=== PATIENT | female | born 1975 | race Caucasian/White ===

== ENCOUNTER 2019-08-22 08:47 | Outpatient (CLI) | payer OTHER, SELFPAY | END 2019-08-22 08:48 | disposition home or self-care (01) | LOC: ANHAUDIO 08:48 | PROVIDERS: PCP Emergency Medicine; Visit Provider Otolaryngology | DX: H72.00 Central perforation of tympanic membrane, unspecified ear (principal); H90.3 Sensorineural hearing loss, bilateral | CPT/HCPCS: 92557; 92567 ==

== ENCOUNTER 2019-11-20 09:28 | Outpatient (CLI) | payer OTHER, SELFPAY ==
--- NOTE | ~2019-11-20 | MM_ITS ---
EXAMINATION: [place] [facility] [place] HISTORY: Screening mammogram TECHNIQUE: Craniocaudal and mediolateral oblique 3-D tomosynthesis images were obtained and synthetic 2-D images were generated. CAD analysis was submitted and interpreted. COMPARISON: 09/12/2018, 04/16/2018, 02/28/2018, 11/14/2016 BREAST PARENCHYMAL COMPOSITION: There are scattered areas of fibroglandular density. FINDINGS: There is no evidence of suspicious mass, calcification, or architectural distortion to sugg est malignancy in either breast. There has been no suspicious interval change. IMPRESSION: 1. No mammographic evidence of malignancy. 2. Recommend routine screening mammography in one year. BI-RADS Category 1: Negative Reviewed, dictated and finalized at location A.
== END 2019-11-20 09:29 | disposition home or self-care (01) ==
LOC: ANHIMG 09:33
PROVIDERS: PCP Emergency Medicine; Visit Provider Emergency Medicine
DX: Z12.31 Encounter for screening mammogram for malignant neoplasm of breast (principal)
CPT/HCPCS: 77063; 77067

== ENCOUNTER 2020-05-25 09:56 | Outpatient (CLI) | payer OTHER, SELFPAY | END 2020-05-25 09:57 | disposition home or self-care (01) | PROVIDERS: PCP Emergency Medicine; Visit Provider Otolaryngology | DX: H72.02 Central perforation of tympanic membrane, left ear (principal) | CPT/HCPCS: 92557; 92567 ==

== ENCOUNTER → 2020-06-08 03:03 | Outpatient (CLI) | payer OTHER, SELFPAY ==
[2020-06-08 21:05] LABS: SARS-CoV-2 RNA PCR Negative
== END ==
PROVIDERS: PCP Emergency Medicine; Visit Provider Otolaryngology
DX: Z01.812 Encounter for preprocedural laboratory examination (principal); Z20.822 Contact with and (suspected) exposure to COVID-19
CPT/HCPCS: C9803; U0003; U0005

== ENCOUNTER 2020-06-08 08:12 | Outpatient (CLI) | payer OTHER, SELFPAY ==
--- NOTE | 2020-06-08 08:30 | ECG_ITS ---
Measurements Intervals [place] Rate: 77 P: 33 W[place]: 203 QRS: -4 QRSD: 98 T: 13 QT: 394 QTc: 448 Interpretive Statements SINUS RHYTHM VENTRICULAR PREMATURE COMPLEX BORDERLINE AV CONDUCTION DELAY LOW QRS VOLTAGE IN PRECORDIAL LEADS BORDERLINE R WAVE PROGRESSION, ANTERIOR LEADS INFERIOR INFARCT, AGE INDETERMINATE BASELINE ARTIFACT- I, II, III, AVR, AVL, AVF ABNORMAL ECG Electronically Signed On 06-08-2020 8:56:36 CDT by Stevenson Beebe D.O.
[2020-06-08 09:24] LABS: Anion Gap 6 mmol/L (8-16); Blood Urea Nitrogen 13 mg/dL (7-17); Calcium 9.3 mg/dL (8.4-10.2); Carbon Dioxide 31 mmol/L (22-30); Chloride 104 mmol/L (98-107); Estimated Glomerular Filt Rate > 60; Glucose 99 mg/dL (65-105); Potassium 4.2 mmol/L (3.4-5.0); Sodium 141 mmol/L (137-145)
[2020-06-08 09:26] LABS: INR 2.1; Prothrombin Time 24.5 Seconds (11.1-14.7)
[2020-06-08 09:27] LABS: Partial Thromboplastin Time 39.8 SECONDS (22.3-36.8)
== END 2020-06-08 08:13 | disposition home or self-care (01) ==
LOC: ANHSURGERY 08:16
PROVIDERS: Anesthesiology; PCP Emergency Medicine; Visit Provider Otolaryngology
DX: E11.9 Type 2 diabetes mellitus without complications (principal); Z79.01 Long term (current) use of anticoagulants; Z01.818 Encounter for other preprocedural examination; I45.9 Conduction disorder, unspecified
CPT/HCPCS: 36415; 80048; 85610; 85730; 93005; C9803; U0003; U0005

== ENCOUNTER 2020-06-11 00:49 | Day surgery (SDC) | payer OTHER, SELFPAY ==
[2020-06-02 14:18] VITALS: BMI 51.6
--- NOTE | 2020-06-10 06:28 | PM.HPGS ---
History of Present Illness History of Present Illness Consent: Risks, benefits, and alternatives have been discussed and questions answered. Patient agrees to proceed with procedure. Chief complaint: Left TM perforation Narrative: Shoshana Salas is a 45 year old female with a large central perforation for tympanoplasty left Review of Systems Review of Systems: All systems reviewed & are unremarkable except as noted in HPI and below PMFSH Past Medical History Medical History Arthritis Back pain CAD (coronary artery disease) Chronic narcotic use Diabetes Endometriosis Hypercholesterolemia Lupus (systemic lupus erythematosus) Morbid obesity with BMI of 45.0-49.9, adult GIO on CPAP Surgical History Surgical History Hx of coronary artery bypass graft Family History Family History Mother Patient's mother is in good health Father Patient's father is in good health Sibling Patient's brother is in good health Other Cerebrovascular accident Diabetes mellitus Family history of arthritis Family history of cardiovascular disease Family history of lung disease Family history of malignant neoplasm Family history of seizure disorder Hypertension Social History Social History Smoking packs per day: 2 Smoking cigarettes per day: 40.0 Years smoked: 20 Smoking pack-years: 40.00 Smoking status: Former smoker Smoking end date: 03/27/09 Alcohol intake: never Substance use: never Gender identity (if verbalized by the patient): Female Spiritual care concerns: No Meds Home Medications and Allergies Home Medications Medication Instructions Recorded Confirmed Type allopurinol 100 mg PO DAILY 01/30/19 06/02/20 History cholecalciferol (vitamin D3) 5,000 unit PO DAILY 01/30/19 06/02/20 History [Vitamin D3] fenofibrate 160 mg PO DAILY 01/30/19 06/02/20 History isosorbide mononitrate 30 mg PO DAILY 01/30/19 06/02/20 History losartan 25 mg PO DAILY 01/30/19 06/02/20 History metformin 1,000 mg PO DAILY 01/30/19 06/02/20 History metoprolol succinate 25 mg PO DAILY 01/30/19 06/02/20 History omeprazole 40 mg PO DAILY 01/30/19 06/02/20 History pravastatin 40 mg PO DAILY 01/30/19 06/02/20 History topiramate 50 mg PO BID 01/30/19 06/02/20 History warfarin 4 mg PO DAILY 01/30/19 06/02/20 History warfarin 4 mg PO DAILY 01/30/19 06/02/20 History calcium carbonate [Calcium 600] 600 mg PO DAILY 02/07/19 06/02/20 History calcium polycarbophil [Fiber-Tabs] 625 mg PO DAILY 02/07/19 06/02/20 History folic acid 1 mg PO DAILY 02/07/19 06/02/20 History hydrocodone-acetaminophen 1 tablet PO Q6H 02/07/19 06/02/20 History methylphenidate HCl [Ritalin] 20 mg PO BID 02/07/19 06/02/20 History multivitamin 1 tablet PO DAILY 02/07/19 06/02/20 History liraglutide 0.6 mg/0.1 mL (18 mg/3 0.6 mg SUBCUT DAILY 03/26/20 06/02/20 History mL) subcutaneous pen injector pregabalin 75 mg capsule 150 mg PO BID 03/26/20 06/02/20 History Allergies Allergy/AdvReac Type Severity Reaction Status Date / Time No Known Allergies Allergy Verified 06/02/20 14:19 Exam Narrative: Exam Narrative: chest clear heart cords are heart without murmurs abdomen soft left central perforation Assessment and Plan Additional Plan plan is a left tympanoplasty
--- NOTE | 2020-06-10 09:47 | WPDANESEPPF ---
Anes - Initial Pre Proc Eval Procedure: Operation Date: 06/11/20 08:00 Proposed Procedures p Left Tympanoplasty - Rhett Serrano MD Date/Time: 06/10/20 09:47 Surgeon: Rhett Serrano MD Pre Op Diagnosis: Left TM perforation Patient Data Age: 45 Gender: F Height: 1.52 m Weight: 120 kg Allergies Allergy/AdvReac Type Severity Reaction Status Date / Time No Known Allergies Allergy Verified 06/11/20 06:27 Home Medications Medication Instructions Recorded Confirmed Type allopurinol 100 mg PO DAILY 01/30/19 06/11/20 History cholecalciferol (vitamin D3) 5,000 unit PO DAILY 01/30/19 06/02/20 History [Vitamin D3] fenofibrate 160 mg PO DAILY 01/30/19 06/11/20 History isosorbide mononitrate 30 mg PO DAILY 01/30/19 06/11/20 History losartan 25 mg PO DAILY 01/30/19 06/11/20 History metformin 1,000 mg PO DAILY 01/30/19 06/11/20 History metoprolol succinate 25 mg PO DAILY 01/30/19 06/11/20 History omeprazole 40 mg PO DAILY 01/30/19 06/11/20 History pravastatin 40 mg PO DAILY 01/30/19 06/11/20 History topiramate 50 mg PO BID 01/30/19 06/11/20 History warfarin 8 mg PO DAILY 01/30/19 06/11/20 History calcium carbonate [Calcium 600] 600 mg PO DAILY 02/07/19 06/11/20 History calcium polycarbophil [Fiber-Tabs] 625 mg PO DAILY 02/07/19 06/11/20 History folic acid 1 mg PO DAILY 02/07/19 06/11/20 History hydrocodone-acetaminophen 1 tablet PO Q6H 02/07/19 06/11/20 History methylphenidate HCl [Ritalin] 20 mg PO BID 02/07/19 06/11/20 History multivitamin 1 tablet PO DAILY 02/07/19 06/11/20 History liraglutide 0.6 mg/0.1 mL (18 mg/3 0.6 mg SUBCUT DAILY 03/26/20 06/11/20 History mL) subcutaneous pen injector pregabalin 75 mg capsule 150 mg PO BID 03/26/20 06/11/20 History Patient hx anesthesia problems: none Family hx anesthesia problems: none [facility] Past Medical History Medical History Arthritis Back pain CAD (coronary artery disease) Chronic narcotic use Diabetes Endometriosis Hypercholesterolemia Lupus (systemic lupus erythematosus) Morbid obesity with BMI of 45.0-49.9, adult GIO on CPAP Surgical History Surgical History Hx of coronary artery bypass graft Family History Family History Mother Patient's mother is in good health Father Patient's father is in good health Sibling Patient's brother is in good health Other Cerebrovascular accident Diabetes mellitus Family history of arthritis Family history of cardiovascular disease Family history of lung disease Family history of malignant neoplasm Family history of seizure disorder Hypertension Social History Social History Smoking packs per day: 2 Smoking cigarettes per day: 40.0 Years smoked: 20 Smoking pack-years: 40.00 Smoking status: Former smoker Smoking end date: 03/27/09 Alcohol intake: never Substance use: never Living arrangements: alone Gender identity (if verbalized by the patient): Female Spiritual care concerns: No Anes - Eval Final PreProcedure Day of Procedure 06/10/20 09:47 Patient weight: super morbidly obese Heart: regular rate and rhythm Lungs: clear to auscultation and normal air movement Airway: Mallampati scale class II Neurological: alert and oriented Last oral intake: >/= 8 hours ASA classification: III Emergent: no Anesthetic plan: proceed Anesthesia type and monitoring: general ETT Informed Consent: The patient's anesthetic plan and its attendant risks and benefits were discussed with the patient/family/POA. Questions were solicited and answers provided to the satisfaction of the patient/family/POA.
[2020-06-11] VITALS (7 sets, daily range): BP systolic 110–140; BP diastolic 81–94; PULSE 78–86; RESP 9–20; TEMP 36.1–36.2; O2SAT 91–98
--- NOTE | 2020-06-11 06:23 | WPDHPUPDATE1 ---
History and Physical Update Update Date/Time: 06/11/20 06:23 History and Physical has been reviewed, including an updated exam of the patient. There are NO changes in the patient's condition. Risks, benefits, and alternatives have been discussed and questions answered. Patient agrees to proceed with procedure.
[2020-06-11] MEDS: LACTATED RINGERS 1,000 ML 30 ML IV CONT (07:01)
[2020-06-11 07:03] LABS: Glucose Point of Care 108 (65-105)
[2020-06-11 07:20] LABS: Prothrombin Time 13.6 Seconds (11.1-14.7)
[2020-06-11] MEDS: LIDO 1%/EPINEPHRINE/PF 1:200,000 30 ML VIAL XX (08:06)
[2020-06-11] MEDS: CIPROFLOXACIN HCL 0.3% OP SOLN 2.5 ML BTL 1 DROP EACH EAR (08:06)
[2020-06-11] MEDS: GELATIN SPONGE 12-7MM 1 EACH TOPICAL (08:07)
[2020-06-11] MEDS: NEOMYCIN/POLYMYXIN/BACITRACIN OINTMENT 15 GM TUBE 1 APPLIC TOPICAL (08:08)
--- NOTE | 2020-06-11 08:17 | PM.PROC ---
Procedure Note - Detailed Date of procedure: 06/11/20 Pre-op diagnosis: Left TM perforation Post-op diagnosis: same Procedure performed: Surgeon: Rhett Serrano MD
--- NOTE | 2020-06-11 08:20 | PM.PROC ---
Procedure Note - Detailed Date of procedure: 06/11/20 Pre-op diagnosis: Left TM perforation Procedure performed: Left fat graft tympanoplasty Description of procedure: Patient was prepped and draped fashion anesthesia the postauricular region in vascular strip were injected with xylocaine with adrenaline central perforation was noted incision was made postauricularly of a piece of adipose tissue harvested and closed with 4 0 chromic this 20 tissue was then placed in an underlay fashion and dumbbell fashion through the perforation and Gelfoam placed on top patient was terminated procedure was terminated Anesthesia: GLMA Surgeon: Rhett Serrano MD Estimated blood loss (mL): 0 Drains: No Packing: No Pathology: none sent Complications: No immediate complications Condition: stable Disposition: PACU Findings: Left central perforation
[2020-06-11 08:30] LABS: Glucose Point of Care 93 (65-105)
[2020-06-11] MEDS: fentaNYL CITRATE INJ (*CRX) 100 MCG/2 ML VIAL 25 MCG IV PUSH ×2 (08:51→08:59)
[2020-06-11] MEDS: oxyCODONE HCL (*CRX) 5 MG TAB IR PO (09:25)
== END 2020-06-11 09:56 | disposition home or self-care (01) ==
PROVIDERS: Anesthesiology; PCP Emergency Medicine; Visit Provider Otolaryngology
PROC: (CPT 69620; principal; 2020-06-11 08:00)
DX: H72.02 Central perforation of tympanic membrane, left ear (principal); M19.90 Unspecified osteoarthritis, unspecified site; I25.10 Atherosclerotic heart disease of native coronary artery without angina pectoris; E11.9 Type 2 diabetes mellitus without complications; N80.9 Endometriosis, unspecified; E78.00 Pure hypercholesterolemia, unspecified; M32.9 Systemic lupus erythematosus, unspecified; G47.33 Obstructive sleep apnea (adult) (pediatric); E66.01 Morbid (severe) obesity due to excess calories; Z68.43 Body mass index [BMI] 50.0-59.9, adult; Z87.891 Personal history of nicotine dependence; Z79.01 Long term (current) use of anticoagulants; Z79.84 Long term (current) use of oral hypoglycemic drugs
CPT/HCPCS: 69620; 36415; 82948; 85610; 85730; A9270; J1100; J2405; J2704; J3010; J7120

== ENCOUNTER 2020-07-26 17:32 | Emergency (ER) | payer OTHER, SELFPAY ==
--- NOTE | ~2020-07-26 | XR_ITS ---
EXAMINATION: XR knee LT 3V DATE: 07/26/2020 18:55 INDICATION: Left knee pain post fall TECHNIQUE: Anteroposterior, oblique and crosstable lateral views of the left knee were obtained COMPARISON: None. FINDINGS: Alignment is normal. No fracture. Joint spaces appear normal on nonweightbearing imaging. No joint e ffusion/layering lipohemarthrosis. A few surgical clips at the medial aspect of the proximal left marc f. Soft tissues are otherwise unremarkable. IMPRESSION: 1. No left knee joint effusion or osseous abnormality. Reviewed, dictated and finalized at location A.
--- NOTE | ~2020-07-26 | CT_ITS ---
EXAMINATION: CT cervical spine wo con DATE: 07/26/2020 18:32 INDICATION: Fall with posterior head injury presenting with headache and back pain. TECHNIQUE: Computed tomography (CT) of the cervical spine was performed without intravenous contrast. Automated exposure control and iterative reconstruction technique were employed. The dose-length pro duct was 529.32 mGy-cm. COMPARISON: Cervical spine MR dated 01/17/2011 FINDINGS: Again seen is straightening of the normal cervical lordosis. Vertebral body and disc heights are norm al. No fracture. Cervical soft tissues are unremarkable. Minimal to mild scattered facet and uncovert ebral osteoarthritis in the cervical spine. No central canal or neural foraminal stenosis. Visualized airway and apices of lungs are clear. IMPRESSION: 1. Minimal cervical spondylosis. No acute osseous abnormality. Reviewed, dictated and finalized at location A.
--- NOTE | ~2020-07-26 | XR_ITS ---
EXAMINATION: XR hip RT 2V w AP pelvis, XR lumbar spine 2-3V DATE: 07/26/2020 18:56 INDICATION: Right hip pain and back pain post fall 2 days prior TECHNIQUE: 1. Anteroposterior view of the pelvis and anteroposterior and frog-leg lateral views of the right hip were obtained. 2. AP, lateral and coned-down lateral lumbosacral views of the lumbar spine were obtained. COMPARISON: None. FINDINGS: Lumbar spine: Alignment is normal. Vertebral body heights are normal. Mild disc height loss and degenerative endpla te osteophytes at L1-L2. Additional mild disc height loss at L4-L5. Sacrum and bilateral sacroiliac j oints are normal. Mild atherosclerotic calcific lesion along the aorta and iliac arteries. Right hip and pelvis: Alignment is normal. No fracture. Bilateral hip joint spaces are normal. Phlebolith in the pelvis. IMPRESSION: 1. Mild lumbar spondylosis. No acute osseous abnormality mild lumbar spine, pelvis or right hip. Reviewed, dictated and finalized at location A. IMPRESSION: 1. Mild lumbar spondylosis. No acute osseous abnormality mild lumbar spine, pel vis or right hip.
--- NOTE | ~2020-07-26 | XR_ITS ---
EXAMINATION: XR knee RT 3V DATE: 07/26/2020 18:55 INDICATION: Right knee pain post fall TECHNIQUE: Anteroposterior, 2 oblique and crosstable lateral views of the right knee were obtained COMPARISON: 05/30/2014 FINDINGS: Alignment is normal. No fracture. Joint spaces appear normal on nonweightbearing imaging. Bone islan d at the lateral femoral condyle. Small right knee joint effusion without layering lipohemarthrosis. Soft tissues are unremarkable. IMPRESSION: 1. Small right knee joint effusion. No acute osseous abnormality. Reviewed, dictated and finalized at location A.
--- NOTE | ~2020-07-26 | CT_ITS ---
EXAMINATION: CT brain wo con DATE: 07/26/2020 18:32 INDICATION: Headache post fall with posterior head injury TECHNIQUE: Computed tomography (CT) of the head was performed without intravenous contrast. Sagittal and coronal reconstructions were performed. The mA was adjusted according to patient size. Iterative reconstruction technique was employed. The dose-length product was 605.33 mGy-cm. COMPARISON: head CT and brain MR dated 10/01/2016 FINDINGS: No fracture. No acute intracranial hemorrhage, acute infarction or abnormal extra axial fluid collect ion. Ventricles are normal and symmetric. No mass/mass effect. Postoperative changes of bilateral ant ral window procedures along the medial paul of the left and right maxillary sinuses. Mild mucosal th ickening in the left sphenoid sinus and posterior left ethmoid air cells. The orbits and mastoid air cells are normal. IMPRESSION: 1. No fracture or acute intracranial process. Reviewed, dictated and finalized at location A.
[2020-07-26 17:33] VITALS: BP 123/75; PULSE 92; RESP 16; TEMP 36.3; O2SAT 97
--- NOTE | 2020-07-26 18:04 | ED.GENADULT ---
HPI - General Adult General Chief complaint: Fall Stated complaint: fall, headache Time Seen by Provider: 07/26/20 17:46 Source: patient History of Present Illness HPI narrative: Patient is a 45 y/o female complaining of bilateral knee pain, back pain, right hip and headache for last 2 days after a fall 2 days ago. She states that she fell after tripping over a fence for baby. She states that she hit her head, but did not lose consciousness. She describes her pain as sharp and rates it as 6-7/10. There is no alleviating or exacerbating factor. She also has some nausea and vomiting. Of note, she is on Warfarin. Related Data Home Medications Medication Instructions Recorded Confirmed allopurinol 100 mg PO DAILY 01/30/19 06/11/20 cholecalciferol (vitamin D3) 5,000 unit PO DAILY 01/30/19 06/02/20 [Vitamin D3] fenofibrate 160 mg PO DAILY 01/30/19 06/11/20 isosorbide mononitrate 30 mg PO DAILY 01/30/19 06/11/20 losartan 25 mg PO DAILY 01/30/19 06/11/20 metformin 1,000 mg PO DAILY 01/30/19 06/11/20 metoprolol succinate 25 mg PO DAILY 01/30/19 06/11/20 omeprazole 40 mg PO DAILY 01/30/19 06/11/20 pravastatin 40 mg PO DAILY 01/30/19 06/11/20 topiramate 50 mg PO BID 01/30/19 06/11/20 warfarin 8 mg PO DAILY 01/30/19 06/11/20 calcium carbonate [Calcium 600] 600 mg PO DAILY 02/07/19 06/11/20 calcium polycarbophil [Fiber-Tabs] 625 mg PO DAILY 02/07/19 06/11/20 folic acid 1 mg PO DAILY 02/07/19 06/11/20 hydrocodone-acetaminophen 1 tablet PO Q6H 02/07/19 06/11/20 methylphenidate HCl [Ritalin] 20 mg PO BID 02/07/19 06/11/20 multivitamin 1 tablet PO DAILY 02/07/19 06/11/20 liraglutide 0.6 mg/0.1 mL (18 mg/3 0.6 mg SUBCUT DAILY 03/26/20 06/11/20 mL) subcutaneous pen injector pregabalin 75 mg capsule 150 mg PO BID 03/26/20 06/11/20 Allergies Allergy/AdvReac Type Severity Reaction Status Date / Time No Known Allergies Allergy Verified 07/26/20 17:44 Review of Systems Constitutional: Constitutional: Denies chills, Denies fever(s), Reports headache(s) and Denies weakness Eyes: Eyes: Denies blurry vision ENT: Reports headache(s) and Denies neck pain Cardiovascular: Cardiovascular: Denies chest pain and Denies dyspnea Respiratory: Respiratory: Denies cough and Denies dyspnea Gastrointestinal: Gastrointestinal: Denies abdominal pain, Denies diarrhea, Reports nausea and Reports vomiting Genitourinary: Genitourinary: Denies hematuria and Denies dysuria Musculoskeletal: Musculoskeletal: Reports back pain, Reports arthralgias (right hip pain, bilateral knee pain) and Denies neck pain Neurologic: Reports headache(s) and Denies weakness [facility] Past Medical History Medical History (Updated 07/27/20 @ 00:00 by Ania Datisha) Arthritis Back pain CAD (coronary artery disease) Chronic narcotic use Diabetes Endometriosis Hypercholesterolemia Lupus (systemic lupus erythematosus) Morbid obesity with BMI of 45.0-49.9, adult GIO on CPAP Surgical History Surgical History Hx of coronary artery bypass graft Family History Family History Mother Patient's mother is in good health Father Patient's father is in good health Sibling Patient's brother is in good health Other Cerebrovascular accident Diabetes mellitus Family history of arthritis Family history of cardiovascular disease Family history of lung disease Family history of malignant neoplasm Family history of seizure disorder Hypertension Social History Social History Smoking packs per day: 2 Smoking cigarettes per day: 40.0 Years smoked: 20 Smoking pack-years: 40.00 Smoking status: Former smoker Smoking end date: 03/27/09 Alcohol intake: never Substance use: never Gender identity (if verbalized by the patient): Female Spiritual care concerns: No Exam Const: General: no acute di
--- NOTE | 2020-07-26 18:25 | PC.NURSE ---
Pt to xray.
[2020-07-26 18:32] LABS: Basophils Absolute Auto 0.1 K/mm3 (0.0-0.1); Eosinophils Absolute Auto 0.3 K/mm3 (0-0.3); Eosinophils Percent Auto 3.4 % (0-4.4); Hematocrit 41.1 % (37.0-47.0); Hemoglobin 13.4 g/dL (12.0-15.0); Immature Granulocyte Absolute 0.01 K/mm3 (0.00-0.031); Immature Granulocyte Percent A 0.1 % (0-0.5); Lymphocytes Absolute Auto 2.32 K/mm3 (0.9-3.2); Lymphocytes Percent Auto 31.8 % (18.3-44.2); Mean Corpuscular HGB Conc 32.6 g/dl (32-36); Mean Corpuscular Hemoglobin 27.6 pg (26-34); Mean Corpuscular Volume 84.7 fl (80-100); Monocytes Absolute Auto 0.7 K/mm3 (0.1-0.6); Neutrophils Percent Auto 54.7 % (45.5-73.1); Platelet Count Result 274 k/mm3 (150-375); Red Blood Count 4.85 M/mm3 (4.2-5.4); Red Cell Distribution Width 13.2 % (11.5-14.5); White Blood Count 7.3 K/mm3 (4.5-10.0)
[2020-07-26 18:41] LABS: Anion Gap 9 mmol/L (8-16); Blood Urea Nitrogen 15 mg/dL (7-17); Calcium 9.5 mg/dL (8.4-10.2); Carbon Dioxide 27 mmol/L (22-30); Chloride 104 mmol/L (98-107); Estimated CRCL calculation 119 ml/min; Estimated Glomerular Filt Rate > 60; Glucose 92 mg/dL (65-105); Potassium 3.8 mmol/L (3.4-5.0); Sodium 140 mmol/L (137-145)
[2020-07-26 18:43] LABS: Prothrombin Time 31.9 Seconds (11.1-14.7)
[2020-07-26 18:44] LABS: Partial Thromboplastin Time 42.4 SECONDS (22.3-36.8)
== END 2020-07-26 19:36 | disposition home or self-care (01) ==
PROVIDERS: Emergency Provider Emergency Medicine; PCP Emergency Medicine
DX: M25.562 Pain in left knee (principal); M25.561 Pain in right knee; M25.551 Pain in right hip; S00.03XA Contusion of scalp, initial encounter; I25.10 Atherosclerotic heart disease of native coronary artery without angina pectoris; E11.9 Type 2 diabetes mellitus without complications; E78.00 Pure hypercholesterolemia, unspecified; N80.9 Endometriosis, unspecified; M32.9 Systemic lupus erythematosus, unspecified; G47.33 Obstructive sleep apnea (adult) (pediatric); E66.01 Morbid (severe) obesity due to excess calories; Z68.43 Body mass index [BMI] 50.0-59.9, adult; M19.90 Unspecified osteoarthritis, unspecified site; Z87.891 Personal history of nicotine dependence; Z95.1 Presence of aortocoronary bypass graft; Z79.84 Long term (current) use of oral hypoglycemic drugs; Z79.01 Long term (current) use of anticoagulants; M47.812 Spondylosis without myelopathy or radiculopathy, cervical region; M47.816 Spondylosis without myelopathy or radiculopathy, lumbar region; W18.09XA Striking against other object with subsequent fall, initial encounter
CPT/HCPCS: 36415; 70450; 72100; 72125; 73502; 73562; 80048; 85025; 85610; 85730; 99284

== ENCOUNTER 2020-10-05 08:03 | Emergency (ER) | payer OTHER, SELFPAY ==
--- NOTE | ~2020-10-05 | XR_ITS ---
EXAMINATION: XR ribs LT 2V DATE: 10/05/2020 08:20 INDICATION: Left rib pain TECHNIQUE: 3 views of the left ribs were obtained. COMPARISON: Chest radiograph dated 04/19/2015 FINDINGS: Nondisplaced relatively recent-appearing anterior left fifth and seventh rib fractures. Suggestion of an old healed posterolateral left fifth rib fracture. Visualized portions of the lungs are clear. No pleural effusion or pneumothorax. Cardiomediastinal silhouette is normal. Median sternotomy wires an d mediastinal surgical clips are seen, likely from prior coronary artery bypass grafting. IMPRESSION: 1. Recent appearing nondisplaced anterior left fifth and seventh rib fractures. 2. No acute cardiopulmonary disease. Reviewed, dictated and finalized at location A.
--- NOTE | 2020-10-05 08:05 | ED.GENADULT ---
HPI - General Adult General Chief complaint: Chest Pain Stated complaint: Left side pain Time Seen by Provider: 10/05/20 08:06 Source: patient and RN notes reviewed History of Present Illness HPI narrative: Patient is a 45-year-old female who presents the urgent care with complaints of anterior and lateral left side pain. Patient states that 2 days ago she went to the chiropractor and had an adjustment and believes that she may have displaced or cracked a rib . Patient states that the chiropractor told her to put ice and heat on the area and she has been taking her prescription Zanoni without much pain relief. Patient states that it exacerbates with movement and deep breathing. Denies of any shortness of breath. No other acute complaints. No acute distress noted. Patient aware of the plan of care. Some parts of this dictation were generated by voice recognition software and may contain typographical and/or grammatical inaccuracies. Related Data Home Medications Medication Instructions Recorded Confirmed allopurinol 100 mg PO DAILY 01/30/19 06/11/20 cholecalciferol (vitamin D3) 5,000 unit PO DAILY 01/30/19 06/02/20 [Vitamin D3] fenofibrate 160 mg PO DAILY 01/30/19 06/11/20 isosorbide mononitrate 30 mg PO DAILY 01/30/19 06/11/20 losartan 25 mg PO DAILY 01/30/19 06/11/20 metformin 1,000 mg PO DAILY 01/30/19 06/11/20 metoprolol succinate 25 mg PO DAILY 01/30/19 06/11/20 omeprazole 40 mg PO DAILY 01/30/19 06/11/20 pravastatin 40 mg PO DAILY 01/30/19 06/11/20 topiramate 50 mg PO BID 01/30/19 06/11/20 warfarin 8 mg PO DAILY 01/30/19 06/11/20 calcium carbonate [Calcium 600] 600 mg PO DAILY 02/07/19 06/11/20 calcium polycarbophil [Fiber-Tabs] 625 mg PO DAILY 02/07/19 06/11/20 folic acid 1 mg PO DAILY 02/07/19 06/11/20 hydrocodone-acetaminophen 1 tablet PO Q6H 02/07/19 06/11/20 methylphenidate HCl [Ritalin] 20 mg PO BID 02/07/19 06/11/20 multivitamin 1 tablet PO DAILY 02/07/19 06/11/20 liraglutide 0.6 mg/0.1 mL (18 mg/3 0.6 mg SUBCUT DAILY 03/26/20 06/11/20 mL) subcutaneous pen injector pregabalin 75 mg capsule 150 mg PO BID 03/26/20 06/11/20 amlodipine 10/05/20 nitroglycerin mg 10/05/20 10/05/20 Allergies Allergy/AdvReac Type Severity Reaction Status Date / Time No Known Allergies Allergy Verified 10/05/20 08:14 Review of Systems Review of Systems: Narrative: CONSTITUTIONAL: Denies fever, chills, or sweats. EYES: Denies visual changes, redness, or discharge. ENT: Denies rhinorrhea, congestion, sore throat, or otalgia. CARDIOVASCULAR: Denies chest pain, palpitations, or edema. RESPIRATORY: Denies cough or dyspnea. GASTROINTESTINAL: Denies abdominal pain, nausea, vomiting, or diarrhea. GENITOURINARY: Denies dysuria or hematuria. SKIN: Denies rash or itching. MUSCULOSKELETAL: Reports of left rib pain NEUROLOGIC: Denies headache, numbness, or weakness. All other systems reviewed are negative, except as documented in HPI. [facility] Past Medical History Medical History (Updated 10/05/20 @ 08:45 by ZEINAB Quinones) Arthritis Back pain CAD (coronary artery disease) Chronic narcotic use Diabetes Endometriosis Hypercholesterolemia Lupus (systemic lupus erythematosus) Morbid obesity with BMI of 45.0-49.9, adult GIO on CPAP Surgical History Surgical History Hx of coronary artery bypass graft Family History Family History Mother Patient's mother is in good health Father Patient's father is in good health Sibling Patient's brother is in good health Other Cerebrovascular accident Diabetes mellitus Family history of arthritis Family history of cardiovascular disease Family history of lung disease Family history of malignant neoplasm Family history of seizure disorder Hypertension Social History Social History Smoking packs per day: 2 Smokin
[2020-10-05 08:11] VITALS: BP 142/72; PULSE 85; RESP 16; TEMP 36.4; O2SAT 98
== END 2020-10-05 08:55 | disposition home or self-care (01) ==
PROVIDERS: Emergency Provider Nurse Practitioner Family; PCP Emergency Medicine
DX: S22.42XA Multiple fractures of ribs, left side, initial encounter for closed fracture (principal); X58.XXXA Exposure to other specified factors, initial encounter; M19.90 Unspecified osteoarthritis, unspecified site; I25.10 Atherosclerotic heart disease of native coronary artery without angina pectoris; E11.9 Type 2 diabetes mellitus without complications; N80.9 Endometriosis, unspecified; E78.00 Pure hypercholesterolemia, unspecified; M32.9 Systemic lupus erythematosus, unspecified; G47.33 Obstructive sleep apnea (adult) (pediatric); E66.01 Morbid (severe) obesity due to excess calories; Z68.42 Body mass index [BMI] 45.0-49.9, adult; Z95.1 Presence of aortocoronary bypass graft
CPT/HCPCS: 71100; 99213; G0463

== ENCOUNTER 2020-11-05 13:10 | Outpatient (CLI) | payer OTHER, SELFPAY ==
--- NOTE | ~2020-11-05 | DEXA_ITS ---
Bone Density Report Name: Shoshana Salas Age: 45 Sex: Female Ethnicity: White Date of : 1975 Indication: monitoring treatment; height loss; prior fracture; hysterectomy; rheumatoid arthritis; postmenopausal Referring Provider: Kingsley, Nelia Hoover Study: Bone densitometry was performed. Exam Date: November 05, 2020 Accession number: [id number] Bone Density: Region BMD T-score Z-score Classification AP Spine (L1-L4) 0.954 -0.8 -0.4 Normal Femoral Neck (Left) 0.727 -1.1 -0.7 Osteopenia Total Hip (Left) 0.961 0.2 0.4 Normal Total Hip Bilateral Avg 0.930 -0.1 0.2 Normal Femoral Neck (Right) 0.687 -1.5 -1.1 Osteopenia Total Hip (Right) 0.897 -0.4 -0.1 Normal World Health Organization criteria for BMD impression classify patients as: Normal (T-score at or above -1.0), Osteopenia (T-score between -1.0 and -2.5), or Osteoporosis (T-score at or below -2.5). 10-year Fracture Risk: FRAX not reported because: Treated for osteoporosis Previous Exams: Region Exam Age BMD T-score BMD Change BMD Change Date g/cm2 vs Baseline vs Previous AP Spine(L1-L4) 11/05/2020 45 0.954 -0.8 0.057(6.4%)* 0.009(1.0%) 02/14/2019 43 0.945 -0.9 0.048(5.4%)* -0.030(-3.1%)* 11/14/2016 41 0.975 -0.7 0.078(8.8%)* 0.078(8.8%)* 01/23/2014 38 0.897 -1.4 Total Hip(Left) 11/05/2020 45 0.961 0.2 0.073(8.2%)* -0.013(-1.4%) 02/14/2019 43 0.974 0.3 0.086(9.7%)* -0.126(-11.4%) 11/14/2016 41 1.100 1.3 0.212(23.8%)* 0.212(23.8%)* 01/23/2014 38 0.889 -0.4 Total Hip(Right) 11/05/2020 45 0.897 -0.4 0.072(8.7%)* -0.021(-2.3%) 02/14/2019 43 0.918 -0.2 0.093(11.3%)* -0.061(-6.2%)* 11/14/2016 41 0.979 0.3 0.153(18.6%)* 0.153(18.6%)* 01/23/2014 38 0.825 -1.0 *Denotes significance at 95% confidence level, LSC for AP Spine = 0.022 g/cm2, LSC for Total Hip = 0.027 g/cm2 Clinical Information Provided by Patient: Has had a low trauma fracture Has rheumatoid arthritis Is being treated for osteoporosis Has used the following medications: Fosamax (i.e. alendronate), Vitamin D, Calcium Has the following medical conditions: Hysterectomy, Lupus Patient maximum height was 61 Menopause Age: 26 Drinks caffeinated beverages Onset of menses at age 12 Number of children 2 Impression: The patient has low bone mass, based on the Right Femoral Neck T-score. The patient has risk factors, including: previous fracture. No significant
== END 2020-11-05 13:11 | disposition home or self-care (01) ==
LOC: ANHIMG 13:11
PROVIDERS: PCP Emergency Medicine; Visit Provider Internal Medicine Endocrinology, Diabetes & Metabolism
DX: M85.852 Other specified disorders of bone density and structure, left thigh (principal); M85.851 Other specified disorders of bone density and structure, right thigh
CPT/HCPCS: 77080

== ENCOUNTER 2020-11-19 09:06 | Outpatient (CLI) | payer OTHER, SELFPAY ==
--- NOTE | ~2020-11-19 | MM_ITS ---
EXAMINATION: MM screening [facility] BI w meera HISTORY: Screening mammogram TECHNIQUE: Craniocaudal and mediolateral oblique 3-D tomosynthesis images were obtained and synthetic 2-D images were generated. CAD analysis was submitted and interpreted. COMPARISON: 11/20/2019, 09/12/2018, 04/16/2018, 02/28/2018 BREAST PARENCHYMAL COMPOSITION: There are scattered areas of fibroglandular density. FINDINGS: There is no evidence of suspicious mass, calcification, or architectural distortion to sugg est malignancy in either breast. There has been no suspicious interval change. IMPRESSION: 1. No mammographic evidence of malignancy. 2. Recommend routine screening mammography in one year. BI-RADS Category 1: Negative Reviewed, dictated and finalized at location A.
== END 2020-11-19 09:07 | disposition home or self-care (01) ==
LOC: ANHIMG 09:10
PROVIDERS: PCP Emergency Medicine; Visit Provider Emergency Medicine
DX: Z12.31 Encounter for screening mammogram for malignant neoplasm of breast (principal)
CPT/HCPCS: 77063; 77067

== ENCOUNTER 2021-06-25 09:23 | Outpatient (CLI) | payer OTHER, SELFPAY ==
--- NOTE | 2021-06-25 | ECHO_ITS ---
Patient Info Name: Shoshana Salas Age: 46 years : 1975 Gender: Female Ht: 60 in Wt: 222 lbs BSA: 2.13 m2 HR: 68 bpm BP: 103 / 79 mmHg Technical Quality: Fair Exam Date: 06/25/2021 9:58 AM Exam Location: [facility] Patient Status: Outpatient Admit Date: 06/25/2021 Staff Ordering Physician: Franki Flor MD [employer] [facility] Practitioner: Hilda Navarro RDCS Attending Provider: Franki Flor MD Referring Physician: Chacho KAY; Exam Type: CA echo doppler color flow Study Info Indications - cabg arthrersclerotic Complete two-dimensional, color flow and Doppler transthoracic echocardiogram is performed. Summary 1. Complete two-dimensional, color flow and Doppler transthoracic echocardiogram is performed. 2. Left ventricular chamber dimension is normal. 3. Left ventricular systolic function is normal, estimated at 55-60%. 4. There is mildly increased left ventricular wall thickness. 5. The left ventricular diastolic function is grade I diastolic dysfunction. 6. E/e' 10 is mildly elevated. 7. There is trace tricuspid valve regurgitation. 8. No pulmonary hypertension, estimated pulmonary arterial systolic pressure is 29 mmHg. 9. There is trace pulmonic regurgitation. Left Ventricle E/e' 10 is mildly elevated. Left ventricular chamber dimension is normal. Left ventricular systolic function is normal, estimated at 55-60%. There is mildly increased left ventricular wall thickness. The left ventricular diastolic function is grade I diastolic dysfunction. Right Ventricle Right ventricular chamber dimension is normal. Right ventricular systolic function is normal. Left Atria Left atrial chamber dimension is normal. Right Atria Right atrial chamber dimension is normal. Aortic Valve The aortic valve is trileaflet. There is no aortic valve stenosis. There is no aortic valve regurgitation. Pulmonic Valve There is trace pulmonic regurgitation. Mitral Valve There is no mitral valve stenosis. There is no mitral valve regurgitation. Tricuspid Valve There is trace tricuspid valve regurgitation. No pulmonary hypertension, estimated pulmonary arterial systolic pressure is 29 mmHg. Pericardium/Pleural There is no pericardial effusion. Inferior Vena Cava Normal inferior vena cava with >50% collapse upon inspiration consistent with normal right atrial pressure, 5 mmHg. Aorta The aortic root size at the sinus of Valsalva is normal. Left Ventricular Outflow Tract Name Value Normal LVOT 2D LVOT Diameter 2.0 cm LVOT Doppler LVOT Peak Gradient 5 mmHg LVOT Mean Gradient 3 mmHg LVOT VTI 24 cm LVOT VTI/AV VTI Ratio 0.8 LVOT Stroke Volume 73 ml LVOT CO 15.0 l/min LVOT CI 7.1 l/min/m2 Pulmonic Valve Name Value Normal
== END 2021-06-25 09:24 | disposition home or self-care (01) ==
PROVIDERS: PCP Emergency Medicine; Visit Provider Emergency Medicine
DX: Z95.1 Presence of aortocoronary bypass graft (principal)
CPT/HCPCS: 93306

== ENCOUNTER 2021-09-13 01:56 | Emergency (ER) | payer OTHER, SELFPAY ==
--- NOTE | ~2021-09-13 | XR_ITS ---
EXAMINATION: XR forearm RT 2V DATE: 09/13/2021 02:30 INDICATION: Right forearm pain and swelling. TECHNIQUE: 2 views of right forearm were obtained. COMPARISON: None. FINDINGS: Bone alignment is normal. No fracture. There is mild osteoarthritis of first carpometacarpa l joint. No elbow joint effusion. IMPRESSION: 1. No fracture. Reviewed, dictated and finalized at location A. IMPRESSION: 1. No fracture.
--- NOTE | 2021-09-13 02:10 | ED.EXTPRO ---
HPI - Extremity Problem General Chief complaint: Extremity Problem,Nontraumatic Stated complaint: bruising to right arm Time Seen by Provider: 09/13/21 02:02 History of Present Illness HPI Narrative: 46-year-old female presents emergency room secondary to bruising and swelling to her right forearm. She states woke up about 10:00 Monday morning and noticed it. She is continued throughout the day. She denies any specific trauma or injury that she is aware of. Patient has a bleeding disorder and has been on Coumadin for many years. She did stop the Coumadin and switched over to Lovenox that she supposed to have bariatric surgery this coming Monday. She can move her hand and wrist. She thinks maybe she got bit by some type of insect which caused this. She initially came in saying I hope I do not have a blood clot in my arm . I explained to her that I am more concerned just the opposite is bruising in the area and is probably secondary to the fact she been on anticoagulants. Related Data Home Medications Medication Instructions Recorded Confirmed allopurinol 100 mg tablet 100 mg PO DAILY 01/30/19 06/11/20 cholecalciferol (vitamin D3) 125 5,000 unit PO DAILY 01/30/19 06/02/20 mcg (5,000 unit) tablet (Vitamin D3) fenofibrate 160 mg tablet 160 mg PO DAILY 01/30/19 06/11/20 isosorbide mononitrate 30 mg 30 mg PO DAILY 01/30/19 06/11/20 tablet,extended release 24 hr losartan 25 mg tablet 25 mg PO DAILY 01/30/19 06/11/20 metformin 500 mg tablet,extended 1,000 mg PO DAILY 01/30/19 06/11/20 release 24 hr metoprolol succinate 25 mg capsule 25 mg PO DAILY 01/30/19 06/11/20 sprinkle, ext. release 24 hr omeprazole 20 mg capsule,delayed 40 mg PO DAILY 01/30/19 06/11/20 release pravastatin 40 mg tablet 40 mg PO DAILY 01/30/19 06/11/20 topiramate 50 mg tablet 50 mg PO BID 01/30/19 06/11/20 warfarin 4 mg tablet 8 mg PO DAILY 01/30/19 06/11/20 calcium carbonate 600 mg calcium 600 mg PO DAILY 02/07/19 06/11/20 (1,500 mg) tablet (Calcium) calcium polycarbophil 625 mg 625 mg PO DAILY 02/07/19 06/11/20 tablet (Fiber-Tabs) folic acid 1 mg tablet 1 mg PO DAILY 02/07/19 06/11/20 hydrocodone 7.5 mg-acetaminophen 1 tablet PO Q6H 02/07/19 06/11/20 325 mg tablet methylphenidate HCl 20 mg tablet 20 mg PO BID 02/07/19 06/11/20 (Ritalin) multivitamin 1 tablet PO DAILY 02/07/19 06/11/20 liraglutide 0.6 mg/0.1 mL (18 mg/3 0.6 mg subcut DAILY 03/26/20 06/11/20 mL) subcutaneous pen injector (Victoza 2-Jovany) pregabalin 75 mg capsule (Lyrica) 150 mg PO BID 03/26/20 06/11/20 amlodipine 2.5 mg tablet 10/05/20 nitroglycerin 0.4 mg sublingual mg 10/05/20 10/05/20 tablet Allergies Allergy/AdvReac Type Severity Reaction Status Date / Time No Known Allergies Allergy Verified 09/13/21 02:24 Review of Systems Review of Systems: CONSTITUTIONAL: Denies fever, chills, or sweats. EYES: Denies visual changes, redness, or discharge. ENT: Denies rhinorrhea, congestion, sore throat, or otalgia. CARDIOVASCULAR: Denies chest pain, palpitations, or edema. RESPIRATORY: Denies cough or dyspnea. GASTROINTESTINAL: Denies abdominal pain, nausea, vomiting, or diarrhea. GENITOURINARY: Denies dysuria or hematuria. SKIN: Denies rash or itching. MUSCULOSKELETAL: Swelling tenderness and bruising to the right forearm NEUROLOGIC: Denies headache, numbness, or weakness. PSYCHIATRIC: Denies anxiety or depression. [facility] Past Medical History Medical History (Updated 09/13/21 @ 02:48 by Santo Rodas DO) Arthritis Back pain CAD (coronary artery disease) Chronic narcotic use Diabetes Endometriosis Hypercholesterolemia Lupus (systemic lupus erythematosus) Morbid obesity with BMI of 45.0-49.9, adult GIO on CPAP Surgical History Surgical History Hx of coronary artery bypass graft Family History Family History Mother Patient's moth
[2021-09-13 02:18] VITALS: BP 99/62; PULSE 64; RESP 18; TEMP 36.6; O2SAT 100
--- NOTE | 2021-09-13 02:24 | PC.NURSE ---
Pt to XR via stretcher at this time.
== END 2021-09-13 02:54 | disposition home or self-care (01) ==
PROVIDERS: Emergency Provider Emergency Medicine; PCP Emergency Medicine
DX: M79.81 Nontraumatic hematoma of soft tissue (principal); I25.10 Atherosclerotic heart disease of native coronary artery without angina pectoris; E11.9 Type 2 diabetes mellitus without complications; E78.00 Pure hypercholesterolemia, unspecified; M32.9 Systemic lupus erythematosus, unspecified; E66.01 Morbid (severe) obesity due to excess calories; Z68.41 Body mass index [BMI] 40.0-44.9, adult; G47.33 Obstructive sleep apnea (adult) (pediatric); Z95.1 Presence of aortocoronary bypass graft; Z79.84 Long term (current) use of oral hypoglycemic drugs; Z79.01 Long term (current) use of anticoagulants; Z87.891 Personal history of nicotine dependence
CPT/HCPCS: 73090; 99283

== ENCOUNTER 2021-09-14 10:15 | Outpatient (CLI) | payer OTHER, SELFPAY ==
--- NOTE | ~2021-09-14 | US_ITS ---
EXAMINATION: US venous doppler UE RT DATE: 09/14/2021 11:10 INDICATION: Nontraumatic hematoma of soft tissue the right upper limb TECHNIQUE: Grayscale images without and with compression and Doppler images of the right upper extrem ity veins were obtained. COMPARISON: 10/07/2010 FINDINGS: The right internal jugular vein, subclavian vein, axillary vein, brachial vein, basilic vein, cephali c vein, radial vein, and ulnar vein are patent. There is prominent reticulated pattern of hypoechoic subcutaneous edema at the posterolateral aspect of the right forearm in the region of swelling. No lo culated/organized-appearing fluid collection to suggest abscess or hematoma. The subcutaneous tissues at the anteromedial aspect of the right forearm in the region of reported erythema appear normal. IMPRESSION: 1. Patent right upper extremity veins. No evidence of venous thrombosis. 2. Prominent subcutaneous edema at the posterolateral right forearm. No evident abscess or hematoma. Reviewed, dictated and finalized at location B.
== END 2021-09-14 10:16 | disposition home or self-care (01) ==
PROVIDERS: PCP Emergency Medicine; Visit Provider Emergency Medicine
DX: Z79.01 Long term (current) use of anticoagulants (principal)
CPT/HCPCS: 93971

== ENCOUNTER 2021-11-16 16:10 | Outpatient (CLI) | payer OTHER, SELFPAY ==
--- NOTE | ~2021-11-16 | MM_ITS ---
EXAMINATION: MM screening [facility] BI w meera HISTORY: Screening TECHNIQUE: Craniocaudal and mediolateral oblique 3-D tomosynthesis images were obtained and synthetic 2-D images were generated. CAD analysis was submitted and interpreted. COMPARISON: Comparison to multiple prior studies sequentially, with oldest reviewed study dated 11/14. BREAST PARENCHYMAL COMPOSITION: There are scattered areas of fibroglandular density. FINDINGS: Bilateral breast asymmetries are stable. There is no evidence of suspicious mass, calcifica tion, or architectural distortion to suggest malignancy in either breast. There has been no suspiciou s interval change. IMPRESSION: 1. No mammographic evidence of malignancy. 2. Recommend routine screening mammography in one year. BI-RADS Category 1: Negative Reviewed, dictated and finalized at location A.
== END 2021-11-16 16:11 | disposition home or self-care (01) ==
PROVIDERS: PCP Emergency Medicine; Visit Provider Emergency Medicine
DX: Z12.31 Encounter for screening mammogram for malignant neoplasm of breast (principal)
CPT/HCPCS: 77063; 77067

== ENCOUNTER 2022-01-21 09:15 | Outpatient (CLI) | payer OTHER, SELFPAY ==
--- NOTE | ~2022-01-21 | US_ITS ---
US abdomen limited INDICATION: Abdominal pain PROCEDURE: Realtime right upper abdominal ultrasound. COMPARISON: No prior studies for comparison. FINDINGS: The pancreas is normal without focal mass or pancreatic ductal dilation. Liver echotexture is increased, consistent with fatty infiltration. There is normal directional flow in the portal ve in. The gallbladder is normal without stones, gallbladder wall thickening or pericholecystic fluid. Comm on bile duct measures 2 mm. No sonographic Salas's sign. IMPRESSION: 1: Hepatic steatosis. Reviewed, dictated and finalized at location B. IMPRESSION: 1: Hepatic steatosis.
== END 2022-01-21 09:16 | disposition home or self-care (01) ==
PROVIDERS: PCP Emergency Medicine
DX: R10.13 Epigastric pain (principal); K76.0 Fatty (change of) liver, not elsewhere classified
CPT/HCPCS: 76705

== ENCOUNTER 2022-05-19 08:09 | Outpatient (CLI) | payer OTHER, SELFPAY ==
--- NOTE | ~2022-05-19 | NM_ITS ---
EXAMINATION: NM hepatobiliary wo pharm DATE: 05/19/2022 12:28 FACILITY MAINTENANCE TECHNICIAN INDICATION: Right upper quadrant pain and vomiting COMPARISON: None. TECHNIQUE: 4.7 mCi Tc-99m mebrofenin (Choletec) was administered intravenously. Scintigraphic images of the abdomen were obtained for one hour. At the 1 hour time point, the patient drank 8 oz Ensure, and imaging was continued for 60 minutes. Gallbladder ejection fraction was calculated by the technol ogist. FINDINGS: There is normal clearance of radiotracer from the blood pool. There is homogeneous tracer u ptake by the liver. Activity progresses to the bowel and gallbladder. The gallbladder ejection fract ion is 73%. Note that with this technique, normal GBEF >= 33%. IMPRESSION: 1. Normal nuclear hepatobiliary scan. Reviewed, dictated and finalized at location L. LITY MAINTENANCE TECHNICIAN
== END 2022-05-19 08:10 | disposition home or self-care (01) ==
PROVIDERS: PCP Emergency Medicine
DX: R10.11 Right upper quadrant pain (principal); R11.10 Vomiting, unspecified
CPT/HCPCS: 78226; A9537

== ENCOUNTER 2022-06-29 09:04 | Outpatient (CLI) | payer OTHER, SELFPAY | END 2022-06-29 09:05 | disposition home or self-care (01) | LOC: ANHAUDIO 09:04 | PROVIDERS: PCP Emergency Medicine; Visit Provider Otolaryngology | DX: H66.93 Otitis media, unspecified, bilateral (principal); J34.2 Deviated nasal septum; H90.3 Sensorineural hearing loss, bilateral; H69.80 Other specified disorders of Eustachian tube, unspecified ear | CPT/HCPCS: 92557; 92567 ==

== ENCOUNTER 2022-09-16 09:46 | Outpatient (CLI) | payer OTHER, SELFPAY ==
--- NOTE | ~2022-09-16 | XR_ITS ---
EXAMINATION: XR scanogram DATE: 09/16/2022 10:28 INDICATION: Left hip pain. Leg length discrepancy. TECHNIQUE: Standing AP view of the bilateral lower extremities from the pelvis through the ankles wer e obtained on 3 separate overlapping proximal to distal images. COMPARISON: None. FINDINGS: There is a minimal leg length discrepancy which begins at the level of the ankle with the central rig ht talar dome 4 mm above the left, the joint line of the right knee 5 mm above the left and the apex of the right femoral head 3 mm above the left. Alignment is otherwise normal. No fractures. Joint [place] appear relatively preserved throughout. Surgical clips at the medial aspect of the left calf. IMPRESSION: 1. Minimal leg length discrepancy with the apex of the right femoral head 3 mm above the left. Reviewed, dictated and finalized at location A.
== END 2022-09-16 09:47 | disposition home or self-care (01) ==
PROVIDERS: PCP Emergency Medicine; Visit Provider Emergency Medicine
DX: M25.552 Pain in left hip (principal); M21.751 Unequal limb length (acquired), right femur
CPT/HCPCS: 77073

== ENCOUNTER 2023-01-12 14:47 | Inpatient (IN) | payer OTHER, SELFPAY ==
[2023-01-12] VITALS (9 sets, daily range): BP systolic 113–125; BP diastolic 67–82; PULSE 61–73; RESP 15–25; TEMP 36.3; O2SAT 92–100
--- NOTE | ~2023-01-12 | XR_ITS ---
EXAMINATION: XR chest 2V DATE: 01/12/2023 15:06 INDICATION: Chest pain TECHNIQUE: PA and lateral views of the chest are obtained. COMPARISON: 04/19/2015 FINDINGS: There is mild atelectasis at the lung bases. No pleural effusion or pneumothorax. The heart size is normal. There is moderate thoracic spondylosis. Median sternotomy wires and mediastinal surg ical clips are seen, likely from prior coronary artery bypass grafting. IMPRESSION: 1. No acute cardiopulmonary abnormality. Reviewed, dictated and finalized at location F.
--- NOTE | 2023-01-12 14:48 | ECG_ITS ---
Measurements Intervals [place] Rate: 70 P: 19 AR: 167 QRS: -13 QRSD: 87 T: 1 QT: 393 QTc: 426 Interpretive Statements SINUS RHYTHM INFERIOR MYOCARDIAL INFARCTION , PROBABLY OLD [40+ ms Q WAVE AND/OR ST/T ABNORMALITY IN II/aVF] ABNORMAL ECG COMPARED TO ECG 06/08/2020 08:54:35 NO SIGNIFICANT CHANGES Electronically Signed On 01-12-2023 17:24:42 CDT by Charlie Loza M.D.
[2023-01-12 15:14] LABS: Basophils Absolute Auto 0.1 K/mm3 (0.0-0.1); Basophils Percent Auto 0.8 % (0.2-1.2); Eosinophils Absolute Auto 0.2 K/mm3 (0-0.3); Eosinophils Percent Auto 2.2 % (0-4.4); Hematocrit 46.4 % (37.0-47.0); Hemoglobin 14.6 g/dL (12.0-15.0); Immature Granulocyte Absolute 0.02 K/mm3 (0.00-0.031); Immature Granulocyte Percent A 0.3 % (0-0.5); Lymphocytes Absolute Auto 1.42 K/mm3 (0.9-3.2); Lymphocytes Percent Auto 18.3 % (18.3-44.2); Mean Corpuscular HGB Conc 31.5 g/dl (32-36); Mean Corpuscular Hemoglobin 27.5 pg (26-34); Mean Corpuscular Volume 87.5 fl (80-100); Mean Platelet Volume 10.8 fl (7.4-10.4); Monocytes Absolute Auto 0.6 K/mm3 (0.1-0.6); Monocytes Percent Auto 7.3 % (2.6-8.5); Neutrophils Absolute Auto 5.5 K/mm3 (1.3-6.7); Neutrophils Percent Auto 71.1 % (45.5-73.1); Platelet Count Result 229 k/mm3 (150-375); Red Cell Distribution Width 13.6 % (11.5-14.5); White Blood Count 7.8 K/mm3 (4.5-10.0)
[2023-01-12 15:21] LABS: Alanine Aminotransferase 30 U/L (6-35); Albumin Level 4.7 g/dL (3.5-5.1); Alkaline Phosphatase 59 U/L (38-126); Anion Gap 8 mmol/L (8-16); Aspartate Amino Transferase 27 U/L (14-36); Bilirubin,Total 0.6 mg/dL (0.2-1.3); Blood Urea Nitrogen 16 mg/dL (7-17); Calcium 9.6 mg/dL (8.4-10.2); Carbon Dioxide 28 mmol/L (22-30); Chloride 103 mmol/L (98-107); Estimated CRCL calculation 119 ml/min; Estimated Glomerular Filt Rate > 60; Glucose 104 mg/dL (65-110); Lipase 128 U/L (23-300); Potassium 3.6 mmol/L (3.4-5.0); Sodium 139 mmol/L (137-145)
[2023-01-12 15:27] LABS: Prothrombin Time 13.1 Seconds (11.1-14.7)
[2023-01-12 15:28] LABS: Partial Thromboplastin Time 23.8 SECONDS (22.3-36.8)
[2023-01-12 15:33] LABS: Troponin I < 0.012 ng/mL (0.000-0.034)
--- NOTE | 2023-01-12 19:51 | ED.GENADULT ---
HPI - General Adult General Chief complaint: Chest Pain Stated complaint: CP, SOB Time Seen by Provider: 01/12/23 19:37 Source: patient Mode of arrival: ambulatory Limitations: no limitations History of Present Illness HPI narrative: This is a 47-year-old female with PMH of CAD, status post CABG x2, congenital heart defect, GIO who presents to the ED with chief complaint of chest pain ongoing for the past 4 days intermittently. She states it is worse today. Reports it is in the central chest/upper epigastrium area. Reports it is occasionally worsened with exertion but denies any LOC, vomiting or radiation of pain. She also describes having difficulty swallowing so she is unsure if this is cardiac or GI related. States she has had a paraesophageal hernia in the past. She talked with her doctor who wanted her to be seen in the emergency department. Denies fevers, chills, cough, leg swelling, palpitations, abdominal pain, nausea, vomiting. No blood clot history. Related Data Home Medications Medication Instructions Recorded Confirmed allopurinol 100 mg tablet 100 mg PO DAILY 01/30/19 01/13/23 fenofibrate 160 mg tablet 160 mg PO DAILY 01/30/19 01/13/23 isosorbide mononitrate 30 mg 30 mg PO DAILY 01/30/19 01/13/23 tablet,extended release 24 hr losartan 25 mg tablet 12.5 mg PO DAILY 01/30/19 01/13/23 metoprolol succinate 25 mg capsule 25 mg PO DAILY 01/30/19 01/13/23 sprinkle, ext. release 24 hr pravastatin 40 mg tablet 40 mg PO DAILY 01/30/19 01/13/23 warfarin 4 mg tablet 8 mg PO BID 01/30/19 01/13/23 folic acid 1 mg tablet 1 mg PO DAILY 02/07/19 01/13/23 methylphenidate HCl 20 mg tablet 20 mg PO BID 02/07/19 01/13/23 (Ritalin) multivitamin 1 tablet PO DAILY 02/07/19 01/13/23 pregabalin 75 mg capsule (Lyrica) 150 mg PO BID 03/26/20 01/13/23 nitroglycerin 0.4 mg sublingual 0.4 mg sublingual Q5MIN PRN Chest 10/05/20 01/13/23 tablet Pain aspirin 81 mg tablet,delayed 81 mg PO DAILY 01/13/23 01/13/23 release biotin 10,000 mcg-keratin 100 mg 1 tablet PO DAILY 01/13/23 01/13/23 tablet calcium citrate 500 mg (2,376 mg) 500 mg PO BID 01/13/23 01/13/23 effervescent tablet cholecalciferol (vitamin D3) 50 50 mcg PO DAILY 01/13/23 01/13/23 mcg (2,000 unit) chewable tablet cyanocobalamin (vitamin B-12) 1,000 mcg subcut WEEKLY 01/13/23 01/13/23 1,000 mcg/mL injection solution cyclobenzaprine 10 mg tablet 10 mg PO BID PRN Muscle Spasm 01/13/23 01/13/23 docusate sodium 100 mg tablet 100 mg PO DAILY 01/13/23 01/13/23 escitalopram oxalate 10 mg tablet 10 mg PO DAILY 01/13/23 01/13/23 hydrocodone 10 mg-acetaminophen 1 tablet PO Q6H PRN Moderate Pain 01/13/23 01/13/23 325 mg tablet (Scale Score 5-6) lysine 1,000 mg tablet 1,000 mg PO DAILY 01/13/23 01/13/23 magnesium 250 mg tablet 250 mg PO DAILY 01/13/23 01/13/23 ryqiditz-vrlrnkuq-npue 45 mg-folic 1 cap PO DAILY 01/13/23 01/13/23 acid 800 mcg-vit K 120 mcg capsule (Bariatric Multivitamins) omeprazole 40 mg capsule,delayed 40 mg PO DAILY 01/13/23 01/13/23 release ondansetron 4 mg disintegrating 4 mg translingual Q8H PRN Nausea 01/13/23 01/13/23 tablet potassium 99 mg tablet 99 mg PO DAILY 01/13/23 01/13/23 sucralfate 1 gram tablet 1 g PO QID 01/13/23 01/13/23 Allergies Allergy/AdvReac Type Severity Reaction Status Date / Time No Known Allergies Allergy Verified 01/12/23 19:38 [facility] Past Medical History Medical History (Updated 01/13/23 @ 01:03 by Omar Li PA-C) Acquired deviated nasal septum Arthritis Back pain CAD (coronary artery disease) Chronic narcotic use Diabetes Endometriosis Hypercholesterolemia Lupus (systemic lupus erythematosus) Morbid obesity with BMI of 45.0-49.9, adult GIO on CPAP Surgical History Surgical History Hx of coronary artery bypass graft Family History Family History Mother Patient's mother is in good healt
[2023-01-12 20:00] LABS: Troponin I < 0.012 ng/mL (0.000-0.034)
[2023-01-12] MEDS: BELLADONNA ALK/PHENOB ELIX 10 ML, MAG HYDROX/ALUMINUM HYD/SIMETH 30 ML, LIDOCAINE HCL 2... PO (20:11)
[2023-01-12 20:47] LABS: D Dimer 0.63 ug/mL (<0.48)
[2023-01-12 20:56] LABS: Troponin I < 0.012 ng/mL (0.000-0.034)
[2023-01-13] VITALS (10 sets, daily range): BP systolic 90–116; BP diastolic 50–70; PULSE 55–80; RESP 14–18; TEMP 35.7–36.5; O2SAT 95–99; BMI 39.6
--- NOTE | 2023-01-13 00:30 | ADMGEN ---
0030 This patient, Shoshana Salas, was admitted to IMU Room 212-01. Patient/family oriented to hospital policies and general routines including ID bracelet, bed and alarms, visiting hours, pain management, procedures, bathroom and other care routines, personal items, smoking policy, room service/diet, and visiting hours. Information on how to activate the Rapid Response Team has been discussed. Patient/Family are encouraged to report perceived risks to care and to ask questions if they do not understand what they are told or what they should do.
[2023-01-13] MEDS: MORPHINE SULFATE (*CRX) 4 MG/ML INJ IV PUSH ×4 (00:40→20:06)
[2023-01-13] MEDS: FENOFIBRATE 160 MG TABLET PO (10:42)
[2023-01-13] MEDS: HYDROcodone/acetaminophen (*CRX) 10-325 MG TABLET 1 TAB PO (10:42)
[2023-01-13] MEDS: PREGABALIN (*CRX) 75 MG CAPSULE 150 MG PO (10:43)
[2023-01-13] MEDS: ESCITALOPRAM OXALATE 10 MG TABLET PO (10:43)
[2023-01-13] MEDS: DOCUSATE SODIUM 100 MG CAPSULE PO (10:43)
[2023-01-13] MEDS: METOPROLOL SUCCINATE EXT REL 25 MG TABCR PO (10:43)
[2023-01-13] MEDS: CHOLECALCIFEROL 1,000 UNITS TABLET 2000 UNITS PO (10:43)
[2023-01-13] MEDS: PRAVASTATIN SODIUM 20 MG TABLET 40 MG PO (10:43)
[2023-01-13] MEDS: MULTIVITAMINS /C LUTEIN (CENTRUM SILVER) TABLET *BKC 1 TAB PO (10:43)
[2023-01-13] MEDS: ASPIRIN 81 MG ENTERIC TABLET PO (10:44)
[2023-01-13] MEDS: ISOSORBIDE MONONITRATE 30 MG TAB.ER.24H PO (10:44)
[2023-01-13] MEDS: FOLIC ACID 1 MG TABLET PO (10:44)
[2023-01-13] MEDS: allopurinoL 100 MG TABLET PO (10:44)
[2023-01-13] MEDS: MULTIVITAMINS THERAPEUTIC TAB (*BKC) 1 TABLET PO (10:44)
[2023-01-13] MEDS: LOSARTAN POTASSIUM 12.5 MG TABLET PO (10:44)
[2023-01-13] MEDS: methylPHENIDATE HCL (*CRX) 10 MG TABLET 20 MG PO (11:49)
[2023-01-13] MEDS: MAGNESIUM 13.5 MG TABLET (250 MG MAG GLUCONATE) PO (11:49)
--- NOTE | 2023-01-13 12:06 | PM.IMHP ---
H&P: HPI History of Present Illness Date/Time: 01/13/23 12:06 Chief Complaint: This is a 47-year-old female with PMH of CAD, status post CABG x2, congenital heart defect, GOI who presents to the ED with chief complaint of chest pain ongoing for the past 4 days intermittently.? She states it is worse today.? Reports it is in the central chest/upper epigastrium area.? Reports it is occasionally worsened with exertion but denies any LOC, vomiting or radiation of pain.? She also describes having difficulty swallowing so she is unsure if this is cardiac or GI related.? States she has had a paraesophageal hernia in the past.? She talked with her doctor who wanted her to be seen in the emergency department.? Denies fevers, chills, cough, leg swelling, palpitations, abdominal pain, nausea, vomiting. Review of Systems Review of Systems: 10 point review systems negative PMFSH Past Medical History Medical History Acquired deviated nasal septum Arthritis Back pain CAD (coronary artery disease) Chronic narcotic use Diabetes Endometriosis Hypercholesterolemia Lupus (systemic lupus erythematosus) Morbid obesity with BMI of 45.0-49.9, adult GIO on CPAP Surgical History Surgical History Hx of coronary artery bypass graft Family History Family History Mother Patient's mother is in good health Father Patient's father is in good health Sibling Patient's brother is in good health Other Cerebrovascular accident Diabetes mellitus Family history of arthritis Family history of cardiovascular disease Family history of lung disease Family history of malignant neoplasm Family history of seizure disorder Hypertension Social History Social History Smoking packs per day: 2 Smoking cigarettes per day: 40.0 Years smoked: 20 Smoking pack-years: 40.00 Smoking status: Former smoker Smoking end date: 03/27/09 Additional smoking assessment comments: quit 13 years ago Alcohol intake: former Substance use: never Lack of Transportation: No Lack of Food: Never True Current Housing: I Have Housing Concerned About Future Housing: No Difficulty Paying Gas/Electric Bills: No Difficulty Paying for Meds: No Currently Unemployed: No Education: Decline to Answer Difficulty w/ Childcare or Family Care: No Living arrangements: alone Gender identity (if verbalized by the patient): Female Spiritual care concerns: No Meds Home Medications and Allergies Home Medications Medication Instructions Recorded Confirmed Type allopurinol 100 mg tablet 100 mg PO DAILY 01/30/19 01/13/23 History fenofibrate 160 mg tablet 160 mg PO DAILY 01/30/19 01/13/23 History isosorbide mononitrate 30 mg 30 mg PO DAILY 01/30/19 01/13/23 History tablet,extended release 24 hr losartan 25 mg tablet 12.5 mg PO DAILY 01/30/19 01/13/23 History metoprolol succinate 25 mg capsule 25 mg PO DAILY 01/30/19 01/13/23 History sprinkle, ext. release 24 hr pravastatin 40 mg tablet 40 mg PO DAILY 01/30/19 01/13/23 History warfarin 4 mg tablet 8 mg PO DAILY 01/30/19 01/13/23 History folic acid 1 mg tablet 1 mg PO DAILY 02/07/19 01/13/23 History methylphenidate HCl 20 mg tablet 20 mg PO BID 02/07/19 01/13/23 History (Ritalin) multivitamin 1 tablet PO DAILY 02/07/19 01/13/23 History pregabalin 75 mg capsule (Lyrica) 150 mg PO BID 03/26/20 01/13/23 History nitroglycerin 0.4 mg sublingual 0.4 mg sublingual Q5MIN PRN Chest 10/05/20 01/13/23 History tablet Pain aspirin 81 mg tablet,delayed 81 mg PO DAILY 01/13/23 01/13/23 History release biotin 10,000 mcg-keratin 100 mg 1 tablet PO DAILY 01/13/23 01/13/23 History tablet calcium citrate 500 mg (2,376 mg) 500 mg PO BID 01/13/23 01/13/23 History effervescent
[2023-01-13] MEDS: ONDANSETRON INJ 4 MG/2 ML VIAL IV PUSH ×2 (13:23→17:47)
--- NOTE | 2023-01-13 15:33 | WPDGICN ---
Assessment and Plan Assessment and plan (1) Odynophagia: Code(s): R13.10 - Dysphagia, unspecified Status: Acute Assessment and Plan: Patient with painful swallowing. She has pain with swallowing all foods including water. This somewhat suspicious for esophagitis likely on the basis of pill ingestion. Infectious etiology could also cause this. Plan for EGD in the morning to assess more thoroughly. All pills should be taken with her head of bed elevated with extra water. Review of medication list reveals an extremely long medication list. Given her hiatal hernia repair she may have some tightness at the GE junction the needs to be overcome. (2) Morbid obesity with BMI of 45.0-49.9, adult: Code(s): E66.01 - Morbid (severe) obesity due to excess calories; Z68.42 - Body mass index [BMI] 45.0-49.9, adult Status: Acute (3) H/O gastric sleeve: Code(s): Z90.3 - Acquired absence of stomach [part of] Status: Acute (4) History of repair of hiatal hernia: Code(s): Z98.890 - Other specified postprocedural states; Z87.19 - Personal history of other diseases of the digestive system Status: Acute (5) CAD (coronary artery disease): Code(s): I25.10 - Atherosclerotic heart disease of [place] coronary artery without angina pectoris Status: Acute (6) Hx of coronary artery bypass graft: Code(s): Z95.1 - Presence of aortocoronary bypass graft Status: Acute Assessment and Plan: patient with known coronary artery disease. Continued observation and monitoring for symptoms of atherosclerotic heart disease is strongly encouraged. GI Consult Note Consult date/time: 01/13/23 15:33 Reason for consult: Odynophagia HPI: Shoshana Salas is a 47 year old female I am asked to see at the request of the hospitalist service. Patient reports a prior history of atherosclerotic heart disease. She has had coronary artery bypass grafting on several occasions. Patient is somewhat obese. Underwent gastric sleeve surgery on August of 2021. During this procedure she also had a hiatal hernia repair. Patient has been on omeprazole for several years for underlying acid reflux that she describes as heartburn and acid regurgitation. After her gastric sleeve surgery she was briefly placed on Carafate. Patient apparently did well until Monday 5 days ago when she developed substernal chest pain. She states pain occurs with swallowing all foods including water. She states she feels as though food hangs up. But she has had no regurgitation or vomiting. Denies any fever or bleeding. For this reason I have been consulted. Patient has a past medical history of EGD by IR service in 2014 that was unremarkable. Patient states that she also has modified her diet and remains on a gluten free diet and states this helps her feel better. She was never diagnosed with celiac sprue. Review of Systems Review of Systems: Review of systems noncontributory. [facility] Past Medical History Medical History Acquired deviated nasal septum Arthritis Back pain CAD (coronary artery disease) Chronic narcotic use Diabetes Endometriosis Hypercholesterolemia Lupus (systemic lupus erythematosus) Morbid obesity with BMI of 45.0-49.9, adult GIO on CPAP Surgical History Surgical History Hx of coronary artery bypass graft Family History Family History Mother Patient's mother is in good health Father Patient's father is in good health Sibling Patient's brother is in good health Other Cerebrovascular accident Diabetes mellitus Family history of arthritis Family history of cardiovascular disease Family history of lung disease Family history of malignant neoplasm Family history of seizure disorder Hypertension Social
[2023-01-13] MEDS: SUCRALFATE 1 GM TABLET PO (20:06)
[2023-01-13] MEDS: SODIUM CHLORIDE 0.9% IV 1,000 ML 999 ML IV CONT (21:03)
[2023-01-13] MEDS: DEXTROSE 5%/0.45% SOD CHL 1,000 ML 85 ML IV CONT (22:06)
[2023-01-14] VITALS (11 sets, daily range): BP systolic 94–116; BP diastolic 51–90; PULSE 60–73; RESP 14–20; TEMP 36.2–36.5; O2SAT 91–98
[2023-01-14] MEDS: HYDROcodone/acetaminophen (*CRX) 10-325 MG TABLET 1 TAB PO ×2 (03:31→11:58)
--- NOTE | 2023-01-14 04:20 | PC.NURSE ---
This patient, Shoshana Salas, was transferred to [facility] on 01/14/23 at 0420. Personal belongings sent with patient. Report given to Ta BARKER. Appropriate documentation sent with patient.
[2023-01-14] MEDS: LACTATED RINGERS 1,000 ML 150 ML IV CONT (07:26)
--- NOTE | 2023-01-14 07:27 | WPDANESEPPF ---
Anes - Initial Pre Proc Eval Procedure: Operation Date: 01/14/23 07:30 Proposed Procedures p Esophagogastroduodenoscopy - Santo Michelle MD Date/Time: 01/14/23 07:27 Surgeon: Niecy Tran MD Pre Op Diagnosis: Chest Pain Patient Data Age: 47 Gender: F Height: 1.52 m Weight: 90.9 kg Last Vital Signs Temp 36.2 C L 01/14/23 07:25 Pulse 68 01/14/23 07:25 Resp 20 01/14/23 07:25 BP 114/57 L 01/14/23 07:25 Pulse Ox 97 01/14/23 07:25 O2 Del Method Room Air 01/14/23 07:25 Allergies Allergy/AdvReac Type Severity Reaction Status Date / Time No Known Allergies Allergy Verified 01/12/23 19:38 Home Medications Medication Instructions Recorded Confirmed Type allopurinol 100 mg tablet 100 mg PO DAILY 01/30/19 01/13/23 History fenofibrate 160 mg tablet 160 mg PO DAILY 01/30/19 01/13/23 History isosorbide mononitrate 30 mg 30 mg PO DAILY 01/30/19 01/13/23 History tablet,extended release 24 hr losartan 25 mg tablet 12.5 mg PO DAILY 01/30/19 01/13/23 History metoprolol succinate 25 mg capsule 25 mg PO DAILY 01/30/19 01/13/23 History sprinkle, ext. release 24 hr pravastatin 40 mg tablet 40 mg PO DAILY 01/30/19 01/13/23 History warfarin 4 mg tablet 8 mg PO DAILY 01/30/19 01/13/23 History folic acid 1 mg tablet 1 mg PO DAILY 02/07/19 01/13/23 History methylphenidate HCl 20 mg tablet 20 mg PO BID 02/07/19 01/13/23 History (Ritalin) multivitamin 1 tablet PO DAILY 02/07/19 01/13/23 History pregabalin 75 mg capsule (Lyrica) 150 mg PO BID 03/26/20 01/13/23 History nitroglycerin 0.4 mg sublingual 0.4 mg sublingual Q5MIN PRN Chest 10/05/20 01/13/23 History tablet Pain aspirin 81 mg tablet,delayed 81 mg PO DAILY 01/13/23 01/13/23 History release biotin 10,000 mcg-keratin 100 mg 1 tablet PO DAILY 01/13/23 01/13/23 History tablet calcium citrate 500 mg (2,376 mg) 500 mg PO BID 01/13/23 01/13/23 History effervescent tablet cholecalciferol (vitamin D3) 50 50 mcg PO DAILY 01/13/23 01/13/23 History mcg (2,000 unit) chewable tablet cyanocobalamin (vitamin B-12) 1,000 mcg subcut WEEKLY 01/13/23 01/13/23 History 1,000 mcg/mL injection solution cyclobenzaprine 10 mg tablet 10 mg PO BID PRN Muscle Spasm 01/13/23 01/13/23 History docusate sodium 100 mg tablet 100 mg PO DAILY 01/13/23 01/13/23 History escitalopram oxalate 10 mg tablet 10 mg PO DAILY 01/13/23 01/13/23 History hydrocodone 10 mg-acetaminophen 1 tablet PO Q6H PRN Moderate Pain 01/13/23 01/13/23 History 325 mg tablet (Scale Score 5-6) lysine 1,000 mg tablet 1,000 mg PO DAILY 01/13/23 01/13/23 History magnesium 250 mg tablet 250 mg PO DAILY 01/13/23 01/13/23 History xvclqqiy-vkafmich-khed 45 mg-folic 1 cap PO DAILY 01/13/23 01/13/23 History acid 800 mcg-vit K 120 mcg capsule (Bariatric Multivitamins) omeprazole 40 mg capsule,delayed 40 mg PO DAILY 01/13/23 01/13/23 History release ondansetron 4 mg disintegrating 4 mg translingual Q8H PRN Nausea 01/13/23 01/13/23 History tablet potassium 99 mg tablet 99 mg PO DAILY 01/13/23 01/13/23 History sucralfate 1 gram tablet 1 g PO QID 01/13/23 01/13/23 History Laboratory Tests 01/14/23 07:10 PT Pending INR Pending Patient hx anesthesia problems: none Family hx anesthesia problems: none Results Review: All pre-operative results and documents have been reviewed as part of the pre-operative evaluation. [facility] Past Medical History Medical History Acquired deviated nasal septum Arthritis Back pain CAD (coronary artery disease) Chronic narcotic use Diabetes Endometriosis Hypercholesterolemia Lupus (systemic lupus erythematosus) Morbid obesity with BMI of 45.0-49.9, adult GIO on CPAP Surgical History Surgical History Hx of coronary artery bypass graft Family History Family History (Reviewed 01/14/23 @ 07:27 by Ta Leblanc,
[2023-01-14 07:38] LABS: Prothrombin Time 13.7 Seconds (11.1-14.7)
--- NOTE | 2023-01-14 07:53 | SUR.PHASEII ---
Patient was pre oped and recovered in procedure room 3.
[2023-01-14] MEDS: MAGNESIUM 13.5 MG TABLET (250 MG MAG GLUCONATE) PO (09:43)
[2023-01-14] MEDS: LOSARTAN POTASSIUM 12.5 MG TABLET PO (09:43)
[2023-01-14] MEDS: CHOLECALCIFEROL 1,000 UNITS TABLET 2000 UNITS PO (09:43)
[2023-01-14] MEDS: ISOSORBIDE MONONITRATE 30 MG TAB.ER.24H PO (09:43)
[2023-01-14] MEDS: METOPROLOL SUCCINATE EXT REL 25 MG TABCR PO (09:44)
[2023-01-14] MEDS: DOCUSATE SODIUM 100 MG CAPSULE PO (09:44)
[2023-01-14] MEDS: allopurinoL 100 MG TABLET PO (09:44)
[2023-01-14] MEDS: FOLIC ACID 1 MG TABLET PO (09:44)
[2023-01-14] MEDS: MULTIVITAMINS /C LUTEIN (CENTRUM SILVER) TABLET *BKC 1 TAB PO (09:44)
[2023-01-14] MEDS: MULTIVITAMINS THERAPEUTIC TAB (*BKC) 1 TABLET PO (09:44)
[2023-01-14] MEDS: FENOFIBRATE 160 MG TABLET PO (09:44)
[2023-01-14] MEDS: ESCITALOPRAM OXALATE 10 MG TABLET PO (09:45)
[2023-01-14] MEDS: ASPIRIN 81 MG ENTERIC TABLET PO (09:45)
[2023-01-14] MEDS: PRAVASTATIN SODIUM 20 MG TABLET 40 MG PO (09:45)
[2023-01-14] MEDS: methylPHENIDATE HCL (*CRX) 10 MG TABLET 20 MG PO ×2 (09:45→17:53)
[2023-01-14] MEDS: PREGABALIN (*CRX) 75 MG CAPSULE 150 MG PO ×2 (09:45→17:53)
[2023-01-14] MEDS: MORPHINE SULFATE (*CRX) 4 MG/ML INJ IV PUSH ×2 (09:45→21:24)
[2023-01-14] MEDS: PANTOPRAZOLE 40 MG TABLET PO ×2 (09:52→21:15)
[2023-01-14] MEDS: CYCLOBENZAPRINE HCL 10 MG TABLET PO ×2 (11:58→23:31)
[2023-01-14] MEDS: ONDANSETRON HCL ODT 4 MG TABLET BY MOUTH ×2 (11:58→17:57)
--- NOTE | 2023-01-14 12:41 | PM.IMPN ---
Progress Note: A&P Assessment and Plan (1) Chest pain: Code(s): R07.9 - Chest pain, unspecified Status: Acute Assessment and Plan: Likely secondary to dysphagia. Patient has had gastric sleeve surgery or some other bariatric procedure. Will have GI see the patient. Likely not cardiac. EGD results noted. PPI Carafate Subjective Date/time seen: 01/14/23 12:41 Interval history: EGD noted Exam Narrative: GENERAL: Well-appearing, well-nourished, and in no acute distress. HEAD: Normocephalic, atraumatic. EYES: PERRLA and EOMI. ENT: Nares clear, no rhinorrhea or epistaxis. Mucous membranes moist. Oropharynx without tonsillar hypertrophy exudate or other lesions. NECK: Supple. No adenopathy or masses. CHEST: No respiratory distress. Clear to auscultation. No wheezes rales or rhonchi HEART: Regular rate and rhythm. No murmur heard. Normal peripheral pulses. ABDOMEN: Soft, mild epigastric tenderness, nondistended, normal active bowel sounds. MSK: Normal range of motion. No edema. SKIN: Warm, dry, no rash. NEURO: Alert and oriented x3. No focal deficits. PSYCH: Normal mood and affect. Objective Data Vital Signs Vital Signs: Vital Signs - 24 hr 01/13/23 16:00 01/13/23 20:20 01/13/23 20:00 Temperature 97.5 F L Pulse Rate 64 Respiratory Rate 16 Blood Pressure 90/50 L 90/54 L Pulse Oximetry 95 Oxygen Delivery Room Air 01/13/23 22:07 01/14/23 03:31 01/14/23 05:59 Temperature 96.3 F L 97.7 F Pulse Rate 60 60 Respiratory Rate 16 20 Blood Pressure 99/70 L 94/64 L 99/60 L Pulse Oximetry 99 95 Oxygen Delivery 01/14/23 07:25 01/14/23 07:42 01/14/23 07:52 Temperature 97.1 F L Pulse Rate 68 66 64 Respiratory Rate 20 14 14 Blood Pressure 114/57 L 94/51 L 105/63 Pulse Oximetry 97 97 97 Oxygen Delivery Room Air Room Air Room Air 01/14/23 08:02 Temperature Pulse Rate 65 Respiratory Rate 16 Blood Pressure 116/65 Pulse Oximetry 98 Oxygen Delivery Room Air Intake/Output Intake/Output: Intake & Output 01/11/23 01/12/23 01/13/23 01/14/23 23:59 23:59 23:59 23:59 Intake Total 400 150 Output Total 400 400 Balance 0 -250 Meds/Results Medications: Active Medications Generic Name Dose Route Start Last Admin Trade Name Freq PRN Reason Stop Dose Admin Hydrocodone Bitart/Acetaminophen 1 tab 01/13/23 10:02 01/14/23 11:58 Hydrocodone/Acetaminophen (*Crx) 10-325 Mg Tablet PO 1 tab Q6H PRN Administration Moderate Pain (Scale Score 5-6) Allopurinol 100 mg 01/13/23 10:10 01/14/23 09:44 Allopurinol 100 Mg Tablet PO 100 mg DAILY [facility] Administration Aspirin 81 mg 01/13/23 10:10 01/14/23 09:45 Aspirin 81 Mg Enteric Tablet PO 81 mg DAILY [facility] Administration Cyanocobalamin 1,000 mcg 01/15/23 09:00 Cyanocobalamin Inj 1,000 Mcg/Ml Vial SUB-Q [place]@0900 [facility] Cyclobenzaprine HCl 10 mg 01/13/23 10:02 01/14/23 11:58 Cyclobenzaprine Hcl 10 Mg Tablet PO 10 mg BID PRN Administration Muscle Spasm Docusate Sodium 100 mg 01/13/23 10:10 01/14/23 09:44 Docusate Sodium 100 Mg Capsule PO 100 mg DAILY [facility] Administration Escitalopram Oxalate 10 mg 01/13/23 10:10 01/14/23 09:45 Escitalopram Oxalate 10 Mg Tablet PO 10 mg DAILY [facility] Administration Fenofibrate 160 mg 01/13/23 10:15 01/14/23 09:44 Fenofibrate 160 Mg Tablet PO 160 mg DAILY [facility] Administration Folic Acid 1 mg 01/13/23 10:10 01/14/23 09:44 Folic Acid 1 Mg Tablet PO 1 mg DAILY [facility] Administration Dextrose/Sodium Chloride 1,000 mls @ 85 mls/hr 01/13/23 21:45 01/13/23 22:06 Dextrose 5% Sodium Chloride 0.45% IV CONT 85 mls/hr .[id number] [facility] Administration Isosorbide Mononitrate 30 mg 01/13/23 10:15 01/14/23 09:43 Isosorbide Mononitrate 30 Mg Tab.Er.24h PO 30 mg DAILY [facility] Administration Losartan Potassium 12.5 mg 01/13/23 10:15 01/14/23 09:43 Losartan Potassium 12.5 Mg Tablet PO 12
[2023-01-14] MEDS: SUCRALFATE SUSP 100 MG/ML 10 ML UDC 1000 MG PO ×2 (16:30→21:15)
[2023-01-14] MEDS: WARFARIN (*PBKC) 4 MG TABLET 8 MG PO (17:54)
[2023-01-14] MEDS: ONDANSETRON INJ 4 MG/2 ML VIAL IV PUSH (21:15)
[2023-01-15] MEDS: DEXTROSE 5%/0.45% SOD CHL 1,000 ML 85 ML IV CONT ×3 (03:01→16:42)
[2023-01-15] MEDS: ONDANSETRON INJ 4 MG/2 ML VIAL IV PUSH ×2 (05:21→09:19)
[2023-01-15] MEDS: SUCRALFATE SUSP 100 MG/ML 10 ML UDC 1000 MG PO ×4 (05:22→20:03)
[2023-01-15] MEDS: HYDROcodone/acetaminophen (*CRX) 10-325 MG TABLET 1 TAB PO ×2 (05:30→16:20)
[2023-01-15 06:10] VITALS: BP 110/80; PULSE 69; RESP 20; TEMP 36.5; O2SAT 92
[2023-01-15 06:19] LABS: Prothrombin Time 13.8 Seconds (11.1-14.7)
[2023-01-15] MEDS: methylPHENIDATE HCL (*CRX) 10 MG TABLET 20 MG PO ×2 (09:17→16:29)
[2023-01-15] MEDS: ASPIRIN 81 MG ENTERIC TABLET PO (09:18)
[2023-01-15] MEDS: allopurinoL 100 MG TABLET PO (09:18)
[2023-01-15] MEDS: DOCUSATE SODIUM 100 MG CAPSULE PO (09:18)
[2023-01-15] MEDS: PREGABALIN (*CRX) 75 MG CAPSULE 150 MG PO ×2 (09:18→16:32)
[2023-01-15] MEDS: MAGNESIUM 13.5 MG TABLET (250 MG MAG GLUCONATE) PO (09:18)
[2023-01-15] MEDS: CYANOCOBALAMIN INJ 1,000 MCG/ML VIAL 1000 MCG SUB-Q (09:18)
[2023-01-15] MEDS: FOLIC ACID 1 MG TABLET PO (09:18)
[2023-01-15] MEDS: CHOLECALCIFEROL 1,000 UNITS TABLET 2000 UNITS PO (09:18)
[2023-01-15] MEDS: PRAVASTATIN SODIUM 20 MG TABLET 40 MG PO (09:18)
[2023-01-15] MEDS: METOPROLOL SUCCINATE EXT REL 25 MG TABCR PO (09:18)
[2023-01-15] MEDS: ISOSORBIDE MONONITRATE 30 MG TAB.ER.24H PO (09:18)
[2023-01-15] MEDS: CYCLOBENZAPRINE HCL 10 MG TABLET PO ×2 (09:19→16:20)
[2023-01-15] MEDS: ESCITALOPRAM OXALATE 10 MG TABLET PO (09:19)
[2023-01-15] MEDS: FENOFIBRATE 160 MG TABLET PO (09:19)
[2023-01-15] MEDS: MULTIVITAMINS /C LUTEIN (CENTRUM SILVER) TABLET *BKC 1 TAB PO (09:19)
[2023-01-15] MEDS: MORPHINE SULFATE (*CRX) 4 MG/ML INJ IV PUSH ×2 (09:19→20:02)
[2023-01-15] MEDS: LOSARTAN POTASSIUM 12.5 MG TABLET PO (09:20)
[2023-01-15] MEDS: MULTIVITAMINS THERAPEUTIC TAB (*BKC) 1 TABLET PO (09:20)
[2023-01-15] MEDS: PANTOPRAZOLE 40 MG TABLET PO (09:20)
--- NOTE | 2023-01-15 09:49 | WPDGIPROGNO ---
Progress Note: A&P Assessment and Plan (1) Ulcerative esophagitis: Code(s): K22.10 - Ulcer of esophagus without bleeding Status: Acute Assessment and Plan: Patient with significant ulcerative esophagitis in the distal esophagus most suspicious for underlying GE reflux. Biopsies taken yesterday are pending at this time. Plan to maximize acid suppression with pantoprazole. Anti-reflux measures encouraged. Danese diet encouraged. Continue IV PPI until oral intake tolerated. (2) History of repair of hiatal hernia: Code(s): Z98.890 - Other specified postprocedural states; Z87.19 - Personal history of other diseases of the digestive system Status: Acute (3) H/O gastric sleeve: Code(s): Z90.3 - Acquired absence of stomach [part of] Status: Acute Assessment and Plan: Previous gastric sleeve likely contributes to underlying acid reflux. (4) Odynophagia: Code(s): R13.10 - Dysphagia, unspecified Status: Acute Assessment and Plan: Odynophagia and dysphagia appear to be on the basis of patient's ulcerative esophagitis. (5) CAD (coronary artery disease): Code(s): I25.10 - Atherosclerotic heart disease of [place] coronary artery without angina pectoris Status: Acute Assessment and Plan: Patient with significant atherosclerotic heart disease. Previous coronary artery bypass grafting Subjective Date/time seen: 01/15/23 09:49 Interval history: Patient alert this morning. More comfortable with left chest pain. Content continues to have difficulty with oral intake but appears to be keeping more in taken place. Plan to continue PPI acid suppression. Biopsies taken of esophagitis pending at this time. Patient has rather severe ulcerative esophagitis presumably on the basis of acid reflux. Review of Systems Review of Systems: Review of systems noncontributory. Exam Narrative: Physical exam reveals patient to be alert. Vital signs stable. HEENT exam is unremarkable. Patient anicteric. Lungs are clear. Heart without murmur. Abdomen soft and no significant tenderness noted. Objective Data Vital Signs Vital Signs: Vital Signs - 24 hr 01/14/23 21:08 01/14/23 21:20 01/14/23 20:00 Temperature 97.6 F Pulse Rate 73 73 Respiratory Rate 20 20 Blood Pressure 113/60 110/80 Pulse Oximetry 91 91 Oxygen Delivery Room Air 01/14/23 23:28 01/15/23 06:10 Temperature 97.7 F Pulse Rate 69 Respiratory Rate 20 Blood Pressure 115/90 110/80 Pulse Oximetry 92 Oxygen Delivery Intake/Output Intake/Output: Intake & Output 01/12/23 01/13/23 01/14/23 01/15/23 23:59 23:59 23:59 23:59 Intake Total 400 1630 200 Output Total 400 400 Balance 0 1230 200 Meds/Results Medications: Active Medications Generic Name Dose Route Start Last Admin Trade Name Freq PRN Reason Stop Dose Admin Hydrocodone Bitart/Acetaminophen 1 tab 01/13/23 10:02 01/15/23 05:30 Hydrocodone/Acetaminophen (*Crx) 10-325 Mg Tablet PO 1 tab Q6H PRN Administration Moderate Pain (Scale Score 5-6) Allopurinol 100 mg 01/13/23 10:10 01/15/23 09:18 Allopurinol 100 Mg Tablet PO 100 mg DAILY [facility] Administration Aspirin 81 mg 01/13/23 10:10 01/15/23 09:18 Aspirin 81 Mg Enteric Tablet PO 81 mg DAILY [facility] Administration Cyanocobalamin 1,000 mcg 01/15/23 09:00 01/15/23 09:18 Cyanocobalamin Inj 1,000 Mcg/Ml Vial SUB-Q 1,000 mcg [place]@0900 [facility] Administration Cyclobenzaprine HCl 10 mg 01/13/23 10:02 01/15/23 09:19 Cyclobenzaprine Hcl 10 Mg Tablet PO 10 mg BID PRN Administration Muscle Spasm Docusate Sodium 100 mg 01/13/23 10:10 01/15/23 09:18 Docusate Sodium 100 Mg Capsule PO 100 mg DAILY [facility] Administration Escitalopram Oxalate 10 mg 01/13/23 10:10 01/15/23 09:19 Escitalopram Oxalate 10 Mg Tablet PO 10 mg DAILY [facility] Administration Fenofibrate 160 mg 01/13/23 10:15 01/15/23
--- NOTE | 2023-01-15 11:27 | PM.IMPN ---
Progress Note: A&P Assessment and Plan (1) Chest pain: Code(s): R07.9 - Chest pain, unspecified Status: Acute Assessment and Plan: Likely secondary to dysphagia. Patient has had gastric sleeve surgery or some other bariatric procedure. Will have GI see the patient. Likely not cardiac. EGD results noted. PPI Carafate UNABLE TO TOLERATE A DIET. APPRECIATE GI INPUT Subjective Date/time seen: 01/15/23 11:27 Interval history: STILL UNABLE TO TOLERATE A DIET Review of Systems Review of Systems: 10 point review systems negative Exam Narrative: GENERAL: Well-appearing, well-nourished, and in no acute distress. HEAD: Normocephalic, atraumatic. EYES: PERRLA and EOMI. ENT: Nares clear, no rhinorrhea or epistaxis. Mucous membranes moist. Oropharynx without tonsillar hypertrophy exudate or other lesions. NECK: Supple. No adenopathy or masses. CHEST: No respiratory distress. Clear to auscultation. No wheezes rales or rhonchi HEART: Regular rate and rhythm. No murmur heard. Normal peripheral pulses. ABDOMEN: Soft, mild epigastric tenderness, nondistended, normal active bowel sounds. MSK: Normal range of motion. No edema. SKIN: Warm, dry, no rash. NEURO: Alert and oriented x3. No focal deficits. PSYCH: Normal mood and affect. Objective Data Vital Signs Vital Signs: Vital Signs - 24 hr 01/14/23 21:08 01/14/23 21:20 01/14/23 20:00 Temperature 97.6 F Pulse Rate 73 73 Respiratory Rate 20 20 Blood Pressure 113/60 110/80 Pulse Oximetry 91 91 Oxygen Delivery Room Air 01/14/23 23:28 01/15/23 06:10 Temperature 97.7 F Pulse Rate 69 Respiratory Rate 20 Blood Pressure 115/90 110/80 Pulse Oximetry 92 Oxygen Delivery Intake/Output Intake/Output: Intake & Output 01/12/23 01/13/23 01/14/23 01/15/23 23:59 23:59 23:59 23:59 Intake Total 400 1630 318 Output Total 400 400 Balance 0 1230 318 Meds/Results Medications: Active Medications Generic Name Dose Route Start Last Admin Trade Name Freq PRN Reason Stop Dose Admin Hydrocodone Bitart/Acetaminophen 1 tab 01/13/23 10:02 01/15/23 05:30 Hydrocodone/Acetaminophen (*Crx) 10-325 Mg Tablet PO 1 tab Q6H PRN Administration Moderate Pain (Scale Score 5-6) Allopurinol 100 mg 01/13/23 10:10 01/15/23 09:18 Allopurinol 100 Mg Tablet PO 100 mg DAILY [facility] Administration Aspirin 81 mg 01/13/23 10:10 01/15/23 09:18 Aspirin 81 Mg Enteric Tablet PO 81 mg DAILY [facility] Administration Cyanocobalamin 1,000 mcg 01/15/23 09:00 01/15/23 09:18 Cyanocobalamin Inj 1,000 Mcg/Ml Vial SUB-Q 1,000 mcg [place]@0900 [facility] Administration Cyclobenzaprine HCl 10 mg 01/13/23 10:02 01/15/23 09:19 Cyclobenzaprine Hcl 10 Mg Tablet PO 10 mg BID PRN Administration Muscle Spasm Docusate Sodium 100 mg 01/13/23 10:10 01/15/23 09:18 Docusate Sodium 100 Mg Capsule PO 100 mg DAILY [facility] Administration Escitalopram Oxalate 10 mg 01/13/23 10:10 01/15/23 09:19 Escitalopram Oxalate 10 Mg Tablet PO 10 mg DAILY [facility] Administration Fenofibrate 160 mg 01/13/23 10:15 01/15/23 09:19 Fenofibrate 160 Mg Tablet PO 160 mg DAILY [facility] Administration Folic Acid 1 mg 01/13/23 10:10 01/15/23 09:18 Folic Acid 1 Mg Tablet PO 1 mg DAILY [facility] Administration Dextrose/Sodium Chloride 1,000 mls @ 85 mls/hr 01/13/23 21:45 01/15/23 03:01 Dextrose 5% Sodium Chloride 0.45% IV CONT 85 mls/hr .[id number] [facility] Administration Isosorbide Mononitrate 30 mg 01/13/23 10:15 01/15/23 09:18 Isosorbide Mononitrate 30 Mg Tab.Er.24h PO 30 mg DAILY [facility] Administration Losartan Potassium 12.5 mg 01/13/23 10:15 01/15/23 09:20 Losartan Potassium 12.5 Mg Tablet PO 12.5 mg DAILY [facility] Administration Magnesium Gluconate 13.5 mg 01/13/23 10:20 01/15/23 09:18 Magnesium 13.5 Mg Tablet (250 Mg Mag Gluconate) PO 02/13/23 10:19 13.5 mg DAILY [facility] Administration Methyl
[2023-01-15 14:00] VITALS: BP 80/36; PULSE 64; RESP 16; TEMP 36.6; O2SAT 95
[2023-01-15 16:00] VITALS: BP 102/56
[2023-01-15] MEDS: WARFARIN (*PBKC) 4 MG TABLET 8 MG PO (16:29)
[2023-01-15] MEDS: ONDANSETRON HCL ODT 4 MG TABLET BY MOUTH (16:29)
[2023-01-15 20:00] VITALS: PULSE 69; RESP 18; O2SAT 91
[2023-01-15] MEDS: PANTOPRAZOLE SODIUM IV 40 MG VIAL IV PUSH (20:03)
[2023-01-15 22:08] VITALS: BP 89/54; PULSE 69; RESP 18; TEMP 36.5; O2SAT 91
[2023-01-16 01:00] VITALS: BP 96/59; PULSE 65; RESP 18; O2SAT 93
[2023-01-16] MEDS: MORPHINE SULFATE (*CRX) 4 MG/ML INJ IV PUSH ×3 (01:39→21:22)
[2023-01-16 05:00] VITALS: BP 92/71; PULSE 64; RESP 18; TEMP 36.3; O2SAT 97
[2023-01-16] MEDS: SUCRALFATE SUSP 100 MG/ML 10 ML UDC 1000 MG PO ×4 (06:34→21:15)
[2023-01-16 06:37] LABS: INR 1.2; Prothrombin Time 15.9 Seconds (11.1-14.7)
[2023-01-16 08:00] VITALS: O2SAT 97
[2023-01-16] MEDS: methylPHENIDATE HCL (*CRX) 10 MG TABLET 20 MG PO ×2 (08:41→16:07)
[2023-01-16] MEDS: DOCUSATE SODIUM 100 MG CAPSULE PO (08:41)
[2023-01-16] MEDS: allopurinoL 100 MG TABLET PO (08:41)
[2023-01-16] MEDS: PRAVASTATIN SODIUM 20 MG TABLET 40 MG PO (08:41)
[2023-01-16] MEDS: MULTIVITAMINS /C LUTEIN (CENTRUM SILVER) TABLET *BKC 1 TAB PO (08:41)
[2023-01-16] MEDS: ASPIRIN 81 MG ENTERIC TABLET PO (08:41)
[2023-01-16] MEDS: CHOLECALCIFEROL 1,000 UNITS TABLET 2000 UNITS PO (08:41)
[2023-01-16] MEDS: PREGABALIN (*CRX) 75 MG CAPSULE 150 MG PO ×2 (08:41→16:05)
[2023-01-16] MEDS: MAGNESIUM 13.5 MG TABLET (250 MG MAG GLUCONATE) PO (08:41)
[2023-01-16] MEDS: LOSARTAN POTASSIUM 12.5 MG TABLET PO (08:41)
[2023-01-16] MEDS: FOLIC ACID 1 MG TABLET PO (08:42)
[2023-01-16] MEDS: MULTIVITAMINS THERAPEUTIC TAB (*BKC) 1 TABLET PO (08:42)
[2023-01-16] MEDS: FENOFIBRATE 160 MG TABLET PO (08:42)
[2023-01-16] MEDS: ESCITALOPRAM OXALATE 10 MG TABLET PO (08:42)
[2023-01-16] MEDS: ISOSORBIDE MONONITRATE 30 MG TAB.ER.24H PO (08:42)
[2023-01-16] MEDS: METOPROLOL SUCCINATE EXT REL 25 MG TABCR PO (08:43)
[2023-01-16] MEDS: PANTOPRAZOLE SODIUM IV 40 MG VIAL IV PUSH ×2 (08:45→21:15)
--- NOTE | 2023-01-16 10:53 | PM.IMPN ---
Progress Note: A&P Assessment and Plan (1) Chest pain: Code(s): R07.9 - Chest pain, unspecified Status: Acute Assessment and Plan: Likely secondary to dysphagia. Patient has had gastric sleeve surgery or some other bariatric procedure. Will have GI see the patient. Likely not cardiac. EGD results noted. PPI Carafate UNABLE TO TOLERATE A DIET. APPRECIATE GI INPUT Subjective Date/time seen: 01/16/23 10:53 Interval history: Still having trouble keeping food down Exam Narrative: GENERAL: Well-appearing, well-nourished, and in no acute distress. HEAD: Normocephalic, atraumatic. EYES: PERRLA and EOMI. ENT: Nares clear, no rhinorrhea or epistaxis. Mucous membranes moist. Oropharynx without tonsillar hypertrophy exudate or other lesions. NECK: Supple. No adenopathy or masses. CHEST: No respiratory distress. Clear to auscultation. No wheezes rales or rhonchi HEART: Regular rate and rhythm. No murmur heard. Normal peripheral pulses. ABDOMEN: Soft, mild epigastric tenderness, nondistended, normal active bowel sounds. MSK: Normal range of motion. No edema. SKIN: Warm, dry, no rash. NEURO: Alert and oriented x3. No focal deficits. PSYCH: Normal mood and affect. Objective Data Vital Signs Vital Signs: Vital Signs - 24 hr 01/15/23 14:00 01/15/23 16:00 01/15/23 20:00 Temperature 97.8 F Pulse Rate 64 69 Respiratory Rate 16 18 Blood Pressure 80/36 L 102/56 L Pulse Oximetry 95 91 Oxygen Delivery Room Air 01/15/23 22:08 01/16/23 01:00 01/16/23 05:00 Temperature 97.7 F 97.3 F L Pulse Rate 69 65 64 Respiratory Rate 18 18 18 Blood Pressure 89/54 L 96/59 L 92/71 L Pulse Oximetry 91 93 97 Oxygen Delivery 01/16/23 08:00 Temperature Pulse Rate Respiratory Rate Blood Pressure Pulse Oximetry 97 Oxygen Delivery Room Air Intake/Output Intake/Output: Intake & Output 01/13/23 01/14/23 01/15/23 01/16/23 23:59 23:59 23:59 23:59 Intake Total 400 1630 2436 100 Output Total 400 400 Balance 0 1230 2436 100 Meds/Results Medications: Active Medications Generic Name Dose Route Start Last Admin Trade Name Freq PRN Reason Stop Dose Admin Hydrocodone Bitart/Acetaminophen 1 tab 01/13/23 10:02 01/15/23 16:20 Hydrocodone/Acetaminophen (*Crx) 10-325 Mg Tablet PO 1 tab Q6H PRN Administration Moderate Pain (Scale Score 5-6) Allopurinol 100 mg 01/13/23 10:10 01/16/23 08:41 Allopurinol 100 Mg Tablet PO 100 mg DAILY [facility] Administration Aspirin 81 mg 01/13/23 10:10 01/16/23 08:41 Aspirin 81 Mg Enteric Tablet PO 81 mg DAILY [facility] Administration Cyanocobalamin 1,000 mcg 01/15/23 09:00 01/15/23 09:18 Cyanocobalamin Inj 1,000 Mcg/Ml Vial SUB-Q 1,000 mcg [place]@0900 [facility] Administration Cyclobenzaprine HCl 10 mg 01/13/23 10:02 01/15/23 16:20 Cyclobenzaprine Hcl 10 Mg Tablet PO 10 mg BID PRN Administration Muscle Spasm Docusate Sodium 100 mg 01/13/23 10:10 01/16/23 08:41 Docusate Sodium 100 Mg Capsule PO 100 mg DAILY [facility] Administration Escitalopram Oxalate 10 mg 01/13/23 10:10 01/16/23 08:42 Escitalopram Oxalate 10 Mg Tablet PO 10 mg DAILY [facility] Administration Fenofibrate 160 mg 01/13/23 10:15 01/16/23 08:42 Fenofibrate 160 Mg Tablet PO 160 mg DAILY [facility] Administration Folic Acid 1 mg 01/13/23 10:10 01/16/23 08:42 Folic Acid 1 Mg Tablet PO 1 mg DAILY [facility] Administration Dextrose/Sodium Chloride 1,000 mls @ 85 mls/hr 01/13/23 21:45 01/15/23 16:42 Dextrose 5% Sodium Chloride 0.45% IV CONT 85 mls/hr .[id number] [facility] Administration Isosorbide Mononitrate 30 mg 01/13/23 10:15 01/16/23 08:42 Isosorbide Mononitrate 30 Mg Tab.Er.24h PO 30 mg DAILY [facility] Administration Losartan Potassium 12.5 mg 01/13/23 10:15 01/16/23 08:41 Losartan Potassium 12.5 Mg Tablet PO 12.5 mg DAILY [facility] Administration Magnesium Gluconate 13.5 mg 01/13/23 10:20 01/16/23 08:41
[2023-01-16] MEDS: ONDANSETRON HCL ODT 4 MG TABLET BY MOUTH (12:53)
[2023-01-16] MEDS: HYDROcodone/acetaminophen (*CRX) 10-325 MG TABLET 1 TAB PO (12:53)
[2023-01-16] MEDS: CYCLOBENZAPRINE HCL 10 MG TABLET PO ×2 (12:54→21:22)
[2023-01-16] MEDS: DEXTROSE 5%/0.45% SOD CHL 1,000 ML 85 ML IV CONT (13:02)
[2023-01-16 14:00] VITALS: BP 110/74; PULSE 72; RESP 16; TEMP 36.3; O2SAT 93
--- NOTE | 2023-01-16 14:18 | WPDGIPROGNO ---
Progress Note: A&P Assessment and Plan (1) Ulcerative esophagitis: Code(s): K22.10 - Ulcer of esophagus without bleeding Status: Acute Assessment and Plan: Severe ulcerated esophagus most likely on the basis of acid reflux. Plan to continue high-dose use a PPI and anti-reflux measures. [place] diet is encouraged. Likely is small stomach from gastric sleeve contributes to this. Patient should elevate head of bed at night. Carafate suspension may be benefit for until symptoms improve. Biopsies of esophagus pending to exclude any concomitant infection. (2) History of repair of hiatal hernia: Code(s): Z98.890 - Other specified postprocedural states; Z87.19 - Personal history of other diseases of the digestive system Status: Acute (3) H/O gastric sleeve: Code(s): Z90.3 - Acquired absence of stomach [part of] Status: Acute Subjective Date/time seen: 01/16/23 14:18 Interval history: Patient alert and fairly comfortable today. She still reports occasional emesis after eating. Pain with swallowing appears to be improving. Review of Systems Review of Systems: Review of systems noncontributory. Exam Narrative: Physical exam reveals patient to be alert. Vital signs stable. HEENT exam is unremarkable. Lungs are clear to auscultation and percussion. Heart is without murmur or extra sounds. Abdomen bowel sounds are present soft nontender with no organomegaly. Objective Data Vital Signs Vital Signs: Vital Signs - 24 hr 01/15/23 16:00 01/15/23 20:00 01/15/23 22:08 Temperature 97.7 F Pulse Rate 69 69 Respiratory Rate 18 18 Blood Pressure 102/56 L 89/54 L Pulse Oximetry 91 91 Oxygen Delivery Room Air 01/16/23 01:00 01/16/23 05:00 01/16/23 08:00 Temperature 97.3 F L Pulse Rate 65 64 Respiratory Rate 18 18 Blood Pressure 96/59 L 92/71 L Pulse Oximetry 93 97 97 Oxygen Delivery Room Air Intake/Output Intake/Output: Intake & Output 01/13/23 01/14/23 01/15/23 01/16/23 23:59 23:59 23:59 23:59 Intake Total 400 1630 2436 1218 Output Total 400 400 Balance 0 1230 2436 1218 Meds/Results Medications: Active Medications Generic Name Dose Route Start Last Admin Trade Name Sunnyq PRN Reason Stop Dose Admin Hydrocodone Bitart/Acetaminophen 1 tab 01/13/23 10:02 01/16/23 12:53 Hydrocodone/Acetaminophen (*Crx) 10-325 Mg Tablet PO 1 tab Q6H PRN Administration Moderate Pain (Scale Score 5-6) Allopurinol 100 mg 01/13/23 10:10 01/16/23 08:41 Allopurinol 100 Mg Tablet PO 100 mg DAILY ISELA Administration Aspirin 81 mg 01/13/23 10:10 01/16/23 08:41 Aspirin 81 Mg Enteric Tablet PO 81 mg DAILY ISELA Administration Cyanocobalamin 1,000 mcg 01/15/23 09:00 01/15/23 09:18 Cyanocobalamin Inj 1,000 Mcg/Ml Vial SUB-Q 1,000 mcg [place]@0900 ISELA Administration Cyclobenzaprine HCl 10 mg 01/13/23 10:02 01/16/23 12:54 Cyclobenzaprine Hcl 10 Mg Tablet PO 10 mg BID PRN Administration Muscle Spasm Docusate Sodium 100 mg 01/13/23 10:10 01/16/23 08:41 Docusate Sodium 100 Mg Capsule PO 100 mg DAILY ISELA Administration Escitalopram Oxalate 10 mg 01/13/23 10:10 01/16/23 08:42 Escitalopram Oxalate 10 Mg Tablet PO 10 mg DAILY ISELA Administration Fenofibrate 160 mg 01/13/23 10:15 01/16/23 08:42 Fenofibrate 160 Mg Tablet PO 160 mg DAILY ISELA Administration Folic Acid 1 mg 01/13/23 10:10 01/16/23 08:42 Folic Acid 1 Mg Tablet PO 1 mg DAILY ISELA Administration Dextrose/Sodium Chloride 1,000 mls @ 85 mls/hr 01/13/23 21:45 01/16/23 13:02 Dextrose 5% Sodium Chloride 0.45% IV CONT 85 mls/hr .[id number] ISELA Administration Isosorbide Mononitrate 30 mg 01/13/23 10:15 01/16/23 08:42 Isosorbide Mononitrate 30 Mg Tab.Er.24h PO 30 mg DAILY ISELA Administration Losartan Potassium 12.5 mg 01/13/23 10:15 01/16/23 08:41 Losartan Potassium 12.5 Mg Tablet PO
[2023-01-16] MEDS: ONDANSETRON INJ 4 MG/2 ML VIAL IV PUSH (15:34)
[2023-01-16] MEDS: WARFARIN (*PBKC) 4 MG TABLET 8 MG PO (16:07)
[2023-01-16 21:00] VITALS: BP 90/74; PULSE 79; RESP 18; TEMP 37; O2SAT 95
[2023-01-16] MEDS: SODIUM CHLORIDE 0.9% INJ 10 ML (21:19)
[2023-01-17 05:38] VITALS: BP 115/72; PULSE 62; RESP 18; TEMP 36.5; O2SAT 97
[2023-01-17] MEDS: HYDROcodone/acetaminophen (*CRX) 10-325 MG TABLET 1 TAB PO (05:39)
[2023-01-17] MEDS: SUCRALFATE SUSP 100 MG/ML 10 ML UDC 1000 MG PO ×2 (05:39→12:14)
[2023-01-17 07:06] LABS: INR 1.4
[2023-01-17] MEDS: PREGABALIN (*CRX) 75 MG CAPSULE 150 MG PO (09:20)
[2023-01-17] MEDS: ISOSORBIDE MONONITRATE 30 MG TAB.ER.24H PO (09:21)
[2023-01-17] MEDS: allopurinoL 100 MG TABLET PO (09:21)
[2023-01-17] MEDS: MULTIVITAMINS /C LUTEIN (CENTRUM SILVER) TABLET *BKC 1 TAB PO (09:21)
[2023-01-17] MEDS: ASPIRIN 81 MG ENTERIC TABLET PO (09:21)
[2023-01-17] MEDS: MAGNESIUM 13.5 MG TABLET (250 MG MAG GLUCONATE) PO (09:21)
[2023-01-17] MEDS: FENOFIBRATE 160 MG TABLET PO (09:21)
[2023-01-17] MEDS: LOSARTAN POTASSIUM 12.5 MG TABLET PO (09:21)
[2023-01-17] MEDS: FOLIC ACID 1 MG TABLET PO (09:21)
[2023-01-17] MEDS: CHOLECALCIFEROL 1,000 UNITS TABLET 2000 UNITS PO (09:21)
[2023-01-17] MEDS: METOPROLOL SUCCINATE EXT REL 25 MG TABCR PO (09:21)
[2023-01-17] MEDS: methylPHENIDATE HCL (*CRX) 10 MG TABLET 20 MG PO (09:21)
[2023-01-17] MEDS: MULTIVITAMINS THERAPEUTIC TAB (*BKC) 1 TABLET PO (09:21)
[2023-01-17] MEDS: ESCITALOPRAM OXALATE 10 MG TABLET PO (09:21)
[2023-01-17] MEDS: DOCUSATE SODIUM 100 MG CAPSULE PO (09:21)
[2023-01-17] MEDS: PANTOPRAZOLE SODIUM IV 40 MG VIAL IV PUSH (09:22)
[2023-01-17] MEDS: PRAVASTATIN SODIUM 20 MG TABLET 40 MG PO (09:22)
[2023-01-17] MEDS: MORPHINE SULFATE (*CRX) 4 MG/ML INJ IV PUSH (09:37)
[2023-01-17 12:25] LABS: Hematocrit 40.1 % (37.0-47.0); Hemoglobin 12.4 g/dL (12.0-15.0); Mean Corpuscular HGB Conc 30.9 g/dl (32-36); Mean Corpuscular Hemoglobin 27.6 pg (26-34); Mean Corpuscular Volume 89.3 fl (80-100); Mean Platelet Volume 11.1 fl (7.4-10.4); Platelet Count Result 197 k/mm3 (150-375); Red Blood Count 4.49 M/mm3 (4.2-5.4); Red Cell Distribution Width 13.2 % (11.5-14.5); White Blood Count 4.3 K/mm3 (4.5-10.0)
[2023-01-17 12:31] LABS: Anion Gap 2 mmol/L (8-16); Blood Urea Nitrogen 13 mg/dL (7-17); Calcium 8.8 mg/dL (8.4-10.2); Carbon Dioxide 33 mmol/L (22-30); Chloride 102 mmol/L (98-107); Estimated CRCL calculation 121 ml/min; Estimated Glomerular Filt Rate > 60; Glucose 87 mg/dL (65-110); Sodium 137 mmol/L (137-145)
--- NOTE | 2023-01-17 13:00 | PM.DS ---
DS: Admitting Diagnosis Discharge Date 2022 Admitting Diagnosis Epigastric pain DS: Discharge Diagnosis Discharge Diagnosis (1) Chest pain: Code(s): R07.9 - Chest pain, unspecified Status: Acute Assessment and Plan: Likely secondary to dysphagia. Patient has had gastric sleeve surgery or some other bariatric procedure. Will have GI see the patient. Likely not cardiac. EGD results noted. PPI Carafate UNABLE TO TOLERATE A DIET. APPRECIATE GI INPUT DS: Summary Hospital Course Hospital Course: Patient admitted for epigastric pain. Underwent EGD showed erosions. Did have recent gastric sleeve. Will need to follow-up bariatric surgeon. PPI and sucralfate on discharge. Follow-up with GI as needed Time Spent with Patient Time attestation: Total time spent providing and/or coordinating discharge services: Exam Narrative: GENERAL: Well-appearing, well-nourished, and in no acute distress. HEAD: Normocephalic, atraumatic. EYES: PERRLA and EOMI. ENT: Nares clear, no rhinorrhea or epistaxis. Mucous membranes moist. Oropharynx without tonsillar hypertrophy exudate or other lesions. NECK: Supple. No adenopathy or masses. CHEST: No respiratory distress. Clear to auscultation. No wheezes rales or rhonchi HEART: Regular rate and rhythm. No murmur heard. Normal peripheral pulses. ABDOMEN: Soft, mild epigastric tenderness, nondistended, normal active bowel sounds. MSK: Normal range of motion. No edema. SKIN: Warm, dry, no rash. NEURO: Alert and oriented x3. No focal deficits. PSYCH: Normal mood and affect. DS: Data Data Completed and Pending Pending studies at discharge: Pending at discharge 01/14/23 07:41 Surgical [PTH] Routine Labs on day of discharge: Labs from last 24 hours 01/17/23 01/17/23 06:16 06:11 WBC 4.3 L RBC 4.49 Hgb 12.4 Hct 40.1 MCV 89.3 MCH 27.6 MCHC 30.9 L RDW 13.2 Plt Count 197 MPV 11.1 H PT 18.0 H INR 1.4 Sodium 137 Potassium 4.0 Chloride 102 Carbon Dioxide 33 H Anion Gap 2 L BUN 13 Creatinine 0.50 L Estim Creat Clear Calc 121 Estimated GFR > 60 Glucose 87 Calcium 8.8 Discharge Plan Discharge Attending physician on discharge: Trevor Busch Consulting providers: Omar Li; Santo Michelle Discharging Clinician: Trevor Busch Patient Disposition: Home, Self-Care Activity: as tolerated Diet: as tolerated Patient Instructions: Antibiotic Form, Warfarin (By mouth), Pain Management in Older Adults (DC) Stand Alone Forms: General Discharge Information Follow-up/Referrals: Santo Michelle MD [Physician] - Franki Flor MD [Primary Care Provider] - Discharge Medications: New sucralfate 100 mg/mL Suspension 1,000 mg PO ACHS 30 Days Qty: 1200 0RF pantoprazole [Protonix] [address] for susp in packet 40 mg PO BID Qty: 60 0RF Continued allopurinol 100 mg Tablet 100 mg PO DAILY pravastatin 40 mg Tablet 40 mg PO DAILY isosorbide mononitrate 30 mg Tablet Extended Release 24 Hr 30 mg PO DAILY warfarin 4 mg tablet 8 mg PO DAILY losartan 25 mg Tablet 12.5 mg PO DAILY fenofibrate 160 mg Tablet 160 mg PO DAILY metoprolol succinate 25 mg Capsule,Sprinkle,Er 24hr 25 mg PO DAILY nitroglycerin 0.4 mg tablet, sublingual 0.4 mg sublingual Q5MIN PRN (Reason: Chest Pain) Rx Instructions: repeatx2 pregabalin [Lyrica] 75 mg capsule 150 mg PO BID multivitamin Tablet 1 tablet PO DAILY methylphenidate HCl [Ritalin] 20 mg Tablet 20 mg PO BID folic acid 1 mg Tablet 1 mg PO DAILY cyclobenzaprine 10 mg tablet 10 mg PO BID PRN (Reason: Muscle Spasm) hydrocodone-acetaminophen 10-325 mg tablet 1 tablet PO Q6H PRN (Reason: Moderate Pain (Scale Score 5-6)) aspirin [Adult Aspirin EC Low Strength] 81 mg Tablet,Delayed Release (Dr/Ec) 81 mg PO DAILY
--- NOTE | 2023-01-17 13:57 | WPDGIPROGNO ---
Progress Note: A&P Assessment and Plan (1) Ulcerative esophagitis: Code(s): K22.10 - Ulcer of esophagus without bleeding Status: Acute Assessment and Plan: Patient was significant ulcerative esophagitis. This appears to be on the basis of acid reflux. Plan for long-term use of pantoprazole or similar PPI medicine. Currently using pantoprazole 40mg p.o. b.i.d.. This is supplemented with Carafate suspension 4 times a day. Patient should elevate head of bed at night. [place] diet advised. Review of histology obtained at time of endoscopy when available is advised to exclude infection. If symptoms persist long-term then follow-up EGD in several months is advised. Patient is likely predisposed to GE reflux because of small stomach from her gastric sleeve. Okay from GI perspective for discharge. (2) H/O gastric sleeve: Code(s): Z90.3 - Acquired absence of stomach [part of] Status: Acute (3) History of repair of hiatal hernia: Code(s): Z98.890 - Other specified postprocedural states; Z87.19 - Personal history of other diseases of the digestive system Status: Acute Subjective Date/time seen: 01/17/23 13:57 Interval history: Patient alert comfortable at present. Tolerating diet. She has a hard time eating as it appears to and enters stomach and then leaves slowly. She states pain with eating is diminished some. Endoscopic findings revealed ulcerative esophagitis. This felt to be on the basis of acid reflux. Biopsies were taken to exclude infection her still pending. Review of Systems Review of Systems: Review of systems noncontributory. Exam Narrative: Physical exam reveals patient be alert. She is comfortable at rest. Afebrile and anicteric. Lungs are clear. Heart without murmur. Abdomen bowel sounds present soft nontender no organomegaly. Objective Data Vital Signs Vital Signs: Vital Signs - 24 hr 01/16/23 14:00 01/16/23 21:00 01/16/23 20:00 Temperature 97.3 F L 98.6 F Pulse Rate 72 79 Respiratory Rate 16 18 Blood Pressure 110/74 90/74 L Pulse Oximetry 93 95 Oxygen Delivery Room Air 01/17/23 05:38 01/17/23 08:00 Temperature 97.7 F Pulse Rate 62 Respiratory Rate 18 Blood Pressure 115/72 Pulse Oximetry 97 Oxygen Delivery Room Air Intake/Output Intake/Output: Intake & Output 01/14/23 01/15/23 01/16/23 01/17/23 23:59 23:59 23:59 23:59 Intake Total 1630 2436 1572 1140 Output Total 400 Balance 1230 2436 1572 1140 Meds/Results Medications: Active Medications Generic Name Dose Route Start Last Admin Trade Name Freq PRN Reason Stop Dose Admin Hydrocodone Bitart/Acetaminophen 1 tab 01/13/23 10:02 01/17/23 05:39 Hydrocodone/Acetaminophen (*Crx) 10-325 Mg Tablet PO 1 tab Q6H PRN Administration Moderate Pain (Scale Score 5-6) Allopurinol 100 mg 01/13/23 10:10 01/17/23 09:21 Allopurinol 100 Mg Tablet PO 100 mg DAILY ISELA Administration Aspirin 81 mg 01/13/23 10:10 01/17/23 09:21 Aspirin 81 Mg Enteric Tablet PO 81 mg DAILY ISELA Administration Cyanocobalamin 1,000 mcg 01/15/23 09:00 01/15/23 09:18 Cyanocobalamin Inj 1,000 Mcg/Ml Vial SUB-Q 1,000 mcg [place]@0900 ISELA Administration Cyclobenzaprine HCl 10 mg 01/13/23 10:02 01/16/23 21:22 Cyclobenzaprine Hcl 10 Mg Tablet PO 10 mg BID PRN Administration Muscle Spasm Docusate Sodium 100 mg 01/13/23 10:10 01/17/23 09:21 Docusate Sodium 100 Mg Capsule PO 100 mg DAILY ISELA Administration Escitalopram Oxalate 10 mg 01/13/23 10:10 01/17/23 09:21 Escitalopram Oxalate 10 Mg Tablet PO 10 mg DAILY ISELA Administration Fenofibrate 160 mg 01/13/23 10:15 01/17/23 09:21 Fenofibrate 160 Mg Tablet PO 160 mg DAILY ISELA Administration Folic Acid 1 mg 01/13/23 10:10 01/17/23 09:21 Folic Acid 1 Mg Tablet PO 1 mg DAILY ISELA Administration Dextrose/Sodium Chloride 1,000 mls @ 85 mls/
== END 2023-01-17 14:00 | disposition home or self-care (01) | DRG 243 ==
LOC: ANHED 20:31 → ANHIMU 23:56 → ANH3MEDSUR 01-14 04:29
PROVIDERS: Emergency Medicine; Internal Medicine Gastroenterology; Admitting Provider Internal Medicine; Emergency Provider Physician Assistant; PCP Emergency Medicine; Visit Provider Chiropractor
PROC: 0DJ08ZZ Inspection of Upper Intestinal Tract, Via Natural or Artificial Opening Endoscopic (ICD-10-PCS; CPT 43235; principal; 2023-01-14 07:30)
DX: K22.10 Ulcer of esophagus without bleeding (principal); M32.9 Systemic lupus erythematosus, unspecified; E11.9 Type 2 diabetes mellitus without complications; G47.33 Obstructive sleep apnea (adult) (pediatric); E66.01 Morbid (severe) obesity due to excess calories; K21.00 Gastro-esophageal reflux disease with esophagitis, without bleeding; R13.10 Dysphagia, unspecified; I25.10 Atherosclerotic heart disease of native coronary artery without angina pectoris; M19.90 Unspecified osteoarthritis, unspecified site; J34.2 Deviated nasal septum; Z68.41 Body mass index [BMI] 40.0-44.9, adult; Z95.1 Presence of aortocoronary bypass graft; Q24.9 Congenital malformation of heart, unspecified; Z87.891 Personal history of nicotine dependence; Z98.84 Bariatric surgery status
CPT/HCPCS: 36415; 71046; 80048; 80053; 83690; 84484; 85025; 85027; 85380; 85610; 85730; 88305; 88312; 88313; 93005; 99285; A9270; C9113; G0378; G0379; J2270; J2405; J3420; J7030; J7120

== ENCOUNTER 2023-04-17 14:50 | Outpatient (CLI) | payer OTHER, SELFPAY ==
[2023-04-17 16:33] LABS: Influenza A QL RT-PCR Negative (Negative); Influenza B QL RT-PCR Negative (Negative); SARS-CoV-2 RNA PCR Negative (Negative)
== END 2023-04-17 14:51 | disposition home or self-care (01) ==
PROVIDERS: PCP Emergency Medicine; Visit Provider Emergency Medicine
DX: B34.9 Viral infection, unspecified (principal); Z20.822 Contact with and (suspected) exposure to COVID-19
CPT/HCPCS: 87636

== ENCOUNTER 2023-08-25 01:40 | Day surgery (SDC) | payer OTHER, SELFPAY ==
[2023-08-14 11:06] VITALS: BMI 43.4
--- NOTE | 2023-08-14 12:05 | PC.NURSE ---
called pt to go over her instructions for her upcoming egd/colonoscopy. pt takes warfarin and states dr conchita pascal manages this. will need to stop warfarin 4 days prior, request faxed to dr pascal. she does have a history of cad, cabg x 2, and congenital heart defect. states she sees her motor setter, dr clarke in [place] every 6 months. office number is [phone], called and left vm with his office that we would need cardiac clearance, requested fax number.
--- NOTE | 2023-08-18 09:59 | PC.NURSE ---
No faxes were ever received for clearance for patient to be able to stop Warfarin from Dr. Flor's office or Dr. Mcclendon's office. Faxes were resent and offices called. Message left for Dr. Mcclendon and Dr. Flor's office is keeping an eye out for the new fax.
--- NOTE | 2023-08-18 13:20 | PC.NURSE ---
Spoke with patient in regards to us not being able to obtain clearance from either one of her Dr's for her procedure after multiple faxes and phone calls were made. I told the patient to proceed with things as if we are going to have the procedure as planned, that we would touch base with her again on .
--- NOTE | 2023-08-22 15:28 | PC.NURSE ---
Addendum entered by Lyssa Young RN 08/25/23 09:17: I have not received letter from Dr. Dill office, office called and I spoke with HUMBERTO that is there today as Kieley is off. She will speak with Dr. Flor and ask him to write the letter and she will send it this morning. Addendum entered by Lyssa Young RN 08/25/23 09:02: lat entry- 07/29/2808/23/2023 I spoke with patient regarding Dr. Mcclendon's clearance letter to hold Warfarin and bridge to Lovenox. Pt states she will not do this as the Lovenox cause excessive hematoma's and bruising and prefers to not take it for procedures that are not surgical procedures. She states that Dr. Flor knows that she has the excessive hematoma's and allows her to stop Warfarin without bridging to Lovenox. Pt states she has not taken Warfarin since 08/20/23. I called Dr. Flor's office and spoke with Edgardo Mcdaniel MA and explained this to her, she is to discuss with Dr. Flor. 08/24/2023 0914 Spoke with Edgardo Mcdaniel MA in Dr. Dill office and she states he is reviewing her chart and she will get back to me. 1557 spoke with Edgardo Mcdaniel MA and she states she spoke with Dr. Flor and she is to speak with Shoshana Salas and confirm she does not want to take Lovenox and understands risk involved and type letter to us that she is okay to remain off Warfarin without Bridging to Lovenox for procedure 08/25/[address]. [address] Flor is aware pt is off Warfarin as he had given prior clearance 08/22/2023. Pt had stated he had given her clearance when seen in office so she had stopped it after dose on 08/20/2023. Addendum entered by Lyssa Young RN 08/23/23 08:54: Received fax and call from Dr. Mcclendon 08/22/2023 1900 regarding clearance to hold Warfarin, according to his notes received he has given orders to patient to be off Warfarin for procedure and to continue Lovenox 90 mg BID until after procedure, he indicates Patient understands and wishes to continue Lovenox. Patient called this am to confirm, voicemail received and message left to call me mamadou. Addendum entered by Lyssa Young RN 08/23/23 08:45: 08/22/2023 When I spoke with patient regarding Warfarin she stated she had already stopped it with the last dose on 08/20/2023. I did explain we had received the clearance from Dr. Flor and not Dr. Mcclendon as we had not had any responses from him regarding clearance for holding Warfarin. She states he is very hard to get in contact with as he works mainly through the hospital at [facility]. Original Note: Spoke with _PATIENT_ regarding medication _WARFARIN_. Pt. verbalizes understanding that the last dose of _WARFARIN__ is to be taken on _08/20/2023_ and the Endoscopist will instruct them when to restart after the procedure.
[2023-08-25 10:50] VITALS: BP 128/71; PULSE 81; RESP 18; TEMP 35.9; O2SAT 96; BMI 42.1
[2023-08-25] MEDS: LACTATED RINGERS 1,000 ML 150 ML IV CONT (11:12)
--- NOTE | 2023-08-25 11:41 | WPDANESEPPF ---
Anes - Initial Pre Proc Eval Procedure: Operation Date: 08/25/23 14:00 Proposed Procedures p Esophagogastroduodenoscopy & Colonoscopy - Jerson Lyles MD Date/Time: 08/25/23 11:41 Surgeon: Jerson Lyles MD Pre Op Diagnosis: Esophageal ulcer, dysphagia, vomiting, hx.polyps Patient Data Age: 48 Gender: F Height: 1.52 m Weight: 97.9 kg Last Vital Signs Temp 35.9 C L 08/25/23 10:50 Pulse 81 08/25/23 10:50 Resp 18 08/25/23 10:50 BP 128/71 08/25/23 10:50 Pulse Ox 96 08/25/23 10:50 O2 Del Method Room Air 08/25/23 10:50 Allergies Allergy/AdvReac Type Severity Reaction Status Date / Time No Known Allergies Allergy Verified 08/25/23 11:07 Home Medications Medication Instructions Recorded Confirmed Type allopurinol 100 mg tablet 100 mg PO DAILY 01/30/19 08/25/23 History fenofibrate 160 mg tablet 160 mg PO DAILY 01/30/19 08/25/23 History isosorbide mononitrate 30 mg 30 mg PO DAILY 01/30/19 08/25/23 History tablet,extended release 24 hr losartan 25 mg tablet 12.5 mg PO DAILY 01/30/19 08/25/23 History metoprolol succinate 25 mg capsule 25 mg PO DAILY 01/30/19 08/25/23 History sprinkle, ext. release 24 hr pravastatin 40 mg tablet 40 mg PO DAILY 01/30/19 08/25/23 History warfarin 4 mg tablet 8 mg PO DAILY 01/30/19 08/25/23 History folic acid 1 mg tablet 1 mg PO DAILY 02/07/19 08/25/23 History methylphenidate HCl 20 mg tablet 20 mg PO BID 02/07/19 08/25/23 History (Ritalin) multivitamin 1 tablet PO DAILY 02/07/19 08/25/23 History pregabalin 75 mg capsule (Lyrica) 150 mg PO BID 03/26/20 08/25/23 History nitroglycerin 0.4 mg sublingual 0.4 mg sublingual Q5MIN PRN Chest 10/05/20 08/25/23 History tablet Pain aspirin 81 mg tablet,delayed 81 mg PO DAILY 01/13/23 08/25/23 History release biotin 10,000 mcg-keratin 100 mg 1 tablet PO DAILY 01/13/23 08/25/23 History tablet calcium citrate 500 mg (2,376 mg) 500 mg PO BID 01/13/23 08/25/23 History effervescent tablet cholecalciferol (vitamin D3) 50 50 mcg PO DAILY 01/13/23 08/25/23 History mcg (2,000 unit) chewable tablet cyanocobalamin (vitamin B-12) 1,000 mcg subcut WEEKLY 01/13/23 08/25/23 History 1,000 mcg/mL injection solution cyclobenzaprine 10 mg tablet 10 mg PO BID PRN Muscle Spasm 01/13/23 08/25/23 History docusate sodium 100 mg tablet 100 mg PO DAILY 01/13/23 08/25/23 History escitalopram oxalate 10 mg tablet 10 mg PO DAILY 01/13/23 08/25/23 History hydrocodone 10 mg-acetaminophen 1 tablet PO Q6H PRN Moderate Pain 01/13/23 08/25/23 History 325 mg tablet (Scale Score 5-6) lysine 1,000 mg tablet 1,000 mg PO DAILY 01/13/23 08/25/23 History magnesium 250 mg tablet 250 mg PO DAILY 01/13/23 08/25/23 History [id number]-[id number] 45 mg-folic 1 cap PO DAILY 01/13/23 08/25/23 History acid 800 mcg-vit K 120 mcg capsule (Bariatric Multivitamins) ondansetron 4 mg disintegrating 4 mg translingual Q8H PRN Nausea 01/13/23 08/25/23 History tablet potassium 99 mg tablet 99 mg PO DAILY 01/13/23 08/25/23 History doxycycline hyclate 100 mg tablet 100 mg PO DAILY #20 tabs 03/28/23 08/25/23 Rx methylprednisolone 4 mg tablet 4 mg PO BID #20 tabs 03/28/23 08/25/23 Rx (Medrol) esomeprazole magnesium 40 mg 40 mg PO BID #60 caps 08/02/23 08/25/23 Rx capsule,delayed release famotidine 40 mg tablet 40 mg PO DAILY 08/02/23 08/25/23 History ondansetron 8 mg disintegrating 8 mg PO Q8H #30 tabs 08/02/23 08/25/23 Rx tablet sucralfate 100 mg/mL oral 1,000 mg (10 mL) PO ACHS 30 days 08/02/23 08/25/23 Rx suspension #1,200 mL Patient hx anesthesia problems: none Family hx anesthesia problems: none Results Review: All pre-operative results and documents have been reviewed as part of the pre-operative evaluation. [facility] Past Medical History Medical History Acquired deviated nasal septum Arthritis Back pain CAD (coronary artery disease) Chroni
--- NOTE | 2023-08-25 11:58 | WPDHPUPDATE1 ---
History and Physical Update Update Date/Time: 08/25/23 11:58 History and Physical has been reviewed, including an updated exam of the patient. There are NO changes in the patient's condition. Risks, benefits, and alternatives have been discussed and questions answered. Patient agrees to proceed with procedure.
--- NOTE | 2023-08-25 12:08 | SUR.OPER ---
EGD ended at 1203, colon began at 1208
[2023-08-25 12:18] VITALS: BP 113/66; PULSE 80; RESP 18; O2SAT 100
[2023-08-25 12:28] VITALS: BP 122/73; PULSE 72; RESP 20; O2SAT 100
[2023-08-25 12:38] VITALS: BP 123/78; PULSE 69; RESP 15; O2SAT 100
== END 2023-08-25 12:51 | disposition home or self-care (01) ==
PROVIDERS: PCP Emergency Medicine; Visit Provider Internal Medicine Gastroenterology
PROC: 0DJ08ZZ Inspection of Upper Intestinal Tract, Via Natural or Artificial Opening Endoscopic (ICD-10-PCS; CPT 43235; principal; 2023-08-25 14:00)
DX: Z12.11 Encounter for screening for malignant neoplasm of colon (principal); D12.3 Benign neoplasm of transverse colon; K64.8 Other hemorrhoids; K21.00 Gastro-esophageal reflux disease with esophagitis, without bleeding; K44.9 Diaphragmatic hernia without obstruction or gangrene; Z87.19 Personal history of other diseases of the digestive system; I25.10 Atherosclerotic heart disease of native coronary artery without angina pectoris; E11.9 Type 2 diabetes mellitus without complications; E78.00 Pure hypercholesterolemia, unspecified; G47.33 Obstructive sleep apnea (adult) (pediatric); M32.9 Systemic lupus erythematosus, unspecified; Z79.891 Long term (current) use of opiate analgesic; Z95.1 Presence of aortocoronary bypass graft; E66.01 Morbid (severe) obesity due to excess calories; Z68.41 Body mass index [BMI] 40.0-44.9, adult; Z98.84 Bariatric surgery status; Z79.01 Long term (current) use of anticoagulants; Z79.82 Long term (current) use of aspirin; Z87.891 Personal history of nicotine dependence
CPT/HCPCS: 45385; 43239; 88305; J2704; J7120

== ENCOUNTER 2023-10-25 23:16 | Emergency (ER) | payer OTHER, SELFPAY ==
--- NOTE | ~2023-10-25 | XR_ITS ---
Portable chest x-ray Comparison: 01/12/2023 Clinical History: Chest pain Findings: Lungs are clear, without focal consolidation or pleural effusion. Cardiomediastinal silho uette is stable. Postoperative changes at the mediastinum are unchanged. Bones and soft tissues are u nremarkable. Impression: No acute abnormality. Stable postoperative changes in the mediastinum. Reviewed, dictated and finalized at location . Impression: No acute abnormality. Stable postoperative changes in the mediastinum.
[2023-10-25 23:20] VITALS: BP 130/87; PULSE 84; RESP 18; TEMP 36.8; O2SAT 99
--- NOTE | 2023-10-25 23:23 | ECG_ITS ---
Test Date: 2023-10-25 23:33:31 Measurements Intervals [place] Rate: 82 P: 19 [place]: 168 QRS: -5 QRSD: 92 T: 32 QT: 383 QTc: 449 Interpretive Statements SINUS RHYTHM CANNOT RULE OUT PREVIOUS INFERIOR INFARCTION NONSPECIFIC T-WAVE ABNORMALITY ABNORMAL ECG No previous ECG available for comparison Electronically Signed On 10-27-2023 10:47:22 CDT by Trevor Doran M.D.
[2023-10-26 02:13] LABS: Basophils Absolute Auto 0.1 K/mm3 (0.0-0.1); Basophils Percent Auto 1.2 % (0.2-1.2); Eosinophils Absolute Auto 0.3 K/mm3 (0-0.3); Eosinophils Percent Auto 2.9 % (0-4.4); Hematocrit 44.8 % (37.0-47.0); Hemoglobin 14.7 g/dL (12.0-15.0); Immature Granulocyte Absolute 0.02 K/mm3 (0.00-0.031); Immature Granulocyte Percent A 0.2 % (0-0.5); Lymphocytes Absolute Auto 1.95 K/mm3 (0.9-3.2); Lymphocytes Percent Auto 22.7 % (18.3-44.2); Mean Corpuscular HGB Conc 32.8 g/dl (32-36); Mean Corpuscular Hemoglobin 27.8 pg (26-34); Mean Corpuscular Volume 84.7 fl (80-100); Mean Platelet Volume 10.6 fl (7.4-10.4); Monocytes Absolute Auto 0.5 K/mm3 (0.1-0.6); Monocytes Percent Auto 6.2 % (2.6-8.5); Neutrophils Absolute Auto 5.8 K/mm3 (1.3-6.7); Neutrophils Percent Auto 66.8 % (45.5-73.1); Platelet Count Result 270 k/mm3 (150-375); Red Blood Count 5.29 M/mm3 (4.2-5.4); Red Cell Distribution Width 13.4 % (11.5-14.5); White Blood Count 8.6 K/mm3 (4.5-10.0)
[2023-10-26 02:23] VITALS: BP 131/71; PULSE 87; RESP 18; O2SAT 99
[2023-10-26 02:24] LABS: Alanine Aminotransferase 27 U/L (6-35); Albumin Level 4.9 g/dL (3.5-5.1); Alkaline Phosphatase 70 U/L (38-126); Anion Gap 13 mmol/L (4-12); Aspartate Amino Transferase 29 U/L (14-36); Bilirubin,Total 0.4 mg/dL (0.2-1.3); Blood Urea Nitrogen 14 mg/dL (7-17); Carbon Dioxide 27 mmol/L (22-30); Chloride 101 mmol/L (98-107); Estimated CRCL calculation 105 ml/min; Estimated Glomerular Filt Rate > 60; Glucose 110 mg/dL (65-110); Lipase 169 U/L (23-300); Potassium 4.1 mmol/L (3.4-5.0); Sodium 141 mmol/L (137-145)
--- NOTE | 2023-10-26 03:01 | ED.NAVMDI ---
HPI - Nausea/Vomiting/Diarrhea General Chief complaint: Nausea/Vomiting/Diarrhea Stated complaint: vomiting blood Time Seen by Provider: 10/26/23 02:21 Source: patient Limitations: no limitations History of Present Illness HPI Narrative: Patient is a 48-year-old female presents to the emergency department complaining of her ulcers flaring up. Patient notes that she has had this many times in the past and with the past few days she has been experiencing burning sensation in her substernal region in addition to her epigastric region that is consistent with her history of her ulcers flaring up. Patient notes that she is following with Gastroenterology and was supposed to get an appointment with them but missed it due to a in the family. Patient is to having a EGD a few months ago. Patient states she has been taking Zofran, sucralfate, omeprazole, without significant relief. Patient denies any recent injuries recent illness. Patient denies alcohol use or NSAID use. Patient denies diarrhea, melena, hematochezia. Patient denies urinary discomfort, difficulty breathing, fever, sick contacts. Patient is that she has been having multiple episodes of nonbloody nonbilious emesis over the past few days associated with this and is not getting dehydrated. Patient is in the past she got a GI cocktail that helped. Patient notes that her discomfort is burning, nonradiating, comes and goes but is becoming more frequent, has not noticed anything making it better or worse. Related Data Home Medications Medication Instructions Recorded Confirmed allopurinol 100 mg tablet 100 mg PO DAILY 01/30/19 08/25/23 fenofibrate 160 mg tablet 160 mg PO DAILY 01/30/19 08/25/23 isosorbide mononitrate 30 mg 30 mg PO DAILY 01/30/19 08/25/23 tablet,extended release 24 hr losartan 25 mg tablet 12.5 mg PO DAILY 01/30/19 08/25/23 metoprolol succinate 25 mg capsule 25 mg PO DAILY 01/30/19 08/25/23 sprinkle, ext. release 24 hr pravastatin 40 mg tablet 40 mg PO DAILY 01/30/19 08/25/23 warfarin 4 mg tablet 8 mg PO DAILY 01/30/19 08/25/23 folic acid 1 mg tablet 1 mg PO DAILY 02/07/19 08/25/23 methylphenidate HCl 20 mg tablet 20 mg PO BID 02/07/19 08/25/23 (Ritalin) multivitamin 1 tablet PO DAILY 02/07/19 08/25/23 pregabalin 75 mg capsule (Lyrica) 150 mg PO BID 03/26/20 08/25/23 nitroglycerin 0.4 mg sublingual 0.4 mg sublingual Q5MIN PRN Chest 10/05/20 08/25/23 tablet Pain aspirin 81 mg tablet,delayed 81 mg PO DAILY 01/13/23 08/25/23 release biotin 10,000 mcg-keratin 100 mg 1 tablet PO DAILY 01/13/23 08/25/23 tablet calcium citrate 500 mg (2,376 mg) 500 mg PO BID 01/13/23 08/25/23 effervescent tablet cholecalciferol (vitamin D3) 50 50 mcg PO DAILY 01/13/23 08/25/23 mcg (2,000 unit) chewable tablet cyanocobalamin (vitamin B-12) 1,000 mcg subcut WEEKLY 01/13/23 08/25/23 1,000 mcg/mL injection solution cyclobenzaprine 10 mg tablet 10 mg PO BID PRN Muscle Spasm 01/13/23 08/25/23 docusate sodium 100 mg tablet 100 mg PO DAILY 01/13/23 08/25/23 escitalopram oxalate 10 mg tablet 10 mg PO DAILY 01/13/23 08/25/23 hydrocodone 10 mg-acetaminophen 1 tablet PO Q6H PRN Moderate Pain 01/13/23 08/25/23 325 mg tablet (Scale Score 5-6) lysine 1,000 mg tablet 1,000 mg PO DAILY 01/13/23 08/25/23 magnesium 250 mg tablet 250 mg PO DAILY 01/13/23 08/25/23 [id number] 45 mg-folic 1 cap PO DAILY 01/13/23 08/25/23 acid 800 mcg-vit K 120 mcg capsule (Bariatric Multivitamins) ondansetron 4 mg disintegrating 4 mg translingual Q8H PRN Nausea 01/13/23 08/25/23 tablet potassium 99 mg tablet 99 mg PO DAILY 01/13/23 08/25/23 famotidine 40 mg tablet 40 mg PO DAILY 08/02/23 08/25/23 Allergies Allergy/AdvReac Type Severity Reaction Status Date / Time No Known Allergies Allergy Verified 08/25/23 11:07 Review of Systems Review of Systems: A 10 system review of systems was completed on the patient and is negative except for what is stated in the HPI. Nursing
[2023-10-26 03:13] LABS: Magnesium 2.2 mg/dL (1.6-2.3); Phosphorus 3.3 mg/dL (2.5-4.5)
--- NOTE | 2023-10-26 03:14 | PC.NURSE ---
pt has a hx of hysterectomy
[2023-10-26] MEDS: SODIUM CHLORIDE 0.9% IV 1,000 ML 999 ML IV CONT (03:22)
[2023-10-26] MEDS: BELLADONNA ALK/PHENOB ELIX 10 ML, MAG HYDROX/ALUMINUM HYD/SIMETH 30 ML, LIDOCAINE HCL 2... PO (03:23)
[2023-10-26] MEDS: PANTOPRAZOLE SODIUM IV 40 MG VIAL IV PUSH (03:23)
[2023-10-26] MEDS: diphenhydrAMINE HCl INJ 50 MG/ML VIAL 25 MG IV PUSH (03:23)
[2023-10-26] MEDS: METOCLOPRAMIDE HCL INJ 10 MG/2 ML VIAL IV PUSH (03:23)
[2023-10-26 03:25] LABS: Troponin I < 0.012 ng/mL (0.000-0.034)
[2023-10-26 03:47] VITALS: BP 113/75; PULSE 74; RESP 18; O2SAT 100
[2023-10-26 04:42] LABS: Add Urine Microscopic? NO; Appearance Urine Clear (Clear); Bilirubin Urine Negative (Negative); Blood Urine Negative (Negative); Color Urine Yellow (Yellow); Glucose Urine UA Negative (Negative); Ketones Urine Negative (Negative); Leukocyte Esterase Ur Negative LEU/UL (Negative); Nitrate Urine Negative (Negative); Protein Urine Negative (Negative); Specific Grav Ur 1.024 (1.001-1.035)
== END 2023-10-26 05:45 | disposition home or self-care (01) ==
PROVIDERS: Emergency Provider Student in an Organized Health Care Education/Training Program; PCP Emergency Medicine
DX: K20.90 Esophagitis, unspecified without bleeding (principal); I25.10 Atherosclerotic heart disease of native coronary artery without angina pectoris; E11.9 Type 2 diabetes mellitus without complications; E78.00 Pure hypercholesterolemia, unspecified; E66.01 Morbid (severe) obesity due to excess calories; Z68.41 Body mass index [BMI] 40.0-44.9, adult; G47.33 Obstructive sleep apnea (adult) (pediatric); M32.9 Systemic lupus erythematosus, unspecified; M19.90 Unspecified osteoarthritis, unspecified site; Z87.11 Personal history of peptic ulcer disease; Z95.1 Presence of aortocoronary bypass graft; Z87.891 Personal history of nicotine dependence; Z79.899 Other long term (current) drug therapy; Z79.01 Long term (current) use of anticoagulants; R94.31 Abnormal electrocardiogram [ECG] [EKG]
CPT/HCPCS: 36415; 71045; 80053; 81003; 83690; 83735; 84100; 84484; 85025; 93005; 96361; 96374; 96375; 99284; A9270; J1200; J2470; J2765; J7030

== ENCOUNTER 2024-01-04 17:34 | Emergency (ER) | payer OTHER, SELFPAY ==
--- NOTE | 2024-01-04 17:42 | ED.URI ---
HPI - URI/Sore Throat General Chief Complaint: Upper Respiratory Infection Stated Complaint: sore throat,left ear,head congestion Time Seen by Provider: 01/04/24 17:42 Source: patient, RN notes reviewed and old records reviewed Mode of arrival: ambulatory Limitations: no limitations History of Present Illness HPI Narrative: 48-year-old female presents to the [facility] with complaints of sore throat, left ear discomfort, head congestion that started 4 days ago. States that she used a nasal spray. Also tried some severe cold medicine. Patient reports she has an appointment with ENT in January. Patient states that when her symptoms started her ENT normally gives her an antibiotic a steroid and nasal spray. Onset (ago): day(s) (4) Treatments prior to arrival: cold medicine Related Data Home Medications Medication Instructions Recorded Confirmed allopurinol 100 mg tablet 100 mg PO DAILY 01/30/19 01/04/24 fenofibrate 160 mg tablet 160 mg PO DAILY 01/30/19 01/04/24 isosorbide mononitrate 30 mg 30 mg PO DAILY 01/30/19 01/04/24 tablet,extended release 24 hr losartan 25 mg tablet 12.5 mg PO DAILY 01/30/19 01/04/24 metoprolol succinate 25 mg capsule 25 mg PO DAILY 01/30/19 01/04/24 sprinkle, ext. release 24 hr pravastatin 40 mg tablet 40 mg PO DAILY 01/30/19 01/04/24 folic acid 1 mg tablet 1 mg PO DAILY 02/07/19 01/04/24 methylphenidate HCl 20 mg tablet 20 mg PO BID 02/07/19 01/04/24 (Ritalin) pregabalin 75 mg capsule (Lyrica) 150 mg PO BID 03/26/20 01/04/24 nitroglycerin 0.4 mg sublingual 0.4 mg sublingual Q5MIN PRN Chest 10/05/20 01/04/24 tablet Pain aspirin 81 mg tablet,delayed 81 mg PO DAILY 01/13/23 01/04/24 release biotin 10,000 mcg-keratin 100 mg 1 tablet PO DAILY 01/13/23 01/04/24 tablet calcium citrate 500 mg (2,376 mg) 500 mg PO BID 01/13/23 01/04/24 effervescent tablet cholecalciferol (vitamin D3) 50 50 mcg PO DAILY 01/13/23 01/04/24 mcg (2,000 unit) chewable tablet cyclobenzaprine 10 mg tablet 10 mg PO BID PRN Muscle Spasm 01/13/23 01/04/24 docusate sodium 100 mg tablet 100 mg PO DAILY 01/13/23 01/04/24 escitalopram oxalate 10 mg tablet 10 mg PO DAILY 01/13/23 01/04/24 hydrocodone 10 mg-acetaminophen 1 tablet PO Q6H PRN Moderate Pain 01/13/23 01/04/24 325 mg tablet (Scale Score 5-6) lysine 1,000 mg tablet 1,000 mg PO DAILY 01/13/23 01/04/24 magnesium 250 mg tablet 250 mg PO DAILY 01/13/23 01/04/24 ylqhzuoj-evzgtwnb-anlx 45 mg-folic 1 cap PO DAILY 01/13/23 01/04/24 acid 800 mcg-vit K 120 mcg capsule (Bariatric Multivitamins) ondansetron 4 mg disintegrating 4 mg translingual Q8H PRN Nausea 01/13/23 01/04/24 tablet potassium 99 mg tablet 99 mg PO DAILY 01/13/23 01/04/24 Allergies Allergy/AdvReac Type Severity Reaction Status Date / Time No Known Allergies Allergy Verified 08/25/23 11:07 Review of Systems Review of Systems: All systems reviewed & are unremarkable except as noted in HPI and below Constitutional: Constitutional: Reports no additional constitutional complaints Eyes: Eyes: Reports no additional eye complaints ENT: Reports as per HPI, Reports otalgia, Reports nasal congestion and Reports sore throat Cardiovascular: Cardiovascular: Reports no additional cardiovascular complaints, Denies chest pain and Denies dyspnea Respiratory: Respiratory: Reports no additional respiratory complaints, Denies chest congestion, Denies cough and Denies dyspnea Gastrointestinal: Gastrointestinal: Reports no additional gastrointestinal complaints, Denies abdominal pain, Denies nausea and Denies vomiting Musculoskeletal: Musculoskeletal: Reports no additional musculoskeletal complaints Integumentary/Breasts: Skin/Breast: Reports system reviewed and no additional complaints, except as docu Neurologic: Reports system reviewed and no additional complaints, except as documented Psychiatric: Psychiatric: Reports no additional psychiatric complaints Allergic/Immunologic: Allergic/Immunologic:
[2024-01-04 17:50] VITALS: BP 134/74; PULSE 76; RESP 16; TEMP 36.2; O2SAT 100
== END 2024-01-04 18:05 | disposition home or self-care (01) ==
PROVIDERS: Emergency Provider Nurse Practitioner; PCP Emergency Medicine
DX: J06.9 Acute upper respiratory infection, unspecified (principal); J32.9 Chronic sinusitis, unspecified; Z87.891 Personal history of nicotine dependence; M19.90 Unspecified osteoarthritis, unspecified site; I25.10 Atherosclerotic heart disease of native coronary artery without angina pectoris; E11.9 Type 2 diabetes mellitus without complications; N80.9 Endometriosis, unspecified; E78.00 Pure hypercholesterolemia, unspecified; M32.9 Systemic lupus erythematosus, unspecified; E66.01 Morbid (severe) obesity due to excess calories; Z68.41 Body mass index [BMI] 40.0-44.9, adult; G47.33 Obstructive sleep apnea (adult) (pediatric); Z95.1 Presence of aortocoronary bypass graft; Z79.82 Long term (current) use of aspirin
CPT/HCPCS: 99213; G0463

== ENCOUNTER 2024-08-15 09:11 | Outpatient (CLI) | payer OTHER, SELFPAY ==
--- NOTE | ~2024-08-15 | DEXA_ITS ---
Bone Density Report Name: SHON ARAUJO Age: 49 Sex: Female Ethnicity: White Date of : 1975 Indication: postmenopausal; asthma or emphysema; hysterectomy; Referring Provider: TREMAINE KATE Study: Bone densitometry was performed. Exam Date: August 15, 2024 Accession number: [id number] Bone Density: Region BMD T-score Z-score Classification AP Spine(L1-L4) 0.873 -1.6 -1.0 Osteopenia Femoral Neck (Left) 0.690 -1.4 -0.8 Osteopenia Total Hip (Left) 0.932 -0.1 0.3 Normal Femoral Neck (Right) 0.594 -2.3 -1.7 Osteopenia Total Hip (Right) 0.889 -0.4 0.0 Normal Total Hip Mean 0.911 -0.3 0.2 Normal World Health Organization criteria for BMD impression classify patients as: Normal (T-score at or above -1.0), Osteopenia (T-score between -1.0 and -2.5), or Osteoporosis (T-score at or below -2.5). 10-year Fracture Risk(1): Major Osteoporotic Fracture 4.5% Hip Fracture 0.7% Reported Risk Factors: [place] (), Neck BMD=0.594, BMI=41.9 (1) FRAX(R) Version 3.08. Fracture probability calculated for an untreated patient. Fracture probability may be lower if the patient has received treatment. Previous Exams: Region Exam Age BMD T-score BMD Change BMD Change Date g/cm2 vs Baseline vs Previous AP Spine (L1-L4) 08/15/2024 49 0.873 -1.6 -0.024 (-2.7%) -0.081 (-8.5%) 11/05/2020 45 0.954 -0.8 0.057 (6.4%)* 0.009 (1.0%) 02/14/2019 43 0.945 -0.9 0.048 (5.4%)* -0.030 (-3.1%) 11/14/2016 41 0.975 -0.7 0.078 (8.8%)* 0.078 (8.8%)* 01/23/2014 38 0.897 -1.4 Total Hip(Left) 08/15/2024 49 0.932 -0.1 0.044 (4.9%)* -0.029 (-3.0%) 11/05/2020 45 0.961 0.2 0.073 (8.2%)* -0.013 (-1.4%) 02/14/2019 43 0.974 0.3 0.086 (9.7%)* -0.126 (-11.4% 11/14/2016 41 1.100 1.3 0.212 (23.8%)* 0.212 (23.8%)* 01/23/2014 38 0.889 -0.4 Total Hip(Right) 08/15/2024 49 0.889 -0.4 0.064 (7.7%)* -0.008 (-0.9%) 11/05/2020 45 0.897 -0.4 0.072 (8.7%)* -0.021 (-2.3%) 02/14/2019 43 0.918 -0.2 0.093 (11.3%)* -0.061 (-6.2%) 11/14/2016 41 0.979 0.3 0.153 (18.6%)* 0.153 (18.6%)* 01/23/2014 38 0.825 -1.0 *Denotes significance at 95% confidence level, LSC for AP Spine = 0.022 g/cm2, LSC for Total Hip = 0.027 g/cm2 Clinical Information Provided by Patient: Has used the following medications: Boniva (i.e. ibandronate), Vitamin D, Calcium Has the following medical conditions: Asthma or Emphysema, Hysterectomy Patient maximum height was 61.0 Menopause Age: 26 Onset of menses at age 12 Number of children 2 Impression: The patient has low bone mass, based on the Right Femoral Neck T-score. The patient has an estimated ten-year risk of hip fracture of 0.7% and an estimated ten-year risk of major fracture of 4.5%, based on the WHO FRAX algorithm. The BMD for the AP Spine (L1-L4) decreased, changing by -8.5% since the last DXA exam. The BMD for the Total Hip(Left) decreased, changing by -3.0% since the last DXA exam. Discussion: BONE DENSITY IS LOW AT ONE OR MORE SKELETAL SITES. This patient's lowest T-score is low at one or more skeletal sites. It meets the World Health Organization's (WHO) criteria for ?low bone mass? (T-score between -1.0 and -2.5). The patient's 10-year risk of fracture as calculated by FRAX is less than the threshold where pharmacological therapy is recommended by the National Osteoporosis Foundation (NOF). However, all treatment decisions require clinical judgment and consideration of individual patient factors, including patient preferences, comorbidities, previous drug use, risk factors not captured in the FRAX model (e.g., frailty, falls, vitamin D deficiency, increased bone turnover, interval significant decline in bone density) and possible under or overestimation of fracture risk by FRAX. The patient should follow a healthful lifestyle (good nutrition with adequate calcium and vitamin D, and appropriate weight-bearing exercise). Follow-Up: Consider repeating this study in 2 years to reassess this patient's status, or sooner if there is some new clinical indication. Reported by: SANG on 08/15/2024 9:49:00 AM. Reviewed, dictated and finalized at location A.
--- OUTSIDE RECORDS SUMMARY | 2024-08-15 09:16 | XMS_ITS | Clinical Summary ---
Author Organization [facility] Address [address] [place] [address] Care Team Providers Care Train Clerk Name Role Phone Franki Flor MD Primary Care Provider Allergies No known active allergies Medications nitroglycerin (NITROSTAT) 0.4 mg SL tablet One tablet under the tongue every five minutes as needed for chest pain 25 1 09/02/2009 Active clopidogrel (PLAVIX) 75 mg tablet take 1 tablet (75MG) by ORAL route every day 0 09/14/2009 Active atorvastatin (LIPITOR) 20 mg tablet take 1 tablet by ORAL route every day 0 09/14/2009 Active metoprolol XL (TOPROL-XL) 25 mg 24 hr tablet take 1 tablet by ORAL route every day 0 09/14/2009 Active multivitamin capsule take 1 capsule by ORAL route every day 0 09/14/2009 Active HYDROcodone-genaro taminophen (VICODIN ES) 7.5-750 mg per tablet Take one by mouth four times per day 0 0 08/28/2007 Active cyclobenzaprine (FLEXERIL) 10 mg tablet Take one by mouth three times per day as needed 0 0 08/28/2007 Active aspirin 325 mg EC tablet Take one by mouth one time per day 0 0 08/28/2007 Active Active Problems Problem Noted Date Diagnosed Date 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 Tobacco dependence syndrome 08/10/2013 Overview (07/01/2016): TOBACCO USE DISORDER Chest pain 08/10/2013 Overview (07/01/2016): CHEST PAIN NOS Old myocardial infarction 08/10/2013 Overview (07/01/2016): OLD MYOCARDIAL INFARCT History of coronary artery bypass surgery 2013 Overview (07/01/2016): AORTOCORONARY BYPASS Social History Tobacco Use Types Packs/Day Years Used Date Smoking Tobacco: Never Assessed Personal Safety Answer Date Recorded Getting School Help Needed Not on file 06/09 Comments No Sex and Gender Information Value Date Recorded Sex Assigned at Not on file 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 Gender Identity Not on file Sexual Orientation Not on file Last Filed Vital Signs Vital Sign Reading Time Taken Comments Blood Pressure 96/79 06/15/2021 6:30 AM CDT Pulse 72 06/15/2021 6:30 AM CDT Temperature 36.7 C (98 F) 06/15/2021 2:14 AM CDT Respiratory Rate 13 06/15/2021 6:30 AM CDT Oxygen Saturation 95% 06/15/2021 6:30 AM CDT Inhaled Oxygen Concentration - - Weight - - Height - - Body Mass Index - - Plan of Treatment Health Maintenance Due Date Last Done Comments Breast Cancer Screening-Mammogram 1976 Colon Cancer Screening-Colonoscopy 1976 Depression Screening 1976 Hepatitis C Screening 1976 DTaP/Tdap/Td Vaccine (1 - Tdap) 1987 Hepatitis B Screening 1994 Regular Well Visit/Exam 18-64 1994 Covid-19 Vaccine (2023-2 5 season) 2023 12/05/2020, 05/05/2020, 04/07/2020 Influenza Vaccine (Season Ended) 2024 03/27/2014 Pneumococcal vaccine <65 Aged Out No longer eligible based on patient's age to complete this topic Insurance DR [address] Care Teams Train Clerk Relationship Specialty Start Date End Date Franki Flor MD PCP - General 08/28/07
--- OUTSIDE RECORDS SUMMARY | 2024-08-15 09:16 | XMS_ITS | Encounter Summary ---
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 [address] [facility] [address] [place] [address] Social History Tobacco Use Types Packs/Day Years Used Date Smoking Tobacco: Former Cigarettes 2 20 0 03/27/1989 - 03/27/2009 Smokeless Tobacco: Never Alcohol Use Standard Drinks/Week Comments Yes 0 (1 standard drink = 0.6 oz pur e alcohol) rarely PHQ-2 Answer Date Recorded Total Score - Questions 1-9 0 09/24 Comments Unknown Sex and Gender Information Value Date Recorded Sex Assigned at Not on file Legal Sex Female 8:10 AM CDT Gender Identity Not on file Sexual Orientation Not on file documented as of this encounter Miscellaneous Notes * Telephone Encounter - Anuradha Santos - 04/13/2021 10:47 AM CST PT CALLED TO CANCEL APPOINTMENT. COVID POSITIVE. PT'S YOUTH DIRECTOR IS SENDING HER TO THE HOSPITAL. WILL RESCHEDULE LATER. 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 12/30/2024 2:30 PM CDT Office Visit [facility] [address] [phone] Joss Montoya MD [address] [place] [address] [place] [address] documented as of this encounter Visit Diagnoses Not on filedocumented in this encounter Additional Health Concerns Assessment Noted Time PHQ-9 Depression Total Score: 0 10/09/19 21 11:42 AM CDT documented as of this encounter Care Teams Pipe Threading Machine Operator Relationship Specialty Start Date End Date Franki Flor [address] [facility] [place] [address] PCP - General Family Medicine 01/26/18 Joss Montoya MD [address] [place] [phone] Consulting Physician Oncology 06/21/22 documented as of this encounter
--- OUTSIDE RECORDS SUMMARY | 2024-08-15 09:16 | XMS_ITS | Clinical Summary ---
Author Organization [facility] Address [address] [place] [address] Care Team Providers Care Gas Reverser Name Role Phone Franki Flor MD Primary Care Provider [phone] Allergies No known active allergies Medications Potassium 99 mg Tablet Take by mouth. Activ e Multivitamin Capsule Take by mouth. Activ e pravastatin (PRAVACHOL) 40 mg tablet TK 1 T PO QD 0 9 Active topiramate (TOPAMAX) 50 mg tablet TK 1 T PO BID 3 9 Active metoprolol succinate (TOPROL XL) 25 mg Extended Release 24 hour tablet TK 1 T PO QD 3 9 Active losartan (COZAAR) 25 mg tablet TK 1 T PO QD 3 9 Active omeprazole (PriLOSEC) 20 mg Capsule, Delayed Release(E.C.) TK 1 C PO QD AC 0 9 Active HYDROcodone-genaro taminophen (NORCO) 7.5-325 mg Tablet 0 9 Active fenofibrate (LOFIBRA) 160 mg Tablet TK 1 T PO QD 3 9 Active warfarin (COUMADIN) 1 mg tablet TK 1 T PO QD 0 9 Active warfarin (COUMADIN) 6 mg tablet TK 1 T PO QD 0 9 Active FOLIC ACID ORAL Take by mouth daily. Active metFORMIN (GLUCOPHAGE XR) 500 mg Extended Release 24 hour tablet metformin ER 500 mg tablet,extended release 24 hr TK 2 TS PO QD WF Active cyanocobalamin (VITAMIN B-12) 5,000 mcg Tablet, Sublingual Place under tongue. Active calcium carbonate + vitamin D (CALTRATE+D) 600 mg(1,500mg) -400 unit Tablet Take 1 Tablet by mouth daily. Active isosorbide mononitrate (IMDUR) 30 mg Extended Release 24 hour tablet TK 1 T PO QD 3 9 Active nitroglycerin (NITROSTAT) 0.4 mg Tablet, Sublingual nitroglycerin 0.4 mg sublingual tablet Active omega-3 acid ethyl esters (OMACOR,LOVAZA) 1 gram Capsule Take by mouth. Active naproxen sodium (ALEVE) 220 mg Capsule Take by mouth. Activ e methylphenidate HCl (RITALIN) 10 mg tablet TK 1 AND 03/28 TS PO BID 0 9 Active Active Problems Problem Noted Date Diagnosed Date Sign and symptom in breast 09/20/2018 Abnormal mammogram of left breast 07/11/2018 Morbid obesity with body mass index of 40.0-49.9 07/11/2018 Social History Tobacco Use Types Packs/Day Years Used Date Smoking Tobacco: Former Cigarettes 2 20 0 04/14/1989 - 04/14/2009 Smokeless Tobacco: Never Alcohol Use Standard Drinks/Week Comments Not Currently 0 (1 standard drink = 0.6 oz pur e alcohol) Comments No Sex and Gender Information Value Date Recorded Sex Assigned at Not on file Legal Sex Female 9:56 PM CDT Gender Identity Not on file Sexual Orientation Not on file Last Filed Vital Signs Vital Sign Reading Time Taken Comments Blood Pressure 117/73 09/20/2018 10:54 AM CDT Pulse 85 09/20/2018 10:54 AM CDT Temperature 36.7 C (98 F) 09/20/2018 10:54 AM CDT Respiratory Rate - - Oxygen Saturation 98% 09/20/2018 10:54 AM CDT Inhaled Oxygen Concentration - - Weight 112 kg (247 lb) 09/20/2018 10:54 AM CDT Height 152.4 cm (5') 09/20/2018 10:54 AM CDT Body Mass Index 48.24 09/20/2018 10:54 AM CDT Plan of Treatment Health Maintenance Due Date Last Done Comments Pre-Diabetes and Diabetes Screening 1976 DTAP/TDAP/TD VACCINES (1 - Tdap) 1995 HEPATITIS B VACCINES (1 of 3 - 19+ 3-dose series) 1995 HPV/Cotest (21-29) 1997 CERVICAL CANCER SCREENING 2006 HPV/Cotest (30-65) 2006 PAP SMEAR 2006 BREAST CANCER SCREENING 09/13/2019 09/13/19 19, 04/16/2018, 11/25/2014, Additional history exists COLORECTAL SCREENING 2021 Colorectal Cancer Screening 2021 FIT-DNA Q 3 years 2021 FIT/FOBT Q 1 year 2021 Flex Sig/CT Colonography Q 5 years 2021 INFLUENZA VACCINE (#1) 2023 Procedures Procedure Name Priority Date/Time Associated Diagnosis Comments MAMMOGRAM REPORT Routine 09/12/2018 from Last 3 Months or Most Recently Relevant to Health Maintenance Results * MAMMOGRAM REPORT (09/12/2018) us Abstract Provider MAMMO ORDERABLES Final Result [facility] from Last 3 Months or Most Recently Relevant to Health Maintenance [place] [address] [address] [employer] [place]ICA[place] Care Teams Gas Reverser Relationship Specialty Start Date End Date Franki Flor MD [address] [place] [phone] PCP - General Family Practice 06/04/18
--- OUTSIDE RECORDS SUMMARY | 2024-08-15 09:16 | XMS_ITS | Continuity of Care Document ---
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 miaCOVID-19 2 Chacho Doan. [address], [place], [address] , [place]. [phone] OFFICE/OUTPA TIENT VISIT, [facility], [address], [place], [address], [place] tel:[phone] [facility] ADD (chief complaint) pain (chief complaint) GERD1 (chief complaint) GERD without esophagitisChronic pain syndromeAttention deficitObesity 1 Chacho Doan. [address], [place], [address] , [place]. tel:[phone] OFFICE/OUTPA TIENT VISIT, [facility], [address], [place], [place], [address], [place] tel:[phone] [facility] ADD (chief complaint) pain (chief complaint) Chronic pain syndromeAttention and concentration deficit 1 Chacho Doan. [address], [place], [address] , [place]. tel:[phone] OFFICE/OUTPA TIENT VISIT, [facility], [address] [place], [address], [place] tel:[phone] [facility] pain (chief complaint) Lumbago with sciatica, unspecified sideTension headache 1 Chacho Doan. [address], [place], [address] , [place]. tel:[phone] OFFICE/OUTPA TIENT VISIT, [facility], [address] [place], [place], [address], [place] tel:[phone] [facility] ADD (chief complaint) pain (chief complaint) insulin1 (chief complaint) HLP (chief complaint) coaguloapa thy1 (chief complaint) Chronic pain syndromeAttention deficitHypercoagula ble stateMetabolic syndromeHyperlipide helen 1 Chacho Saeed [address], [place], [place], [address] , [place]. tel:[phone] OFFICE/OUTPA TIENT VISIT, [facility], [address] [place], [place], [address], [place] tel:[phone] [facility] ADD (chief complaint) pain (chief complaint) gout1 (chief complaint) Attention and concentration deficitChronic pain syndromeGoutEncselma community hospital er for oth screening for malignant neoplasm of breast 1 Chacho Saeed [address], [place], [place], [address] , [place]. [phone] OFFICE/OUTPA TIENT VISIT, EST [facility], [address] [place], [address], [place] tel:[phone] [facility] ADD (chief complaint) pain (chief complaint) coagulopat hy1 (chief complaint) osteopenia 1 (chief complaint) obesity1 (chief complaint) Other specified disorder of bone densityChronic pain syndromeAttention and concentration deficitHypercoagula ble stateObesity Aug-1 8-202 1 Chacho Saeed [address], [place], [place], [address] , [place]. tel:[phone] OFFICE/OUTPA TIENT VISIT, [facility], [address], [place], [place], [address], [place] tel:[phone] [facility] ADD (chief complaint) pain (chief complaint) coagulopat hy1 (chief complaint) chest pain1 (chief complaint) Ant chest-wall painAttention and concentration deficitChronic pain syndromeHypercoagul able stateObesity 1 Chacho Saeed [address], [place], [address] , [place]. tel:[phone] OFFICE/OUTPA TIENT VISIT, [facility], [address], [place], [address], [place] tel:[phone] [facility] HTN (chief complaint) ADD (chief complaint) pain (chief complaint) GERD1 (chief complaint) Abnormal weight gainAttention and concentration deficitChronic pain syndromeEssential (primary) hypertensionGERD without esophagitis 1 Chacho Saeed [address], [place], [address] , [place]. [phone] OFFICE/OUTPA TIENT VISIT, [facility], [address] [place], [address], [place] tel:[phone] [facility] ADD (chief complaint) pain1 (chief complaint) coagulopat hy1 (chief complaint) obesity1 (chief complaint) Attention and concentration deficitChronic pain syndromeHypercoagul able stateAbnormal weight gain 1 Chacho Saeed [address], [place], [place], [address] , [place]. tel:[phone] OFFICE/OUTPA TIENT VISIT, [facility], [address] [place], [address], [place] tel:[phone] [facility] pain1 (chief complaint) Lumbago with sciatica, unspecified sidePain in unspecified knee July-0 1 Chacho Doan. [address], [place], [place], [address] , [place]. tel:[phone] OFFICE/OUTPA TIENT VISIT, [facility], [address], [place], [address], [place] tel:[phone] [facility] ADD (chief complaint) back pain1 (chief complaint) Chronic pain syndromeAttention deficit 1 Chacho Doan. [address], [place], [address] , [place]. tel:[phone] OFFICE/OUTPA TIENT VISIT, [facility], [address], [place], [address], [place] tel:[phone] [facility] sick1 (chief complaint) Viral infectionDiarrhea 1 Chacho Doan. [address], [place], [place], [address] , [place]. tel:[phone] OFFICE/OUTPA TIENT VISIT, [facility], [address] [place], [address], [place] tel:[phone] [facility] coagulopat hy1 (chief complaint) ADD (chief complaint) HLP (chief complaint) back pain1 (chief complaint) Pre-DM (chief complaint) fatty liver1 (chief complaint) Chronic pain syndromeAttention and concentration deficitHypercoagula ble stateHyperlipidemia Fatty liverMetabolic syndrome 1 Chacho Doan. [address], [place], [address] , [place]. tel:[phone] OFFICE/OUTPA TIENT VISIT, [facility], [address] [place], [place], [address], [place] tel:[phone] [facility] coagulopat hy1 (chief complaint) ADD (chief complaint) pain1 (chief complaint) weight gain1 (chief complaint) Attention and concentration deficitChronic pain syndromeHypercoagul able stateAbnormal weight gain 1 Chacho Saeed [address], [place], [address] , [place]. tel:[phone] PREV VISIT, EST, AGE [age] [facility], [address], [place], [place], [address], [place] tel:[phone] [facility] physical (chief complaint) Encounter for general adult medical examination without abnormal findings 1 Chacho Saeed [address], [place], [address] , [place]. tel:[phone] OFFICE/OUTPA TIENT VISIT, [facility], [address], [place], [address], [place] tel:[phone] [facility] pain (chief complaint) sleep apnea1 (chief complaint) ADD (chief complaint) GERD1 (chief complaint) Chronic pain syndromeSleep apneaAttention and concentration deficitGERD w/o esophagitis 0 Chacho Saeed [address], [place], [address] , [place]. tel:[phone] OFFICE/OUTPA TIENT VISIT, EST [facility], [address], [place], [address], [place] tel:[phone] [facility] pain1 (chief complaint) fatigue1 (chief complaint) ADD (chief complaint) Chronic pain syndromeSleep apneaAttention deficit 0 Chacho Doan. [address], [place], [address] , [place]. tel:[phone] OFFICE/OUTPA TIENT VISIT, EST [facility], [address] [place], [place], [address], [place] tel:[phone] [facility] coagulopat hy1 (chief complaint) pain1 (chief complaint) gout1 (chief complaint) fatigue1 (chief complaint) Hypercoagulable stateChronic pain syndromeFatigueGout 0 Chacho Doan. [address], [place], [address] , [place]. tel:[phone] OFFICE/OUTPA TIENT VISIT, [facility], [address], [place], [place], [address], [place] tel:[phone] [facility] back pain1 (chief complaint) coagulopat hy1 (chief complaint) ADD (chief complaint) obesity1 (chief complaint) Hypercoagulable stateChronic pain syndromeSleep apneaObesity Nov- 0 Chacho Doan. [address], [place], [address] , [place]. [phone] OFFICE/OUTPA TIENT VISIT, [facility], [address], [place], [address], [place] tel:[phone] [facility] pain1 (chief complaint) HTN (chief complaint) fatigue1 (chief complaint) Lumbago with sciatica, right sideEssential (primary) hypertensionFatigue 0 Chacho Doan. [address], [place], [place], [address] , [place]. [phone] OFFICE/OUTPA TIENT VISIT, [facility], [address], [place], [address], [place] tel:[phone] [facility] back pain1 (chief complaint) Lumbago with sciatica, right side Oct- 0 Chacho Doan. [address], [place], [address] , [place]. tel:[phone] OFFICE/OUTPA TIENT VISIT, [facility], [address] [place], [place], [address], [place] tel:[phone] [facility] coagulopat hy1 (chief complaint) pain (chief complaint) ADD (chief complaint) FatigueHypercoagula ble stateSleep apneaChronic pain syndrome Sep-2 0 Chacho Doan. [address], [place], [place], [address] , [place]. tel:[phone] OFFICE/OUTPA TIENT VISIT, [facility], [address], [place], [address], [place] [phone] [facility] coumadin1 (chief complaint) pain (chief complaint) fatigue1 (chief complaint) headache1 (chief complaint) Chronic pain syndromeHypercoagul able stateFatigueMigrain eEncounter for oth screening for malignant neoplasm of breast 0 Chacho Doan. [address], [place], [place], [address] , [place]. [phone] OFFICE/OUTPA TIENT VISIT, [facility], [address], [place], [address], [place] [phone] [facility] pain (chief complaint) coagulopat hy1 (chief complaint) gout1 (chief complaint) ADD (chief complaint) Chronic pain syndromeAttention and concentration deficitHypercoagula ble stateGout 0 Chacho Doan. [address], [place], [address] , [place]. [phone] Referring Provider: [address], [place], [address]. tel:[phone] OFFICE/OUTPA TIENT VISIT, [facility], [address], [place], [address], [place] [phone] [facility] coagulopat hy1 (chief complaint) pain (chief complaint) ADD (chief complaint) osteopenia 1 (chief complaint) anxiety1 (chief complaint) Generalized Anxiety DisorderHypercoagul able stateChronic pain syndromeOther specified disorder of bone densityAttention and concentration deficit 0 Chacho Saeed [address], [place], [address] , [place]. [phone] Referring Provider: [address], [place], [address]. tel:[phone] OFFICE/OUTPA TIENT VISIT, [facility], [address], [place], [address], [place] tel:[phone] [facility] PTSD (chief complaint) Post-traumatic stress disorder, acuteVomiting 8 0 Chacho Doan. [address], [place], [place], [address] , [place]. tel:[phone] Referring Provider: Franki Flor, [address], [place], [address]. tel:[phone] OFFICE/OUTPA TIENT VISIT, [facility], [address], [place], [place], [address], [place] tel:[phone] [facility] pain (chief complaint) ADD (chief complaint) FatigueChronic pain syndrome May-2 0 0 Chacho Doan. [address], [place], [address] , [place]. tel:[phone] Referring Provider: Franki Flor, [address], [place], [address]. tel:[phone] OFFICE/OUTPA TIENT VISIT, [facility], [address], [place], [place], [address], [place] tel:[phone] [facility] anxiety1 (chief complaint) Generalized Anxiety DisorderDepression May- 0 Chacho Doan. [address], [place], [address] , [place]. tel:[phone] Referring Provider: Franki Flor [address], [place], [address]. tel:[phone] OFFICE/OUTPA TIENT VISIT, [facility], [address], [place], [address], [place] tel:[phone] [facility] HLP (chief complaint) anxiety1 (chief complaint) coagulopat hy1 (chief complaint) pain (chief complaint) FatigueHypercoagula ble stateGeneralized Anxiety DisorderHyperlipide miaOther specified disorder of bone density Fe-2 0- 0 Chacho Doan. [address], [place], [place], [address] , [place]. [phone] Referring Provider: Oumou Jo [address], [place], [address]. tel:[phone] OFFICE/OUTPA TIENT VISIT, EST [facility], [address], [place], [address], [place] tel:[phone] [facility] anxiety1 (chief complaint) INR (chief complaint) pain (chief complaint) ADD (chief complaint) CAD (chief complaint) Hypercoagulable stateChronic pain syndromeGeneralized Anxiety DisorderFatigueOthe r specified disorder of bone density 0- 0 Chacho Doan. [address], [place], [place], [address] , [place]. [phone] Referring Provider: Oumou Jo [facility] A, [place], [place], [address]. tel:[phone] OFFICE/OUTPA TIENT VISIT, EST [facility], [address], [place], [place], [address], [place] tel:[phone] [facility] ADD (chief complaint) chronic pain1 (chief complaint) anxiety1 (chief complaint) osteopenia 1 (chief complaint) coagulopat hy1 (chief complaint) Chronic pain syndromeHypercoagul able stateOther specified disorder of bone densityFatigueGener alized Anxiety Disorder 9 Chacho Doan. [address], [place], [address] , [place]. [phone] PREV VISIT, EST, AGE [age] [facility], [address], [place], [address], [place] tel:[phone] [facility] PHysical (chief complaint) Encntr for general adult medical exam w/o abnormal findings 9 Chacho Doan. [address], [place], [place], [address] , [place]. [phone] Referring Provider: Oumou Jo [address], [place], [address]. tel:[phone] OFFICE/OUTPA TIENT VISIT, [facility], [address], [place], [address], [place] tel:[phone] [facility] osteopenia 1 (chief complaint) metabolic1 (chief complaint) fatty liver1 (chief complaint) INR (chief complaint) chronic pain1 (chief complaint) fatigue1 (chief complaint) Hypercoagulable stateGoutFatty liverOther specified disorder of bone densityChronic pain syndromeFatigueMeta bolic syndrome 9 Chacho Doan. [address], [place], [place], [address] , [place]. tel:[phone] OFFICE/OUTPA TIENT VISIT, [facility], [address], [place], [address], [place] tel:[phone] [facility] GERD1 (chief complaint) coumadin1 (chief complaint) fatigue1 (chief complaint) chronic pain1 (chief complaint) gout1 (chief complaint) GoutHypercoagulable stateChronic pain syndromeGERD without esophagitisFatigue 9 Chacho Doan. [address], [place], [address] , [place]. tel:[phone] OFFICE/OUTPA TIENT VISIT, [facility], [address] [place], [address], [place] tel:[phone] [facility] ADD (chief complaint) coagulopat hy1 (chief complaint) chronic pain1 (chief complaint) gout (chief complaint) HTN (chief complaint) Chronic pain syndromeHypercoagul able stateEssential (primary) hypertensionFatigue Gout 9 Chacho Saeed [address], [place], [place], [address] , [place]. tel:[phone] Referring Provider: Oumou Jo A, [place], [address]. tel:[phone] OFFICE/OUTPA TIENT VISIT, [facility], [address], [place], [address], [place] tel:[phone] [facility] headache1 (chief complaint) fatigue1 (chief complaint) GERD1 (chief complaint) chronic pain1 (chief complaint) coagulopat hy1 (chief complaint) FatigueChronic pain syndromeHypercoagul able stateGERD without esophagitisMigraine Other specified disorder of bone density 9 Chacho Doan. [address], [place], [address] , [place]. tel:[phone] OFFICE/OUTPA TIENT VISIT, [facility], [address], [place], [address], [place] tel:[phone] [facility] fatigue1 (chief complaint) back pain1 (chief complaint) coagulopat hy1 (chief complaint) fatty liver1 (chief complaint) uric acid1 (chief complaint) preDM (chief complaint) Chronic pain syndromeHypercoagul able stateFatigueFatty liverAsymptomatic hyperuricemiaMetabo lic syndrome 9 Chacho Doan. [address], [place], [address] , [place]. tel:[phone] Referring Provider: Oumou Jo [address], [place], [address]. tel:[phone] OFFICE/OUTPA TIENT VISIT, [facility], [address], [place], [address], [place] tel:[phone] [facility] HLP (chief complaint) back pain1 (chief complaint) sleep apnea1 (chief complaint) coag (chief complaint) FatigueHypercoagula ble stateHyperlipidemia Chronic pain syndrome 0 9 Chacho Doan. [address], [place], [address] , [place]. tel:[phone] Referring Provider: Oumou [address], [place], [address]. tel:[phone] OFFICE/OUTPA TIENT VISIT, [facility], [address] [facility], [address], [place] tel:[phone] [facility] coagulopat hy1 (chief complaint) osteopenia 1 (chief complaint) ADD (chief complaint) GERD1 (chief complaint) chronic pain1 (chief complaint) FatigueGERD without esophagitisHypercoa gulable stateChronic pain syndromeOther specified disorder of bone density 9 Chacho Saeed [address], [place], [address] , [place]. tel:[phone] Referring Provider: Oumou Jo [facility] A, [place], [place], [address]. tel:[phone] OFFICE/OUTPA TIENT VISIT, [facility], [address] [place] [address] [place] [place], [address], [place] tel:[phone] [facility] mammmogram 1 (chief complaint) coaguloapt hy1 (chief complaint) back pain1 (chief complaint) fatigue1 (chief complaint) osteopenia 1 (chief complaint) Hypercoagulable stateInconclusive mammogramOther specified disorder of bone densityChronic pain syndromeSleep apneaBody mass index (BMI) 45.0-49.9, adult 9 Chacho Saeed [address], [place], [address] , [place]. tel:[phone] Referring Provider: Oumou Jo [facility], [place], [place], [address]. tel:[phone] OFFICE/OUTPA TIENT VISIT, [facility], [address], [place], [address], [place] tel:[phone] [facility] breast (chief complaint) chronic pain1 (chief complaint) osteopenia 1 (chief complaint) cougulopat hy1 (chief complaint) fatigue1 (chief complaint) Hypercoagulable stateInconclusive mammogramFatigueChr onic pain syndromeOther specified disorder of bone densityHyperlipidem ia 9 Chacho Saeed [address] [facility] A, [place], [address] , [place]. tel:[phone] Referring Provider: Franki Flor [address], [place], [place], [address]. tel:[phone] OFFICE/OUTPA TIENT VISIT, [facility], [address], [place], [place], [address], [place] [phone] [facility] fatigue1 (chief complaint) back pain1 (chief complaint) GERD1 (chief complaint) coagulopat hy1 (chief complaint) Body mass index (BMI) 45.0-49.9, adultFatigueHyperco agulable stateInconclusive mammogramChronic pain syndromeGERD without esophagitis 9 Chacho Doan. [address], [place], [address] , [place]. [phone] Referring Provider: Oumou Jo [address], [place], [address]. tel:[phone] OFFICE/OUTPA TIENT VISIT, [facility], [address], [place], [address], [place] tel:[phone] [facility] clotting1 (chief complaint) back pain1 (chief complaint) ADD (chief complaint) sleep apnea1 (chief complaint) Hypercoagulable stateFatigueAttenti on deficitInconclusive mammogramChronic pain syndrome 8 Chacho Doan. [address], [place], [address] , [place]. [phone] Referring Provider: Oumou Jo [address], [place], [address]. tel:[phone] OFFICE/OUTPA TIENT VISIT, [facility], [address], [place], [address], [place] tel:[phone] [facility] GERD1 (chief complaint) back pain1 (chief complaint) coagulopat hy1 (chief complaint) ADD (chief complaint) Body mass index (BMI) 45.0-49.9, adultHypercoagulabl e stateAttention deficitChronic pain syndromeGERD without esophagitis 8 Chacho Doan. [address], [place], [place], [address] , [place]. [phone] Referring Provider: Oumou Jo [address], [place], [place], [address]. tel:[phone] PREV VISIT, EST, AGE [age] [facility], [address], [place], [place], [address], [place] tel:[phone] [facility] Physical (chief complaint) Encounter for general adult medical exam w abnormal findingsHypercoagul able stateFatty liverEssential (primary) hypertensionMigrain eOther specified disorder of bone densityHyperlipidem ia 8 Chacho Doan. [address], [place], [place], [address] , [place]. [phone] Referring Provider: Oumou Jo [facility] A, [place], [address]. tel:[phone] OFFICE/OUTPA TIENT VISIT, EST [facility], [address], [place], [place], [address], [place] tel:[phone] [facility] chronic pain1 (chief complaint) ADD (chief complaint) Sleep apneaChronic pain syndrome 8 Chacho Doan. [address], [place], [address] , [place]. [phone] OFFICE/OUTPA TIENT VISIT, EST [facility], [address], [place], [address], [place] [phone] [facility] HTn (chief complaint) lupus1 (chief complaint) back apin1 (chief complaint) coagulopat hy1 (chief complaint) ADD (chief complaint) Attention deficitEssential (primary) hypertensionGERD without esophagitisHypercoa gulable stateChronic pain syndrome 8 Chacho Doan. [address], [place], [address] , [place]. [phone] Referring Provider: [address]ou [address], [place], [place], [address]. tel:[phone] OFFICE/OUTPA TIENT VISIT, [facility], [address] [place], [place], [address], tel:[phone] [facility] back pain1 (chief complaint) ADD (chief complaint) headache1 (chief complaint) sleep apnea1 (chief complaint) Body mass index (BMI) 45.0-49.9, adultAttention deficitMigraineSlee p apneaLong term (current) use of anticoagulantsChron ic pain syndrome Sep- 3-201 8 Chacho [address]. [address], [place], [place], [address] , [place]. tel:[phone] Referring Provider: [address], [place], [place], [address]. tel:[phone] OFFICE/OUTPA TIENT VISIT, [facility], [facility] [address] [place], [address], [place] tel:[phone] [facility] sleep apnea1 (chief complaint) ADD (chief complaint) back pain1 (chief complaint) obeisty1 (chief complaint) Body mass index (BMI) 45.0-49.9, adultChronic pain syndromeLong term (current) use of anticoagulantsSleep apneaAttention deficit 0-201 8 Chacho [address]. [address], [place], [place], [address] , [place]. tel:[phone] Referring Provider: [address], [place], [place], [address]. tel:[phone] OFFICE/OUTPA TIENT VISIT, [facility], [address] [place], [address], [place] tel:[phone] [facility] ADD (chief complaint) bakc pain1 (chief complaint) headache1 (chief complaint) GERD1 (chief complaint) itching1 (chief complaint) Body mass index (BMI) 45.0-49.9, adultMigraineGERD without esophagitisChronic pain syndromeScabiesAtte ntion deficit 8 Chacho Do[address]. [address], [place], [place], [address] , [place]. tel:[phone] Referring Provider: [address], [place], [place], [address]. tel:[phone] OFFICE/OUTPA TIENT VISIT, [facility], [address] [place], [address], [place] tel:[phone] [facility] fatigue1 (chief complaint) headache1 (chief complaint) back pain1 (chief complaint) itching1 (chief complaint) Body mass index (BMI) 45.0-49.9, adultHyperlipidemia FatigueMigraineChro bean pain syndromeScabies 8 Chacho Doan. [address], [place], [place], [address] , [place]. tel:[phone] Referring Provider: Oumou Jo [facility] A, [place], [place], [address]. tel:[phone] OFFICE/OUTPA TIENT VISIT, [facility], [address] [place] [address] [place] [place], [address], [place] tel:[phone] 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 [address], [place], [place], [address] , [place]. tel:[phone] Referring Provider: Oumou Jo [address] [facility] A, [place], [place], [address]. tel:[phone] OFFICE/OUTPA TIENT VISIT, [facility], [address] [place], [address], [place] tel:[phone] [facility] C diff (chief complaint) CAD (chief complaint) back pain1 (chief complaint) Body mass index (BMI) 45.0-49.9, adultLong term (current) use of anticoagulantsChron ic pain syndromeEnterocolit is due to Clostridium difficile, not specified as recurrent 8 Chacho Doan. [address], [place], [place], [address] , [place]. tel:[phone] Referring Provider: [address], [place], [place], [address]. tel:[phone] OFFICE/OUTPA TIENT VISIT, [facility], [address], [place], [address], [place] tel:[phone] [facility] headache1 (chief complaint) HLP (chief complaint) coumadin1 (chief complaint) bcck pain1 (chief complaint) obeisty1 (chief complaint) [facility] (current) use of anticoagulantsHyper lipidemiaMigraineBo dy mass index (BMI) 45.0-49.9, adult 8 Chacho Do[address]. [address], [place], [place], [address] , [place]. tel:[phone] Referring Provider: Oumou Jo [facility] A, [place], [place], [address]. tel:[phone] OFFICE/OUTPA TIENT VISIT, [facility], [address] [place], [place], [address], [place] tel:[phone] [facility] HLP (chief complaint) LFT1 (chief complaint) chronic pain (chief complaint) coagulopat hy1 (chief complaint) HyperlipidemiaFatty liverLong term (current) use of anticoagulantsBody mass index (BMI) 45.0-49.9, adult 7 Chacho [address]. [address], [place], [place], [address] , [place]. tel:[phone] Referring Provider: Oumou Jo [address] [facility] A, [place], [place], [address]. tel:[phone] OFFICE/OUTPA TIENT VISIT, EST [facility], [address], [place], [place], [address], [place] tel:[phone] [facility] coagulopat hy1 (chief complaint) back pain1 (chief complaint) obesity1 (chief complaint) HLP (chief complaint) Chronic pain syndromeBody mass index (BMI) 45.0-49.9, adultLong term (current) use of anticoagulantsHyper lipidemia 7 Chacho Doan. [address], [place], [address] , [place]. tel:[phone] Referring Provider: Oumou Jo [address], [place], [place], [address]. tel:[phone] PREV VISIT, EST, AGE 40-65 [facility], [address], [place], [place], [address], [place] tel:[phone] [facility] Physical (chief complaint) Encounter for general adult medical exam w abnormal findingsChronic pain syndromeDiarrheaGER D without esophagitis 7 Chacho Doan. [address], [place], [place], [address] , [place]. tel:[phone] Referring Provider: [address], [place], [place], [address]. tel:[phone] OFFICE/OUTPA TIENT VISIT, [facility], [address], [place], [address], [place] tel:[phone] [facility] coagulopat hy1 (chief complaint) back pain1 (chief complaint) opsteopeni a1 (chief complaint) obesity1 (chief complaint) Chronic pain syndromeLong term (current) use of anticoagulantsOther specified disorder of bone densityBody mass index (BMI) 45.0-49.9, adult 7 Chacho Saeed [address], [place], [address] , [place]. tel:[phone] Referring Provider: [address], [place], [address]. tel:[phone] OFFICE/OUTPA TIENT VISIT, [facility], [address] [place], [address], [place] tel:[phone] [facility] HTN (chief complaint) insomnia1 (chief complaint) back pain1 (chief complaint) coagulopat hy1 (chief complaint) Essential (primary) hypertensionLow back painLong term (current) use of anticoagulantsInsom buster 7 Chacho Doan. [address], [place], [place], [address] , [place]. [phone] Referring Provider: Oumou Jo [facility] [place], [address]. tel:[phone] OFFICE/OUTPA TIENT VISIT, [facility], [address] [place], [address], [place] tel:[phone] 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 [address], [place], [address] , [place]. [phone] Referring Provider: [address], [place], [address]. tel:[phone] OFFICE/OUTPA TIENT VISIT, [facility], [address], [place], [place], [address], [place] tel:[phone] [facility] GERD1 (chief complaint) back pain1 (chief complaint) INR (chief complaint) ear pain1 (chief complaint) Otalgia, left earGERD without esophagitisChronic pain syndromeLong term (current) use of anticoagulants 7 Chacho Do[address]. [address], [place], [address] , [place]. [phone] Referring Provider: [address], [place], [address]. tel:[phone] OFFICE/OUTPA TIENT VISIT, [facility], [address], [place], [address], [place] tel:[phone] [facility] GERD1 (chief complaint) coumadin1 (chief complaint) Osteopenia 1 (chief complaint) back pain1 (chief complaint) Low back painLong term (current) use of anticoagulantsOther specified disorder of bone densityGERD without esophagitis 7 Chacho [address]. [address], [place], [address] , [place]. tel:[phone] Referring Provider: [address], [place], [address]. tel:[phone] OFFICE/OUTPA TIENT VISIT, [facility], [address] [place] [address] [address], [place], [place], [address], [place] tel:[phone] [facility] back pain1 (chief complaint) coagulopat hy1 (chief complaint) HLP (chief complaint) obesity1 (chief complaint) Chronic pain syndromeHyperlipide miaBody mass index (BMI) 45.0-49.9, adultLong term (current) use of anticoagulants 7 Ch[address], [place], [place], [address] , [place]. tel:[phone] Referring Provider: [address], [place], [place], [address]. tel:[phone] OFFICE/OUTPA TIENT VISIT, [facility], [address], [place], [address], [place] tel:[phone] [facility] chronic pain1 (chief complaint) coagulopat hy1 (chief complaint) HTN (chief complaint) arm pain1 (chief complaint) osteopenia 1 (chief complaint) Carpal tunnel syndrome of left armLow back painEssential (primary) hypertensionLong term (current) use of anticoagulants 7 Ch[address]. [address], [place], [place], [address] , [place]. tel:[phone] Referring Provider: Franki Flor [address], [place], [place], [address]. tel:[phone] OFFICE/OUTPA TIENT VISIT, [facility], [address], [place], [address], [place] tel:[phone] [facility] sleep apnea1 (chief complaint) obeisty1 (chief complaint) back pain1 (chief complaint) lupus1 (chief complaint) Body mass index (BMI) 45.0-49.9, adultChronic pain syndromeLong term (current) use of anticoagulantsSleep apnea Chacho Doan. [address], [place], [address] , [place]. tel:[phone] Referring Provider: Franki Flor [address] [place] [address] A, [place], [address]. tel:[phone] OFFICE/OUTPA TIENT VISIT, [facility], [address], [place], [address], [place] tel:[phone] [facility] obeisty1 (chief complaint) back pain1 (chief complaint) coagulopat hy1 (chief complaint) HLP (chief complaint) Body mass index (BMI) 45.0-49.9, adultChronic pain syndromeLong term (current) use of anticoagulantsHyper lipidemia 7 Ch[address]. [address], [place], [address] , [place]. tel:[phone] Referring Provider: Frakni Flor [address], [place], [place], [address]. tel:[phone] OFFICE/OUTPA TIENT VISIT, [facility], [address], [place], [address], [place] tel:[phone] [facility] back pain1 (chief complaint) toe pain1 (chief complaint) coagulopat hy1 (chief complaint) obesity1 (chief complaint) Chronic pain syndromeLong term (current) use of anticoagulantsCellu litis of right toeBody mass index (BMI) 45.0-49.9, adult 6 Chacho [address]. [address], [place], [place], [address] , [place]. tel:[phone] Referring Provider: Oumou [address], [place], [place], [address]. tel:[phone] OFFICE/OUTPA TIENT VISIT, [facility], [address], [place], [address], [place] tel:[phone] [facility] toe infection1 (chief complaint) GERD1 (chief complaint) back pain1 (chief complaint) Cellulitis of right toeLow back painBody mass index (BMI) 45.0-49.9, adultGERD without esophagitis 6 Chacho [address], [place], [place], [address] , [place]. tel:[phone] Referring Provider: [address], [place], [address]. tel:[phone] OFFICE/OUTPA TIENT VISIT, [facility], [address] [place], [address], [place] tel:[phone] [facility] toe infection1 (chief complaint) Cellulitis of right toe 6 Chacho S[address], [place], [address] , [place]. tel:[phone] Referring Provider: [address], [place], [address]. tel:[phone] OFFICE/OUTPA TIENT VISIT, [facility], [address] [place], [address], [place] tel:[phone] [facility] HTN (chief complaint) HLP (chief complaint) chronic pain (chief complaint) coagulopat hy1 (chief complaint) HyperlipidemiaEssen tial (primary) hypertensionLow back painLong term (current) use of anticoagulants 6 Chacho Doan. [address] [facility] [address], [place], [place], [address] , [place]. [phone] Referring Provider: Oumou Jo [facility] A, [place], [place], [address]. tel:[phone] OFFICE/OUTPA TIENT VISIT, [facility], [address] [place] [address] [place], [address], [place] tel:[phone] [facility] back pain1 (chief complaint) coumadin1 (chief complaint) obesity1 (chief complaint) Body mass index (BMI) 45.0-49.9, adultLow back painOther specified coagulation defects 6 Chacho Doan. [address], [place], [address] , [place]. [phone] Referring Provider: Oumou oJ [place], [address]. tel:[phone] OFFICE/OUTPA TIENT VISIT, [facility], [address] [place] [address] [place], [address], [place] tel:[phone] [facility] back apin1 (chief complaint) insomnia1 (chief complaint) GERD1 (chief complaint) coagulopat hy (chief complaint) GERD without esophagitisSleep apneaOther specified coagulation defectsLow back pain 6 Chacho Saeed [address] [facility] [place], [address] , [place]. tel:[phone] Referring Provider: Oumou Jo [facility] A, [place], [address]. tel:[phone] OFFICE/OUTPA TIENT VISIT, [facility], [address] [place], [address], [place] tel:[phone] [facility] GERD1 (chief complaint) fatty liver1 (chief complaint) glucose1 (chief complaint) osteopenia 1 (chief complaint) back pain1 (chief complaint) Low back painFatty liverHyperglycemiaG ERD without esophagitis 6 Chacho Do[address]. [address], [place], [address] , [place]. tel:[phone] Referring Provider: [address], [place], [address]. tel:[phone] PREV VISIT, EST, AGE [age] [facility], [address], [place], [address], [place] tel:[phone] [facility] Physicaxl (chief complaint) Encntr for general adult medical exam w/o abnormal findingsMixed hyperlipidemiaEssen tial (primary) hypertensionLow back painEncounter for general adult medical exam w abnormal findings 6 Chacho Doan. [address], [place], [place], [address] , [place]. tel:[phone] Referring Provider: Oumou Jo [facility] A, [place], [place], [address]. tel:[phone] OFFICE/OUTPA TIENT VISIT, [facility], [address], [place], [address], [place] tel:[phone] [facility] HLP (chief complaint) GERD1 (chief complaint) coumadin1 (chief complaint) coumadin (chief complaint) back pain1 (chief complaint) [facility] (current) use of anticoagulantsMixed hyperlipidemiaOther sleep apneaChronic pain syndrome 6 Chacho Doan. [address], [place], [address] , [place]. tel:[phone] Referring Provider: [address]umou [address], [place], [address]. tel:[phone] OFFICE/OUTPA TIENT VISIT, EST [facility], [address], [place], [place], [address], [place] tel:[phone] [facility] back apin1 (chief complaint) coagulopat hy1 (chief complaint) HTN (chief complaint) sleep apnea (chief complaint) Other sleep apneaLong term (current) use of anticoagulantsEssen tial (primary) hypertensionChronic pain syndrome Jun- 6 Chacho [address], [place], [address] , [place]. tel:[phone] Referring Provider: [address], [place], [place], [address]. tel:[phone] OFFICE/OUTPA TIENT VISIT, [facility], [address], [place], [address], [place] tel:[phone] [facility] INR (chief complaint) back pain (chief complaint) sleep apnea (chief complaint) HTN (chief complaint) Essential (primary) hypertensionLow back painOther sleep apneaOther insomnia 6 Ch[address]. [address], [place], [address] , [place]. tel:[phone] Referring Provider: Oumou Jo [facility] [place], [address]. tel:[phone] OFFICE/OUTPA TIENT VISIT, [facility], [address] [place], [place], [address], [place] tel:[phone] [facility] HLP (chief complaint) back apin1 (chief complaint) GERD1 (chief complaint) sleep apnea1 (chief complaint) Low back painOther insomniaMixed hyperlipidemiaOther sleep apnea 6 Chacho [address]an. [address], [place], [address] , [place]. tel:[phone] Referring Provider: [address], [place], [address]. tel:[phone] OFFICE/OUTPA TIENT VISIT, [facility], [address] [place], [address], [place] tel:[phone] [facility] chest pain1 (chief complaint) back pain1 (chief complaint) coumadin (chief complaint) insomnia (chief complaint) Coronary artery disease of [place] coronary artery without angina pectorisOther insomniaChronic pain syndrome 0 6 Ch[address], [place], [place], [address] , [place]. tel:[phone] Referring Provider: [address], [place], [address]. tel:[phone] OFFICE/OUTPA TIENT VISIT, [facility], [address], [place], [place], [address], [place] tel:[phone] [facility] ear pain1 (chief complaint) coumadin1 (chief complaint) back pain1 (chief complaint) sleep apnea1 (chief complaint) Otalgia, right earChronic pain syndromeLong term (current) use of anticoagulantsOther sleep apnea 6 Chacho [address]. [address], [place], [address] , [place]. [phone] Referring Provider: [address]ou [address], [place], [address]. tel:[phone] OFFICE/OUTPA TIENT VISIT, [facility], [address], [place], [address], [place] tel:[phone] [facility] back pain1 (chief complaint) coumadin1 (chief complaint) fatigue1 (chief complaint) InsomniaChronic pain syndromeSleep apneaLong term (current) use of anticoagulants 0 5 Ch[address], [place], [address] , [place]. [phone] Referring Provider: Oumou [address], [place], [place], [address]. tel:[phone] OFFICE/OUTPA TIENT VISIT, [facility], [address], [place], [address], [place] tel:[phone] [facility] neck pain1 (chief complaint) Cervicalgia 0 5 [address], [place], [address] , [place]. [phone] Referring Provider: Oumou [address], [place], [address]. tel:[phone] OFFICE/OUTPA TIENT VISIT, [facility], [address], [place], [place], [address], [place] tel:[phone] [facility] coumadin1 (chief complaint) HLP1 (chief complaint) lumbago1 (chief complaint) osteopenia (chief complaint) Other spondylosis, lumbar regionLong term (current) use of anticoagulantsGERD w/o esophagitisMixed hyperlipidemia 5 Chacho Doan. [address], [place], [address] , [place]. tel:[phone] Referring Provider: Oumou Jo [facility] Janine, [place], [address]. tel:[phone] OFFICE/OUTPA TIENT VISIT, [facility], [address], [place], [address], [place] tel:[phone] [facility] GERD1 (chief complaint) Cough (chief complaint) Coguloapth y1 (chief complaint) GastroenteritisGERD without esophagitisUpper respiratory infectionLupus anticoagulant 5 Chacho Doan. [address], [place], [address] , [place]. tel:[phone] Referring Provider: Oumou Jo, [place], [address]. tel:[phone] OFFICE/OUTPA TIENT VISIT, [facility], [address], [place], [address], [place] tel:[phone] [facility] lumbago1 (chief complaint) osteopenia (chief complaint) HLP (chief complaint) coagulpath y (chief complaint) Dietary surveillance and counselingOther spondylosis, lumbar regionLupus anticoagulantMixed hyperlipidemia [address], [place], [address] , [place]. tel:[phone] Referring Provider: Oumou [address], [place], [address]. tel:[phone] OFFICE/OUTPA TIENT VISIT, [facility], [address], [place], [address], [place] [phone] [facility] fatty liver (chief complaint) backpain (chief complaint) coagulopat hy (chief complaint) HLP (chief complaint) Dietary surveillance and counselingFatty liverOther and unspecified hyperlipidemiaLumba goCoagulopathy 0 3 5 Chacho [address]. [address], [place], [address] , [place]. [phone] Referring Provider: Oumou [address], [place], [address]. tel:[phone] OFFICE/OUTPA TIENT VISIT, [facility], [address], [place], [address], [place] [phone] [facility] HLP (chief complaint) HTN (chief complaint) LFT (chief complaint) coadulatio n (chief complaint) Dietary surveillance and counselingLiver diseaseLumbagoOther and unspecified hyperlipidemiaBP - High blood pressure 5 Chacho Doan. [address], [place], [address] , [place]. tel:[phone] Referring Provider: Oumou [address], [place], [address]. tel:[phone] OFFICE/OUTPA TIENT VISIT, [facility], [address], [place], [address], [place] [phone] [facility] back pain (chief complaint) CAD (chief complaint) HTN (chief complaint) osteoporos is (chief complaint) Dietary surveillance and counselingOsteopeni aLumbagoBlood pressure elevated 5 Chacho Doan. [address], [place], [address] , [place]. tel:[phone] Referring Provider: Oumou Jo [address], [place], [place], [address]. tel:[phone] PREV VISIT, NEW, AGE 18-39 [facility], [address], [place], [address], [place] tel:[phone] [facility] PHysical (chief complaint) Dietary surveillance and counselingRoutine medical exam 0-201 5 Chacho Doan. [address], [place], [address] , [place]. tel:[phone] Family History Family Member Type Diagnosis Age At Onset Brother Problem (finding) Alive and well Father Problem (finding) Alive and well Mother Problem (finding) Hypertension Payers Payer name Insurance type Covered alliance party ID Stiven domingo(s) [employer] [facility] CI [id number] Social History Type Description Quantity Date Captured Comments Alcohol Use Details No Caffeine Use Details Unknown Tobacco Use Status Ex-cigarette smoker 025 Smoking Status Former smoker Sex Female Vital Signs Date / Time: Height Weight BMI Pulse Rate Blood Pressure Temperature Respiratory Rate Body Surface Area Head Circumference BMI percentile Pulse Ox Inhaled Ox 10:25 AM 60.00 in 216.20 lbs 42.2 2 kg/m eter (2) 74 /min 120/80 mm[Hg] 97.7 F 16 /min Chief Complaint And Reason For Visit From encounter dated '08/14/2024 10:18'. pain (chief complaint). Description: Pt has chronic low back pain with sciatica and leg numbness. Pt denies any loss of bowel or bladder control. Pt takes norco and lyrica and neuropathy and pain is stable .Pt denies any saddle area paresthesia. Pt takes norco for pain PRN. ADD (chief complaint). Description: Patient has ADD. Patient has inattentive type. Patient feels scatterbrained. Patient feel poor focus and difficulty completing tasks. Patient states that Adderall is helping with symptoms. Patient feels more focused. Pt feels more energy. Patient denies any headache, dry mouth, headache, chest pain. Patient denies any appetite loss. Plan Of Treatment Date Type Action Status Goal Tobacco cessation counseling completed Goal Tobacco cessation counseling completed Goal Tobacco cessation counseling completed Goal Special diet education compl eted Goal Tobacco cessation counseling completed Goal Special diet education compl eted Goal Tobacco cessation counseling completed Goal Special diet education compl eted Goal Tobacco cessation counseling completed Goal Special diet education compl eted Goal Tobacco cessation counseling completed Goal Special diet education compl eted Goal Special diet education compl eted Goal Tobacco cessation counseling completed Goal Tobacco cessation counseling completed Goal Special diet education compl eted Goal Tobacco cessation counseling completed Goal Special diet education compl eted Goal Tobacco cessation counseling completed Goal Special diet education compl eted Goal Tobacco cessation counseling completed Goal Special diet education compl eted Goal Special diet education compl eted Goal Tobacco cessation counseling completed Goal Special diet education compl eted Goal Tobacco cessation counseling completed Goal Special diet education compl eted Goal Special diet education compl eted Goal Special diet education compl eted Goal Special diet education compl eted Goal Prescribed dietary intake co mpleted Goal Prescribed diet education co mpleted Goal Prescribed diet education co mpleted Goal Special diet education compl eted Goal Special diet education compl eted Goal Special diet education compl eted Referral Ordered: MRI BRAIN W/O & W/DYE ordered Referral Ordered: Physical Therapy (related to Lumbago with sciatica, left side) ordered Referral Ordered: MRI LUMBAR SPINE W/O DYE ordered Referral Ordered: Gastroenterology (related to Esophagitis) ordered Referral Ordered: Referrals: Gastroenterology. Evaluate and treat ordered Referral Ordered: Physical Therapy (related to Pain in left hip) ordered Referral Ordered: AP PELVIS AND BILATERAL HIPS XRAY ordered Referral Ordered: US DUPLEX UPPER EXTREMITY--AMADA ordered Referral Ordered: CHEST X-RAY PA/LAT TWO-VIEWS ordered Referral Ordered: Surgery (related to Abnormal weight gain) ordered Referral Ordered: Physical Therapy (related to Lumbago with sciatica, right side) ordered Referral Referred To: Physical Therapy Ordered: Referrals: Physical Therapy. Evaluate and treat ordered Referral Ordered: John Mclean [facility] : Internal Medicine : Endocrinology, Diabetes & Metabolism (related to Other specified disorder of bone density) ordered Referral Referred To: John Mclean [address] [place], [place], [id number] Ordered: Referrals: [facility] Phys[facility] : Internal Medicine : Endocrinology, Diabetes & Metabolism. John Mclean. Evaluate and treat ordered Referral Ordered: Surgery (related to Inconclusive mammogram) ordered Referral Ordered: Igor Bejarano -[facility] : Internal Medicine : Endocrinology, Diabetes & Metabolism (related to Other specified disorder of bone density) ordered Referral Ordered: Surgery (related to Inconclusive mammogram) ordered Referral Referred To: [address] [place], [place] [id number] Ordered: Referrals: Surgery. Evaluate and treat ordered Referral Referred To: Igor Bejarano [address] [place], [place] [id number] Ordered: Referrals: [facility] : Internal Medicine : Endocrinology, Diabetes & Metabolism. Igor Bejarano. Evaluate and treat ordered Referral Ordered: MAMMOGRAM, ONE BREAST Left ordered Referral Ordered: Hematology (related to Hypercoagulable state) ordered Referral Ordered: MAMMOGRAM, SCREENING ordered Referral Ordered: Referrals: Hematology. Evaluate and treat ordered Referral Referred To: Samy Henderson MD [address] [address] [place], [place], [id number] Ordered: Referrals: Samy Henderson MD. Evaluate and treat ordered Referral Ordered: Juan M Cheung (related to Carpal tunnel syndrome of left arm) ordered Referral Referred To: Juan M Cheung [id number] [place], [id number] Ordered: Referrals: Juan M Cheung. Evaluate and treat ordered Referral Ordered: DXA BONE DENSITY, AXIAL ordered Referral Ordered: Cardiac Rehabilitation (related to Body mass index (BMI) 45.0-49.9, adult) ordered Referral Ordered: Gera Mcmullen (related to Body mass index (BMI) 45.0-49.9, adult) ordered Referral Referred To: Gera Mcmullen [address] [place], [id number] Ordered: Referrals: Gera Mcmullen. Evaluate and treat ordered Referral Ordered: ROMI PISANO (related to Cellulitis of right toe) ordered Referral Referred To: ROMI PISANO [address] [place], [place], [id number] Ordered: Referrals: ROMI PISANO. Evaluate and treat ordered Referral Ordered: Cardiac Rehabilitation (related to Body mass index (BMI) 45.0-49.9, adult) ordered Referral Referred To: [facility] Ordered: Referrals: Cardiac Rehabilitation. Evaluate and treat ordered Referral Ordered: Pulmonology (related to Sleep apnea) ordered Referral Ordered: Referrals: Pulmonology. Evaluate and treat ordered Referral Ordered: US EXAM, ABDOM, COMPLETE ordered Referral Ordered: Neurosurgery (related to Lumbago) ordered Referral Ordered: Referrals: Neurosurgery ordered History Of Present Illness Encounter Date Complaint History Of Prese nt Illness pain Pt has chronic l ow back pain with sciatica and leg numbness. Pt denies any loss of bowel or bladder control. Pt takes norco and lyrica and neuropathy and pain is stable .Pt denies any saddle area paresthesia. Pt takes norco for pain PRN. ADD Patient has ADD. Patient has inattentive type. Patient feels scatterbrained. Patient feel poor focus and difficulty completing tasks. Patient states that Adderall is helping with symptoms. Patient feels more focused. Pt feels more energy. Patient denies any headache, dry mouth, headache, chest pain. Patient denies any appetite loss. ADD Patient has ADD. Patient has inattentive type. Patient feels scatterbrained. Patient feel poor focus and difficulty completing tasks. Patient states that Adderall is helping with symptoms. Patient feels more focused. Pt feels more energy. Patient denies any headache, dry mouth, headache, chest pain. Patient denies any appetite loss. pain Pt has chronic l ow back pain with sciatica and leg numbness. Pt denies any loss of bowel or bladder control. Pt takes norco and lyrica and neuropathy and pain is stable .Pt denies any saddle area paresthesia. Pt takes norco for pain PRN. iron Pt has mild low iron Pt just saw hematology Pt had negative EGD and colonoscopy .Pt denies any bleeding fatigue1 Pt has chronic f atigue pt denies any recurrent LOC .She had negative head CT 3 months ago at ER MRI denied .Pt denies any recurrent episodes. Pt does have sleep apnea but she does not use cpap Pt has been working a lot. Pt has been getting more rest lately and she feels better ADD Patient has ADD. Patient has inattentive type. Patient feels scatterbrained. Patient feel poor focus and difficulty completing tasks. Patient states that Adderall is helping with symptoms. Patient feels more focused. Pt feels more energy. Patient denies any headache, dry mouth, headache, chest pain. Patient denies any appetite loss. LOC Pt states that s he recently lost track of 27 hours of her activities about two weeks ago. Pt states that she does not remember what she did not remember what she did during those 27 hours of time. Pt has intermittent headache Pt states that she is not sure what she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
--- OUTSIDE RECORDS SUMMARY | 2024-08-15 09:16 | XMS_ITS | Clinical Summary ---
Author Organization [facility] Address [address] [facility] [address] [place] [address] Phone Care Team Providers Care Interlocking Installer Name Role Phone Franki Flor Primary Care Provider [phone] Joss Montoya MD Unavailable [phone] Allergies No known active allergies Medications fenofibrate 160 MG Tablet daily. 3 10/17/19 18 Active losartan (COZAAR) 25 MG Tablet daily. 3 01/12/20 18 Active Multiple Vitamins-Minerals (MULTIVITAMIN PO) Take by mouth. Active Potassium 99 MG Tablet Take by mouth daily. Active BIOTIN FORTE PO Take 5,000 mcg by mouth daily. Active Cholecalciferol (VITAMIN D3) 2000 UNIT Capsule Take by mouth. Ac tive L-Lysine HCl 500 MG Capsule Take by mouth. Acti ve allopurinol (ZYLOPRIM) 100 MG Tablet allopurinol 100 mg tablet TK 1 T PO D 01/13/20 20 Active cyclobenzaprine (FLEXERIL) 10 MG Tablet Take 1 Tablet by mouth. 08/28/19 08 Active pregabalin (LYRICA) 150 MG Capsule TAKE 1 CAPSULE BY MOUTH TWICE DAILY 09/12/19 21 Active albuterol 108 (90 Base) MCG/ACT Aerosol Solution 09/22/19 22 Active isosorbide dinitrate (ISORDIL) 10 MG Tablet Take 10 mg by mouth 2 times daily. 09/10/19 22 Active Probiotic Product (Misc Intestinal Rosy Regulat) Capsule Take 1 Capsule by mouth. 08/17/19 22 Active ursodiol (ACTIGALL) 300 MG Capsule TAKE 1 CAPSULE BY MOUTH TWICE DAILY 08/17/19 22 Active escitalopram (LEXAPRO) 10 MG Tablet Take 10 mg by mouth daily. 04/14/19 23 Active sucralfate (CARAFATE) 1 GM Tablet TAKE 1 TABLET BY MOUTH FOUR TIMES DAILY FOR GERD 05/20/19 23 Active metoprolol Succinate (TOPROL-XL) 25 MG TABLET SR 24 HR Take 25 mg by mouth daily. 03/14/20 22 Active CALCIUM CITRATE PO Take 500 mg by mouth. Active HYDROcodone-acetam inophen (NORCO) 7.5-325 MG Tablet TAKE 1 TABLET BY MOUTH FOUR TIMES DAILY NEEDED FOR PAIN 05/17/19 24 Active amphetamine-dextro amphetamine (ADDERALL) 20 MG Tablet TAKE 1 TABLET BY MOUTH EVERY DAY BEFORE BREAKFAST 05/17/19 24 Active isosorbide mononitrate (IMDUR) 30 MG TABLET SR 24 HR Take 30 mg by mouth daily. 03/13/20 23 Active pantoprazole (PROTONIX) 40 MG Tablet Delayed Response Take 40 mg by mouth daily. 05/17/19 24 Active esomeprazole (NexIUM) 40 MG CAPSULE DELAYED RELEASE 09/16/19 24 Active apixaban (Eliquis) 5 MG TabletIndications: History of Thromboembolic Disease Take 1 Tablet by mouth 2 times daily. Indications: History of Disease involving a Thrombosis or an Embolism 180 Tablet 3 09/18/19 24 Active predniSONE (DELTASONE) 20 MG Tablet as needed. Active metoclopramide (REGLAN) 5 MG Tablet Take 5 mg by mouth daily. 10/26/19 24 Active methylPREDNISolone (MEDROL) 4 MG Tablet Take 4 mg by mouth 2 times daily. 09/15/19 24 Active Lidocaine Viscous HCl (XYLOCAINE) 2 % Solution SWALLOW 5 TO 15 MLS EVERY 3 TO 4 HOURS WITH AT LEAST 3 HOURS BETWEEN DOSES. DO NOT CONSUME MORE THAN 60 MLS IN A 24 HOUR TIME SPAN. 10/27/19 24 Active sucralfate (CARAFATE) 1 GM/10ML Suspension 05/17/19 25 Active pravastatin (PRAVACHOL) 80 MG Tablet Take 80 mg by mouth daily. Active famotidine (PEPCID) 40 MG Tablet Take 40 mg by mouth daily. 06/14/19 25 Active fluorometholone (FML) 0.1 % Suspension SHAKE LIQUID AND INSTILL 1 DROP IN BOTH EYES TWICE DAILY 06/27/19 25 Active metoprolol Succinate (TOPROL-XL) 50 MG TABLET SR 24 HR Take 50 mg by mouth daily. 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 ENGINEER, [employer] History of DVT (deep vein thrombosis) (Primary Dx); Iron deficiency anemia, unspecified iron deficiency anemia type; Encounter for current long-term use of anticoagulants 07/01/2024 Travel from Last 3 Months Immunizations Immunization Administration Dates Next Due Covid-19, Mrna, Lnp-s, Bival ent, Moderna, 50 Mcg or 25 mcg dose 12/09/2021 Influenza Vaccine, Quadrivalent, PF 12/14/2021 Family History Medical History Relation Name Comments Hypertension Brother Diabetes Maternal Grandfather Hypertension Maternal Grandfather Chronic Obstructive Pulmonary Disease Maternal Grandmo ther Clotting Disorder Maternal Grandmother Diabetes Maternal Grandmother Diabetes Mother Hypertension Mother Cancer Paternal Grandmother breast Relation Name Status Comments Brother Maternal Grandfather Maternal Grandmother Mother Paternal Grandmother Social History Tobacco Use Types Packs/Day Years Used Date Smoking Tobacco: Former Cigarettes 2 20 0 03/27/1989 - 03/27/2009 Smokeless Tobacco: Never Tobacco Cessation:Counseling Given: Not Answered Alcohol Use Standard Drinks/Week Comments Yes 0 (1 standard drink = 0.6 oz pur e alcohol) rarely PHQ-2 Answer Date Recorded Total Score - Questions 1-9 0 10/25 Comments Unknown Sex and Gender Information Value Date Recorded Sex Assigned at Not on file Legal Sex Female 8:10 AM CDT Gender Identity Not on file Sexual Orientation Not on file Last Filed Vital Signs Vital Sign Reading Time Taken Comments Blood Pressure 138/84 07/01/2024 2:07 PM CDT Pulse 94 07/01/2024 2:07 PM CDT Temperature 36.3 C (97.3 F) 07/01/2024 2:07 PM CDT Respiratory Rate 16 07/01/2024 2:07 PM CDT Oxygen Saturation 96% 07/01/2024 2:07 PM CDT Inhaled Oxygen Concentration - - Weight 98 kg (216 lb) 07/01/2024 2:07 PM CDT Height 152.4 cm (5') 07/01/2024 2:07 PM CDT Body Mass Index 42.18 07/01/2024 2:07 PM CDT Plan of Treatment Upcoming Encounters Date Type Department Care Team (Late st Contact Info) Description 12/30/2024 2:15 PM CDT Lab [facility] [address] [phone] Lab, [facility] 12/30/2024 2:30 PM CDT Office Visit [facility] [address] [phone] Joss Montoya MD [address] [place] [address] [place] [id number] Health Maintenance Due Date Last Done Comments Hepatitis C Virus (HCV) Screening 1976 Mammogram 1976 TdaP Immunization 1976 Hepatitis B Immunization (1 of 3 - 19+ 3-dose series) 1995 Pap Smear 1997 Cervical Cancer Screening (CCS) 2006 HPV/Cotest 2006 Discussion re Starting/Frequency of Mammograms 2016 Colonoscopy 2021 Colorectal Cancer Screening 2021 SARS-COV-2 Immunization ( season) 2023 12/09/2021, 12/05/2020, 05/05/2020, Additional history exists Influenza Immunization (Season Ended) 2024 12/14/2021 Respiratory Syncytial Virus (RSV) Immunization (Adult) (1 - 1-dose 75+ series) 2051 Meningococcal Immunization (ACWY) Aged Out No longer eligible based on patient's age to complete this topic Pneumococcal Immunization Combined Aged Out No longer eligible based on patient's age to complete this topic Rotavirus Immunization Aged Out No lo nger eligible based on patient's age to complete this topic Insurance MEDICAID [facility] Care Teams Interlocking Installer Relationship Specialty Start Date End Date Franki Flor [address] [place] [address] PCP - General Family Medicine 01/26/18 Joss Montoya MD [address] [place] [address] Consulting Physician Oncology 06/21/22
--- OUTSIDE RECORDS SUMMARY | 2024-08-15 09:16 | XMS_ITS | Data Portability ---
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 Patient will come back in a year unless there are new symptoms. [email or web address] Not available 01/10/2020 10:34:16 02/15/2021 02/15/2021 Annual gynecological exam performed. Patient will come back in a year unless there are new symptoms. Not available 01/12/2021 15:15:55 06/15/2022 06/15/2022 Annual gynecological exam performed. Patient will come back in a year unless there are new symptoms. Not available 06/15/2022 10:33:17 Plan of Treatment Reminders Order Date Submit Date Provider Last Modified By Organization Details Last Modified Time Details Appointments None recorded. Lab None recorded. Referral None recorded. Procedures None recorded. Surgeries None recorded. Imaging MAMMO, screening, bilateral 2022 023 [facility], [address], [address], [place], [address], 3 05:01:41 Medication Orders None recorded. Patient TargetsNo targets recorded. Patient Instructions Encounter Date Encounter Id Patient Instructions Last Modified By Organization Details Last Modified Time 01/10/2020 [id number] [email or web address] Not available 11:20:35 Reason for Referral None Reported. Results Created Date Observation Date Name Description Value Unit Range Abnormal Flag Note LastModifiedBy Organization Detail LastModifiedTime 01/10/20 20 01/14/2020 pap, LB Pap test thin prep Negati ve for Intrae pithel ial Lesion or Malign alec normal ACCES YAZMIN #: [id number] Sourc e: Cervi peggy/E ndoce rvica l LMP: 08/13 Date Taken : 01/09 Speci men Type: ThinP rep Vial Date Repor sathya: 01/13 Clini peggy Data: Cytot ech: Milvia Agustin Ackle y, CT( CP) Date Repor sathya: 01/12 Speci men Adequ acy: Satis facto ry for evalu ation Endoc ervic al/tr ansfo rmati on zone compo nent prese nt Gener al Categ oriza tion: NEGAT TOMAS FOR INTRA EPITH ELIAL LESIO N OR MALIG DREW This speci men has been felicia zed by the ThinP rep Imagi ng Syste m, an inter activ e compu ter syste m which cathy ts the lab in the scree sadaf of ThinP rep Pap Test slide s. Follo wing imagi ng, the slide was revie wed by a Cytot echno logis t and/o r Patho logis t. D N A A S S A Y S R E P O R T TEST NAME RESUL TS ----- ---- ----- -- HPV High Risk Scree n (TMA) ThinP rep Vial The human papil lomav irus (HPV) High Risk Scree n is an FDA-a pprov ed in-vi tro ampli fied nucle ic acid test for the quali tativ e detec tion of E6/E7 viral mRNA. Resul ts shoul d be corre lated with patie nt prese ntati on, histo ry, cervi peggy cytol ogy and other clini peggy and labor atory findi ngs. See https ://vika [employer]. com/s ites/ defau lt/fi les/2 018-0 3/AW- 92891 _002_ 01.pd f for furth er infor matio n. Test perfo rmed by [facility] d/b/a [facility], [address], [place] [address] , Iwona Wilson ra, DO, [facility]. HPV High Risk *HPV NOT DETEC SATHYA (TYPE S 16, 18, 31, 33, 35, 39, 45, 51, 52, 56, 58, 59, 66, 68) *HPV: The human papil lomav irus (HPV) High Risk Argelia barrientos is an FDA-a pprov ed in-vi tro ampli fied nucle ic acid test for the quali tativ e detec tion of E6/E7 viral mRNA. Resul ts shoul d be corre lated with patimariangel nt prese ntati on, histo ry, cervi peggy cytol ogy and other clini peggy and labor atory findi ngs. See https ://[employer]/s ites/ defau lt/fi les/2 018-0 3/AW- 93084 _002_ 01.pd f for taylor compa montenegror debrabernardo floyd. Test perfo rmed by [facility], d/b/a [facility], [address], [place] [address] , Iwona Wilson ra, DO, [facility]. End of t Techn ical servi parish provi ded by [facility], d/b/a [facility], [address] [place] [address] Ye Rae MD, [facility]. Case revie wed and diagn osis rende red at [facility], d/b/a [facility], [address] [place] [address] Ye Rae MD, [facility]. CONFI DENTI AL Not Available [facility] ([facility]) [address], [place], [address], 01/14/2020 09:32:03 01/10/2001/11/2020 HPV DNA, high- risk HPV high risk NOT DETECT ED normal Not Available [facility] ([facility]) [address], [place], [address], 01/14/2020 09:32:04 06/16/19 23 06/15/2022 IMAGE GUIDE D PAP AND HPV REGAR DLESS image guided Pap, HPV regardless of Pap result SEE RESULT S BELOW CASE REPOR T: Cytol ogy Gynec ologi peggy Repor t Case: [id number] Autho la nena orozco Provi jose: Gerri sapp , Carina Diaz cted: 06/15 1510 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 Elect rene breaux serenity d by Fina Kate ret, CT on 2022 at 7:19 AM ----- ----- ----- ----- ----- ----- ----- ----- ----- ----- ----- ----- ----- ----- ----- ----- ----- ---- HPV RESUL TS: HPV mRNA E6/E7 : No HPV mRNA Detec sathya NOTE: This high risk HPV mRNA assay detec ts fourt een high- risk HPV types (16, 18, 31, 33, 35, 39, 45, 51, 52, 56, 58, 59, 66, 68) witho ut diffe renti ation . COMME NT: This speci men was revie wed by a Cytot echno logis t and/o r Patho logis t (as indic ated in this repor t) after evalu ation using the Thinp rep Imagi ng Syste m. CLINI PEGGY INFOR MATIO N: Menst rual Statu s: LMP (if appli cable ): Clini peggy Histo ry/Pr eviou s Pap: Type of Neopl kasey (if appli cable ): Signi fican t Clini peggy Findi ngs: Other Histo ry: Hormo donte (if appli cable ): PAP EDUCA MARC L NOTE: The Pap Test is a scree sadaf test with an inher ent false negat tomas rate. Liqui d-bas ed sampl ing may decre ase, but will not elimi lb, false negat tomas resul ts. A negat tomas resul t does not precl ude the prese nce and/o r devel opmen t of disea se, since the prese nce of abnor mal cells in the sampl e depen ds on the locat ion of the lesio n and sampl ing techn ique. Carisa nued regul ar scree sadaf is the best metho d of cance r preve ntion . If repor sathya cytol ogic findi ng do not corre late with physi peggy and/o r histo rical findi ngs, furth er inves tigat ion is recom pedro d, as clini em aguilar nted. Not Available [facility] ([facility]) [address], [place], [address], 06/19/2022 08:22:39 Result Notes None recorded. Problems Name Problem SNOMED Code Status Onset Date Resolution Date Notes Provider Name and Address Organization Details Recorded Time Adult health examinat ion Completed 201301/12/2021 ROUTINE MEDICAL EXAM;Danilo rded Elsewhere : No Locati on: [facility] So urce: EHR Chron ic: N Practic e ID: 0001 Bill able Time: 10:00:00 AM Barb jenkins [place] - [facility] 13:58:16 Screenin g for malignan t neoplasm of rectum Completed 201601/12/2021 Encounter for screening for malignant neoplasm of rectum;Re corded Elsewhere : No Locati on: [facility] So urce: EHR Chron ic: N Practic e ID: 0001 Bill able Time: 10:30:00 AM Barb Delatorre [facility] 13:58:[address] Concept Completed 201401/12/2021 Encntr for general adult medical exam w/o abnormal findings; Recorded Elsewhere : No Locati on: [facility] So urce: EHR Chron ic: N Practic e ID: 0001 Bill able Time: 01:00:00 PM Barb Delatorre [facility] 13:58:32 Dyspareu buster [id number] Completed 201101/12/2021 Dyspareun ia;Record ed Elsewhere : No Locati on: [facility] So urce: EHR Chron ic: N Practic e ID: 0001 Bill able Time: 04:30:00 PM Barb Delatorre [facility] 13:58:21 Accident al puncture during a procedur e [id number] Completed 201401/12/2021 Accidenta l puncture and laceratio n of skin and subcutane ous tissue during other procedure ;Recorded Elsewhere : No Locati on: [facility] So urce: EHR Chron ic: N Practic e ID: 0001 Bill able Time: 10:45:00 AM Barb Delatorre [facility] 13:58:15 Accident al lacerati on during a procedur e [id number] Completed 201401/12/2021 Accidenta l puncture and laceratio n of skin and subcutane ous tissue during other procedure ;Recorded Elsewhere : No Locati on: [facility] So urce: EHR Chron ic: N Practic e ID: 0001 Bill able Time: 10:45:00 AM Barb Delatorre [facility] 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 13:58:34 Body mass index 30+ - obesity [id number] Completed 201801/12/2021 Body mass index (BMI) 45.0-49.9 , adult;Rec orded Elsewhere : No Locati on: [facility] So urce: EHR Chron ic: N Practic e ID: 0001 Bill able Time: 11:00:00 AM Barb Delatorre [facility] 13:58:18 Screenin g for malignan t neoplasm of cervix Completed 201101/12/2021 Screening for malignant neoplasms of the cervix;Re corded Elsewhere : No Locati on: [facility] So urce: EHR Chron ic: N Practic e ID: 0001 Bill able Time: 04:30:00 PM Barb [facility] 13:58:28 Vaginiti s and vulvovag initis Completed 201401/12/2021 Vaginitis ;Recorded Elsewhere : No Locati on: [facility] So urce: EHR Chron ic: N Practic e ID: 0001 Bill able Time: 03:15:00 PM Barb Delatorre [facility] 14:00:14 Breast lump [id number] Completed 201401/12/2021 Breast lump;Danilo rded Elsewhere : No Locati on: [facility] So urce: EHR Chron ic: N Practic e ID: 0001 Bill able Time: 03:15:00 PM Barb Delatorre [facility] 13:58:19 Leukorrh ea [id number] Completed 201401/12/2021 Leukorrhe a, not specified as infective ;Recorded Elsewhere : No Locati on: [facility] So urce: EHR Chron ic: N Practic e ID: 0001 Bill able Time: 03:15:00 PM Barb Delatorre [facility] 13:58:25 Lacerati on of genitali a [id number] Completed 201401/12/2021 Laceratio n w/o foreign body of vagina and vulva, init encntr;Pr actice ID: 0001 Barb [facility] 13:58:23 Obesity [id number] Completed 201301/12/2021 Obesity, unspecifi ed;Practi ce ID: 0001 Barb [facility] 13:58:27 Problem Notes None recorded. Procedures Surgical History Date Name Laterality Status Provider Name and Address Organization Details Recorded Time 06/16/19 23 Date of Last Pap Smear completed Carrie Eldridge [facility] 06/19/2023 17:18:50 09/16/19 22 Gastric Bypass completed [facility] 06/15/2022 10:34:35 11/20/19 21 Date of Last Mammogram completed [facility] 02/15/2021 11:35:08 11/06/19 21 Most Recent Bone Density completed [facility] 02/15/2021 11:29:48 09/21/19 12 Coronary Artery Bypass completed [facility] 06/15/2022 10:34:35 04/14/19 10 Coronary Artery Bypass completed [facility] 06/15/2022 10:34:35 10/21/19 03 Total Hysterectomy completed [facility] 06/15/2022 10:34:35 01/13/20 Tubal Ligation completed [facility] 06/15/2022 10:34:35 01/13/20 Caesarean Section completed [facility] 06/15/2022 10:34:35 02/12/[address] [facility] 02/15/2021 11:29:48 bypass graft completed , [facility] 01/10/2020 10:38:11 procedure on heart completed , [facility] 01/10/2020 10:38:17 reconstruction of vagina completed , [facility] 01/10/2020 10:38:31 wedge resection completed , [facility] 01/10/2020 10:38:36 Total Hysterectomy completed , [facility] 01/10/2020 10:38:43 Laparoscopy completed [facility] 01/10/2020 10:38:49 Imaging Results None recorded. Procedure Notes None recorded. Medical Equipment None Reported. Allergies No known drug allergies Medications Name Sig Start Date Stop Date Status Note LastModified by Organization Details LastModified Time celecoxib 200 mg capsule active Not Available Not Available Not Available cyclobenz aprine 10 mg tablet TAKE 1 TABLET BY MOUTH TWICE DAILY NEEDED active Not Available Not Available No t Available isosorbid e dinitrate 10 mg tablet TAKE 1 TABLET BY MOUTH TWICE DAILY active Not Available Not Available No t Available metformin 500 mg tablet TAKE 2 TABLETS BY MOUTH TWICE DAILY active Not Available Not Available No t Available doxycycli ne hyclate 100 mg capsule TAKE 1 CAPSULE BY MOUTH TWICE DAILY active Not Available Not Available No t Available azithromy drew 250 mg tablet active Not Available Not Available No t Available pravastat in 40 mg tablet TAKE 1 TABLET BY MOUTH EVERY DAY active Not Available Not Available No t Available methylphe nidate 20 mg tablet TAKE 1 TABLET BY MOUTH TWICE DAILY active Not Available Not Available No t Available fluticaso ne propionat e 0.05 % topical cream apply by topical route every day a thin layer to the affected area(s) 05/24 completed Prescrib ed Elsewher e: Yes Loca tion: [facility] odify By: lizz gracia DateTime : 10/11/19 15 03:15:00 PM Not Available Not Available Not Available sucralfat e 100 mg/mL oral suspensio n active Not Available Not Available Not Available sucralfat e 1 gram tablet TAKE 1 TABLET BY MOUTH FOUR TIMES DAILY FOR GERD active Not Available Not Available No t Available ondansetr on HCl 4 mg tablet 02/15 completed Not Available Not Available Not Available prednison e 20 mg tablet TAKE 3 TABLETS BY MOUTH EVERY DAY active Not Available Not Available No t Available isosorbid e mononitra te ER 30 mg tablet,ex tended release 24 hr TAKE 1 TABLET BY MOUTH DAILY active Not Available Not Available No t Available methylpre dnisolone 4 mg tablet TAKE 1 TABLET BY MOUTH TWICE DAILY active Not Available Not Available No t Available amlodipin e 2.5 mg tablet TAKE 1 TABLET BY MOUTH DAILY active Not Available Not Available No t Available amlodipin e 5 mg tablet 06/15 completed Not Available Not Available Not Available allopurin ol 100 mg tablet TAKE 1 TABLET BY MOUTH EVERY DAY active Not Available Not Available No t Available hydrocodo ne 10 mg-acetam inophen 325 mg tablet TAKE 1 TABLET BY MOUTH FOUR TIMES DAILY NEEDED active Not Available Not Available No t Available omeprazol e 40 mg capsule,d elayed release TAKE 1 CAPSULE BY MOUTH TWICE DAILY BEFORE BREAKFAS T AND SUPPER FOR GERD active Not Available Not Available No t Available Reglan 10 mg tablet take 1 tablet by oral route 4 times every day 30 minutes before meals and at bedtime 05/24 completed Prescrib ed Elsewher e: Yes Loca tion: [facility] odify By: lizz gracia DateTime : 03/12/20 15 01:00:00 PM Not Available Not Available Not Available acetamino phen 500 mg tablet 06/18 completed Not Available Not Available Not Available warfarin 4 mg tablet TAKE 2 TABLETS BY MOUTH EVERY DAY active Not Available Not Available No t Available warfarin 3 mg tablet 02/15 completed Not Available Not Available Not Available alendrona te 35 mg tablet take 1 tablet by oral route every week in the morning, at least 30 min before first food, beverage , or medicati on of day 02/15 completed Prescrib ed Elsewher e: Yes Loca tion: Eloise clinton [facility] odify By: kmkirkpa trick En counter DateTime : 10/11/19 03:15:00 PM Not Available Not Available Not Available ofloxacin 0.3 % ear drops 02/15 completed Not Available Not Available Not Available amoxicill in 875 mg tablet 01/09 completed Not Available Not Available Not Available alprazola m 0.25 mg tablet take 1 tablet by oral route 3 times every day 10/13 completed Prescrib ed Elsewher e: Yes Loca tion: [facility] By: rosetta mendezunter DateTime : 10/11/19 15 03:15:00 PM Not Available Not Available Not Available Metrogel Vaginal 0.75 % (37.5 mg/5 gram) insert 1 applicat orful (37.5MG) by vaginal route every day at bedtime 10/10 completed Prescrib ed Elsewher e: No Locat ion: Eloise clinton [facility] odify By: kmkirkpa trick En counter DateTime : 08/23/19 12 12:49:55 PM Not Available Not Available Not Available pravastat in 10 mg tablet take 1 tablet by oral route every day 02/15 completed Prescrib ed Elsewher e: Yes Loca tion: [facility] odify By: dora noyola DateTime : 08/15/19 12 04:30:00 PM Not Available Not Available Not Available Prilosec 10 mg capsule,d elayed release take 2 capsule by oral route every day before a meal 02/15 completed Prescrib ed Elsewher e: Yes Loca tion: Eloise cilnton [facility] odify By: dora noyola DateTime : 08/15/19 12 04:30:00 PM Not Available Not Available Not Available Coumadin 5 mg intraveno us solution inject 1 millilit er by intraven ous route every day over as an IV bolus 02/15 completed Prescrib ed Elsewher e: Yes Loca tion: Eloise clinton [facility] odify By: dora noyola DateTime : 08/15/19 12 04:30:00 PM Not Available Not Available Not Available ranitidin e 75 mg tablet take 1 tablet by oral route 2 times every day with glass of water 05/24 completed Prescrib ed Elsewher e: Yes Loca tion: [facility] odify By: lizz gracia DateTime : 10/14/19 17 10:30:00 AM Not Available Not Available Not Available dexametha sone 1 mg tablet TAKE 1 TABLET BY MOUTH AT 10 PM THE NIGHT BEFORE 8 AM CORTISOL LEVEL DRAWN 02/15 completed Not Available Not Available Not Available Flagyl 500 mg tablet take 1 tablet by oral route 2 times every day 05/24 completed Prescrib ed Elsewher e: No Locat ion: Peter mariangel [facility] odify By: lizz mendezuntcompa DateTime : 10/25/19 15 12:46:28 PM Not Available Not Available Not Available Calci-Melida w 500 mg (as calcium carbonate 1,250 mg) tablet 01/12 completed Prescrib ed Elsewher e: Yes [facility]oca [facility]ion[facility] odify By: kmkirkpa trick En counter DateTime : 10/11/19 15 03:15:00 PM Not Available Not Available Not Available hydrocodo ne 7.5 mg-acetam inophen 325 mg tablet TAKE 1 TABLET BY MOUTH FOUR TIMES DAILY NEEDED FOR PAIN active Not Available Not Available No t Available pantopraz ole 40 mg tablet,de layed release TAKE 1 TABLET BY MOUTH EVERY DAY active Not Available Not Available No t Available cyanocoba yani (vit B-12) 1,000 mcg/mL injection solution ADMINIST ER 1 ML UNDER THE SKIN EVERY WEEK IN THE MORNING active Not Available Not Available No t Available buspirone 10 mg tablet 02/15 completed Not Available Not Available Not Available dextroamp hetamine- amphetami ne 20 mg tablet TAKE 1 TABLET BY MOUTH EVERY DAY BEFORE BREAKFAS T active Not Available Not Available No t Available promethaz ine 25 mg tablet TAKE 1 TABLET BY MOUTH EVERY 6 HOURS NEEDED 02/15 completed Not Available Not Available Not Available ursodiol 300 mg capsule TAKE 1 CAPSULE BY MOUTH TWICE DAILY active Not Available Not Available No t Available losartan 25 mg tablet TAKE 1 TABLET BY MOUTH EVERY DAY active Not Available Not Available No t Available nitroglyc sh[place] 0.4 mg sublingua l tablet ONE TABLET UNDER TONGUE NEEDED FOR CHEST PAIN active Not Available Not Available No t Available gabapenti n 300 mg capsule active Not Available Not Available Not Available omeprazol e 20 mg capsule,d elayed release TAKE 1 CAPSULE BY MOUTH EVERY DAY BEFORE A MEAL active Not Available Not Available No t Available insulin syringe U-100 with needle 1 mL 31 gauge x 5/16 INJECT B12 UNDER THE SKIN ONCE WEEKLY active Not Available Not Available No t Available hydroxyzi ne HCl 25 mg tablet take 1 tablet by oral route 4 times every day 05/24 completed Prescrib ed Elsewher e: Yes Loca tion: [facility] odify By: lizz gracia DateTime : 10/14/19 17 10:30:00 AM Not Available Not Available Not Available isosorbid e mononitra te 10 mg tablet take 1 tablet by oral route 2 times every day given 7 hours apart 02/15 completed Prescrib ed Elsewher e: Yes Loca tion: [facility] odify By: lizz gracia DateTime : 05/24/19 19 11:00:00 AM Not Available Not Available Not Available diclofena c sodium 50 mg tablet,de layed release TAKE 1 TABLET BY MOUTH TWICE DAILY 02/15 completed Not Available Not Available Not Available gabapenti n 100 mg capsule take 3 capsule by oral route every day at bedtime 05/24 completed Prescrib ed Elsewher e: Yes Loca tion: [facility] odify By: lizz mendezuntcompa DateTime : 10/14/19 17 10:30:00 AM Not Available Not Available Not Available metoprolo l succinate ER 25 mg tablet,ex tended release 24 hr TAKE 1 TABLET BY MOUTH EVERY DAY active Not Available Not Available No t Available L-Lysine 500 mg capsule 02/15 completed Prescrib ed Elsewher e: Yes Loca tion: Eloise mariangel [facility] odify By: dora noyola DateTime : 08/15/19 12 04:30:00 PM Not Available Not Available Not Available polyethyl aracelis glycol 3350 17 gram/dose oral powder MIX WITH 64 OUNCES OF CLEAR LIQUID AND TAKE DIRECTED active Not Available Not Available No t Available topiramat e 15 mg sprinkle capsule take 1 capsule by oral route 2 times every day in the morning and evening 02/15 completed Prescrib ed Elsewher e: Yes [facility]oca [facility]ion: [facility] odify By: lizz gracia DateTime : 05/24/19 19 11:00:00 AM Not Available Not Available Not Available scopolami ne 1 mg over 3 days transderm al patch UNWRAP AND APPLY 1 PATCH TO SKIN BEHIND YOUR EAR ONCE THE NIGHT BEFORE SURGERY FOR OPERATIO N 06/18 completed Not Available Not Available Not Available methylpre dnisolone 4 mg tablets in a dose pack FOLLOW PACKAGE DIRECTIO NS active Not Available Not Available No t Available albuterol sulfate HFA 90 mcg/actua tion aerosol inhaler INHALE 1 PUFF BY MOUTH EVERY 4 TO 6 HOURS NEEDED FOR SHORTNES S OF BREATH active Not Available Not Available No t Available SSD 1 % topical cream APPLY SMALL AMOUNT TO EACH SITE DAILY 06/18 completed Not Available Not Available Not Available ondansetr on 4 mg disintegr ating tablet DISSOLVE ONE TABLET ON TONGUE EVERY 8 HOURS NEEDED active Not Available Not Available No t Available fluticaso ne propionat e 50 mcg/actua tion nasal spray,[employer] SHAKE LIQUID AND USE 2 SPRAYS IN EACH NOSTRIL EVERY DAY active Not Available Not Available No t Available metformin ER 500 mg tablet,ex tended release 24 hr TAKE 2 TABLETS BY MOUTH TWICE DAILY BEFORE MEALS 06/15 completed Not Available Not Available Not Available hydrocodo ne bitartrat e (bulk) crystals 05/24 completed Prescrib ed Elsewher e: Yes Loca tion: [facility] odify By: [email or web address] Mariangel [email or web address] DateTime : 08/15/19 12 04:30:00 PM Not Available Not Available Not Available doxycycli ne hyclate 100 mg tablet TAKE 1 TABLET BY MOUTH DAILY active Not Available Not Available No t Available amoxicill in 875 mg-potass ium clavulana te 125 mg tablet TAKE 1 TABLET BY MOUTH TWICE DAILY FOR 7 DAYS active Not Available Not Available No t Available oxycodone 5 mg tablet 06/18 completed Not Available Not Available Not Available neomycin- polymyxin -hydrocor t 3.5 mg-10,000 unit/mL-1 % ear drops,brooke p 06/15 completed Not Available Not Available Not Available Vitamins and Minerals tablet 06/18 completed Prescrib ed Elsewher e: Yes [facility]: [facility] odify By: dora noyola DateTime : 08/15/19 12 04:30:00 PM Not Available Not Available Not Available enoxapari n 100 mg/mL subcutane ous syringe INJECT 100 MG UNDER THE SKIN EVERY 12 HOURS FOR 5 DAYS active Not Available Not Available No t Available enoxapari n 40 mg/0.4 mL subcutane ous syringe INJECT 40 MG UNDER THE SKIN ONCE DAILY FOR 2 DOSES active Not Available Not Available No t Available escitalop akash 10 mg tablet TAKE 1 TABLET BY MOUTH EVERY DAY active Not Available Not Available No t Available Flexeril 5 mg tablet take 1 tablet by oral route 3 times every day 03/12 completed Prescrib ed Elsewher e: Yes Loca tion: [facility] odify By: [email or web address] trick En counter DateTime : 08/15/19 12 04:30:00 PM Not Available Not Available Not Available metoprolo l tartrate 25 mg tablet TAKE 1/2 TABLET BY MOUTH TWICE DAILY active Not Available Not Available No t Available Fosamax 70 mg/75 mL oral solution take 75 millilit er by oral route every week in the morning, at least 30 min before first food, beverage , or medicati on of day 10/10 completed Prescrib ed Elsewher e: Yes Loca tion: [facility] odify By: [email or web address] trick En counter DateTime : 02/06/20 14 11:44:42 AM Not Available Not Available Not Available topiramat e 50 mg tablet 06/15 completed Not Available Not Available Not Available hydrocodo ne 10 mg-acetam inophen 300 mg tablet take 1 tablet by oral route every 6 hours as needed 02/15 completed Prescrib ed Elsewher e: Yes Loca tion: [facility] odify By: rosetta gracia DateTime : 10/14/19 17 10:30:00 AM Not Available Not Available Not Available duloxetin e 30 mg capsule,d elayed release 01/12 completed Not Available Not Available Not Available duloxetin e 60 mg capsule,d elayed release 02/15 completed Not Available Not Available Not Available BD Ultra-Fin e Mini Pen Needle 31 gauge x 3/16 USE DIRECTED TO INJECT VICOTZA DAILY 02/15 completed Not Available Not Available Not Available fenofibra te 160 mg tablet TAKE 1 TABLET BY MOUTH EVERY DAY active Not Available Not Available No t Available pregabali n 50 mg capsule 01/09 completed Not Available Not Available Not Available pregabali n 75 mg capsule TAKE 1 CAPSULE BY MOUTH TWICE DAILY 02/15 completed Not Available Not Available Not Available pregabali n 150 mg capsule TAKE 1 CAPSULE BY MOUTH TWICE DAILY active Not Available Not Available No t Available lysine active Not Available Not Availa ble Not Available calcium active Not Available Not Avail able Not Available cranberry 06/18 completed Not Available Not Available Not Available folic acid 02/15 completed Not Available Not Available Not Available Flexeril 02/15 completed Not Available Not Available Not Available Lyrica 02/15 completed Not Available Not Available Not Available Daytrana 10 mg/9 hr daily patch 02/15 completed Prescrib ed Elsewher e: Yes Loca tion: [facility] odify By: lizz gracia DateTime : 05/24/19 19 11:00:00 AM Not Available Not Available Not Available BD Ultra-Fin e Short Pen Needle 31 gauge x 5/16 USE TO INJECT VICTOZA ONCE DAILY DIRECTED 02/15 completed Not Available Not Available Not Available fenofibra te nanocryst allized 145 mg tablet 01/12 completed Not Available Not Available Not Available Lipofen 50 mg capsule take 1 capsule by oral route every day with a meal 02/15 completed Prescrib ed Elsewher e: Yes Loca tion: [facility] odify By: dora noyola DateTime : 08/15/19 12 04:30:00 PM Not Available Not Available Not Available D3 Plus K2 Dots active Not Available Not Available Not Available B12 5,000 mcg-100 mcg sublingua l lozenge 02/15 completed Prescrib ed Elsewher e: Yes Loca tion: [facility] odify By: dora noyola DateTime : 08/15/19 12 04:30:00 PM Not Available Not Available Not Available Nitromist 400 mcg/spray transling ual aerosol place 1 spray by translin gual route onto or under the tongue at the first sign of an attack; no more than 3 sprays are recommen ded within a 15 minute period. 02/15 completed Prescrib ed Elsewher e: Yes Loca tion: [facility] odify By: dora noyola DateTime : 08/15/19 12 04:30:00 PM Not Available Not Available Not Available Vitamin D3 50 mcg (2,000 unit) capsule 06/18 completed Prescrib ed Elsewher e: Yes Loca tion: [facility] odify By: rosetta gracia DateTime : 10/14/19 17 10:30:00 AM Not Available Not Available Not Available Fish Oil 100 mg-160 mg-1,000 mg capsule 02/15 completed Prescrib ed Elsewher e: Yes Loca tion: [facility] odify By: dora noyola DateTime : 08/15/19 12 04:30:00 PM Not Available Not Available Not Available Dutoprol 100 mg-12.5 mg tablet,ex tended release take 1 tablet by oral route every day 02/15 completed Prescrib ed Elsewher e: Yes Loca tion: [facility] odify By: dora noyola DateTime : 08/15/19 12 04:30:00 PM Not Available Not Available Not Available Multi Vitamin 03/25 /2024 completed Not Available Not Available Not Available Victoza 3-Jovany 0.6 mg/0.1 mL (18 mg/3 mL) subcutane ous pen injector ADMINIST ER 1.8 MG UNDER THE SKIN EVERY DAY IN THE MORNING 06/15 completed Not Available Not Available Not Available Trulicity 1.5 mg/0.5 mL subcutane ous pen injector ADMINIST ER 1.5 MG UNDER THE SKIN EVERY WEEK active Not Available Not Available No t Available Trulicity 0.75 mg/0.5 mL subcutane ous pen injector ADMINIST ER 0.75 MG UNDER THE SKIN EVERY WEEK 06/18 completed Not Available Not Available Not Available ID NOW COVID-19 Test Kit TEST DIRECTED 02/15 completed Not Available Not Available Not Available BinaxNOW COVID-19 Ag Self Test kit TEST DIRECTED TODAY 06/18 completed Not Available Not Available Not Available Paxlovid 300 mg (150 mg x 2)-100 mg tablets in a dose pack TAKE 2 NIRMATRE LVIR TABLETS AND 1 RITONAVI R TABLET TOGETHER BY MOUTH TWICE DAILY FOR 5 DAYS active Not Available Not Available No t Available Vitals Date Recorded Body height Body mass index (BMI) Body weight Provider Name and Address Organization Details Last Updated DateTime 02/15/2021 153.67 cm 45.3 kg/m2 725749.8 g Barb Delatorre [facility] 02/15/2021 11:29:27 Date Recorded Systolic blood pressure Diastolic blood pressure Provider Name and Address Organization Details Last Updated DateTime 02/15/2021 120 mm[Hg] 80 mm[Hg] Peg Brito, [facility]- [address], [place], [address], [facility] 02/15/2021 11:52:10 Date Recorded Body height Body mass index (BMI) Body weight Systolic blood pressure Diastolic blood pressure Provider Name and Address Organization Details Last Updated DateTime 06/15/2022 153.67 cm 37.8 kg/m2 67060.7 g 118 mm[Hg] 81 mm[Hg] Umu Gaxiola [facility] 10:41:38 Social History Question Answer Notes LastModified by Organizat ion Details LastModified Time Tobacco Smoking Status Former Smoker Umu Gaxiola [facility] 06/15/2022 10:42:12 Do You Have An Advance Directive? No Information not available 02/15/2021 How Many Years Have You Consumed Alcohol? 24 Information not available 02/15/2021 Are You Blind Or Do You Have Difficulty Seeing? No Information not available 01/12/2021 What Is Your Level Of Caffeine Consumption? Occasional Information not available 01/12/2021 In The 14 Days Before Symptom Onset, Have You Had Close Contact With A Laboratory-confir med COVID-19 While That Case Was Ill? No Information not available 02/15/2021 In The 14 Days Before Symptom Onset, Have You Had Close Contact With A Person Who Is Under Investigation For COVID-19 While That Person Was Ill? No Information not available 02/15/2021 Have You Been To An Area Known To Be High Risk For COVID-19? No Information not available 02/15/2021 Are You Deaf Or Do You Have Serious Difficulty Hearing? No Information not available 01/12/2021 What Type Of Diet Are You Following? GLUTENFREE Information not available 02/15/2021 What Is The Highest Grade Or Level Of School You Have Completed Or The Highest Degree You Have Received? [id number] Information not available 02/15/2021 When Did You Quit Smoking? 11-15yearssin marycruz marinelli Quit Smoking 13 Years Ago [email or web address] Information not available 06/15/2022 Are There Any Guns Present In Your Home? Yes Information not available 02/15/2021 Do You Use Protection During Sex? No Information not available 02/15/2021 Do You Use Your Seat Belt Or Car Seat Routinely? Yes Information not available 01/12/2021 Do You Have Smoke And Carbon Monoxide Detectors In Your Home? Yes Information not available 01/12/2021 At What Age Did You Start Smoking Tobacco? 14 Information not available 02/15/2021 How Much Tobacco Do You Smoke? No Information not available 02/15/2021 Do You Use Sunscreen Routinely? No Information not available 02/15/2021 How Many Years Have You Smoked Tobacco? 20 Information not available 02/15/2021 Have You Used IV Drugs? No Information not available 02/15/2021 Sex: Unknown Functional Status Question Answer Note LastModified by Organizat ion Details LastModified Time Do you use any illicit or recreational drugs? No Information not available 01/12/2021 What is your level of alcohol consumption? Occasional Information not available 02/15/2021 Are you able to walk? 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 Occasional Information not available 01/12/2021 Mental Status Question Answer Note LastModified by Organization D etails LastModified Time Do you feel stressed (tense, restless, nervous, or anxious, or unable to sleep at night)? [id number] Information not available 01/12/2021 Family History Relationship Description Onset Age of this Age Resolved Age Notes LastModified by Organization Details LastModified Time Maternal Aunt Carcinoma in situ of breast Not available 2022 10:33:31 Maternal Aunt Seizure Not av ailable 06/15/2022 10:33:31 Maternal Aunt Hypertensive disorder Not available 2022 10:33:31 Maternal Aunt Blood coagulation disorder Not available 2022 10:33:31 Paternal Grandmother Carcinoma in situ of breast Not available 2022 10:33:31 Maternal Grandmother Asthma Not available 05/26 10:33:31 Maternal Grandmother Malignant neoplasm of ovary Not available 2022 10:33:31 Maternal Grandmother Hypertensive disorder Not available 2022 10:33:31 Maternal Grandmother Heart disease Not available 2022 10:33:31 Maternal Grandmother Blood coagulation disorder Not available 2022 10:33:31 Mother Asthma Not available 06/15/2022 10:33:31 Mother Anemia Not available 06/15/2022 10:33:31 Mother Malignant neoplasm of ovary Not available 2022 10:33:31 Mother Hypertensive disorder Not available 2022 10:33:31 Maternal Grandfather Hypertensive disorder Not available 2022 10:33:31 Brother Hypertensive disorder Not available 2022 10:33:31 Medical History Condition Response Heart Problems Y Acid Reflux (GERD) Y History of abnormal pap Y Urinary Tract Infection Y Asthma Y GI Problems Y Defects or Inherited Disease Y Endometriosis Y Anemia Y Hematologic disorders Y History of STI Y Heart Disease Y Headaches Y Polycystic ovary syndrome Y Osteoporosis Y Gynecological History Statement/Question Response Date of Last Mammogram 11/19/2020 Date of LMP 10/06/2002 N Was last menstrual period normal N STIs/STDs Y If Post Menopausal, Age at Menopause 26 Date of control 04/29/1994 On BCP's at Conception? N HPV Vaccine N Duration of Flow (days) 7 Current Control Method Hysterectom y Age at First Child 18 Frequency of Cycle (Q days) 14 Most Recent Bone Density 11/05/2020 Sexually Active? N Age of first menstrual cycle 11 Date of Last Pap Smear 06/15/2022 Sexual Problems? Y LMP Approximate 02/12/1995 N 01/03/1995 Obstetrics History GPAL:G 2 P 0 0 0 2 Type Value Living 2 Total 2 Past Encounters Encounter ID Performer Location Encounter Start Date Encounter Closed Date Diagnosis/Indication Diagnosis SNOMED-CT Code Diagnosis ICD10 Code Diagnosis Note [id number] [facility] [address] [address] 01/10/2020 10:29:47 01/10/2020 12:29:20 Gynecologic examination 55980931 Z01.419 Suggested Calcium with Vitamin D 1200-1500m g daily. Patient advised to get an annual flu shot in the fall and she could obtain at [facility] or [facility] clinic. Also to obtain TDap vaccinatio n if you have not had one in the last 10 years. Recommend yearly mammograms . Encouraged monthly self breast exams. Encourage safe sexual practices, to use condoms and limit partners if not already in a monogamous relationsh ip. Engage in daily exercise of low impact aerobic exercise 45-60 minutes 4-5 times weekly. Avoid tobacco and illicit drugs as well as using moderation with alcohol intake less than 1-2 8 oz beverages daily. This lifestyle behavior pattern will lead to less health conditions and longer life span. If BMI greater than 25 weight watchers or dietary consult advised. All questions have been answered. Patient appears to understand informatio n, but if you have any questions please call or respond to this email. Hx of full hyst for cervical/o varian cancers. Mammo ordered Not SA x 4yrs. Female str ess incontinence 11081311 N39.3 Exam wnl Advised double void routine. If still much issue or worsens can refer to Urogyn. [id number] Peg Brito , [facility] [address] [address] 02/15/2021 11:04:27 02/15/2021 12:17:27 Gynecologic examination [id number] Z01.419 Suggested Calcium with Vitamin D 1200-1500m g daily. Patient advised to get an annual flu shot in the fall and she could obtain at [facility] or [facility] take care clinic. Also to obtain TDap vaccinatio n if you have not had one in the last 10 years. Recommend yearly mammograms . Encouraged monthly self breast exams. Encourage safe sexual practices, to use condoms and limit partners if not already in a monogamous relationsh ip. Engage in daily exercise of low impact aerobic exercise 45-60 minutes 4-5 times weekly. Avoid tobacco and illicit drugs as well as using moderation with alcohol intake less than 1-2 8 oz beverages daily. This lifestyle behavior pattern will lead to less health conditions and longer life span. If BMI greater than 25 weight watchers or dietary consult advised. All questions have been answered. Patient appears to understand informatio n, but if you have any questions please call or respond to this email. Hx of full hyst for cervical/o varian cancers.Vieyra s had multiple consecutiv e neg pap/hpv screens since hysterecto my.Pap/HPV q3yrs unless otherwise indicated per asccp Mammo exa -ordered by PCP Not SA x 5 yrs. Declined need std screenGene tic screen discussed Encouraged Colonoscop y-will discuss with PCP appt coming up [id number] DORIS [facility] [address] [address] 06/15/2022 10:29:14 06/15/2022 10:55:28 Gynecologic examination [id number] Z01.419 Suggested Calcium with Vitamin D 1200-1500m g daily. Patient advised to get an annual flu shot in the fall and she could obtain at [facility] or [facility] clinic. Also to obtain TDap vaccinatio n if you have not had one in the last 10 years. Recommend yearly mammograms . Encouraged monthly self breast exams. Encourage safe sexual practices, to use condoms and limit partners if not already in a monogamous relationsh ip. Engage in daily exercise of low impact aerobic exercise 45-60 minutes 4-5 times weekly. Avoid tobacco and illicit drugs as well as using moderation with alcohol intake less than 1-2 8 oz beverages daily. This lifestyle behavior pattern will lead to less health conditions and longer life span. If BMI greater than 25 weight watchers or dietary consult advised. All questions have been answered. Patient appears to understand informatio n, but if you have any questions please call or respond to this email. Hx of full hyst for cervical/o varian cancers.Vieyra s had multiple consecutiv e neg pap/hpv screens since hysterecto my.Pap/HPV q3yrs unless otherwise indicated per asccp Pap/hpv sent STD Screen declined Genetic Screen discussed Colon Screen PCP Dexa Screen PCP Routine Labs PCP Screening mammography 24 519251 Z12.31 Health Concerns Section Related Observation LastModified by Organization Detai ls LastModified Time None Recorded Concern Status LastModified by Organization Details LastModified Time None Recorded Advance Directives Directive N: Payers Encounter Date Sequence Insurance Name Policy Number Policy Bill Covered Member ID Bill Member ID Guarantor Name 01/10/2020 1 [facility] PRIOR TO 09/24/2020 (MEDICAID REPLACEMENT - HMO) Shoshana Salas [id number] Shoshana Salas 02/15/2021 1 [facility] ON OR AFTER 09/24/20 (MEDICAID REPLACEMENT - HMO) Shoshana Salas [id number] Shoshana Salas 06/15/2022 1 [facility] - DOS ON OR AFTER 20 (MEDICAID REPLACEMENT - HMO) Shoshana Salas [id number] Shoshana Salas Notes Date Note Type Note Provider Name and Address Organization Details Recorded Time 01/10/2020 text/html Annual GYNReport ed bypatient.Urinary symptoms:No hematuria;Stress incontinence Vulva:No genital lesion Vagina:Normal vaginal discharge Breast:No breast pain; No breast lump; No nipple discharge Current Contraception:full hyst for cervical & ovarian cancers Sexual complaints:No sexual complaints; No pain during intercourse; Normal libido Menopausal Symptoms:No menopausal symptoms; Normal vaginal lubrication Psychological symptoms:No depression; No anxiety; No PMDD Preventive measures:Encourage self breast examination; Encourage regular exercise; Encourage no tobacco use; Encourage regular mammograms starting age 40; Needs to schedule mammogram OTILIA Hu [address], [place], [address], [facility] 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.Menopaus al Symptoms:no menopausal symptoms; normal vaginal lubrication Vaginal Bleeding:history of menopause having occurred; no history of post menopausal bleeding Urinary Symptoms:no hematuria; no incontinence; no nocturia; no urinary frequency Vulva:no genital lesion; no vulvar atrophy Vagina:normal vaginal discharge; no vaginal atrophy Breast:no breast lump; no nipple discharge; no breast pain Sexual Complaints:no sexual complaints Psychological Symptoms:no depression; no anxiety Preventive Measures:encourage regular mammograms starting age 40; encourage self breast examination; encourage regular exercise; encourage no tobacco use; mammogram performed within the past year; needs to schedule colonoscopy; needs to schedule bone density OTILIA Hu [address], [place], [address], [facility] 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.Menopaus al Symptoms:no menopausal symptoms; normal vaginal lubrication Vaginal Bleeding:history of menopause having occurred; no history of post menopausal bleeding Urinary Symptoms:no hematuria; no incontinence; no nocturia; no urinary frequency Vulva:no genital lesion; no vulvar atrophy Vagina:normal vaginal discharge; no vaginal atrophy Breast:no breast lump; no nipple discharge; no breast pain Sexual Complaints:no sexual complaints Psychological Symptoms:no depression; no anxiety Preventive Measures:encourage regular mammograms starting age 40; encourage self breast examination; encourage regular exercise; encourage no tobacco use; needs to schedule mammogram; needs to schedule colonoscopy Peg Brito [facility]- [address], [place], [address], [facility] 06/15/2022 10:53:31 OBGyn Episode Ob Episode Information Episode Created Date Number of Fetuses Patient Bloodtype Patient rh Status Prepregnancy Weight lbs Domestic Partner Domestic Partner Phone Father Name Molder Pipe Covering Status 01/10/20 1 CLOSED Fetus Data First Name Last Name Admitted to NICU Weight (g) Sex Living Outcome Pediatric Complications Fetus ID Race Codes Race Delivery Type [id number] Primary Srini Calculation Initial Srini Date Initial Exam Date Initial Exam Provider Initial Ultrasound Date Last Menstrual Period Date Ultra Sound Weeks Gestation 0 Eighteen To Twenty Week Srini Update Ultra Sound Date Fundal Height At Umbil Quickening Date Ultra Sound Latest Weeks Gestation Final Srini Confirmed By Final Srini Confirmed Date Final Srini Date Ultra Sound Latest Days Gestation 0 0 Menstrual History Last Menstrual Date Menses Monthly On Bcp Conception Prior Menses Frequency Hcg Plus Date Menarche Onset Age Delivery Information Delivery Date Delivery Type Labor Anesthesia Weeks Gestation Incision Type Labor Labor Length Hrs Delivered By Post Complications Tubal Sterilization Discharge Date Comments 1 Discharge Information Feeding Method Contraceptive Method Maternal HG B and HCT Levels Ob Episode Information Episode Created Date Number of Fetuses Patient Bloodtype Patient rh Status Prepregnancy Weight lbs Domestic Partner Domestic Partner Phone Father Name Molder Pipe Covering Status 01/10/20 20 1 CLOSED Fetus Data First Name Last Name Admitted to NICU Weight (g) Sex Living Outcome Pediatric Complications Fetus ID Race Codes Race Delivery Type [id number] Vaginal Delivery Srini Calculation Initial Srini Date Initial Exam Date Initial Exam Provider Initial Ultrasound Date Last Menstrual Period Date Ultra Sound Weeks Gestation 0 Eighteen To Twenty Week Srini Update Ultra Sound Date Fundal Height At Umbil Quickening Date Ultra Sound Latest Weeks Gestation Final Srini Confirmed By Final Srini Confirmed Date Final Srini Date Ultra Sound Latest Days Gestation 0 0 Menstrual History Last Menstrual Date Menses Monthly On Bcp Conception Prior Menses Frequency Hcg Plus Date Menarche Onset Age Delivery Information Delivery Date Delivery Type Labor Anesthesia Weeks Gestation Incision Type Labor Labor Length Hrs Delivered By Post Complications Tubal Sterilization Discharge Date Comments 5 Discharge Information Feeding Method Contraceptive Method Maternal HG B and HCT Levels
--- OUTSIDE RECORDS SUMMARY | 2024-08-15 09:16 | XMS_ITS | Encounter Summary ---
Author Organization [facility] [[email or web address]] Address [address] [place] [address] Phone Care Team Providers Care Spinning And Winding Supervisor Name Role Phone Franki Flor Primary Care Provider [phone] Joss Montoya MD Unavailable [phone] Encounter Details Date Type Department Care Team (Late st Contact Info) Description 04/13/2021 Telephone [facility] [place] [address] [place] [address] Joss Montoya MD [address] [facility] [place] [facility] [address] [place] [address] Social History Tobacco Use Types [...] Telephone Encounter - Anuradha Santos - 04/13/2021 10:09 AM CST PT CALLED TO CANCEL APPT TODAY. PT IS COVID POSITIVE, GENERAL AGENT IS SENDING PT INTO HOSPITAL. 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 encounter Plan of Treatment Upcoming Encounters Date Type Department Care Team (Late st Contact Info) Description 12/30/2024 2:15 PM CDT Lab [facility] [address] [phone] Lab, [place] 12/30/2024 2:30 PM CDT Office Visit [facility] [address] [phone] Joss Montoya MD [address] [place] [address] [id number] documented as of this encounter Visit Diagnoses Not on filedocumented in this encounter Additional Health Concerns Assessment Noted Time PHQ-9 Depression Total Score: 0 10/09/19 21 11:42 AM CDT documented as of this encounter Care Teams Spinning And Winding Supervisor Relationship Specialty Start Date End Date Franki Flor [address] [place] [address] PCP - General Family Medicine 01/26/18 Joss Montoya MD [address] [place] [phone] Consulting Physician Oncology 06/21/22 documented as of this encounter
--- OUTSIDE RECORDS SUMMARY | 2024-08-15 09:16 | XMS_ITS | Encounter Summary ---
Author Organization [facility] Address [address] [place] [address] Phone Care Team Providers Care Doctor Of Dental Surgery Name Role Phone Franki Flor Primary Care Provider [phone] Joss Montoya MD Unavailable [phone] Encounter Details Date Type Department Care Team (Late st Contact Info) Description 03/23/2021 Telephone [facility] [place] [address] [place] [address] Joss Montoya MD [address] [facility] [address] [place] [address] Social History Tobacco Use Types [...] encounter Miscellaneous Notes * Telephone Encounter - Katie Schwarz - 03/23/2021 1:37 PM CST Patient called and rescheduled due to stress test new appt is on 04/13. 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 FILTER documented in this encounter Plan of Treatment Upcoming Encounters Date Type Department Care Team (Late st Contact Info) Description 12/30/2024 2:15 PM CDT Lab [facility] [address] [phone] Lab, [place] [facility] 12/30/2024 2:30 PM CDT Office Visit [facility] [address] [phone] Joss Montoya MD [address] [place] [address] [address] documented as of this encounter Visit Diagnoses Not on filedocumented in this encounter Additional Health Concerns Assessment Noted Time PHQ-9 Depression Total Score: 0 10/09/19 21 11:42 AM CDT documented as of this encounter Care Teams Doctor Of Dental Surgery Relationship Specialty Start Date End Date Franki Flor [address] [place] [address] PCP - General Family Medicine 01/26/18 Joss Montoya MD [address] [place] [phone] Consulting Physician Oncology 06/21/22 documented as of this encounter
--- OUTSIDE RECORDS SUMMARY | 2024-08-15 09:16 | XMS_ITS | Referral Summary ---
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
--- OUTSIDE RECORDS SUMMARY | 2024-08-15 09:16 | XMS_ITS | Clinical Summary ---
Author Organization [facility] Address [address] [facility] [place] [address] Care Team Providers Care Electrical Appliance Mechanic Name Role Phone Franki Flor MD Primary Care Provider [phone] Source Comments [facility],non-owned Affiliates and Associated Physician Practices is amultiple site organization consisting of ambulatory clinics and hospital sitesin [place], [place], [place] and [place]. This disclosure is being madepursuant to the Care Everywhere program and may not contain all information available regarding this patient. Last updated 17.[facility] Allergies No known active allergies Medications * Be aware that medications may not be up to date on this document. Alwaysverify current medications with the patient. allopurinol (ZYLOPRIM) 100 MG tablet Take 1 (one) tablet by mouth once daily 09/12/19 21 Active fenofibrate (LOFIBRA) 160 MG tablet Take 1 (one) tablet by mouth once daily 08/13/19 21 Active pravastatin (PRAVACHOL) 40 MG tablet Take 1 (one) tablet by mouth once daily 09/12/19 21 Active cyclobenzaprine (FLEXERIL) 10 MG tablet Take 1 (one) tablet by mouth once daily as needed 11/12/19 21 Active pregabalin (LYRICA) 150 MG capsule Take 1 (one) capsule by mouth 2 times daily 02/11/20 21 Active Probiotic Product (ViralNinjas) capsuleIndicatio ns:Postoperative nausea,Postopera tive pain,S/P bariatric surgery,Hx of myocardial infarction Take 1 (one) capsule by mouth once daily 30 capsule 08/17/19 22 Active ondansetron, disintegrating, (ZOFRAN ODT) 4 MG tabletIndication s:Postoperative nausea,Postopera tive pain,S/P bariatric surgery,Hx of myocardial infarction Take 1 (one) tablet by mouth every 4 hours as needed for Nausea/Vomiting 12 tablet 08/17/19 22 Active losartan (COZAAR) 25 MG tabletIndication s:Morbid obesity (HCC),S/P laparoscopic sleeve gastrectomy,Hiat al hernia Take 0.5 (one-half) tablet by mouth once daily Until f/u with your doctor 0 09/18/19 22 Active warfarin (COUMADIN) 4 MG tabletIndication s:Morbid obesity (HCC),S/P laparoscopic sleeve gastrectomy,Hiat al hernia Take 2 (two) tablets by mouth once daily 09/20/19 22 Active HYDROcodone-acet aminophen (NORCO) 10-325 MG tablet Take 1 (one) tablet by mouth every 6 hours as needed for Pain Active ASPIRIN PO Take 81 mg by mouth once daily Active isosorbide mononitrate CR 24hr (Imdur) 30 MG tablet Take 1 (one) tablet by mouth every morning Extended release Active Multiple Vitamin (MULTIVITAMIN ADULT PO) Take by mouth once daily Bariatric Advantage with Iron Active zinc gluconate 50 MG tablet Take 1 (one) tablet by mouth once daily 04/13/19 22 Active escitalopram (Lexapro) 10 MG tablet Take 1 (one) tablet by mouth once daily 03/14/20 22 Active Cyanocobalamin (Dodex) 1000 MCG/ML SOLN Inject subcutaneously every 7 days 02/12/20 22 Active cetirizine (ZyrTEC) 10 MG tablet Take 1 (one) tablet by mouth once daily 04/13/19 22 Active acetaminophen (Tylenol) 500 MG tablet acetaminophen 500 mg tablet Active vitamin D, cholecalciferol, 50 MCG (2000 UT) tablet Take 1 (one) tablet by mouth once daily 01/27/20 21 Active Lysine 1000 MG Take 1,000 mg by mouth once daily 01/27/20 21 Active Specialty Vitamins Products (MM BIOTIN/KERATIN PO) Take 1 tablet by mouth once daily 04/13/19 22 Active Calcium Citrate-Vitamin D (CALCIUM CITRATE CHEWY BITE PO) Take 1 tablet by mouth 2 times daily 10/01/19 22 Active Potassium 99 MG tablet Take 1 (one) tablet by mouth once daily 04/13/19 22 Active metoprolol succinate XL 24hr (Toprol XL) 25 MG tablet Take 1 (one) tablet by mouth every morning 03/14/20 22 Active amphetamine-dext roamphetamine (Adderall) 20 MG tablet Take 1 (one) tablet by mouth daily before breakfast 10/12/19 23 Active HYDROcodone-acet aminophen (Curtice) 7.5-325 MG tablet Take 1 (one) tablet by mouth every 6 hours as needed 01/18/20 23 Active sucralfate (Carafate) 1 GM/10ML suspension Take 10 mL by mouth 4 times daily 01/18/20 23 Active nitroGLYCERIN (Nitrostat) 0.4 MG tablet Active pantoprazole EC (Protonix) 40 MG tabletIndication s:Gastroesophage al reflux disease with esophagitis without hemorrhage Take 1 (one) tablet by mouth 2 times daily 60 tablet 2 02/09/20 23 Active Active Problems Problem Noted Date Diagnosed Date Abdominal pain, left lower quadrant 05/19/2022 Morbid obesity 09/15/2021 S/P laparoscopic sleeve gastrectomy 09/15/2021 BMI 45.0-49.9, adult 10/22/2020 Class 3 severe obesity due t o excess calories with serious comorbidity and body mass index (BMI) of 45.0 to 49.9 in adult 10/22/2020 Gastroesophageal reflux disease 10/22/2020 Vitamin D deficiency 10/22/2020 B12 deficiency 10/22/2020 Hypercholesteremia 10/22/2020 Coronary artery disease invo lving autologous vein bypass graft 10/22/2020 Fatty liver 10/22/2020 Sleep apnea 10/22/2020 History of AR (myocardial infarction) 10/22/2020 History of coronary artery bypass graft 10/23/19 21 Lupus anticoagulant disorder 10/22/2020 Anticoagulant long-term use 10/22/2020 History of smoking 10/22/2020 History of DVT (deep vein thrombosis) 10/22/2020 Family History Medical History Relation Name Comments High Blood Pressure Brother High Cholesterol Brother Cancer Maternal Grandfather Arthritis - Osteo Maternal Grandmother Asthma Maternal Grandmother Blood Clots Maternal Grandmother CAD (Coronary Artery Disease) Maternal Grandmother Heart Failure Maternal Grandmother High Blood Pressure Maternal Grandmother High Cholesterol Maternal Grandmother Migraine Maternal Grandmother Arthritis - Osteo Mother Asthma Mother High Blood Pressure Mother High Cholesterol Mother Migraine Mother Cancer Paternal Grandmother Relation Name Status Comments Brother Maternal Grandfather Maternal Grandmother Mother Paternal Grandmother Social History Tobacco Use Types Packs/Day Years Used Date Smoking Tobacco: Former Cigarettes Q uit: 04/13/2009 Smokeless Tobacco: Never Alcohol Use Standard Drinks/Week Comments Never 0 (1 standard drink = 0.6 oz pur e alcohol) AUDIT-C Answer Date Recorded Q1: How often do you have a drink containing alcohol? Never 08/03/2022 Q2: How many drinks containi ng alcohol do you have on a typical day when you are drinking? Patient does not drink Q3: How often do you have si x or more drinks on one occasion? Never 08/03/2022 Comments No Sex and Gender Information Value Date Recorded Sex Assigned at Female 10/16/2020 9:28 AM CDT Legal Sex Female 6:22 AM TOBACCO CUTTER Gender Identity Female 10/16/2020 9:28 AM CDT Sexual Orientation Straight 10/16/2020 9: 28 AM CDT Last Filed Vital Signs Vital Sign Reading Time Taken Comments Blood Pressure 120/86 02/09/2023 4:01 PM TOBACCO CUTTER Pulse 55 02/09/2023 4:01 PM TOBACCO CUTTER Temperature 36.8 C (98.3 F) 02/06/2023 9:00 AM TOBACCO CUTTER Respiratory Rate 16 02/09/2023 4:01 PM TOBACCO CUTTER Oxygen Saturation 100% 02/09/2023 4:01 PM TOBACCO CUTTER Inhaled Oxygen Concentration - - Weight 92.7 kg (204 lb 4.8 oz) 02/09/2023 1:31 P M TOBACCO CUTTER Height 152.4 cm (5') 02/09/2023 1:31 PM TOBACCO CUTTER Body Mass Index 39.9 02/09/2023 1:31 PM TOBACCO CUTTER Plan of Treatment Health Maintenance Due Date Last Done Comments COLOGUARD (AGES 45-75) - COLON CA SCREENING 1975 COLON MONITORING 1976 COLONOSCOPY - COLON CA SCREENING 1976 CT COLONOGRAPHY - COLON CA SCREENING 1975 Colorectal Cancer Screening 1975 FIT - COLON CA SCREENING 1975 FLEX SIG - COLON CA SCREENING 1975 MAMMOGRAM 1976 HIV SCREENING 1991 HEPATITIS C SCREENING 05/11/1994 DTAP/TDAP/TD VACCINES (1 - Tdap) 1995 HEPATITIS B VACCINE (1 of 3 - 19+ 3-dose series) 1995 COVID-19 VACCINE (3 - 2023- season) 2023 05/05/2020, 04/07/2020 DEPRESSION SCREENING 03/27/2024 INFLUENZA VACCINE (Season Ended) 2024 SCREENING FOR DIABETES 05/19/2025 , 03/23/2022, 12/22/2021, Additional history exists PAP SMEAR 06/15/2025 06/15/2022 ZOSTER VACCINE (1 of 2) 2026 HIB VACCINE Aged Out No longer eligi ble based on patient's age to complete this topic HPV VACCINE Aged Out No longer eligi ble based on patient's age to complete this topic MENINGOCOCCAL (Group B) VACCINE SHARED DECISION-MAKING Aged Out No longer eligible based on patient's age to complete this topic MENINGOCOCCAL GROUPS A/C/Y/W VACCINE Aged Out No longer eligible based on patient's age to complete this topic PNEUMOCOCCAL VACCINE Aged Out No long er eligible based on patient's age to complete this topic Medical Devices Implanted Type Area Technical Services Librarian Device Identifier Shelf Expiration Date Model / Serial / Lot Mesh Srg [employer] 10x7cm Reinf - Sn/A Implanted:Qty: 1 on 09/15/2021 by Rusty Shannon MD at [facility] [employer] [facility] 05/11/2024 [id number] / N/A / [id number] Procedures Procedure Name Priority Date/Time Associated Diagnosis Comments COMPREHENSIVE METABOLIC PANEL STAT 05/19/2022 5:53 PM TOBACCO CUTTER from Last 3 Months or Most Recently Relevant to Health Maintenance Results * (ABNORMAL) COMPREHENSIVE METABOLIC PANEL (05/19/2022 5:53 PM TOBACCO CUTTER) [facility] Glucose 86 70 - 125 mg/dL 05/19/2022 6:18 PM TOBACCO CUTTER [facility] Sodium 139 136 - 145 mmol/L 05/19/2022 6:18 PM TOBACCO CUTTER [facility] Potassium 4.6 3.4 - 5.1 mmol/L 05/19/2022 6:[address] [facility] Chloride 106 98 - 107 mmol/L 05/19/2022 6:[address] [facility] CO2 22 22 - 29 mmol/L 05/19/2022 6:[address] [facility] Calcium 9.6 8.4 - 10.2 mg/dL 05/19/2022 6:[address] [facility] Anion Gap 16 10 - 20 mmol/L 05/19/2022 6:[address] [facility] BUN 22.7(H) 9.8 - 20.1 mg/dL 05/19/2022 6:[address] [facility] Creatinine 0.69 0.57 - 1.11 mg/dL 05/19/2022 6:[address] [facility] Alkaline Phosphatase 51 40 - 150 U/L 05/19/2022 6:[address] [facility] ALT 31 5 - 55 U/L 05/19/2022 6:[address] [facility] AST 28 5 - 34 U/L 05/19/2022 6:[address] [facility] Protein Total 7.1 6.4 - 8.3 gm/dL 05/19/2022 6:[address] [facility] Albumin 4.1 3.5 - 5.0 gm/dL 05/19/2022 6:[address] [facility] Globulin Total 3.0 2.6 - 4.0 gm/dL 05/19/2022 6:[address] [facility] Albumin/Globulin Ratio 1.4 0.9 - 1.6 05/19/2022 6:[address] [facility] Bilirubin Total 0.2 0.2 - 1.2 mg/dL 05/19/2022 6:[address] [facility] eGFR >90 >90 mL/min/1.7 3m2 05/19/2022 6:[address] [facility] Comment:The GFR result was c alculated using the updated CKD-EPI Creatinine Equation (2020). Blood BLOOD SPECIMEN / Unknown Venipuncture / Unknown 05/19/2022 5:53 PM TOBACCO CUTTER 05/19/2022 5:[address] [facility] us Trinity Almanza INTERMEDIATE TEACHER-MANAGER PROVIDER RELATIONS LAB - CHEMISTRY ORDERAB LES Final Result [facility] [address] from Last 3 Months or Most Recently Relevant to Health Maintenance Insurance [facility] * Guarantor: SHOSHANA ARAUJO Account Type Relation to Patient Date of Phone Billing Address Personal/Family [address] [place] [address] [facility] SELF PAY NO INSURANCE Member Subscriber Plan / Payer (Ef fective for All Dates) Name:Shoshana Araujo Member ID:Not on file Relation to Subscriber:Not on file Name:SHOSHANA ARAUJO Subscriber ID:Not on file Address: [address] [place] [place] [id number] Payer ID:Not on file Group ID:Not on file Type:Self Pay Address: [place], [place] * Guarantor: SHOSHANA ARAUJO Account Type Relation to Patient Date of Phone Billing Address Personal/Family [address] [place] [phone] [facility] Member Subscriber Plan / Payer (Ef fective for All Dates) Name:Shoshana Araujo Relation to Subscriber:Self Name:Shoshana Araujo Payer ID:[id number] (NAIC) Group ID:Not on file Type:Medicaid [employer] Care Address: [address] SELF PAY NO INSURANCE Member Subscriber Plan / Payer (Ef fective for All Dates) Name:Shoshana Araujo Member ID:Not on file Relation to Subscriber:Not on file Name:SHOSHANA ARAUJO Subscriber ID:Not on file Address: [address] Payer ID:Not on file Group ID:Not on file Type:Self Pay Address: [place], [place] * Guarantor: SHOSHANA ARAUJO Account Type Relation to Patient Date of Phone Billing Address Personal/Family [address] [facility] SELF PAY NO INSURANCE Member Subscriber Plan / Payer (Ef fective for All Dates) Name:Shoshana Araujo Member ID:Not on file Relation to Subscriber:Not on file Name:SHOSHANA ARAUJO Subscriber ID:Not on file Address: [place] [address] Payer ID:Not on file Group ID:Not on file Type:Self Pay Address: [place], [place] Advance Directives * Full Code (Latest Code Status on File) Date Activated Date Inactivated Comments 09/15/2021 11:05 AM 09/16/2021 6:47 PM Care Teams Electrical Appliance Mechanic Relationship Specialty Start Date End Date Franki Flor MD PCP - General Family Medicine 09/16/20
== END 2024-08-15 09:12 | disposition home or self-care (01) ==
LOC: ANHIMG 09:13
PROVIDERS: PCP Emergency Medicine; Visit Provider Emergency Medicine
DX: M85.89 Other specified disorders of bone density and structure, multiple sites (principal); Z12.31 Encounter for screening mammogram for malignant neoplasm of breast
CPT/HCPCS: 77080

== ENCOUNTER 2024-10-17 07:54 | Outpatient (CLI) | payer OTHER, SELFPAY ==
--- NOTE | ~2024-10-17 | NM_ITS ---
EXAM: NM gastric emptying study DATE: 10/17/2024 13:02 INDICATION: Acquired absence of stomach TECHNIQUE: A gastric emptying study was performed using the methodology of Parveen VANCE, et al. J Nucl Med 2007; 48:568-572. The patient was given a meal consisting of 2 scrambled eggs labeled with 0.937 mCi Tc-99m sulfur colloid, 2 slices of toast, two packages of jam, and approximately 120 mL of water . Simultaneous anterior and posterior 1-min images of the abdomen were obtained with the patient supi ne at multiple time points over a total period of 4 hours. The geometric mean of anterior and posteri or views was determined, and the percentage retention was calculated for each time point. COMPARISON: None. FINDINGS: Gastric retention of the radiotracer-labeled meal was 43%, 22%, and 2% at the 1-hour, 2-hour, and 4-h our time points, respectively. With this technique, apparent rapid gastric emptying is suggested by < 30% gastric retention at 1 hour. Delayed gastric emptying is defined by gastric retention of >90% at 1 hour, >60% retention at 2 hours, or >10% retention at 4 hours. IMPRESSION: 1. Normal gastric emptying. Reviewed, dictated and finalized at location A. IMPRESSION: 1. Normal gastric emptying.
--- OUTSIDE RECORDS SUMMARY | 2024-10-17 08:00 | XMS_ITS | Referral Summary ---
Author Organization [facility] Address [address] [place] [address] Care Team Providers Care Foster Care Social Worker Name Role Phone Franki Flor MD Primary Care Provider [phone] Allergies No known active allergies Medications nitroglycerin [...] on file Legal Sex Female 12:27 AM COMMERCIAL ANNOUNCER Gender Identity Not on file Sexual Orientation [...] Plan of Treatment Not on file Insurance [facility] L[address]ISSA [address] [facility] Care Teams Foster Care Social Worker Relationship Specialty Start Date End Date Franki Flor MD PCP - General 08/28/07
--- OUTSIDE RECORDS SUMMARY | 2024-10-17 08:00 | XMS_ITS | Encounter Summary ---
Author Organization [facility] Address [address] [place] [address] Phone Care Team Providers Care Production Drilling Machine Operator Name Role Phone Franki Flor Primary Care Provider [phone] Joss Montoya MD Unavailable [phone] Encounter Details Date Type Department Care Team (Late st Contact Info) Description 03/23/2021 Telephone [facility] [place] [address] [place] [address] Joss Montoya MD [address] [facility] [address] [place] [address] Social History Tobacco Use Types [...] stress test new appt is on 04/13. 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 documented in this encounter Plan of Treatment Upcoming Encounters Date Type Department Care Team (Late st Contact Info) Description 12/30/2024 2:15 PM CDT Lab [facility] [address] [address] Lab, [facility] 12/30/2024 2:30 PM CDT Office Visit [facility] [address] [address] Joss Montoya MD [address] [place] [address] [address] documented as of this encounter Visit Diagnoses Not on filedocumented in this encounter Additional Health Concerns Assessment Noted Time PHQ-9 Depression Total Score: 0 10/09/19 21 11:42 AM CDT documented as of this encounter Care Teams Production Drilling Machine Operator Relationship Specialty Start Date End Date Franki Flor [address] [place] [address] PCP - General Family Medicine 01/26/18 Joss Montoya MD [address] [place] [phone] Consulting Physician Oncology 06/21/22 documented as of this encounter
--- OUTSIDE RECORDS SUMMARY | 2024-10-17 08:00 | XMS_ITS | Encounter Summary ---
Author Organization [facility] Address [address] [place] [address] Phone Care Team Providers Care Burglar Alarm Installer Name Role Phone Franki Flor Primary Care Provider [phone] Joss Montoya MD Unavailable [phone] Encounter Details Date Type Department Care Team (Late st Contact Info) Description 04/13/2021 Telephone [facility] [place] [address] [place] [address] Joss Montoya MD [address] [facility] [address] [place] [address] Social History Tobacco Use Types [...] CALLED TO CANCEL APPOINTMENT. COVID POSITIVE. PT'S BOILERHOUSE MECHANIC IS SENDING HER TO THE HOSPITAL. WILL RESCHEDULE LATER. STRIAL SERVICES WORKER documented in this encounter Plan of Treatment Upcoming Encounters Date Type Department Care Team (Late st Contact Info) Description 12/30/2024 2:15 PM CDT Lab [facility] [address] [phone] [facility] 12/30/2024 2:30 PM CDT Office Visit [facility] [address] [address] Joss Montoya MD [address] [place] [address] [place] [address] documented as of this encounter Visit Diagnoses Not on filedocumented in this encounter Additional Health Concerns Assessment Noted Time PHQ-9 Depression Total Score: 0 10/09/19 21 11:42 AM CDT documented as of this encounter Care Teams Burglar Alarm Installer Relationship Specialty Start Date End Date Franki Flor [address] [facility] [place] [address] PCP - General Family Medicine 01/26/18 Joss Montoya MD [address] [place] [phone] Consulting Physician Oncology 06/21/22 documented as of this encounter
--- OUTSIDE RECORDS SUMMARY | 2024-10-17 08:00 | XMS_ITS | Encounter Summary ---
Author Organization [facility] Address [facility] [place] [address] Care Team Providers Care Immigration Investigator Name Role Phone Franki Flor MD Primary Care Provider [phone] Encounter Details Date Type Department Care Team (Late st Contact Info) Description 01/28/2017 Abstract [place] [address] , Generic ConversionMD Social History Tobacco Use Types Packs/Day Years Used Date Smoking Tobacco: Never Assessed Comments Unknown Sex and Gender Information Value Date Recorded Sex Assigned at Female 04/16/2024 6:27 PM PASSENGER TIRE INSPECTOR Legal Sex Female 7:30 PM CDT Gender Identity Not on file Sexual Orientation Not on file documented as of this encounter Plan of Treatment Not on file documented as of this encounter Visit Diagnoses Not on filedocumented in this encounter Care Teams Immigration Investigator Relationship Specialty Start Date End Date Franki Flor MD PCP - General 09/16/14 documented as of this encounter
--- OUTSIDE RECORDS SUMMARY | 2024-10-17 08:00 | XMS_ITS | Clinical Summary ---
Author Organization [facility] Address [address] [facility] [place] [address] Care Team Providers Care Mold Tooler Name Role Phone Franki Flor MD Primary Care Provider [phone] Source Comments [facility],non-owned Affiliates and Associated Physician Practices is amultiple site organization consisting of ambulatory clinics and hospital sitesin [place], [place], [place] and [place]. This disclosure is being madepursuant to the Care Everywhere program and may not contain all information available regarding this patient. Last updated 17.[facility] Allergies No known active allergies Medications * [...] times daily 02/11/20 21 Active Probiotic Product (GiftLauncher) capsuleIndicatio ns:Postoperative nausea,Postopera tive pain,S/P bariatric surgery,Hx [...] before breakfast 10/12/19 23 Active HYDROcodone-acet aminophen (Statham) 7.5-325 MG tablet Take 1 (one) tablet [...] liver 10/22/2020 Sleep apnea 10/22/2020 History of NM (myocardial infarction) 10/22/2020 History of coronary artery bypass graft 10/23/19 21 Lupus anticoagulant disorder 10/22/2020 Anticoagulant long-term use 10/22/2020 History of smoking 10/22/2020 History of DVT (deep vein thrombosis) 10/22/2020 Encounters Date Type Department Care Team Description 09/13/2024 Telephone [facility] [address] [place] [address] Ibendahl, Taylor Heather, MD Appointment from Last 3 Months Family History Medical History Relation Name Comments [...] AM CDT Legal Sex Female 6:22 AM STAFF ANESTHESIOLOGIST Gender Identity Female 10/16/2020 9:28 AM CDT Sexual Orientation Straight 10/16/2020 9: 28 AM CDT Last Filed Vital Signs Vital Sign Reading Time Taken Comments Blood Pressure 120/86 02/09/2023 4:01 PM STAFF ANESTHESIOLOGIST Pulse 55 02/09/2023 4:01 PM STAFF ANESTHESIOLOGIST Temperature 36.8 C (98.3 F) 02/06/2023 9:00 AM STAFF ANESTHESIOLOGIST Respiratory Rate 16 02/09/2023 4:01 PM STAFF ANESTHESIOLOGIST Oxygen Saturation 100% 02/09/2023 4:01 PM STAFF ANESTHESIOLOGIST Inhaled Oxygen Concentration - - Weight 92.7 kg (204 lb 4.8 oz) 02/09/2023 1:31 P M STAFF ANESTHESIOLOGIST Height 152.4 cm (5') 02/09/2023 1:31 PM STAFF ANESTHESIOLOGIST Body Mass Index 39.9 02/09/2023 1:31 PM STAFF ANESTHESIOLOGIST Plan of Treatment Upcoming Encounters Date Type Department Care Team (Late st Contact Info) Description 10/24/2024 8:00 AM CDT Clinical Support [facility] [address] [place] [phone] 10/24/2024 8:30 AM CDT Office Visit [facility] [address] [place] [phone] Danay Taylor, HOOD FITTER-GATE PERSON [address] [place] [address] Health Maintenance Due Date Last Done Comments [...] - 19+ 3-dose series) 1995 COVID-19 VACCINE (2023- season) 2023 05/05/2020, 04/07/2020 DEPRESSION SCREENING 03/27/2024 INFLUENZA VACCINE (#1) 2024 SCREENING FOR DIABETES 05/19/2025 , 03/23/2022, 12/22/2021, Additional history exists PAP SMEAR 06/15/2025 06/15/2022, 06/15/2022 ZOSTER VACCINE (1 of 2) 2026 [...] this topic Medical Devices Implanted Type Area Roller Stainer Device Identifier Shelf Expiration Date Model / Serial / Lot Mesh Srg [employer] 10x7cm Reinf - Sn/A Implanted:Qty: 1 on 09/15/2021 by Rusty Shannon MD at [facility] Abdom[employer] 05/11/2024 [id number] / N/A / [id number] Procedures Procedure Name Priority Date/Time Associated Diagnosis Comments COMPREHENSIVE METABOLIC PANEL STAT 05/19/2022 5:53 PM STAFF ANESTHESIOLOGIST from Last 3 Months or Most Recently Relevant to Health Maintenance Results * (ABNORMAL) COMPREHENSIVE METABOLIC PANEL (05/19/2022 5:53 PM STAFF ANESTHESIOLOGIST) Glucose 86 70 - 125 mg/dL 05/19/2022 6:[address] [facility] Sodium 139 136 - 145 mmol/L 05/19/2022 6:[address] [facility] Potassium 4.6 3.4 - 5.1 mmol/L 05/19/2022 6:[address] [facility] Chloride 106 98 - 107 mmol/L 05/19/2022 6:[address] [facility] CO2 22 22 - 29 mmol/L 05/19/2022 6:[address] [facility] Calcium 9.6 8.4 - 10.2 mg/dL 05/19/2022 6:[address] [facility] Anion Gap 16 10 - 20 mmol/L 05/19/2022 6:[address] [facility] BUN 22.7(H) 9.8 - 20.1 mg/dL 05/19/2022 6:[address] [facility] Creatinine 0.69 0.57 - 1.11 mg/dL 05/19/2022 6:[address] [facility] Alkaline Phosphatase 51 40 - 150 U/L 05/19/2022 6:[address] [facility] ALT 31 5 - 55 U/L 05/19/2022 6:[address] [facility] AST 28 5 - 34 U/L 05/19/2022 6:[address] [facility] Protein Total 7.1 6.4 - 8.3 gm/dL 05/19/2022 6:[address] [facility] Albumin 4.1 3.5 - 5.0 gm/dL 05/19/2022 6:[address] [facility] Globulin Total 3.0 2.6 - 4.0 gm/dL 05/19/2022 6:[address] [facility] Albumin/Globulin Ratio 1.4 0.9 - 1.6 05/19/2022 6:[address] [facility] Bilirubin Total 0.2 0.2 - 1.2 mg/dL 05/19/2022 6:[address] [facility] eGFR >90 >90 mL/min/1.7 3m2 05/19/2022 6:[address] [facility] Comment:The GFR result was c alculated using the updated CKD-EPI Creatinine Equation (2020). Blood BLOOD SPECIMEN / Unknown Venipuncture / Unknown 05/19/2022 5:53 PM STAFF ANESTHESIOLOGIST 05/19/2022 5:57 PM [facility] us Trinity Almanza HOOD FITTER-GATE PERSON LAB - CHEMISTRY ORDERAB LES Final Result Performing Organization Address [facility]/State/[facility] Co de Phone Number [facility] [address] [place] [address] from Last 3 Months or Most Recently Relevant to Health Maintenance Insurance [facility] * Guarantor: SHOSHANA ARAUJO Account Type Relation to Patient Date of Phone Billing Address Personal/Family [address] [place] [address] [facility] Member Subscriber Plan / Payer (Ef fective for All Dates) Name:Shoshana Araujo Relation to Subscriber:Self Name:Shoshana Araujo Payer ID:[id number] (NAIC) Group ID:Not on file Type:Medicaid Managed Care Address: [place] [phone] SELF PAY NO INSURANCE Member Subscriber Plan / Payer (Ef fective for All Dates) Name:Shoshana Araujo Member ID:Not on file Relation to Subscriber:Not on file Name:SHOSHANA ARAUJO Subscriber ID:Not on file Address: [address] [place] [address] Payer ID:Not on file Group ID:Not on file Type:Self Pay Address: [place], [place] * Guarantor: SHOSHANA ARAUJO Account Type Relation to Patient Date of Phone Billing Address Personal/Family [address] [place] [address] [facility] SELF PAY NO INSURANCE Member Subscriber Plan / Payer (Ef fective for All Dates) Name:Shoshana Araujo Member ID:Not on file Relation to Subscriber:Not on file Name:SHOSHANA ARAUJO Subscriber ID:Not on file Address: [address] [place] [address] Payer ID:Not on file Group ID:Not on file Type:Self Pay Address: [place], [place] * Guarantor: SHOSHANA ARAUJO Account Type Relation to Patient Date of Phone Billing Address Personal/Family [address] [place] [address] [facility] SELF PAY NO INSURANCE Member Subscriber Plan / Payer (Ef fective for All Dates) Name:Shoshana Araujo Member ID:Not on file Relation to Subscriber:Not on file Name:SHOSHANA ARAUJO Subscriber ID:Not on file Address: [address] [place] [address] Payer ID:Not on file Group ID:Not on file Type:Self Pay Address: [place], [place] Advance Directives * Full Code (Latest Code Status on File) Date Activated Date Inactivated Comments 09/15/2021 11:05 AM 09/16/2021 6:47 PM Care Teams Mold Tooler Relationship Specialty Start Date End Date Franki Flor MD PCP - General Family Medicine 09/16/20
--- OUTSIDE RECORDS SUMMARY | 2024-10-17 08:00 | XMS_ITS | Clinical Summary ---
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
--- OUTSIDE RECORDS SUMMARY | 2024-10-17 08:00 | XMS_ITS | Clinical Summary ---
Author Organization [facility] Address [address] [place] [address] Care Team Providers Care Building Supervisor Name Role Phone Franki Flor MD Primary Care Provider Allergies No known active allergies Medications Potassium [...] Q 5 years 2021 INFLUENZA VACCINE (#1) 2024 Procedures Procedure Name Priority Date/Time Associated Diagnosis Comments MAMMOGRAM REPORT Routine 09/12/2018 from Last 3 Months or Most Recently Relevant to Health Maintenance Results * MAMMOGRAM REPORT (09/12/2018) us Abstract Provider MAMMO ORDERABLES Final Result [facility] from Last 3 Months or Most Recently Relevant to Health Maintenance [place] [address] [place] [address] PLAN MEDICAID Care Teams Building Supervisor Relationship Specialty Start Date End Date Franki Flor MD [address] [place] [phone] PCP - General Family Practice 06/04/18
--- OUTSIDE RECORDS SUMMARY | 2024-10-17 08:00 | XMS_ITS | Clinical Summary ---
Author Organization [facility] Address [address] [facility] [address] [place] [address] Phone Care Team Providers Care Seat Maker Name Role Phone Franki Flor Primary Care Provider [phone] Joss Montoya MD Unavailable [phone] Allergies No known active allergies Medications fenofibrate [...] History of DVT (deep vein thrombosis) 02/01/2018 Immunizations Immunization Administration Dates Next Due Covid-19, [...] PM CDT Lab [facility] [address] [address] Lab, [facility] 12/30/2024 2:30 PM CDT Office Visit [facility] [address] [address] Joss Montoya MD [address] [facility] [address] [place] [address] [place], [place] [address] Health Maintenance Due Date Last Done Comments Hepatitis C Virus (HCV) Screening 1976 Mammogram 1976 TdaP Immunization 1976 Hepatitis B Immunization (1 of 3 - 19+ 3-dose series) 1995 Pap Smear 1997 Cervical Cancer Screening (CCS) 2006 HPV/Cotest 2006 Discussion re Starting/Frequency of Mammograms 2016 Cologuard 2021 Colonoscopy 2021 Colorectal Cancer Screening 2021 Immunochemical Fecal Occult Blood 2021 SARS-COV-2 Immunization ( season) 2023 12/09/2021, 12/05/2020, 05/05/2020, Additional history exists Influenza Immunization (#1) 2024 12/14/2021 Respiratory Syncytial Virus (RSV) Immunization (Adult) (1 - 1-dose 75+ series) 2051 Human Papillomavirus (HPV) Immunization Aged Out No longer eligible based on patient's age to complete this topic Meningococcal Immunization (ACWY) Aged Out No longer eligible based on patient's age to complete this topic Pneumococcal Immunization Combined Aged Out No longer eligible based on patient's age to complete this topic Rotavirus Immunization Aged Out No lo nger eligible based on patient's age to complete this topic Insurance MEDICAID [facility] Care Teams Seat Maker Relationship Specialty Start Date End Date Franki Flor [address] [place] [address] PCP - General Family Medicine 01/26/18 Joss Montoya MD [address] [place] [address] Consulting Physician Oncology 06/21/22
--- OUTSIDE RECORDS SUMMARY | 2024-10-17 08:00 | XMS_ITS | Data Portability ---
Author Organization [facility] [place] Address [address] [place] [address] [place] [address] Care Team Providers Care Nuclear Technician Name Role Phone TREMAINE KATE Primary Care Provider Assessment Encounter Date Assessment Date Assessment LastModified [...] recorded. Imaging MAMMO, screening, bilateral 2022 023 [facility], [address], [address], [place], [address], 3 05:01:41 Medication Orders None recorded. Patient TargetsNo targets recorded. Patient Instructions Encounter Date Encounter Id Patient Instructions Last Modified By Organization Details Last Modified Time 01/10/2020 [id number] [email or web address] Not available 11:20:35 Reason for Referral [...] 01/13 Clini peggy Data: Cytot ech: Milvia Galvinklmary beth y, CT( CP) Date Repor sathya: 01/12 [...] tion of E6/E7 viral mRNA. Resul ts tri d be corre lated with patie nt prese ntati on, histo ry, cervi peggy cytol ogy and other clini peggy and labor atory findi ngs. See https ://[employer] Messenger (MM)/s ites/ defau lt/fi les/2 018-0 3/AW- [id number] _002_ 01.pd f for furth er infor matio n. Test perfo rmed by [facility], d/b/a [facility], [address], [place] [address] , Iwona Wilson ra, DO, [facility]. HPV High Risk *HPV NOT DETEC SATYHA (TYPE S 16, 18, 31, 33, 35, [...] and labor atory findi ngs. See https ://QualySense/s ites/ defau lt/fi les/2 018-0 3/AW- 88791 _002_ 01.pd f for ecu health infor debrabernardo floyd. Test perfo rmed by [facility], d/b/a [facility], [address], [place] [address] , Iwona Wilson ra, DO, [facility]. End of t Techn ical servi parish provi ded by [facility], d/b/a [facility], [address] [place] [address] Ye Rae MD, [facility]. Case revie wed and diagn osis rende red at [facility], d/[facility], [address] [place] [address] Ye Rae MD, [facility]. CONFI DENTI AL Not Available [facility] ([facility]) [address], [place], [address], 01/14/2020 09:32:03 01/10/2001/11/2020 HPV DNA, high- risk HPV high risk NOT DETECT ED normal Not Available [facility] ([facility]) [address], [place], [address], 01/14/2020 09:32:04 06/16/19 23 06/15/2022 IMAGE GUIDE D PAP AND HPV REGAR DLESS image guided Pap, HPV regardless of Pap result SEE RESULT S BELOW CASE REPOR T: Cytol ogy Gynec ologi peggy Repor t Case: [id number] Autho la nena orozco Provi jose: Gerri chatmanich , Carina Diaz cted: 06/15 1510 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 Elect josdelonte breaux serenity d by Fina Kate ret, [...] as clini em aguilar nted. Not Available [facility] (Lab) [address], [place], [address], 06/19/2022 08:22:39 Result Notes None recorded. Problems Name Problem SNOMED Code Status Onset Date Resolution Date Notes Provider Name and Address Organization Details Recorded Time Dyspareu buster [id number] Completed 201101/12/2021 Dyspareun ia;Record ed Elsewhere : No Locati on: [facility] So urce: EHR Chron ic: N Practic e ID: 0001 Bill able Time: 04:30:00 PM Barb Delatorre [facility] [place] - [facility] 13:58:21 Screenin g for malignan t neoplasm of cervix Completed 201101/12/2021 Screening for malignant neoplasms of the cervix;Re corded Elsewhere : No Locati on: [facility] So urce: EHR Chron ic: N Practic e ID: 0001 Bill able Time: 04:30:00 PM Barb Delatorre [facility] 13:58:28 Adult health examinat ion Completed 201301/12/2021 ROUTINE MEDICAL EXAM;Danilo rded Elsewhere : No Locati on: [facility] So urce: EHR Chron ic: N Practic e ID: 0001 Bill able Time: 10:00:00 AM Barb Delatorre [facility] 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 13:58:35 Obesity [id number] Completed 201301/12/2021 Obesity, unspecifi ed;Practi ce ID: 0001 Barb Delatorre [facility] 13:58:27 Vaginiti s and vulvovag initis Completed 201401/12/2021 Vaginitis ;Recorded Elsewhere : No Locati on: [facility] So urce: EHR Chron ic: N Practic e ID: 0001 Bill able Time: 03:15:00 PM Barb Delatorre [facility] 14:00:14 Breast lump [id number] Completed 201401/12/2021 Breast lump;Danilo rded Elsewhere : No Locati on: [facility] So urce: EHR Chron ic: N Practic e ID: 0001 Bill able Time: 03:15:00 PM Barb Delatorre [facility] 13:58:19 Leukorrh ea [id number] Completed 201401/12/2021 Leukorrhe a, not specified as infective ;Recorded Elsewhere : No Locati on: [facility] So urce: EHR Chron ic: N Practic e ID: 0001 Bill able Time: 03:15:00 PM Barb jenkins [facility] 13:58:25 Accident al puncture during a procedur e [id number] Completed 201401/12/2021 Accidenta l puncture and laceratio n of skin and subcutane ous tissue during other procedure ;Recorded Elsewhere : No Locati on: [facility] So urce: EHR Chron ic: N Practic e ID: 0001 Bill able Time: 10:45:00 AM Barb Delatorre [facility] 13:58:15 Accident al lacerati on during a procedur e [id number] Completed 201401/12/2021 Accidenta l puncture and laceratio n of skin and subcutane ous tissue during other procedure ;Recorded Elsewhere : No Locati on: [facility] So urce: EHR Chron ic: N Practic e ID: 0001 Bill able Time: 10:45:00 AM Barb Delatorre [facility] 13:58:13 Lacerati on of genitali a [id number] Completed 201401/12/2021 Laceratio n w/o foreign body of vagina and vulva, init encntr;Pr actice ID: 0001 Barb Delatorre [facility] 13:58:[address] Concept Completed 201401/12/2021 Encntr for general adult medical exam w/o abnormal findings; Recorded Elsewhere : No Locati on: [facility] So urce: EHR Chron ic: N Practic e ID: 0001 Bill able Time: 01:00:00 PM Barb jenkins [facility] 13:58:[address] Concept Completed 201401/12/2021 Encntr for obstetrics gynecology physician exam (general) (routine) w/o abn findings; Recorded Elsewhere : No Locati on: [facility] So urce: EHR Chron ic: N Practic e ID: 0001 Bill able Time: 01:00:00 PM Barb Delatorre [facility] 13:58:34 Screenin g for malignan t neoplasm of rectum Completed 201601/12/2021 Encounter for screening for malignant neoplasm of rectum;Re corded Elsewhere : No Locati on: [facility] So urce: EHR Chron ic: N Practic e ID: 0001 Bill able Time: 10:30:00 AM Barb Delatorre [facility] 13:58:30 Body mass index 30+ - obesity [id number] Completed 201801/12/2021 Body mass index (BMI) 45.0-49.9 , adult;Rec orded Elsewhere : No Locati on: [facility] So urce: EHR Chron ic: N Practic e ID: 0001 Bill able Time: 11:00:00 AM Barb Delatorre [facility] 13:58:18 Problem Notes None recorded. Procedures Surgical History Date Name Laterality Status Provider Name and Address Organization Details Recorded Time 06/16/19 23 Date of Last Pap Smear completed Carrie Eldridge [facility] 06/19/2023 17:18:50 09/16/19 22 Gastric Bypass completed [facility] 06/15/2022 10:34:35 11/20/19 21 Date of Last Mammogram completed [facility] 02/15/2021 11:35:08 11/06/19 21 Most Recent Bone Density completed [facility] 02/15/2021 11:29:48 09/21/19 12 Coronary Artery Bypass completed [facility] 06/15/2022 10:34:35 04/14/19 10 Coronary Artery Bypass completed [facility] 06/15/2022 10:34:35 10/21/19 03 Total Hysterectomy completed [facility] 06/15/2022 10:34:35 01/13/20 Tubal Ligation completed [facility] 06/15/2022 10:34:35 01/13/20 Caesarean Section completed [facility] 06/15/2022 10:34:35 02/12/[address] [facility] 02/15/2021 11:29:48 bypass graft completed [facility] 01/10/2020 10:38:11 procedure on heart completed [facility] 01/10/2020 10:38:17 reconstruction of vagina completed [facility] 01/10/2020 10:38:31 wedge resection completed [facility] 01/10/2020 10:38:36 Total Hysterectomy completed [facility] 01/10/2020 10:38:43 Laparoscopy completed [facility] 01/10/2020 10:38:49 Imaging Results None recorded. [...] Not Available Not Available No t Available prednison e 10 mg tablet TAKE 1 TABLET BY MOUTH DAILY WITH BREAKFAS T FOR 10 DAYS THEN STOP ABRUPTLY active Not Available Not Available No t Available doxycycli ne hyclate 100 mg capsule TAKE 1 CAPSULE BY MOUTH TWICE DAILY active Not Available Not Available No t Available azithromy drew 250 mg tablet active Not Available Not Available No t Available pravastat in 40 mg tablet TAKE 1 TABLET BY MOUTH EVERY DAY active Not Available Not Available No t Available Lidocaine Viscous 2 % mucosal solution SWALLOW 5 TO 15 MLS EVERY 3 TO 4 HOURS WITH AT LEAST 3 HOURS BETWEEN DOSES. DO NOT CONSUME MORE THAN 60 MLS IN A 24 HOUR TIME SPAN. active Not Available Not Available No t Available metoprolo l succinate ER 50 mg tablet,ex tended release 24 hr TAKE 1 TABLET BY MOUTH ONCE DAILY active Not Available Not Available No t Available methylphe nidate 20 mg tablet TAKE 1 TABLET BY MOUTH TWICE DAILY active Not Available Not Available No t Available fluticaso ne propionat e 0.05 % topical cream apply by topical route every day a thin layer to the affected area(s) 05/24 completed Prescrib Natalya e: Yes Loca tion: [facility] odify By: lizz gracia DateTime : 10/11/19 [...] completed Not Available Not Available Not Available famotidin e 40 mg tablet TAKE 1 TABLET BY MOUTH EVERY DAY active Not Available Not Available No t Available prednison e 20 mg tablet TAKE [...] Prescrib ed Elsewher e: Yes Loca [facility]ion: [facility]ify By: lizz gracia DateTime : 03/12/20 01:00:00 PM Not Available Not Available Not Available acetamino phen 500 mg tablet 06/18 completed Not Available Not Available Not Available ondansetr on 8 mg disintegr ating tablet DISSOLVE 1 TABLET ON THE TONGUE EVERY 8 HOURS active Not Available Not Available No t Available warfarin 4 mg tablet TAKE 2 [...] Prescrib ed Elsewher e: Yes Loca tion: [facility]ify By: kmkirkpa trick En counter DateTime : 10/11/19 03:15:00 PM Not Available Not Available Not Available ofloxacin 0.3 % ear drops 02/15 completed Not Available Not Available Not Available amoxicill in 875 mg tablet TAKE 1 TABLET BY MOUTH EVERY 12 HOURS active Not Available Not Available No t Available alprazola m 0.25 mg tablet take 1 tablet by oral route 3 times every day 10/13 completed Prescrib ed Elsewher e: Yes Loca tion: [facility] odify By: rosetta gracia DateTime : 10/11/19 15 03:15:00 PM Not Available Not Available Not Available Metrogel Vaginal 0.75 % (37.5 mg/5 gram) insert 1 applicat orful (37.5MG) by vaginal route every day at bedtime 10/10 completed Prescrib ed Elsewher e: No Locat ion: [facility] odify By: [email or web address] negar Preciado counter DateTime : 08/23/19 12 12:49:55 PM Not Available Not Available Not Available pravastat in 80 mg tablet TAKE 1 TABLET BY MOUTH ONCE DAILY. active Not Available Not Available No t Available metoclopr amide 5 mg tablet TAKE 1 TABLET BY MOUTH DAILY active Not Available Not Available No t Available pravastat in 10 mg tablet take 1 tablet by oral route every day 02/15 completed Prescrib ed Elsewher e: Yes Loca [facility]ion: [facility] By: dora noyola DateTime : 08/15/19 12 04:30:00 PM Not Available Not Available Not Available Prilosec 10 mg capsule,d elayed release take 2 capsule by oral route every day before a meal 02/15 completed Prescrib ed Elsewher e: Yes Loca tion: [facility] odify By: dora noyola DateTime : 08/15/19 12 04:30:00 PM Not Available Not Available Not Available Coumadin 5 mg intraveno us solution inject 1 millilit er by intraven ous route every day over as an IV bolus 02/15 completed Prescrib ed Elsewher e: Yes Loca [facility]ion: [facility]ify By: dora noyola DateTime : 08/15/19 12 04:30:00 PM Not Available Not Available Not Available ranitidin e 75 mg tablet take 1 tablet by oral route 2 times every day with glass of water 05/24 completed Prescrib ed Elsewher e: Yes Loca tion: [facility] odify By: lizz mendezunter DateTime : 10/14/19 17 10:30:00 AM Not [...] Elsewher e: No Locat ion: [facility] odify By: tmryan E ncounter DateTime : 10/25/19 12:46:28 PM Not Available Not Available Not Available Calci-Melida w 500 mg (as calcium carbonate 1,250 mg) tablet 01/12 completed Prescrib tammy Hoang e: Yes Loca tion: [facility] M odkerry By: [email or web address] trick En counter DateTime : [...] Not Available Not Available No t Available esomepraz ole magnesium 40 mg capsule,d elayed release TAKE 1 CAPSULE BY MOUTH TWICE DAILY active Not Available Not Available No t Available buspirone 10 mg tablet 02/15 completed Not Available Not Available Not Available dextroamp hetamine- amphetami ne 20 mg tablet TAKE 1 TABLET BY MOUTH TWICE DAILY BEFORE BREAKFAS T AND AT NOON active Not Available Not Available No t Available fluoromet holone 0.1 % eye drops,[place] pension SHAKE LIQUID AND INSTILL 1 DROP IN BOTH EYES TWICE DAILY active Not Available Not Available [...] nitroglyc shawnee 0.4 mg sublingua l tablet DISSOLVE 1 TABLET UNDER THE TONGUE NEEDED FOR CHEST PAIN active Not [...] Elsewher e: Yes Loca tion: [facility] odify By: lizz gracia DateTime : 10/14/19 17 10:30:00 AM Not Available Not Available Not Available isosorbid e mononitra te 10 mg tablet take 1 tablet by oral route 2 times every day given 7 hours apart 02/15 completed Prescrib ed Elsewher e: Yes Loca tion: [facility] odify By: lizz mendezunter DateTime : 05/24/19 19 11:00:00 AM Not Available Not Available Not Available diclofena c sodium 50 mg tablet,de layed release TAKE 1 TABLET BY MOUTH TWICE DAILY 02/15 completed Not Available Not Available Not Available gabapenti n 100 mg capsule take 3 capsule by oral route every day at bedtime 05/24 completed Prescrib ed Elsewher e: Yes Loca tion: [facility] odify By: lizz Clinotn ncounter DateTime : 10/14/19 17 10:30:00 AM Not Available Not Available Not Available metoprolo l succinate ER 25 mg tablet,ex tended release 24 hr TAKE 1 TABLET BY MOUTH EVERY DAY active Not Available Not Available No t Available L-Lysine 500 mg capsule 02/15 completed Prescrib ed Elsewher e: Yes Loca tion: [facility] odify By: dora noyola DateTime : 08/15/19 [...] Prescrib ed Elsewher e: Yes Loca [facility]ion: [facility]ify By: lizz [address] ncounter DateTime : 05/24/19 19 11:00:00 AM Not Available Not Available Not Available scopolami ne 1 mg over 3 days transderm al patch UNWRAP AND APPLY 1 PATCH TO SKIN BEHIND YOUR EAR ONCE THE NIGHT BEFORE SURGERY FOR OPERATIO N 06/18 completed Not Available Not Available Not Available methylpre dnisolone 4 mg tablets in a dose pack FOLLOW PACKAGE DIRECTIO NS ORALLY active Not Available Not Available No t [...] AND USE 2 SPRAYS IN EACH NOSTRIL DAILY active Not Available Not Available No t Available metformin ER 500 mg tablet,ex tended release 24 hr TAKE 2 TABLETS BY MOUTH TWICE DAILY BEFORE MEALS 06/15 completed Not Available Not Available Not Available hydrocodo ne bitartrat e (bulk) crystals 05/24 completed Prescrib ed Elsewher e: Yes Loca tion: [facility] odify By: lziz gracia DateTime : 08/15/19 12 04:30:00 PM Not [...] Prescrib ed Elsewher e: Yes Loca [facility]ion[facility] odify By: dora noyola DateTime : 08/15/19 [...] Prescrib ed Elsewher e: Yes Loca tion: [facility] odify By: kmkirkpa trick En counter DateTime [...] Prescrib ed Elsewher e: Yes Loca tion: [facility] odify By: kmkirkpa trick En counter DateTime : 02/06/20 14 11:44:42 AM Not Available Not Available Not Available topiramat e 50 mg tablet 06/15 completed Not Available Not Available Not Available hydrocodo ne 10 mg-acetam inophen 300 mg tablet take 1 tablet by oral route every 6 hours as needed 02/15 completed Prescrib ed Elsewher e: Yes Loca tion: [facility] odify By: rosetta gracia DateTime : 10/14/19 [...] Prescrib ed Elsewher e: Yes Loca [facility]ion: [facility]ify By: lizz mendezunter DateTime : 05/24/19 11:00:00 AM Not Available Not Available Not [...] Prescrib ed Elsewher e: Yes Loca [facility]ion: [facility]ify By: dora noyola DateTime : 08/15/19 12 04:30:00 PM Not Available Not Available Not Available D3 Plus K2 Dots active Not Available Not Available Not Available B12 5,000 mcg-100 mcg sublingua l lozenge 02/15 completed Prescrib ed Elsewher e: Yes Loca [facility]ion: [facility]ify By: dora noyola DateTime : 08/15/19 [...] Elsewher e: Yes Loca tion: [facility] odify By: dora noyola DateTime : 08/15/19 12 04:30:00 PM Not Available Not Available Not Available Vitamin D3 50 mcg (2,000 unit) capsule 06/18 completed Prescrib ed Elsewher e: Yes Loca tion: [facility] odify By: rosetta gracia DateTime : 10/14/19 17 10:30:00 AM Not Available Not Available Not Available Fish Oil 100 mg-160 mg-1,000 mg capsule 02/15 completed Prescrib ed Elsewher e: Yes Loca tion: [facility] odify By: dora noyola DateTime : 08/15/19 12 04:30:00 PM Not Available Not Available Not Available Dutoprol 100 mg-12.5 mg tablet,ex tended release take 1 tablet by oral route every day 02/15 completed Prescrib ed Elsewher e: Yes Loca tion: [facility] odify By: dora noyola DateTime : 08/15/19 12 04:30:00 PM Not Available Not Available Not Available Eliquis 5 mg tablet TAKE 1 TABLET BY MOUTH TWICE DAILY active Not Available Not Available No t Available Multi Vitamin 06/18 completed Not Available Not Available Not [...] Ag Self Test kit TEST DIRECTED TODAY active Not Available Not Available No t Available Paxlovid 300 mg (150 mg x 2)-100 mg tablets in a dose pack TAKE 2 NIRMATRE LVIR TABLETS AND 1 RITONAVI R TABLET TOGETHER BY MOUTH TWICE DAILY FOR 5 DAYS active Not Available Not Available No t Available Vitals Date Recorded Body height Body mass index (BMI) Body weight Systolic And Diastolic Provider Name and Address Organization Details Last Updated DateTime 06/15/2022 153.67 cm 37.8 kg/m2 97381.7 g 118/81 mm[Hg] Umu Gaxiola [facility] 06/15/2022 10:41:38 Date Recorded Systolic And Diastolic Provider Name and Address Organization Details Last Updated DateTime 02/15/2021 120/80 mm[Hg] Peg Brito, [facility]- [address], [place], [address], [facility] 02/15/2021 11:52:10 Date Recorded Body height Body mass index (BMI) Body weight Provider Name and Address Organization Details Last Updated DateTime 02/15/2021 153.67 cm 45.3 kg/m2 102233.8 g Barb Delatorre [facility] 02/15/2021 11:29:27 Social History Question Answer Notes LastModified by Organizat ion Details LastModified Time Tobacco Smoking Status Former Smoker Umu Gaxiola [facility], [facility] 06/15/2022 10:42:12 Do You Have An [...] Or The Highest Degree You Have Received? [id number] Information not available 02/15/2021 When Did You Quit Smoking? [age]yearssin marycruz te Quit Smoking 13 Years Ago Information not available 06/15/2022 Are There Any [...] not available 01/12/2021 What is your occupation? [employer] Information not available 02/15/2021 What is your exercise level? Occasional Information not available 01/12/2021 Mental Status Question Answer Note LastModified by Organization D etails LastModified Time Do you feel stressed (tense, restless, nervous, or anxious, or unable to sleep at night)? [id number] Information not available 01/12/2021 Family History Relationship [...] available 2022 10:33:31 Medical History Condition Response Defects or Inherited Disease Y Hematologic disorders Y History of STI Y Polycystic ovary syndrome Y History of abnormal pap Y Acid Reflux (GERD) Y Endometriosis Y Headaches Y Heart Problems Y GI Problems Y Anemia Y Urinary Tract Infection Y Asthma Y Heart Disease Y Osteoporosis Y Gynecological History Statement/Question Response [...] SNOMED-CT Code Diagnosis ICD10 Code Diagnosis Note [id number] Peg Brito [facility] [address] [address] 01/10/2020 10:29:47 01/10/2020 12:29:20 Gynecologic examination [id number] Z01.419 Suggested Calcium with Vitamin D 1200-1500m g daily. Patient advised to get an annual flu shot in the fall and she could obtain at [facility] or [facility]. Also to obtain TDap vaccinatio n if [...] SA x 4yrs. Female str ess incontinence [id number] N39.3 Exam wnl Advised double void routine. If still much issue or worsens can refer to Urogyn. [id number] [facility] [address] [address] 02/15/2021 11:04:27 02/15/2021 12:17:27 Gynecologic examination 09297864 Z01.419 Suggested Calcium with Vitamin D 1200-1500m g daily. Patient advised to get an annual flu shot in the fall and she could obtain at [facility] or [facility] care clinic. Also to obtain TDap vaccinatio [...] y-will discuss with PCP appt coming up [id number] Peg Brito , [facility] [address] [address] 06/15/2022 10:29:14 06/15/2022 10:55:28 Gynecologic examination [id number] Z01.419 Suggested Calcium with Vitamin D 1200-1500m g daily. Patient advised to get an annual flu shot in the fall and she could obtain at [facility] or [facility] care clinic. Also to obtain TDap vaccinatio [...] PCP Routine Labs PCP Screening mammography [id number] 175016 Z12.31 Health Concerns Section Related Observation LastModified by Organization Detai ls LastModified Time None Recorded Concern Status LastModified by Organization Details LastModified Time None Recorded Advance Directives Directive N: Payers Insurance Date Sequence Insurance Name Policy Number Policy Bill Covered Member ID Bill Member ID Guarantor Name 08/15/2024 1 [facility] PRIOR TO 09/24/2020 (MEDICAID REPLACEMENT - HMO) Shoshana Salas [id number] Shoshana Salas 08/25/2024 1 [facility] ON OR AFTER 09/24/20 (MEDICAID REPLACEMENT - HMO) Shoshana Salas [id number] Shoshana Salas Notes Date Note Type Note Provider Name and Address Organization Details Recorded Time 0 text/html Annual GYNReported by PatientGenitourinary symptomsFor urinary symptoms, patient reportsstress incontinencebut reportsno hematuria. For vulva, patient reportsno genital lesion. For vagina, patient reportsnormal vaginal discharge.Breast symptomsFor breast, patient reportsno breast pain,no breast lump, andno nipple discharge.ContraceptionFo r current contraception, (full hyst for cervical & ovarian cancers).Endocrine symptomsFor sexual complaints, patient reportsno sexual complaints,no pain during intercourse, andnormal libido. For menopausal symptoms, patient reportsno menopausal symptomsandnormal vaginal lubrication.Psychological symptomsFor psychological symptoms, patient reportsno depression,no anxiety, andno pmdd.Preventative measuresFor preventive measures, patient reportsencourage self breast examination,encourage regular exercise,encourage no tobacco use,encourage regular mammograms starting age 40, andneeds to schedule mammogram. Peg Brito [facility] [address], [place], [address], [facility] 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 For vaginal bleeding, patient reportshistory of menopause having occurredandno history of post menopausal bleeding. For urinary symptoms, patient reportsno hematuria,no incontinence,no nocturia, andno urinary frequency. For vulva, patient reportsno genital lesionandno vulvar atrophy. For vagina, patient reportsnormal vaginal dischargeandno vaginal atrophy.Breast symptomsFor breast, patient reportsno breast lump,no nipple discharge, andno breast pain.Psychological symptomsFor sexual complaints, patient reportsno sexual complaints. For psychological symptoms, patient reportsno depressionandno anxiety.Preventative measuresFor preventive measures, patient reportsencourage regular mammograms starting age 40,encourage self breast examination,encourage regular exercise,encourage no tobacco use,mammogram performed within the past year,needs to schedule colonoscopy, andneeds to schedule bone density. Peg Brito [facility] [address], [place], [address], [facility] 02/15/2021 11:55:46 3 text/html Annual Assurance Manager Insurance Post-MenopausalReported by PatientGenitourinary symptomsFor menopausal symptoms, patient reportsno menopausal symptomsandnormal vaginal lubrication. For vaginal bleeding, patient reportshistory of menopause having occurredandno history of post menopausal bleeding. For urinary symptoms, patient reportsno hematuria,no incontinence,no nocturia, andno urinary frequency. For vulva, patient reportsno genital lesionandno vulvar atrophy. For vagina, patient reportsnormal vaginal dischargeandno vaginal atrophy.Breast symptomsFor breast, patient reportsno breast lump,no nipple discharge, andno breast pain.Psychological symptomsFor sexual complaints, patient reportsno sexual complaints. For psychological symptoms, patient reportsno depressionandno anxiety.Preventative measuresFor preventive measures, patient reportsencourage regular mammograms starting age 40,encourage self breast examination,encourage regular exercise,encourage no tobacco use,needs to schedule mammogram, andneeds to schedule colonoscopy. Peg Brito, AMAURY- [address], [place], [address], [facility] 06/15/2022 10:53:31 OBGyn Episode Ob Episode Information Episode Created Date Number of Fetuses Patient Bloodtype Patient rh Status Prepregnancy Weight lbs Domestic Partner Domestic Partner Phone Father Name Knurling Machine Tender Status 01/10/20 1 CLOSED Fetus Data First [...] Domestic Partner Domestic Partner Phone Father Name Knurling Machine Tender Status 01/10/20 1 CLOSED Fetus Data First [...]
--- OUTSIDE RECORDS SUMMARY | 2024-10-17 08:00 | XMS_ITS | Clinical Summary ---
Author Organization [facility] Address [address] [place] [address] Care Team Providers Care Senior Systems Software Engineer Name Role Phone Franki Flor MD Primary Care Provider [phone] Allergies No known active allergies Medications No known medications Immunizations Immunization Administration Dates Next Due MODERNA COVID-19 (12+) MRNA, LNP-S, PF, 100 MCG/ 0.5 ML DOSE 05/05/2020,04/07/2020 Social History Tobacco Use Types Packs/Day Years Used Date Smoking Tobacco: Never Assessed Comments No Sex and Gender Information Value Date Recorded Sex Assigned at Female 04/16/2024 6:27 PM DELIVERY MAN Legal Sex Female 7:30 PM CDT Gender Identity Not on file Sexual Orientation Not on file Last Filed Vital Signs Vital Sign Reading Time Taken Comments Blood Pressure 111/63 04/16/2024 8:43 PM DELIVERY MAN Pulse 95 04/16/2024 8:43 PM DELIVERY MAN Temperature 36.7 C (98.1 F) 04/16/2024 6:22 PM DELIVERY MAN Respiratory Rate 20 04/16/2024 8:43 PM DELIVERY MAN Oxygen Saturation 95% 04/16/2024 8:43 PM DELIVERY MAN Inhaled Oxygen Concentration - - Weight 97.5 kg (215 lb) 04/16/2024 6:22 PM DELIVERY MAN Height 152.4 cm (5') 04/16/2024 6:22 PM DELIVERY MAN Body Mass Index 41.99 04/16/2024 6:22 PM DELIVERY MAN Plan of Treatment Health Maintenance Due Date Last Done Comments Colorectal Cancer Screening Colonoscopy (10 Years) 1976 Annual Physical 1979 Hepatitis C 1994 DTaP, Tdap and Td Vaccines ( 1 - Tdap) 1995 Hepatitis B Vaccines (1 of 3 - 19+ 3-dose series) 1995 Cervical Cancer Screening Pa p with HPV Testing (Age 30 to 64) Every 5 Years 2006 Mammogram Screening 2016 COVID-19 Vaccine (4 - 2023-2 5 season) 2023 12/09/2021, 05/05/2020, 04/07/2020 Cervical Cancer Screening Pa p Smear (Age 30 to 64) Every 3 Years 06/15/2025 06/15/2022 Cervical Cancer Screening wi th HPV 06/15/2025 Meningococcal B Vaccine Aged Out No l onger eligible based on patient's age to complete this topic Meningococcal Vaccine Aged Out No ruben nicole eligible based on patient's age to complete this topic Pneumococcal Vaccine: Pediatrics (0 to 5 Years) and At-Risk Patients (6 to 49 Years) Aged Out No longer eligible b ased on patient's age to complete this topic RSV Immunizations Under 20 Months Aged Out No longer eligible b ased on patient's age to complete this topic Insurance [address] Care Teams Senior Systems Software Engineer Relationship Specialty Start Date End Date Franki Flor MD PCP - General 09/16/14
--- OUTSIDE RECORDS SUMMARY | 2024-10-17 08:00 | XMS_ITS | Encounter Summary ---
Author Organization [facility] Address [address] [place] [address] Phone Care Team Providers Care Complaint Specialist Name Role Phone Franki Flor Primary Care Provider [phone] Joss Montoya MD Unavailable [phone] Encounter Details Date Type Department Care Team (Late st Contact Info) Description 04/13/2021 Telephone [facility] [address] [place] [address] Joss Montoya MD [address] [facility] [address] [facility] [address] [place] [address] Social History Tobacco Use Types [...] CANCEL APPT TODAY. PT IS COVID POSITIVE, SENIOR INTERACTION DESIGNER IS SENDING PT INTO HOSPITAL. 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 documented in this encounter Plan of Treatment Upcoming Encounters Date Type Department Care Team (Late st Contact Info) Description 12/30/2024 2:15 PM CDT Lab [facility] [address] [phone] Lab, [facility] 12/30/2024 2:30 PM CDT Office Visit [facility] [address] [address] Joss Montoya MD [address] [id number] documented as of this encounter Visit Diagnoses Not on filedocumented in this encounter Additional Health Concerns Assessment Noted Time PHQ-9 Depression Total Score: 0 10/09/19 21 11:42 AM CDT documented as of this encounter Care Teams Complaint Specialist Relationship Specialty Start Date End Date Franki Flor [address] [place] [address] PCP - General Family Medicine 01/26/18 Joss Montoya MD [address] [place] [phone] Consulting Physician Oncology 06/21/22 documented as of this encounter
--- OUTSIDE RECORDS SUMMARY | 2024-10-17 08:01 | XMS_ITS | Continuity of Care Document ---
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 OFFICE/OUTPA TIENT VISIT, [facility], [address] [place] [place], [address], [place] tel:[phone] [facility] ADD (chief complaint) pain1 (chief complaint) coagulopat hy1 (chief complaint) obesity1 (chief complaint) Attention and concentration deficitChronic pain syndromeHypercoagul able stateAbnormal weight gain 1 Chacho Saeed [address], [place], [place], [address] , [place]. tel:[phone] OFFICE/OUTPA TIENT VISIT, [facility], [address] [place], [place], [address], [place] tel:[phone] [facility] pain1 (chief complaint) Lumbago with sciatica, unspecified sidePain in unspecified knee 1 Chacho Saeed [address], [place], [place], [address] , [place]. [phone] OFFICE/OUTPA TIENT VISIT, [facility], [address] [place], [address], [place] tel:[phone] [facility] ADD (chief complaint) back pain1 (chief complaint) Chronic pain syndromeAttention deficit 1 Chacho Saeed [address], [place], [place], [address] , [place]. tel:[phone] OFFICE/OUTPA TIENT VISIT, [facility], [address] [place], [address], [place] tel:[phone] [facility] sick1 (chief complaint) Viral infectionDiarrhea 1 Chacho Saeed [address], [place], [place], [address] , [place]. tel:[phone] OFFICE/OUTPA TIENT VISIT, EST [facility], [address], [place], [place], [address], [place] tel:[phone] [facility] coagulopat hy1 (chief complaint) ADD (chief complaint) HLP (chief complaint) back pain1 (chief complaint) Pre-DM (chief complaint) fatty liver1 (chief complaint) Chronic pain syndromeAttention and concentration deficitHypercoagula ble stateHyperlipidemia Fatty liverMetabolic syndrome 1 Chacho Saeed [address], [place], [place], [address] , [place]. [phone] OFFICE/OUTPA TIENT VISIT, [facility], [address], [place], [place], [address], [place] tel:[phone] [facility] coagulopat hy1 (chief complaint) ADD (chief complaint) pain1 (chief complaint) weight gain1 (chief complaint) Attention and concentration deficitChronic pain syndromeHypercoagul able stateAbnormal weight gain 1 Chacho Saeed [address], [place], [place], [address] , [place]. [phone] PREV VISIT, EST, AGE 40-64 [facility], [address] [place], [address], [place] tel:[phone] [facility] physical (chief complaint) Encounter for general adult medical examination without abnormal findings 1 Chacho Saeed [address], [place], [place], [address] , [place]. tel:[phone] OFFICE/OUTPA TIENT VISIT, EST [facility], [address] [place], [address], [place] tel:[phone] [facility] pain (chief complaint) sleep apnea1 (chief complaint) ADD (chief complaint) GERD1 (chief complaint) Chronic pain syndromeSleep apneaAttention and concentration deficitGERD w/o esophagitis 0 Chacho Doan. [address], [place], [place], [address] , [place]. tel:[phone] OFFICE/OUTPA TIENT VISIT, [facility], [address], [place], [place], [address], [place] [phone] [facility] pain1 (chief complaint) fatigue1 (chief complaint) ADD (chief complaint) Chronic pain syndromeSleep apneaAttention deficit 0 Chacho Doan. [address], [place], [place], [address] , [place]. tel:[phone] OFFICE/OUTPA TIENT VISIT, [facility], [address], [place], [place], [address], [place] tel:[phone] [facility] coagulopat hy1 (chief complaint) pain1 (chief complaint) gout1 (chief complaint) fatigue1 (chief complaint) Hypercoagulable stateChronic pain syndromeFatigueGout 0 Chacho Doan. [address], [place], [place], [address] , [place]. [phone] OFFICE/OUTPA TIENT VISIT, [facility], [address], [place], [place], [address], [place] tel:[phone] [facility] back pain1 (chief complaint) coagulopat hy1 (chief complaint) ADD (chief complaint) obesity1 (chief complaint) Hypercoagulable stateChronic pain syndromeSleep apneaObesity 0 Chacho Doan. [address], [place], [place], [address] , [place]. tel:[phone] OFFICE/OUTPA TIENT VISIT, [facility], [address], [place], [place], [address], [place] tel:[phone] [facility] pain1 (chief complaint) HTN (chief complaint) fatigue1 (chief complaint) Lumbago with sciatica, right sideEssential (primary) hypertensionFatigue 0 Chacho Doan. [address], [place], [place], [address] , [place]. tel:[phone] OFFICE/OUTPA TIENT VISIT, [facility], [address], [place], [place], [address], [place] tel:[phone] [facility] back pain1 (chief complaint) Lumbago with sciatica, right side 0 Chacho Doan. [address], [place], [place], [address] , [place]. tel:[phone] OFFICE/OUTPA TIENT VISIT, [facility], [address], [place], [place], [address], [place] tel:[phone] [facility] coagulopat hy1 (chief complaint) pain (chief complaint) ADD (chief complaint) FatigueHypercoagula ble stateSleep apneaChronic pain syndrome 0 Chacho Doan. [address], [place], [place], [address] , [place]. tel:[phone] OFFICE/OUTPA TIENT VISIT, [facility], [address], [place], [place], [address], [place] tel:[phone] [facility] coumadin1 (chief complaint) pain (chief complaint) fatigue1 (chief complaint) headache1 (chief complaint) Chronic pain syndromeHypercoagul able stateFatigueMigrain eEncounter for oth screening for malignant neoplasm of breast 0 Chacho Doan. [address], [place], [place], [address] , [place]. tel:[phone] OFFICE/OUTPA TIENT VISIT, [facility], [address], [place], [place], [address], [place] tel:[phone] [facility] pain (chief complaint) coagulopat hy1 (chief complaint) gout1 (chief complaint) ADD (chief complaint) Chronic pain syndromeAttention and concentration deficitHypercoagula ble stateGout 0 Chacho Doan. [address], [place], [place], [address] , [place]. tel:[phone] Referring Provider: Franki Flor, [address], [place], [place], [address]. tel:[phone] OFFICE/OUTPA TIENT VISIT, EST [facility], [address], [place], [place], [address], [place] tel:[phone] [facility] coagulopat hy1 (chief complaint) pain (chief complaint) ADD (chief complaint) osteopenia 1 (chief complaint) anxiety1 (chief complaint) Generalized Anxiety DisorderHypercoagul able stateChronic pain syndromeOther specified disorder of bone densityAttention and concentration deficit Jun-2 0- 0 Chacho Doan. [address], [place], [place], [address] , [place]. tel:[phone] Referring Provider: Oumou [address], [place], [place], [address]. tel:[phone] OFFICE/OUTPA TIENT VISIT, EST [facility], [address], [place], [place], [address], [place] tel:[phone] [facility] PTSD (chief complaint) Post-traumatic stress disorder, acuteVomiting Jun-0 0 Chacho Doan. [address], [place], [place], [address] , [place]. tel:[phone] Referring Provider: Franki Flor [address], [place], [place], [address]. tel:[phone] OFFICE/OUTPA TIENT VISIT, EST [facility], [address], [place], [place], [address], [place] tel:[phone] [facility] pain (chief complaint) ADD (chief complaint) FatigueChronic pain syndrome May-2 0 0 Chacho Doan. [address], [place], [place], [address] , [place]. tel:[phone] Referring Provider: Franki Flor [address], [place], [place], [address]. tel:[phone] OFFICE/OUTPA TIENT VISIT, [facility], [address], [place], [place], [address], [place] tel:[phone] [facility] anxiety1 (chief complaint) Generalized Anxiety DisorderDepression Mar-0 4 0 Chacho Doan. [address], [place], [place], [address] , [place]. tel:[phone] Referring Provider: Franki Flor, [address], [place], [place], [address]. tel:[phone] OFFICE/OUTPA TIENT VISIT, [facility], [address], [place], [place], [address], [place] tel:[phone] [facility] HLP (chief complaint) anxiety1 (chief complaint) coagulopat hy1 (chief complaint) pain (chief complaint) FatigueHypercoagula ble stateGeneralized Anxiety DisorderHyperlipide miaOther specified disorder of bone density 0 Chacho Doan. [address], [place], [place], [address] , [place]. tel:[phone] Referring Provider: Oumou [address], [place], [place], [address]. tel:[phone] OFFICE/OUTPA TIENT VISIT, [facility], [address], [place], [place], [address], [place] tel:[phone] [facility] anxiety1 (chief complaint) INR (chief complaint) pain (chief complaint) ADD (chief complaint) CAD (chief complaint) Hypercoagulable stateChronic pain syndromeGeneralized Anxiety DisorderFatigueOthe r specified disorder of bone density 0 Chacho Doan. [address], [place], [place], [address] , [place]. tel:[phone] Referring Provider: Oumou [address], [place], [place], [address]. tel:[phone] OFFICE/OUTPA TIENT VISIT, [facility], [address], [place], [place], [address], [place] tel:[phone] [facility] ADD (chief complaint) chronic pain1 (chief complaint) anxiety1 (chief complaint) osteopenia 1 (chief complaint) coagulopat hy1 (chief complaint) Chronic pain syndromeHypercoagul able stateOther specified disorder of bone densityFatigueGener alized Anxiety Disorder 9 Chacho Saeed [address], [place], [place], [address] , [place]. tel:[phone] PREV VISIT, EST, AGE 40-64 [facility], [address], [place], [place], [address], [place] tel:[phone] [facility] PHysical (chief complaint) Encntr for general adult medical exam w/o abnormal findings 9 Chacho Saeed [address], [place], [place], [address] , [place]. tel:[phone] Referring Provider: Franki Flor, [address], [place], [place], [address]. tel:[phone] OFFICE/OUTPA TIENT VISIT, [facility], [address], [place], [place], [address], [place] tel:[phone] [facility] osteopenia 1 (chief complaint) metabolic1 (chief complaint) fatty liver1 (chief complaint) INR (chief complaint) chronic pain1 (chief complaint) fatigue1 (chief complaint) Hypercoagulable stateGoutFatty liverOther specified disorder of bone densityChronic pain syndromeFatigueMeta bolic syndrome 9 Chacho Saeed [address], [place], [place], [address] , [place]. tel:[phone] OFFICE/OUTPA TIENT VISIT, [facility], [address], [place], [place], [address], [place] tel:[phone] [facility] GERD1 (chief complaint) coumadin1 (chief complaint) fatigue1 (chief complaint) chronic pain1 (chief complaint) gout1 (chief complaint) GoutHypercoagulable stateChronic pain syndromeGERD without esophagitisFatigue 9 Chacho Doan. [address], [place], [place], [address] , [place]. tel:[phone] OFFICE/OUTPA TIENT VISIT, [facility], [address], [place], [place], [address], [place] tel:[phone] [facility] ADD (chief complaint) coagulopat hy1 (chief complaint) chronic pain1 (chief complaint) gout (chief complaint) HTN (chief complaint) Chronic pain syndromeHypercoagul able stateEssential (primary) hypertensionFatigue Gout 9 Chacho Doan. [address], [place], [place], [address] , [place]. tel:[phone] Referring Provider: Franki Flor, [address], [place], [place], [address]. tel:[phone] OFFICE/OUTPA TIENT VISIT, [facility], [address], [place], [place], [address], [place] tel:[phone] [facility] headache1 (chief complaint) fatigue1 (chief complaint) GERD1 (chief complaint) chronic pain1 (chief complaint) coagulopat hy1 (chief complaint) FatigueChronic pain syndromeHypercoagul able stateGERD without esophagitisMigraine Other specified disorder of bone density 9 Chacho Doan. [address], [place], [place], [address] , [place]. [phone] OFFICE/OUTPA TIENT VISIT, [facility], [address], [place], [place], [address], [place] tel:[phone] [facility] fatigue1 (chief complaint) back pain1 (chief complaint) coagulopat hy1 (chief complaint) fatty liver1 (chief complaint) uric acid1 (chief complaint) preDM (chief complaint) Chronic pain syndromeHypercoagul able stateFatigueFatty liverAsymptomatic hyperuricemiaMetabo lic syndrome 9 Chacho Doan. [address], [place], [place], [address] , [place]. tel:[phone] Referring Provider: Oumou Jo [facility] A, [place], [place], [address]. tel:[phone] OFFICE/OUTPA TIENT VISIT, [facility], [address], [place], [place], [address], [place] tel:[phone] [facility] HLP (chief complaint) back pain1 (chief complaint) sleep apnea1 (chief complaint) coag (chief complaint) FatigueHypercoagula ble stateHyperlipidemia Chronic pain syndrome 9 Chacho Doan. [address], [place], [place], [address] , [place]. tel:[phone] Referring Provider: Oumou Jo [facility], [place], [place], [address]. tel:[phone] OFFICE/OUTPA TIENT VISIT, [facility], [address], [place], [place], [address], [place] tel:[phone] [facility] coagulopat hy1 (chief complaint) osteopenia 1 (chief complaint) ADD (chief complaint) GERD1 (chief complaint) chronic pain1 (chief complaint) FatigueGERD without esophagitisHypercoa gulable stateChronic pain syndromeOther specified disorder of bone density 9 Chacho Doan. [address], [place], [place], [address] , [place]. tel:[phone] Referring Provider: Oumou Jo [facility] A, [place], [place], [address]. tel:[phone] OFFICE/OUTPA TIENT VISIT, [facility], [address], [place], [place], [address], [place] tel:[phone] [facility] mammmogram 1 (chief complaint) coaguloapt hy1 (chief complaint) back pain1 (chief complaint) fatigue1 (chief complaint) osteopenia 1 (chief complaint) Hypercoagulable stateInconclusive mammogramOther specified disorder of bone densityChronic pain syndromeSleep apneaBody mass index (BMI) 45.0-49.9, adult 9 Chacho Doan. [address], [place], [place], [address] , [place]. tel:[phone] Referring Provider: Oumou [address], [place], [place], [address]. tel:[phone] OFFICE/OUTPA TIENT VISIT, [facility], [address], [place], [place], [address], [place] tel:[phone] [facility] breast (chief complaint) chronic pain1 (chief complaint) osteopenia 1 (chief complaint) cougulopat hy1 (chief complaint) fatigue1 (chief complaint) Hypercoagulable stateInconclusive mammogramFatigueChr onic pain syndromeOther specified disorder of bone densityHyperlipidem ia 9 Chacho Doan. [address], [place], [place], [address] , [place]. [phone] Referring Provider: Oumou [address], [place], [place], [address]. tel:[phone] OFFICE/OUTPA TIENT VISIT, [facility], [address], [place], [place], [address], [place] tel:[phone] [facility] fatigue1 (chief complaint) back pain1 (chief complaint) GERD1 (chief complaint) coagulopat hy1 (chief complaint) Body mass index (BMI) 45.0-49.9, adultFatigueHyperco agulable stateInconclusive mammogramChronic pain syndromeGERD without esophagitis 9 Chacho Doan. [address], [place], [place], [address] , [place]. tel:[phone] Referring Provider: Oumou [address], [place], [place], [address]. tel:[phone] OFFICE/OUTPA TIENT VISIT, EST [facility], [address], [place], [place], [address], [place] tel:[phone] [facility] clotting1 (chief complaint) back pain1 (chief complaint) ADD (chief complaint) sleep apnea1 (chief complaint) Hypercoagulable stateFatigueAttenti on deficitInconclusive mammogramChronic pain syndrome 8 Chacho Saeed [address], [place], [place], [address] , [place]. tel:[phone] Referring Provider: Oumou [address], [place], [place], [address]. tel:[phone] OFFICE/OUTPA TIENT VISIT, EST [facility], [address], [place], [place], [address], [place] tel:[phone] [facility] GERD1 (chief complaint) back pain1 (chief complaint) coagulopat hy1 (chief complaint) ADD (chief complaint) Body mass index (BMI) 45.0-49.9, adultHypercoagulabl e stateAttention deficitChronic pain syndromeGERD without esophagitis 8 Chacho Saeed [address], [place], [place], [address] , [place]. tel:[phone] Referring Provider: Oumou [address], [place], [place], [address]. tel:[phone] PREV VISIT, EST, AGE 40-64 [facility], [address], [place], [place], [address], [place] tel:[phone] [facility] Physical (chief complaint) Encounter for general adult medical exam w abnormal findingsHypercoagul able stateFatty liverEssential (primary) hypertensionMigrain eOther specified disorder of bone densityHyperlipidem ia 8 Chacho Saeed [address], [place], [place], [address] , [place]. tel:[phone] Referring Provider: Oumou [address], [place], [place], [address]. tel:[phone] OFFICE/OUTPA TIENT VISIT, [facility], [address], [place], [place], [address], [place] tel:[phone] [facility] chronic pain1 (chief complaint) ADD (chief complaint) Sleep apneaChronic pain syndrome Nov- 8 Chacho Doan. [address], [place], [place], [address] , [place]. tel:[phone] OFFICE/OUTPA TIENT VISIT, [facility], [address], [place], [place], [address], [place] tel:[phone] [facility] HTn (chief complaint) lupus1 (chief complaint) back apin1 (chief complaint) coagulopat hy1 (chief complaint) ADD (chief complaint) Attention deficitEssential (primary) hypertensionGERD without esophagitisHypercoa gulable stateChronic pain syndrome 8 Chacho Doan. [address], [place], [place], [address] , [place]. tel:[phone] Referring Provider: Oumou Jo [address] [facility] A, [place], [place], [address]. tel:[phone] OFFICE/OUTPA TIENT VISIT, [facility], [address], [place], [place], [address], [place] tel:[phone] [facility] back pain1 (chief complaint) ADD (chief complaint) headache1 (chief complaint) sleep apnea1 (chief complaint) Body mass index (BMI) 45.0-49.9, adultAttention deficitMigraineSlee p apneaLong term (current) use of anticoagulantsChron ic pain syndrome 8 Chacho Saeed [address], [place], [place], [address] , [place]. tel:[phone] Referring Provider: Oumou [address], [place], [place], [address]. tel:[phone] OFFICE/OUTPA TIENT VISIT, [facility], [address], [place], [place], [address], tel:[phone] [facility] sleep apnea1 (chief complaint) ADD (chief complaint) back pain1 (chief complaint) obeisty1 (chief complaint) Body mass index (BMI) 45.0-49.9, adultChronic pain syndromeLong term (current) use of anticoagulantsSleep apneaAttention deficit 0 8 Chacho Doan. [address] [facility] A, [place], [place], [address] , [place]. tel:[phone] Referring Provider: Oumou Jo [facility] A, [place], [place], [address]. tel:[phone] OFFICE/OUTPA TIENT VISIT, [facility], [address] [place], [address], [place] tel:[phone] [facility] ADD (chief complaint) bakc pain1 (chief complaint) headache1 (chief complaint) GERD1 (chief complaint) itching1 (chief complaint) Body mass index (BMI) 45.0-49.9, adultMigraineGERD without esophagitisChronic pain syndromeScabiesAtte ntion deficit 8 Chacho Doan. [address], [place], [place], [address] , [place]. tel:[phone] Referring Provider: Oumou Jo [facility] A, [place], [place], [address]. tel:[phone] OFFICE/OUTPA TIENT VISIT, [facility], [address], [place], [place], [address], [place] tel:[phone] [facility] fatigue1 (chief complaint) headache1 (chief complaint) back pain1 (chief complaint) itching1 (chief complaint) Body mass index (BMI) 45.0-49.9, adultHyperlipidemia FatigueMigraineChro bean pain syndromeScabies 201 8 Chacho Saeed [address], [place], [place], [address] , [place]. tel:[phone] Referring Provider: Franki Flor, [address] [place] [address], [address]. tel:[phone] OFFICE/OUTPA TIENT VISIT, [facility], [address] [place] [address] [place], [address], tel:[phone] [facility] osteopenia 1 (chief complaint) chronic pain1 (chief complaint) coagulopat hy1 (chief complaint) C diff (chief complaint) half-way (current) use of anticoagulantsChron ic pain syndromeEnterocolit is due to Clostridium difficile, not specified as recurrentBody mass index (BMI) 45.0-49.9, adultOther specified disorder of bone density May- 8 Chacho Doan. [address] [place], [place], [address] , [place]. tel:[phone] Referring Provider: Oumou Jo [place], [address]. tel:[phone] OFFICE/OUTPA TIENT VISIT, [facility], [address] [place] [address] [employer] [place], [address], [place] tel:[phone] [facility] C diff (chief complaint) CAD (chief complaint) back pain1 (chief complaint) Body mass index (BMI) 45.0-49.9, adultLong term (current) use of anticoagulantsChron ic pain syndromeEnterocolit is due to Clostridium difficile, not specified as recurrent Apr- 8 Chacho Doan. [address] [place], [place], [address] , [place]. tel:[phone] Referring Provider: Oumou Jo [place], [address]. tel:[phone] OFFICE/OUTPA TIENT VISIT, [facility], [address] [place] [address] [employer] [place], [address], [place] tel:[phone] 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 [address], [place], [place], [address] , [place]. tel:[phone] Referring Provider: Oumou Jo [address], [place], [place], [address]. tel:[phone] OFFICE/OUTPA TIENT VISIT, EST [facility], [address], [place], [place], [address], [place] tel:[phone] [facility] HLP (chief complaint) LFT1 (chief complaint) chronic pain (chief complaint) coagulopat hy1 (chief complaint) HyperlipidemiaFatty liverLong term (current) use of anticoagulantsBody mass index (BMI) 45.0-49.9, adult 7 Chacho Saeed [address], [place], [place], [address] , [place]. tel:[phone] Referring Provider: [address], [place], [place], [address]. tel:[phone] OFFICE/OUTPA TIENT VISIT, EST [facility], [address], [place], [place], [address], [place] tel:[phone] [facility] Medicine coagulopat hy1 (chief complaint) back pain1 (chief complaint) obesity1 (chief complaint) HLP (chief complaint) Chronic pain syndromeBody mass index (BMI) 45.0-49.9, adultLong term (current) use of anticoagulantsHyper lipidemia 7 Chacho Saeed [address], [address], [place], [place], [address] , [place]. tel:[phone] Referring Provider: Oumou Jo [address], [place], [place], [address]. tel:[phone] PREV VISIT, EST, AGE 40-64 [facility], [address], [place], [place], [address], [place] tel:[phone] [facility] Family Medicine Physical (chief complaint) Encounter for general adult medical exam w abnormal findingsChronic pain syndromeDiarrheaGER D without esophagitis Chacho Doan. [address], [place], [place], [address] , [place]. tel:[phone] Referring Provider: Oumou [address], [place], [place], [address]. tel:[phone] OFFICE/OUTPA TIENT VISIT, [facility], [facility] [address], [place], [address], [place] tel:[phone] [facility] coagulopat hy1 (chief complaint) back pain1 (chief complaint) opsteopeni a1 (chief complaint) obesity1 (chief complaint) Chronic pain syndromeLong term (current) use of anticoagulantsOther specified disorder of bone densityBody mass index (BMI) 45.0-49.9, adult Chacho Doan. [address], [place], [place], [address] , [place]. tel:[phone] Referring Provider: [address], [place], [place], [address]. tel:[phone] OFFICE/OUTPA TIENT VISIT, [facility], [facility] [address], [address], [place] tel:[phone] [facility] HTN (chief complaint) insomnia1 (chief complaint) back pain1 (chief complaint) coagulopat hy1 (chief complaint) Essential (primary) hypertensionLow back painLong term (current) use of anticoagulantsInsom buster 7 Chacho Doan. [address], [place], [place], [address] , [place]. tel:[phone] Referring Provider: Oumou [address], [place], [place], [address]. tel:[phone] OFFICE/OUTPA TIENT VISIT, [facility], [address], [place], [place], [address], [place] tel:[phone] [facility] coagulopat hy1 (chief complaint) GERD1 (chief complaint) back pain1 (chief complaint) osteopenia 1 (chief complaint) half-way (current) use of anticoagulantsOther specified disorder of bone densityChronic pain syndromeGERD w/o esophagitis 7 Chacho Doan. [address], [place], [place], [address] , [place]. [phone] Referring Provider: Oumou [address], [place], [place], [address]. tel:[phone] OFFICE/OUTPA TIENT VISIT, [facility], [address], [place], [place], [address], [place] tel:[phone] [facility] GERD1 (chief complaint) back pain1 (chief complaint) INR (chief complaint) ear pain1 (chief complaint) Otalgia, left earGERD without esophagitisChronic pain syndromeLong term (current) use of anticoagulants 7 Chacho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
== END 2024-10-17 07:55 | disposition home or self-care (01) ==
PROVIDERS: PCP Emergency Medicine; Visit Provider Nurse Practitioner
DX: K22.10 Ulcer of esophagus without bleeding (principal); Z90.3 Acquired absence of stomach [part of]
CPT/HCPCS: 78264; A9541

== ENCOUNTER 2024-10-18 10:09 | Outpatient (CLI) | payer OTHER, SELFPAY ==
--- NOTE | ~2024-10-18 | MM_ITS ---
EXAMINATION: MM screening thad BI w meera HISTORY: Screening TECHNIQUE: Craniocaudal and mediolateral oblique 3-D tomosynthesis images were obtained and synthetic 2-D images were generated. CAD analysis was submitted and interpreted. COMPARISON: Comparison to multiple prior studies sequentially, with oldest reviewed study dated 07/2017. BREAST PARENCHYMAL COMPOSITION: Not dense: There are scattered areas of fibroglandular density. FINDINGS: There is no evidence of suspicious mass, calcification, or architectural distortion to sugg est malignancy in either breast. There has been no suspicious interval change. IMPRESSION: 1. No mammographic evidence of malignancy. 2. Recommend routine screening mammography in one year. BI-RADS Category 1: Negative Reviewed, dictated and finalized at location A.
--- OUTSIDE RECORDS SUMMARY | 2024-10-18 10:14 | XMS_ITS | Referral Summary ---
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 LARISSA [id number] [facility] Care Teams Infantry Assaultman Relationship Specialty Start Date End Date Franki Flor MD PCP - General 08/28/07
--- OUTSIDE RECORDS SUMMARY | 2024-10-18 10:14 | XMS_ITS | Clinical Summary ---
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
--- OUTSIDE RECORDS SUMMARY | 2024-10-18 10:14 | XMS_ITS | Clinical Summary ---
Author Organization [facility] Address [address] [place] [address] Care Team Providers Care Rn Telephonic Name Role Phone Franki Flor MD Primary Care Provider [phone] Source Comments [facility],non-owned Affiliates and Associated Physician Practices is amultiple site organization consisting of ambulatory clinics and hospital sitesin [place], [place], [place] and [place]. This disclosure is being madepursuant to the Care Everywhere program and may not contain all information available regarding this patient. Last updated 17.[facility] Allergies No known active allergies Medications * [...] times daily 02/11/20 21 Active Probiotic Product (PowerCard) capsuleIndicatio ns:Postoperative nausea,Postopera tive pain,S/P bariatric surgery,Hx [...] before breakfast 10/12/19 23 Active HYDROcodone-acet aminophen ([place]) 7.5-325 MG tablet Take 1 (one) tablet [...] liver 10/22/2020 Sleep apnea 10/22/2020 History of [place] (myocardial infarction) 10/22/2020 History of coronary artery bypass graft 10/23/19 21 Lupus anticoagulant disorder 10/22/2020 Anticoagulant long-term use 10/22/2020 History of smoking 10/22/2020 History of DVT (deep vein thrombosis) 10/22/2020 Encounters Date Type Department Care Team Description 09/13/2024 Telephone [facility] Services [address] [place] [address] Ibendahl, Taylor Heather, MD Appointment [...] AM CDT Legal Sex Female 6:22 AM MANAGING BROKER Gender Identity Female 10/16/2020 9:28 AM CDT Sexual Orientation Straight 10/16/2020 9: 28 AM CDT Last Filed Vital Signs Vital Sign Reading Time Taken Comments Blood Pressure 120/86 02/09/2023 4:01 PM MANAGING BROKER Pulse 55 02/09/2023 4:01 PM MANAGING BROKER Temperature 36.8 C (98.3 F) 02/06/2023 9:00 AM MANAGING BROKER Respiratory Rate 16 02/09/2023 4:01 PM MANAGING BROKER Oxygen Saturation 100% 02/09/2023 4:01 PM MANAGING BROKER Inhaled Oxygen Concentration - - Weight 92.7 kg (204 lb 4.8 oz) 02/09/2023 1:31 P M MANAGING BROKER Height 152.4 cm (5') 02/09/2023 1:31 PM MANAGING BROKER Body Mass Index 39.9 02/09/2023 1:31 PM MANAGING BROKER Plan of Treatment Upcoming Encounters Date Type Department Care Team (Late st Contact Info) Description 10/24/2024 8:00 AM CDT Clinical Support [facility] [address] [place] [phone] 10/24/2024 8:30 AM CDT Office Visit [facility] [address] [place] [phone] Danay aTylor, [employer]EN[employer]IAN BL[employer]KER-SUPERVISOR [employer]AP[employer] [address] [place] [address] Health Maintenance Due Date Last Done Comments [...] this topic Medical Devices Implanted Type Area Confidential Investigator Device Identifier Shelf Expiration Date Model / Serial / Lot Mesh Srg [place] [employer] 10x7cm Reinf - Sn/A Implanted:Qty: 1 on 09/15/2021 by Rusty Shannon MD at [facility] [employer] 05/11/2024 [id number] / N/A / [id number] Procedures Procedure Name Priority Date/Time Associated Diagnosis Comments COMPREHENSIVE METABOLIC PANEL STAT 05/19/2022 5:53 PM MANAGING BROKER from Last 3 Months or Most Recently Relevant to Health Maintenance Results * (ABNORMAL) COMPREHENSIVE METABOLIC PANEL (05/19/2022 5:53 PM MANAGING BROKER) Glucose 86 70 - 125 mg/dL 05/19/2022 6:[address] [facility] Sodium 139 136 - 145 mmol/L 05/19/2022 6:[address] [facility] Potassium 4.6 3.4 - 5.1 mmol/L 05/19/2022 6:[address] [facility] Chloride 106 98 - 107 mmol/L 05/19/2022 6:[address] [facility] CO2 22 22 - 29 mmol/L 05/19/2022 6:[address] [facility] Calcium 9.6 8.4 - 10.2 mg/dL 05/19/2022 6:[address] [facility] Anion Gap 16 10 - 20 mmol/L 05/19/2022 6:[address] [facility] BUN 22.7(H) 9.8 - 20.1 mg/dL 05/19/2022 6:[address] [facility] Creatinine 0.69 0.57 - 1.11 mg/dL 05/19/2022 6:[address] [facility] Alkaline Phosphatase 51 40 - 150 U/L 05/19/2022 6:[address] [facility] ALT 31 5 - 55 U/L 05/19/2022 6:[address] [facility] AST 28 5 - 34 U/L 05/19/2022 6:[address] [facility] Protein Total 7.1 6.4 - 8.3 gm/dL 05/19/2022 6:[address] [facility] Albumin 4.1 3.5 - 5.0 gm/dL 05/19/2022 6:[address] [facility] Globulin Total 3.0 2.6 - 4.0 gm/dL 05/19/2022 6:[address] [facility] Albumin/Globulin Ratio 1.4 0.9 - 1.6 05/19/2022 6:[address] [facility] Bilirubin Total 0.2 0.2 - 1.2 mg/dL 05/19/2022 6:[address] [facility] eGFR >90 >90 mL/min/1.7 3m2 05/19/2022 6:[address] [facility] Comment:The GFR result was c alculated using the updated CKD-EPI Creatinine Equation (2020). Blood BLOOD SPECIMEN / Unknown Venipuncture / Unknown 05/19/2022 5:53 PM MANAGING BROKER 05/19/2022 5:57 PM [facility] us Trinity Almanza VENETIAN BLIND [employer]KER-SUPERVISOR [employer] LAB - CHEMISTRY ORDERAB LES Final Result Performing Organization Address [facility]/State/[facility] Co de Phone Number [facility] [address] [place] [address] from Last 3 Months or Most Recently Relevant to Health Maintenance Insurance [facility] * Guarantor: SHOSHANA ARAUJO Account Type Relation to Patient Date of Phone Billing Address Personal/Family [address] [place] [address] [facility] Member Subscriber Plan / Payer (Ef fective for All Dates) Name:Shoshana Araujo Relation to Subscriber:Self Name:Shoshana Araujo Payer ID:[id number] (NAIC) Group ID:Not on file Type:Medicaid Managed Care Address: [place] [phone] SELF PAY NO INSURANCE Member Subscriber Plan / Payer (Ef fective for All Dates) Name:Shosahna Araujo Member ID:Not on file Relation to Subscriber:Not on file Name:SHOSHANA ARAUJO Subscriber ID:Not on file Address: [address] [place] [address] Payer ID:Not on file Group ID:Not on file Type:Self Pay Address: [place], [place] * Guarantor: SHOSHANA ARAUJO Account Type Relation to Patient Date of Phone Billing Address Personal/Family [address] [place] [address] [facility] SELF PAY NO INSURANCE Member Subscriber Plan / Payer (Ef fective for All Dates) Name:Shoshana Araujo Member ID:Not on file Relation to Subscriber:Not on file Name:SHOSHANA ARAUJO Subscriber ID:Not on file Address: [address] [place] [address] Payer ID:Not on file Group ID:Not on file Type:Self Pay Address: [place], [place] * Guarantor: SHOSHANA ARAUJO Account Type Relation to Patient Date of Phone Billing Address Personal/Family [address] [place] [address] [facility] SELF PAY NO INSURANCE Member Subscriber Plan / Payer (Ef fective for All Dates) Name:Shoshana Araujo Member ID:Not on file Relation to Subscriber:Not on file Name:SHOSHANA ARAUJO Subscriber ID:Not on file Address: [address] [place] [address] Payer ID:Not on file Group ID:Not on file Type:Self Pay Address: [place], [place] Advance Directives * Full Code (Latest Code Status on File) Date Activated Date Inactivated Comments 09/15/2021 11:05 AM 09/16/2021 6:47 PM Care Teams Rn Telephonic Relationship Specialty Start Date End Date Franki Flor MD PCP - General Family Medicine 09/16/20
--- OUTSIDE RECORDS SUMMARY | 2024-10-18 10:14 | XMS_ITS | Clinical Summary ---
Author Organization [facility] Address [address] [place] [address] Phone Care Team Providers Care Print Room Worker Name Role Phone Franki Flor Primary Care Provider [phone] Joss Montoya MD Unavailable [phone] Allergies No known active allergies Medications fenofibrate [...] PM CDT Lab [facility] [address] [address] Lab, [facility] 12/30/2024 2:30 PM CDT Office Visit [facility] [address] [address] Joss Montoya MD [address] [place] [place], [place] [phone] Health Maintenance Due Date Last Done Comments [...] age to complete this topic Insurance MEDICAID [facility] Care Teams Print Room Worker Relationship Specialty Start Date End Date Franki Flor [address] [place] [address] PCP - General Family Medicine 01/26/18 Joss Montoya MD [address] [place] [address] Consulting Physician Oncology 06/21/22
--- OUTSIDE RECORDS SUMMARY | 2024-10-18 10:15 | XMS_ITS | Encounter Summary ---
Author Organization [facility] Address [address] [place] [address] Phone Care Team Providers Care Chair Installer Name Role Phone Franki Flor Primary Care Provider [phone] Joss Montoya MD Unavailable [phone] Encounter Details Date Type Department Care Team (Late st Contact Info) Description 04/13/2021 Telephone [facility] [address] [place] [address] Joss Montoya MD [address] [facility] [address] [facility] [address] [place] [address] Social History Tobacco Use Types [...] CANCEL APPT TODAY. PT IS COVID POSITIVE, FAMILY HELPER IS SENDING PT INTO HOSPITAL. 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 encounter Plan of Treatment Upcoming Encounters Date Type Department Care Team (Late st Contact Info) Description 12/30/2024 2:15 PM CDT Lab [facility] [address] [phone] Lab, [facility] 12/30/2024 2:30 PM CDT Office Visit [facility] [address] [address] Joss Montoya MD [address] [id number] documented as of this encounter Visit Diagnoses Not on filedocumented in this encounter Additional Health Concerns Assessment Noted Time PHQ-9 Depression Total Score: 0 10/09/19 21 11:42 AM CDT documented as of this encounter Care Teams Chair Installer Relationship Specialty Start Date End Date Franki Flor [address] [place] [address] PCP - General Family Medicine 01/26/18 Joss Montoya MD [address] [place] [phone] Consulting Physician Oncology 06/21/22 documented as of this encounter
--- OUTSIDE RECORDS SUMMARY | 2024-10-18 10:15 | XMS_ITS | Data Portability ---
Author Organization [facility] [place] Address [address] [place] [address] [place] [address] Care Team Providers Care Hot Mill Shearer Name Role Phone TREMAINE KATE Primary Care [...] recorded. Imaging MAMMO, screening, bilateral 2022 023 [facility], [address], [address], [place], [address], 3 05:01:41 Medication Orders None recorded. Patient TargetsNo targets recorded. Patient Instructions Encounter Date Encounter Id Patient Instructions Last Modified By Organization Details Last Modified Time 01/10/2020 [id number] [email or web address] Not available 11:20:35 Reason for Referral [...] labor atory findi ngs. See https ://vika Pixifly/s ites/ defau lt/fi les/2 018-0 3/AW- 80553 _002_ 01.pd f for furth er infor matio n. Test perfo rmed by [facility], d/b/a [facility], [address], [place] [address] , Iwona Wilson ra, DO, Labor Spacious App tor. HPV High Risk *HPV NOT DETEC SATHYA [...] and labor atory findi ngs. See https ://[employer]/s ites/ defau lt/fi les/2 018-0 3/AW- 12927 _002_ 01.pd f for [facility] infor debrabernardo floyd. Test perfo rmed by [facility], d/b/a [facility], [address], [place] [address] , Iwona Wilson ra, DO, Labor Spacious App tor. End of t Techn ical servi parish provi ded by [facility], d/b/a [facility], [address] [place] [address] Ye Rae MD, Labor Spacious App tor. Case revie wed and diagn osis rende red at [facility], d/b/a [facility], [address] [place] [address] Ye Rae MD, Labor Spacious App tor. CONFI DENTI AL Not Available [facility] ([facility]) [address], [place], [address], 01/14/2020 09:32:03 01/10/2001/11/2020 HPV DNA, high- risk HPV high risk NOT DETECT ED normal Not Available [facility] -[facility] ([facility]) [address], [place], [address], 01/14/2020 09:32:04 06/16/19 23 06/15/2022 IMAGE GUIDE D PAP AND HPV REGAR DLESS image guided Pap, HPV regardless of Pap result SEE RESULT S BELOW CASE REPOR T: Cytol ogy Gynec ologi peggy Repor t Case: [id number] Autho la nena orozco Provi jose: Gerri chatmanich , Carina Diaz cted: 06/15 1510 REAL ESTATE REPRESENTATIVE Order ing Locat ion: [place] [facility] [...] as clini em aguilar nted. Not Available [facility] (Lab) [address], [place], [address], 06/19/2022 08:22:39 Result Notes None recorded. Problems Name Problem SNOMED Code Status Onset Date Resolution Date Notes Provider Name and Address Organization Details Recorded Time Dyspareu buster [id number] Completed 201101/12/2021 Dyspareun ia;Record ed Elsewhere : No Locati on: [facility] So urce: EHR Chron ic: N Practic e ID: 0001 Bill able Time: 04:30:00 PM Barb Delatorre [facility] [place] - [facility] 13:58:21 Screenin g for malignan t neoplasm of cervix Completed 201101/12/2021 Screening for malignant neoplasms of the cervix;Re corded Elsewhere : No Locati on: [facility] So urce: EHR Chron ic: N Practic e ID: 0001 Bill able Time: 04:30:00 PM Barb Delatorre [facility] 13:58:28 Adult health examinat ion Completed 201301/12/2021 ROUTINE MEDICAL EXAM;Danilo rded Elsewhere : No Locati on: [facility] So urce: EHR Chron ic: N Practic e ID: 0001 Bill able Time: 10:00:00 AM Barb Delatorre [facility] 13:58:16 Speciali zed medical examinat ion Completed 201301/12/2021 ROUTINE PROJECT SCHEDULER EXAMINATI ON;Record ed Elsewhere : No Locati on: [facility] So urce: EHR Chron ic: N Practic e ID: 0001 Bill able Time: 10:00:00 AM Barb Delatorre [facility] 13:58:35 Obesity [id number] Completed 201301/12/2021 Obesity, unspecifi ed;Practi ce ID: [address] [facility] 13:58:27 Vaginiti s and vulvovag initis Completed 201401/12/2021 Vaginitis ;Recorded Elsewhere : No Locati on: [facility] So urce: EHR Chron ic: N Practic e ID: 0001 Bill able Time: 03:15:00 PM Barb Delatorre [facility] 14:00:14 Breast lump [id number] Completed 201401/12/2021 Breast lump;Danilo rded Elsewhere : No Locati on: [facility] So urce: EHR Chron ic: N Practic e ID: 0001 Bill able Time: 03:15:00 PM Barb Delatorre [facility] 13:58:19 Leukorrh ea [id number] Completed 201401/12/2021 Leukorrhe a, not specified as infective ;Recorded Elsewhere : No Locati on: [facility] So urce: EHR Chron ic: N Practic e ID: 0001 Bill able Time: 03:15:00 PM Barb jenkins [facility] 13:58:25 Accident al puncture during a procedur e [id number] Completed 201401/12/2021 Accidenta l puncture and laceratio n of skin and subcutane ous tissue during other procedure ;Recorded Elsewhere : No Locati on: [facility] So urce: EHR Chron ic: N Practic e ID: 0001 Bill able Time: 10:45:00 AM Barb Delatorre [facility] 13:58:15 Accident al lacerati on during a procedur e [id number] Completed 201401/12/2021 Accidenta l puncture and laceratio n of skin and subcutane ous tissue during other procedure ;Recorded Elsewhere : No Locati on: [facility] So urce: EHR Chron ic: N Practic e ID: 0001 Bill able Time: 10:45:00 AM Barb Delatorre [facility] 13:58:13 Lacerati on of genitali a [id number] Completed 201401/12/2021 Laceratio n w/o foreign body of vagina and vulva, init encntr;Pr actice ID: [address] [facility] 13:58:[address] Concept Completed 201401/12/2021 Encntr for general adult medical exam w/o abnormal findings; Recorded Elsewhere : No Locati on: [facility] So urce: EHR Chron ic: N Practic e ID: 0001 Bill able Time: 01:00:00 PM Barb jenkins [facility] 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 13:58:34 Screenin g for malignan t neoplasm of rectum Completed 201601/12/2021 Encounter for screening for malignant neoplasm of rectum;Re corded Elsewhere : No Locati on: [facility] So urce: EHR Chron ic: N Practic e ID: 0001 Bill able Time: 10:30:00 AM Barb Delatorre [facility] 13:58:30 Body mass index 30+ - obesity [id number] Completed 201801/12/2021 Body mass index (BMI) 45.0-49.9 , adult;Rec orded Elsewhere : No Locati on: [facility] So urce: EHR Chron ic: N Practic e ID: 0001 Bill able Time: 11:00:00 AM Barb Delatorre [facility] 13:58:18 Problem Notes None recorded. Procedures Surgical History Date Name Laterality Status Provider Name and Address Organization Details Recorded Time 06/16/19 23 Date of Last Pap Smear completed Carrie Eldridge [facility] 06/19/2023 17:18:50 09/16/19 22 Gastric Bypass completed [facility] 06/15/2022 10:34:35 11/20/19 21 Date of Last Mammogram completed [facility] 02/15/2021 11:35:08 11/06/19 21 Most Recent Bone Density completed [facility] 02/15/2021 11:29:48 09/21/19 12 Coronary Artery Bypass completed [facility] 06/15/2022 10:34:35 04/14/19 10 Coronary Artery Bypass completed [facility] 06/15/2022 10:34:35 10/21/19 03 Total Hysterectomy completed [facility] 06/15/2022 10:34:35 01/13/20 Tubal Ligation completed [facility] 06/15/2022 10:34:35 01/13/20 Caesarean Section completed [facility] 06/15/2022 10:34:35 02/12/[address] [facility] 02/15/2021 11:29:48 bypass graft completed [facility] 01/10/2020 10:38:11 procedure on heart completed [facility] 01/10/2020 10:38:17 reconstruction of vagina completed [facility] 01/10/2020 10:38:31 wedge resection completed [facility] 01/10/2020 10:38:36 Total Hysterectomy completed [facility] 01/10/2020 10:38:43 Laparoscopy completed [facility] 01/10/2020 10:38:49 Imaging Results None recorded. [...] completed Prescrib Natalya e: Yes Loca tion: [facility] odify By: lizz gracia DateTime : 10/11/19 [...] Prescrib ed Elsewher e: Yes [facility] By: lizz gracia DateTime : 03/12/20 [...] ed Elsewher e: Yes [facility] odify By: kmkirkpa trick En counter [...] Prescrib ed Elsewher e: Yes Loca tion: [facility] odify By: rosetta gracia DateTime : 10/11/19 15 03:15:00 PM Not Available Not Available Not Available Metrogel Vaginal 0.75 % (37.5 mg/5 gram) insert 1 applicat orful (37.5MG) by vaginal route every day at bedtime 10/10 completed Prescrib ed Elsewher e: No Locat ion: [facility] odify By: [email or web address] negar Preciado counter DateTime [...] Prescrib ed Elsewher e: Yes Loca [facility]: [facility] By: dora noyola DateTime : 08/15/19 12 04:30:00 PM Not Available Not Available Not Available Prilosec 10 mg capsule,d elayed release take 2 capsule by oral route every day before a meal 02/15 completed Prescrib ed Elsewher e: Yes Loca tion: [facility] odify By: dora noyola DateTime : 08/15/19 12 04:30:00 PM Not Available Not Available Not Available Coumadin 5 mg intraveno us solution inject 1 millilit er by intraven ous route every day over as an IV bolus 02/15 completed Prescrib ed Elsewher e: Yes Loca [facility]ion: [facility]ify By: dora noyola DateTime : 08/15/19 12 04:30:00 PM Not Available Not Available Not Available ranitidin e 75 mg tablet take 1 tablet by oral route 2 times every day with glass of water 05/24 completed Prescrib ed Elsewher e: Yes Loca tion: [facility] odify By: lizz mendezunter DateTime : 10/14/19 [...] Elsewher e: No Locat ion: [facility] odify By: tmryan E ncounter DateTime : 10/25/19 12:46:28 PM Not Available Not Available Not Available Calci-Melida w 500 mg (as calcium carbonate 1,250 mg) tablet 01/12 completed Prescrib tammy Hoang e: Yes Loca tion: [facility] M odkerry By: kmkirkpa trick [...] Elsewher e: Yes Loca tion: [facility] odify By: lizz gracia DateTime : 10/14/19 17 10:30:00 AM Not Available Not Available Not Available isosorbid e mononitra te 10 mg tablet take 1 tablet by oral route 2 times every day given 7 hours apart 02/15 completed Prescrib ed Elsewher e: Yes Loca tion: [facility] odify By: lizz mendezunter DateTime : 05/24/19 [...] Elsewher e: Yes Loca tion: [facility] odify By: lizz [address] ncounter DateTime : 10/14/19 17 10:30:00 AM Not Available Not Available Not Available metoprolo l succinate ER 25 mg tablet,ex tended release 24 hr TAKE 1 TABLET BY MOUTH EVERY DAY active Not Available Not Available No t Available L-Lysine 500 mg capsule 02/15 completed Prescrib ed Elsewher e: Yes Loca tion: [facility] odify By: dora noyola DateTime : 08/15/19 [...] Prescrib ed Elsewher e: Yes Loca [facility]: [facility] odify By: lizz [address] ncounter DateTime : [...] Prescrib ed Elsewher e: Yes Loca tion: [facility] odify By: lizz gracia DateTime : 08/15/19 12 04:30:00 PM [...] ed Elsewher e: Yes [facility]oca [facility]: [facility] odify By: dora noyola DateTime : [...] Prescrib ed Elsewher e: Yes Loca tion: [facility] odify By: kmkirkpa trick En counter DateTime [...] Prescrib ed Elsewher e: Yes Loca tion: [facility] odify By: kmkirkpa trick En counter DateTime : 02/06/20 14 11:44:42 AM Not Available Not Available Not Available topiramat e 50 mg tablet 06/15 completed Not Available Not Available Not Available hydrocodo ne 10 mg-acetam inophen 300 mg tablet take 1 tablet by oral route every 6 hours as needed 02/15 completed Prescrib ed Elsewher e: Yes Loca tion: [facility] odify By: rosetta gracia DateTime : 10/14/19 [...] Prescrib ed Elsewher e: Yes Loca [facility]: [facility] odify By: lizz mendezunter DateTime : 05/24/19 [...] Prescrib ed Elsewher e: Yes Loca tion: [facility] odify By: dora noyola DateTime : 08/15/19 12 04:30:00 PM Not Available Not Available Not Available D3 Plus K2 Dots active Not Available Not Available Not Available B12 5,000 mcg-100 mcg sublingua l lozenge 02/15 completed Prescrib ed Elsewher e: Yes Loca tion: [facility] odify By: dora noyola DateTime : [...] Elsewher e: Yes Loca tion: [facility] odify By: dora noyola DateTime : 08/15/19 12 04:30:00 PM Not Available Not Available Not Available Vitamin D3 50 mcg (2,000 unit) capsule 06/18 completed Prescrib ed Elsewher e: Yes Loca tion: [facility] odify By: rosetta gracia DateTime : 10/14/19 17 10:30:00 AM Not Available Not Available Not Available Fish Oil 100 mg-160 mg-1,000 mg capsule 02/15 completed Prescrib ed Elsewher e: Yes Loca tion: [facility] odify By: dora noyola DateTime : 08/15/19 12 04:30:00 PM Not Available Not Available Not Available Dutoprol 100 mg-12.5 mg tablet,ex tended release take 1 tablet by oral route every day 02/15 completed Prescrib ed Elsewher e: Yes Loca tion: [facility] odify By: dora noyola DateTime : [...] Updated DateTime 06/15/2022 153.67 cm 37.8 kg/m2 53827.7 g 118/81 mm[Hg] Umu Gaxiola [facility] 06/15/2022 10:41:38 Date Recorded Systolic And Diastolic Provider Name and Address Organization Details Last Updated DateTime 02/15/2021 120/80 mm[Hg] Peg Brito, [facility]- [address], [place], [address], [facility] 02/15/2021 11:52:10 Date Recorded Body height Body mass index (BMI) Body weight Provider Name and Address Organization Details Last Updated DateTime 02/15/2021 153.67 cm 45.3 kg/m2 213002.8 g Barb Delatorre [facility] 02/15/2021 11:29:27 Social History Question Answer Notes LastModified by Organizat ion Details LastModified Time Tobacco Smoking Status Former Smoker Umu Gaxiola [facility], [facility] 06/15/2022 10:42:12 Do You Have An [...] Or The Highest Degree You Have Received? 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 Occasional Information not available 01/12/2021 Mental Status Question Answer Note LastModified by Organization D etails LastModified Time Do you feel stressed (tense, restless, nervous, or anxious, or unable to sleep at night)? [id number] Information not available 01/12/2021 Family History Relationship [...] Medical History Condition Response Heart Problems Y History of abnormal pap Y Acid Reflux (GERD) Y Urinary Tract Infection Y Asthma Y [...] SNOMED-CT Code Diagnosis ICD10 Code Diagnosis Note [id number] Peg Brito [facility] [address] [address] 01/10/2020 10:29:47 01/10/2020 12:29:20 Gynecologic examination 70202352 Z01.419 Suggested Calcium with Vitamin D 1200-1500m g daily. Patient advised to get an annual flu shot in the fall and she could obtain at [facility] or [facility]. Also to obtain TDap vaccinatio n if [...] SA x 4yrs. Female str ess incontinence [id number] N39.3 Exam wnl Advised double void routine. If still much issue or worsens can refer to Urogyn. [id number] [facility] [address] [address] 02/15/2021 11:04:27 02/15/2021 12:17:27 Gynecologic examination 69916351 Z01.419 Suggested Calcium with Vitamin D 1200-1500m g daily. Patient advised to get an annual flu shot in the fall and she could obtain at [facility] or [facility] care clinic. Also to obtain TDap [...] y-will discuss with PCP appt coming up [id number] Peg Brito , [facility] [address] [address] 06/15/2022 10:29:14 06/15/2022 10:55:28 Gynecologic examination 36100072 Z01.419 Suggested Calcium with Vitamin D 1200-1500m g daily. Patient advised to get an annual flu shot in the fall and she could obtain at [facility] or [facility] care clinic. Also to obtain TDap [...] PCP Routine Labs PCP Screening mammography 24 305229 Z12.31 Health Concerns Section Related Observation LastModified by Organization Detai ls LastModified Time None Recorded Concern Status LastModified by Organization Details LastModified Time None Recorded Advance Directives Directive N: Payers Insurance Date Sequence Insurance Name Policy Number Policy Bill Covered Member ID Bill Member ID Guarantor Name 08/15/2024 1 [facility] PRIOR TO 09/24/2020 (MEDICAID REPLACEMENT - HMO) Shoshana Salas [id number] Shoshana Salas 08/25/2024 1 [facility] ON OR AFTER 09/24/20 (MEDICAID REPLACEMENT - HMO) Shoshana Salas [id number] Shoshana Salas Notes Date Note Type Note [...] 41, andneeds to schedule mammogram. Peg Brito [facility] [address], [place], [address], [facility] 01/10/2020 11:22:32 1 text/html Annual Telecasting Technician Post-MenopausalReported by PatientGenitourinary symptomsFor menopausal symptoms, patient [...] andneeds to schedule bone density. Peg Brito [facility] [address], [place], [address], [facility] 02/15/2021 11:55:46 3 text/html Annual Telecasting Technician Post-MenopausalReported by PatientGenitourinary symptomsFor menopausal symptoms, patient [...] colonoscopy. Peg Brito, [facility]- [address], [place], [address], [facility] 06/15/2022 10:53:31 OBGyn Episode Ob Episode Information Episode Created Date Number of Fetuses Patient Bloodtype Patient rh Status Prepregnancy Weight lbs Domestic Partner Domestic Partner Phone Father Name Rim Fire Priming Tool Setter Status 01/10/20 1 CLOSED Fetus Data First [...] Domestic Partner Domestic Partner Phone Father Name Rim Fire Priming Tool Setter Status 01/10/20 1 CLOSED Fetus Data First [...]
--- OUTSIDE RECORDS SUMMARY | 2024-10-18 10:15 | XMS_ITS | Encounter Summary ---
Author Organization [facility] Address [address] [place] [address] Phone Care Team Providers Care City Solicitor Name Role Phone Franki Flor Primary Care Provider [phone] Joss Montoya MD Unavailable [phone] Encounter Details Date Type Department Care Team (Late st Contact Info) Description 04/13/2021 Telephone [facility] [address] [place] [address] Joss Montoya MD [address] [facility] [address] [facility] [address] [place] [address] Social History Tobacco Use Types [...] CALLED TO CANCEL APPOINTMENT. COVID POSITIVE. 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 WILL RESCHEDULE LATER. UCT SUPPORT ENGINEER documented in this encounter Plan of Treatment Upcoming Encounters Date Type Department Care Team (Late st Contact Info) Description 12/30/2024 2:15 PM CDT Lab [facility] [address] [phone] Lab[facility] 12/30/2024 2:30 PM CDT Office Visit [facility] [address] [address] Joss Montoya MD [address] [place] [address] [place] [id number] documented as of this encounter Visit Diagnoses Not on filedocumented in this encounter Additional Health Concerns Assessment Noted Time PHQ-9 Depression Total Score: 0 10/09/19 21 11:42 AM CDT documented as of this encounter Care Teams City Solicitor Relationship Specialty Start Date End Date Franki Flor [address] [facility] [place] [address] PCP - General Family Medicine 01/26/18 Joss Montoya MD [address] [place] [phone] Consulting Physician Oncology 06/21/22 documented as of this encounter
--- OUTSIDE RECORDS SUMMARY | 2024-10-18 10:15 | XMS_ITS | Encounter Summary ---
Author Organization [facility] Address [id number] [place] [address] Care Team Providers Care Quotation Checker Name Role Phone Franki Flor MD Primary Care Provider [phone] Encounter Details Date Type Department Care Team (Late st Contact Info) Description 01/28/2017 [place] [address] , Generic [facility] Social History Tobacco Use Types Packs/Day Years Used Date Smoking Tobacco: Never Assessed Comments Unknown Sex and Gender Information Value Date Recorded Sex Assigned at Female 04/16/2024 6:27 PM TRAINING DEVELOPMENT SPECIALIST Legal Sex Female 7:30 PM CDT Gender Identity Not on file Sexual Orientation Not on file documented as of this encounter Plan of Treatment Not on file documented as of this encounter Visit Diagnoses Not on filedocumented in this encounter Care Teams Quotation Checker Relationship Specialty Start Date End Date Franki Flor MD PCP - General 09/16/14 documented as of this encounter
--- OUTSIDE RECORDS SUMMARY | 2024-10-18 10:15 | XMS_ITS | Clinical Summary ---
Author Organization [facility] Address [address] [place] [address] Care Team Providers Care Beet Flumer Name Role Phone Franki Flor MD Primary Care Provider [phone] Allergies No known active allergies Medications Potassium [...] Most Recently Relevant to Health Maintenance [place] [place] [address] PLAN MEDICAID Care Teams Beet Flumer Relationship Specialty Start Date End Date Franki Flor MD [address] [place] [phone] PCP - General Family Practice 06/04/18
--- OUTSIDE RECORDS SUMMARY | 2024-10-18 10:15 | XMS_ITS | Clinical Summary ---
Author Organization [facility] Address [address] [place] [address] Care Team Providers Care Vocational Teacher Name Role Phone Franki Flor MD Primary Care Provider [phone] Allergies No known active allergies Medications No known medications Immunizations Immunization Administration Dates Next Due MODERNA COVID-19 (12+) MRNA, LNP-S, PF, 100 MCG/ 0.5 ML DOSE 05/05/2020,04/07/2020 Social History Tobacco Use Types Packs/Day Years Used Date Smoking Tobacco: Never Assessed Comments No Sex and Gender Information Value Date Recorded Sex Assigned at Female 04/16/2024 6:27 PM [employer] Legal Sex Female 7:30 PM CDT Gender Identity Not on file Sexual Orientation Not on file Last Filed Vital Signs Vital Sign Reading Time Taken Comments Blood Pressure 111/63 04/16/2024 8:43 PM [employer] Pulse 95 04/16/2024 8:43 PM [employer] Temperature 36.7 C (98.1 F) 04/16/2024 6:22 PM [employer] Respiratory Rate 20 04/16/2024 8:43 PM [employer] Oxygen Saturation 95% 04/16/2024 8:43 PM [employer] Inhaled Oxygen Concentration - - Weight 97.5 kg (215 lb) 04/16/2024 6:22 PM [employer] Height 152.4 cm (5') 04/16/2024 6:22 PM [employer] Body Mass Index 41.99 04/16/2024 6:22 PM [employer] Plan of Treatment Health Maintenance Due Date [...] patient's age to complete this topic Insurance [address] Care Teams Vocational Teacher Relationship Specialty Start Date End Date Franki Flor MD PCP - General 09/16/14
--- OUTSIDE RECORDS SUMMARY | 2024-10-18 10:15 | XMS_ITS | Encounter Summary ---
Author Organization [facility] Address [address] [place] [address] Phone Care Team Providers Care Assisted Living Home Director Name Role Phone Franki Flor Primary Care Provider [phone] Joss Montoya MD Unavailable [phone] Encounter Details Date Type Department Care Team (Late st Contact Info) Description 03/23/2021 Telephone [facility] [address] [place] [address] Joss Montoya MD [address] [facility] [address] [place] [address] Social History Tobacco Use Types [...] stress test new appt is on 04/13. 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 Plan of Treatment Upcoming Encounters Date Type Department Care Team (Late st Contact Info) Description 12/30/2024 2:15 PM CDT Lab [facility] [address] [id number] Lab, [facility] 12/30/2024 2:30 PM CDT Office Visit [facility] [address] [phone] Joss Montoya MD [address] [place] [address] [address] documented as of this encounter Visit Diagnoses Not on filedocumented in this encounter Additional Health Concerns Assessment Noted Time PHQ-9 Depression Total Score: 0 10/09/19 21 11:42 AM CDT documented as of this encounter Care Teams Assisted Living Home Director Relationship Specialty Start Date End Date Franki Flor [address] [place] [address] PCP - General Family Medicine 01/26/18 Joss Montoya MD [address] [place] [id number] Consulting Physician Oncology 06/21/22 documented as of this encounter
== END 2024-10-18 10:10 | disposition home or self-care (01) ==
LOC: ANHIMG 10:12
PROVIDERS: PCP Emergency Medicine; Visit Provider Emergency Medicine
DX: Z12.31 Encounter for screening mammogram for malignant neoplasm of breast (principal)
CPT/HCPCS: 77063; 77067

== ENCOUNTER 2024-11-12 09:21 | Outpatient (CLI) | payer OTHER, SELFPAY ==
--- OUTSIDE RECORDS SUMMARY | 2024-10-22 08:21 | XMS_ITS | Continuity of Care Document ---
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 syndromeAttention deficit 1 Chacho Saeed [address], [place], [place], [address] , [place]. tel:[phone] OFFICE/OUTPA TIENT VISIT, EST [facility], [address], [place], [place], [address], [place] tel:[phone] [facility] sick1 (chief complaint) Viral infectionDiarrhea 1 Chacho Doan. [address], [place], [place], [address] , [place]. tel:[phone] OFFICE/OUTPA TIENT VISIT, [facility], [address], [place], [place], [address], [place] tel:[phone] [facility] coagulopat hy1 (chief complaint) ADD (chief complaint) HLP (chief complaint) back pain1 (chief complaint) Pre-DM (chief complaint) fatty liver1 (chief complaint) Chronic pain syndromeAttention and concentration deficitHypercoagula ble stateHyperlipidemia Fatty liverMetabolic syndrome 1 Chacho Doan. [address], [place], [place], [address] , [place]. tel:[phone] OFFICE/OUTPA TIENT VISIT, [facility], [address], [place], [place], [address], [place] tel:[phone] [facility] coagulopat hy1 (chief complaint) ADD (chief complaint) pain1 (chief complaint) weight gain1 (chief complaint) Attention and concentration deficitChronic pain syndromeHypercoagul able stateAbnormal weight gain 1 Chacho Saeed [address], [place], [place], [address] , [place]. tel:[phone] PREV VISIT, EST, AGE 40-64 [facility], [address], [place], [place], [address], [place] tel:[phone] [facility] physical (chief complaint) Encounter for general adult medical examination without abnormal findings 1 Chacho Doan. [address], [place], [place], [address] , [place]. tel:[phone] OFFICE/OUTPA TIENT VISIT, [facility], [address], [place], [place], [address], [place] tel:[phone] [facility] pain (chief complaint) sleep apnea1 (chief complaint) ADD (chief complaint) GERD1 (chief complaint) Chronic pain syndromeSleep apneaAttention and concentration deficitGERD w/o esophagitis 0 Chacho Doan. [address], [place], [place], [address] , [place]. tel:[phone] OFFICE/OUTPA TIENT VISIT, [facility], [address] [place], [address], [place] tel:[phone] [facility] pain1 (chief complaint) fatigue1 (chief complaint) ADD (chief complaint) Chronic pain syndromeSleep apneaAttention deficit 0 Chacho Doan. [address], [place], [place], [address] , [place]. tel:[phone] OFFICE/OUTPA TIENT VISIT, [facility], [address] [place], [address], [place] tel:[phone] [facility] coagulopat hy1 (chief complaint) pain1 (chief complaint) gout1 (chief complaint) fatigue1 (chief complaint) Hypercoagulable stateChronic pain syndromeFatigueGout 0 Chacho Doan. [address], [place], [place], [address] , [place]. tel:[phone] OFFICE/OUTPA TIENT VISIT, [facility], [address] [place], [address], [place] tel:[phone] [facility] back pain1 (chief complaint) coagulopat hy1 (chief complaint) ADD (chief complaint) obesity1 (chief complaint) Hypercoagulable stateChronic pain syndromeSleep apneaObesity 0 Chacho Doan. [address], [place], [place], [address] , [place]. tel:[phone] OFFICE/OUTPA TIENT VISIT, [facility], [address], [place], [place], [address], [place] tel:[phone] [facility] pain1 (chief complaint) HTN (chief complaint) fatigue1 (chief complaint) Lumbago with sciatica, right sideEssential (primary) hypertensionFatigue 0 Chacho Doan. [address], [place], [place], [address] , [place]. tel:[phone] OFFICE/OUTPA TIENT VISIT, [facility], [address], [place], [place], [address], [place] [phone] [facility] back pain1 (chief complaint) Lumbago with sciatica, right side 0 Chacho Doan. [address], [place], [place], [address] , [place]. tel:[phone] OFFICE/OUTPA TIENT VISIT, [facility], [address], [place], [place], [address], [place] tel:[phone] [facility] coagulopat hy1 (chief complaint) pain (chief complaint) ADD (chief complaint) FatigueHypercoagula ble stateSleep apneaChronic pain syndrome 0 Chacho Doan. [address], [place], [place], [address] , [place]. tel:[phone] OFFICE/OUTPA TIENT VISIT, [facility], [address], [place], [place], [address], [place] tel:[phone] [facility] coumadin1 (chief complaint) pain (chief complaint) fatigue1 (chief complaint) headache1 (chief complaint) Chronic pain syndromeHypercoagul able stateFatigueMigrain eEncounter for oth screening for malignant neoplasm of breast 0 Chacho Doan. [address], [place], [place], [address] , [place]. tel:[phone] OFFICE/OUTPA TIENT VISIT, [facility], [address], [place], [place], [address], [place] tel:[phone] [facility] pain (chief complaint) coagulopat hy1 (chief complaint) gout1 (chief complaint) ADD (chief complaint) Chronic pain syndromeAttention and concentration deficitHypercoagula ble stateGout July-2 0-202 0 Chacho Doan. [address], [place], [place], [address] , [place]. tel:[phone] Referring Provider: Franki Flor [address] [facility] [address], [place], [place], [address]. tel:[phone] OFFICE/OUTPA TIENT VISIT, [facility], [address], [place], [place], [address], [place] tel:[phone] [facility] coagulopat hy1 (chief complaint) pain (chief complaint) ADD (chief complaint) osteopenia 1 (chief complaint) anxiety1 (chief complaint) Generalized Anxiety DisorderHypercoagul able stateChronic pain syndromeOther specified disorder of bone densityAttention and concentration deficit Jun-2 0 0 Chacho Doan. [address], [place], [place], [address] , [place]. tel:[phone] Referring Provider: Franki Flor [address] [facility] [address], [place], [place], [address]. tel:[phone] OFFICE/OUTPA TIENT VISIT, [facility], [address], [place], [place], [address], [place] tel:[phone] [facility] PTSD (chief complaint) Post-traumatic stress disorder, acuteVomiting Jun-0 0 Chacho Doan. [address], [place], [place], [address] , [place]. tel:[phone] Referring Provider: Franki Flor [address], [place], [place], [address]. tel:[phone] OFFICE/OUTPA TIENT VISIT, [facility], [address], [place], [place], [address], [place] tel:[phone] [facility] pain (chief complaint) ADD (chief complaint) FatigueChronic pain syndrome May-2 0-202 0 Chacho Doan. [address], [place], [place], [address] , [place]. tel:[phone] Referring Provider: Franki Flor, [address], [place], [place], [address]. tel:[phone] OFFICE/OUTPA TIENT VISIT, [facility], [address], [place], [place], [address], [place] tel:[phone] [facility] anxiety1 (chief complaint) Generalized Anxiety DisorderDepression May-0 4 0 Chacho Doan. [address], [place], [place], [address] , [place]. tel:[phone] Referring Provider: Franki Flor [address], [place], [place], [address]. tel:[phone] OFFICE/OUTPA TIENT VISIT, [facility], [address], [place], [place], [address], [place] tel:[phone] [facility] HLP (chief complaint) anxiety1 (chief complaint) coagulopat hy1 (chief complaint) pain (chief complaint) FatigueHypercoagula ble stateGeneralized Anxiety DisorderHyperlipide miaOther specified disorder of bone density Apr-2 0-202 0 Chacho Doan. [address], [place], [place], [address] , [place]. tel:[phone] Referring Provider: O[address], [place], [place], [address]. tel:[phone] OFFICE/OUTPA TIENT VISIT, [facility], [address], [place], [place], [address], [place] tel:[phone] [facility] anxiety1 (chief complaint) INR (chief complaint) pain (chief complaint) ADD (chief complaint) CAD (chief complaint) Hypercoagulable stateChronic pain syndromeGeneralized Anxiety DisorderFatigueOthe r specified disorder of bone density 0 0 Chacho Doan. [address], [place], [place], [address] , [place]. [phone] Referring Provider: Oumou Jo [facility] [address], [place], [place], [address]. tel:[phone] OFFICE/OUTPA TIENT VISIT, EST [facility], [address], [place], [place], [address], [place] [phone] [facility] ADD (chief complaint) chronic pain1 (chief complaint) anxiety1 (chief complaint) osteopenia 1 (chief complaint) coagulopat hy1 (chief complaint) Chronic pain syndromeHypercoagul able stateOther specified disorder of bone densityFatigueGener alized Anxiety Disorder 9 Chacho Doan. [address], [place], [place], [address] , [place]. [phone] PREV VISIT, EST, AGE 40-64 [facility], [address] [place], [address], [place] tel:[phone] [facility] PHysical (chief complaint) Encntr for general adult medical exam w/o abnormal findings 9 Chacho Doan. [address], [place], [place], [address] , [place]. [phone] Referring Provider: Oumou [address] [facility] [address], [place], [place], [address]. tel:[phone] OFFICE/OUTPA TIENT VISIT, EST [facility], [address] [place], [address], [place] tel:[phone] [facility] osteopenia 1 (chief complaint) metabolic1 (chief complaint) fatty liver1 (chief complaint) INR (chief complaint) chronic pain1 (chief complaint) fatigue1 (chief complaint) Hypercoagulable stateGoutFatty liverOther specified disorder of bone densityChronic pain syndromeFatigueMeta bolic syndrome 9 Chacho Doan. [address], [place], [place], [address] , [place]. tel:[phone] OFFICE/OUTPA TIENT VISIT, [facility], [address], [place], [place], [address], [place] tel:[phone] [facility] GERD1 (chief complaint) coumadin1 (chief complaint) fatigue1 (chief complaint) chronic pain1 (chief complaint) gout1 (chief complaint) GoutHypercoagulable stateChronic pain syndromeGERD without esophagitisFatigue 9 Chacho Saeed [address], [place], [place], [address] , [place]. [phone] OFFICE/OUTPA TIENT VISIT, [facility], [address], [place], [place], [address], [place] tel:[phone] [facility] ADD (chief complaint) coagulopat hy1 (chief complaint) chronic pain1 (chief complaint) gout (chief complaint) HTN (chief complaint) Chronic pain syndromeHypercoagul able stateEssential (primary) hypertensionFatigue Gout 9 Chacho Saeed [address], [place], [place], [address] , [place]. tel:[phone] Referring Provider: [address], [place], [place], [address]. tel:[phone] OFFICE/OUTPA TIENT VISIT, [facility], [address], [place], [place], [address], [place] tel:[phone] [facility] headache1 (chief complaint) fatigue1 (chief complaint) GERD1 (chief complaint) chronic pain1 (chief complaint) coagulopat hy1 (chief complaint) FatigueChronic pain syndromeHypercoagul able stateGERD without esophagitisMigraine Other specified disorder of bone density 9 Chacho Saeed [address], [place], [place], [address] , [place]. tel:[phone] OFFICE/OUTPA TIENT VISIT, [facility], [address], [place], [place], [address], [place] tel:[phone] [facility] fatigue1 (chief complaint) back pain1 (chief complaint) coagulopat hy1 (chief complaint) fatty liver1 (chief complaint) uric acid1 (chief complaint) preDM (chief complaint) Chronic pain syndromeHypercoagul able stateFatigueFatty liverAsymptomatic hyperuricemiaMetabo lic syndrome Aug- 9 Chacho Doan. [address], [place], [place], [address] , [place]. tel:[phone] Referring Provider: [address], [place], [place], [address]. tel:[phone] OFFICE/OUTPA TIENT VISIT, [facility], [address], [place], [place], [address], [place] tel:[phone] [facility] HLP (chief complaint) back pain1 (chief complaint) sleep apnea1 (chief complaint) coag (chief complaint) FatigueHypercoagula ble stateHyperlipidemia Chronic pain syndrome 9 Chacho Saeed [address], [place], [place], [address] , [place]. tel:[phone] Referring Provider: [address], [place], [place], [address]. tel:[phone] OFFICE/OUTPA TIENT VISIT, [facility], [address], [place], [place], [address], [place] tel:[phone] [facility] coagulopat hy1 (chief complaint) osteopenia 1 (chief complaint) ADD (chief complaint) GERD1 (chief complaint) chronic pain1 (chief complaint) FatigueGERD without esophagitisHypercoa gulable stateChronic pain syndromeOther specified disorder of bone density 9 Chacho Doan. [address], [place], [place], [address] , [place]. tel:[phone] Referring Provider: Franki Flor, [address], [place], [place], [address]. tel:[phone] OFFICE/OUTPA TIENT VISIT, [facility], [address], [place], [place], [address], [place] tel:[phone] [facility] mammmogram 1 (chief complaint) coaguloapt hy1 (chief complaint) back pain1 (chief complaint) fatigue1 (chief complaint) osteopenia 1 (chief complaint) Hypercoagulable stateInconclusive mammogramOther specified disorder of bone densityChronic pain syndromeSleep apneaBody mass index (BMI) 45.0-49.9, adult 9 Chacho Doan. [address], [place], [place], [address] , [place]. tel:[phone] Referring Provider: Oumou [address], [place], [place], [address]. tel:[phone] OFFICE/OUTPA TIENT VISIT, [facility], [address], [place], [place], [address], [place] tel:[phone] [facility] breast (chief complaint) chronic pain1 (chief complaint) osteopenia 1 (chief complaint) cougulopat hy1 (chief complaint) fatigue1 (chief complaint) Hypercoagulable stateInconclusive mammogramFatigueChr onic pain syndromeOther specified disorder of bone densityHyperlipidem ia 9 Chacho Doan. [address], [place], [place], [address] , [place]. tel:[phone] Referring Provider: Franki Flor [address], [place], [place], [address]. tel:[phone] OFFICE/OUTPA TIENT VISIT, [facility], [address], [place], [place], [address], [place] tel:[phone] [facility] fatigue1 (chief complaint) back pain1 (chief complaint) GERD1 (chief complaint) coagulopat hy1 (chief complaint) Body mass index (BMI) 45.0-49.9, adultFatigueHyperco agulable stateInconclusive mammogramChronic pain syndromeGERD without esophagitis 9 Chacho Doan. [address], [place], [place], [address] , [place]. tel:[phone] Referring Provider: Oumou [address], [place], [place], [address]. tel:[phone] OFFICE/OUTPA TIENT VISIT, EST [facility], [address], [place], [place], [address], [place] [phone] [facility] clotting1 (chief complaint) back pain1 (chief complaint) ADD (chief complaint) sleep apnea1 (chief complaint) Hypercoagulable stateFatigueAttenti on deficitInconclusive mammogramChronic pain syndrome 8 Chacho Saeed [address], [place], [place], [address] , [place]. tel:[phone] Referring Provider: Oumou [address], [place], [place], [address]. tel:[phone] OFFICE/OUTPA TIENT VISIT, [facility], [address], [place], [place], [address], [place] tel:[phone] [facility] GERD1 (chief complaint) back pain1 (chief complaint) coagulopat hy1 (chief complaint) ADD (chief complaint) Body mass index (BMI) 45.0-49.9, adultHypercoagulabl e stateAttention deficitChronic pain syndromeGERD without esophagitis 8 Chacho Saeed [address], [place], [place], [address] , [place]. tel:[phone] Referring Provider: Oumou [address], [place], [place], [address]. tel:[phone] PREV VISIT, EST, AGE 40-64 [facility], [address], [place], [place], [address], [place] tel:[phone] [facility] Physical (chief complaint) Encounter for general adult medical exam w abnormal findingsHypercoagul able stateFatty liverEssential (primary) hypertensionMigrain eOther specified disorder of bone densityHyperlipidem ia 8 Chacho Saeed [address], [place], [place], [address] , [place]. [phone] Referring Provider: Oumou [address], [place], [place], [address]. tel:[phone] OFFICE/OUTPA TIENT VISIT, [facility], [address], [place], [place], [address], [place] tel:[phone] [facility] chronic pain1 (chief complaint) ADD (chief complaint) Sleep apneaChronic pain syndrome 8 Chacho Saeed [address], [place], [place], [address] , [place]. [phone] OFFICE/OUTPA TIENT VISIT, [facility], [address], [place], [place], [address], [place] tel:[phone] [facility] HTn (chief complaint) lupus1 (chief complaint) back apin1 (chief complaint) coagulopat hy1 (chief complaint) ADD (chief complaint) Attention deficitEssential (primary) hypertensionGERD without esophagitisHypercoa gulable stateChronic pain syndrome 8 Chacho Saeed [address], [place], [place], [address] , [place]. tel:[phone] Referring Provider: Oumou [address], [place], [place], [address]. tel:[phone] OFFICE/OUTPA TIENT VISIT, [facility], [address], [place], [place], [address], [place] tel:[phone] [facility] back pain1 (chief complaint) ADD (chief complaint) headache1 (chief complaint) sleep apnea1 (chief complaint) Body mass index (BMI) 45.0-49.9, adultAttention deficitMigraineSlee p apneaLong term (current) use of anticoagulantsChron ic pain syndrome Sep- 3201 8 Chacho Doan. [address], [place], [place], [address] , [place]. tel:[phone] Referring Provider: Oumou [address], [place], [place], [address]. tel:[phone] OFFICE/OUTPA TIENT VISIT, [facility], [address], [place], [place], [address], [place] tel:[phone] [facility] sleep apnea1 (chief complaint) ADD (chief complaint) back pain1 (chief complaint) obeisty1 (chief complaint) Body mass index (BMI) 45.0-49.9, adultChronic pain syndromeLong term (current) use of anticoagulantsSleep apneaAttention deficit 0-201 8 Chacho Doan. [address], [place], [place], [address] , [place]. tel:[phone] Referring Provider: Oumou [address], [place], [place], [address]. tel:[phone] OFFICE/OUTPA TIENT VISIT, [facility], [facility] [address] [place], [address], [place] tel:[phone] [facility] ADD (chief complaint) bakc pain1 (chief complaint) headache1 (chief complaint) GERD1 (chief complaint) itching1 (chief complaint) Body mass index (BMI) 45.0-49.9, adultMigraineGERD without esophagitisChronic pain syndromeScabiesAtte ntion deficit 3201 8 Chacho Doan. [address], [place], [place], [address] , [place]. tel:[phone] Referring Provider: Oumou [address], [place], [place], [address]. tel:[phone] OFFICE/OUTPA TIENT VISIT, [facility], [address] [place], [address], [place] tel:[phone] [facility] fatigue1 (chief complaint) headache1 (chief complaint) back pain1 (chief complaint) itching1 (chief complaint) Body mass index (BMI) 45.0-49.9, adultHyperlipidemia FatigueMigraineChro bean pain syndromeScabies Jun- 8 Chacho Saeed [address], [place], [place], [address] , [place]. tel:[phone] Referring Provider: [address], [place], [place], [address]. tel:[phone] OFFICE/OUTPA TIENT VISIT, [facility], [address], [place], [place], [address], [place] tel:[phone] [facility] osteopenia 1 (chief complaint) chronic pain1 (chief complaint) coagulopat hy1 (chief complaint) C diff (chief complaint) USP (current) use of anticoagulantsChron ic pain syndromeEnterocolit is due to Clostridium difficile, not specified as recurrentBody mass index (BMI) 45.0-49.9, adultOther specified disorder of bone density May- 8 Chacho Saeed [address], [place], [place], [address] , [place]. tel:[phone] Referring Provider: O[address], [place], [place], [address]. tel:[phone] OFFICE/OUTPA TIENT VISIT, [facility], [address], [place], [place], [address], [place] tel:[phone] [facility] C diff (chief complaint) CAD (chief complaint) back pain1 (chief complaint) Body mass index (BMI) 45.0-49.9, adultLong term (current) use of anticoagulantsChron ic pain syndromeEnterocolit is due to Clostridium difficile, not specified as recurrent Apr- 8 Chacho Co[address], [place], [place], [address] , [place]. tel:[phone] Referring Provider: [address], [place], [place], [address]. tel:[phone] OFFICE/OUTPA TIENT VISIT, [facility], [address] [place], [address], tel:[phone] [facility] headache1 (chief complaint) HLP (chief complaint) coumadin1 (chief complaint) bcck pain1 (chief complaint) obeisty1 (chief complaint) USP (current) use of anticoagulantsHyper lipidemiaMigraineBo dy mass index (BMI) 45.0-49.9, adult 8 Chacho Doan. [address], [place], [place], [address] , [place]. tel:[phone] Referring Provider: [address], [place], [place], [address]. tel:[phone] OFFICE/OUTPA TIENT VISIT, [facility], [address] [place], [address], [place] tel:[phone] [facility] HLP (chief complaint) LFT1 (chief complaint) chronic pain (chief complaint) coagulopat hy1 (chief complaint) HyperlipidemiaFatty liverLong term (current) use of anticoagulantsBody mass index (BMI) 45.0-49.9, adult 7 Chacho Saeed [address], [place], [place], [address] , [place]. tel:[phone] Referring Provider: [address], [place], [place], [address]. tel:[phone] OFFICE/OUTPA TIENT VISIT, [facility], [address], [address], [place] tel:[phone] [facility] coagulopat hy1 (chief complaint) back pain1 (chief complaint) obesity1 (chief complaint) HLP (chief complaint) Chronic pain syndromeBody mass index (BMI) 45.0-49.9, adultLong term (current) use of anticoagulantsHyper lipidemia 7 Flor Franki. [address], [place], [place], [address] , [place]. tel:[phone] Referring Provider: [address], [place], [place], [address]. tel:[phone] PREV VISIT, EST, AGE 40-64 [facility], [address], [place], [place], [address], [place] tel:[phone] [facility] Medicine Physical (chief complaint) Encounter for general adult medical exam w abnormal findingsChronic pain syndromeDiarrheaGER D without esophagitis Chacho Doan. [address], [place], [place], [address] , [place]. tel:[phone] Referring Provider: Oumou [address], [place], [place], [address]. tel:[phone] OFFICE/OUTPA TIENT VISIT, [facility], [facility] [address], [place], [place], [address], [place] tel:[phone] [facility] coagulopat hy1 (chief complaint) back pain1 (chief complaint) opsteopeni a1 (chief complaint) obesity1 (chief complaint) Chronic pain syndromeLong term (current) use of anticoagulantsOther specified disorder of bone densityBody mass index (BMI) 45.0-49.9, adult 7 Chacho Doan. [address], [place], [place], [address] , [place]. tel:[phone] Referring Provider: Oumou [address], [place], [place], [address]. tel:[phone] OFFICE/OUTPA TIENT VISIT, EST [facility], [address], [address], [place] tel:[phone] [facility] HTN (chief complaint) insomnia1 (chief complaint) back pain1 (chief complaint) coagulopat hy1 (chief complaint) Essential (primary) hypertensionLow back painLong term (current) use of anticoagulantsInsom buster 7 Flor Franki. [address], [place], [place], [address] , [place]. tel:[phone] Referring Provider: Franki Flor [address], [place], [place], [address]. tel:[phone] OFFICE/OUTPA TIENT VISIT, [facility], [address], [place], [place], [address], [place] tel:[phone] [facility] coagulopat hy1 (chief complaint) GERD1 (chief complaint) back pain1 (chief complaint) osteopenia 1 (chief complaint) USP (current) use of anticoagulantsOther specified disorder of bone densityChronic pain syndromeGERD w/o esophagitis Chacho Doan. [address], [place], [place], [address] , [place]. tel:[phone] Referring Provider: Franki Flor [facility] [address], [place], [place], [address]. tel:[phone] OFFICE/OUTPA TIENT VISIT, [facility], [address], [place], [place], [address], [place] tel:[phone] [facility] GERD1 (chief complaint) back pain1 (chief complaint) INR (chief complaint) ear pain1 (chief complaint) Otalgia, left earGERD without esophagitisChronic pain syndromeLong term (current) use of anticoagulants Chacho Doan. [address], [place], [place], [address] , [place]. tel:[phone] Referring Provider: Oumou [address], [place], [place], [address]. tel:[phone] OFFICE/OUTPA TIENT VISIT, [facility], [address] [place], [address], [place] tel:[phone] [facility] GERD1 (chief complaint) coumadin1 (chief complaint) Osteopenia 1 (chief complaint) back pain1 (chief complaint) Low back painLong term (current) use of anticoagulantsOther specified disorder of bone densityGERD without esophagitis May-1 8-201 7 Chacho Doan. [address], [place], [place], [address] , [place]. [phone] Referring Provider: Oumou [address], [place], [place], [address]. tel:[phone] OFFICE/OUTPA TIENT VISIT, [facility], [address], [place], [place], [address], [place] tel:[phone] [facility] back pain1 (chief complaint) coagulopat hy1 (chief complaint) HLP (chief complaint) obesity1 (chief complaint) Chronic pain syndromeHyperlipide miaBody mass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
--- NOTE | ~2024-11-12 | XR_ITS ---
EXAMINATION: XR UGI w barium swallow DATE: 11/12/2024 10:18 INDICATION: Status post bariatric surgery TECHNIQUE: The patient drank thick barium, gas-producing crystals, and thin barium. Fluoroscopic spot radiographs of the hypopharynx, esophagus, stomach and proximal small bowel were obtained. Fluoroscopy exposure time was 2.1 minutes. Total DAP was 19.451 mGycm^2. A total of 1070 fluoroscopic images were recorded. COMPARISON: None. FINDINGS: The pharynx is symmetric and without evidence of mass lesion or mucosal irregularity. The esophagus is normal without mass or stricture. Esophageal motility is normal. There is a small sliding-type hiatal hernia with gastroesophageal junction possibly 4 cm above the diaphragm. The stomach appears smaller in transaxial dimensions and typical consistent with reported history of prior sleeve gastrectomy. Several surgical clips are noted along the medial aspect of the right hemidiaphragm. There was recurrent reflux of contrast both from the intra-abdominal and intrathoracic portion the stomach as well as further or proximal gastroesophageal reflux. This occurred both spontaneously and with provocative maneuvers. The small bowel is normal. Incidentally noted are medial and sternotomy wires and mediastinal surgical clips are consistent with prior coronary artery bypass grafting. IMPRESSION: 1. Small sliding-type hiatal hernia with multiple episodes of gastroesophageal reflux. Reviewed, dictated and finalized at location A.
--- OUTSIDE RECORDS SUMMARY | 2024-11-12 09:43 | XMS_ITS | Encounter Summary ---
Author Organization [facility] Health Address [address] 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 Answer Date of Assessment Author No 08/03/2022 12:10 PM CDT Oscar Blakely RN * Is person blind or have serious difficulty seeing? Answer Date of Assessment Author No 08/03/2022 12:10 PM CDT Oscar Blakely RN * Does person have serious difficulty walking/climbing stairs? Answer Date of Assessment Author No 08/03/2022 12:10 PM CDT Oscar Blakely RN * Does person have difficulty dressing/bathing? Answer Date of Assessment Author No 08/03/2022 12:10 PM CDT Oscar Blakely RN * Does person have difficulty doing errands alone? Answer Date of Assessment Author No 08/03/2022 12:10 PM CDT Oscar Blakely RN documented as of this encounter Mental Status * Does person have difficulty concentrating/remembering/making decisions? Answer Entry Date Author No 08/03/2022 12:10 PM CDT Oscar Blakely RN documented in this encounter Miscellaneous Notes * Telephone Encounter - Tonia Norris - 11/06/2024 3:58 PM CDT Lvm x2 for pt to call office to schedule documented in this encounter Plan of Treatment Not on file documented as of this encounter Visit Diagnoses Not on filedocumented in this encounter Care Teams Vacuum Cleaner Operator Relationship Specialty Start Date End Date Franki Flor MD PCP - General Family Medicine 09/16/20 documented as of this encounter
--- OUTSIDE RECORDS SUMMARY | 2024-11-12 09:44 | XMS_ITS | Clinical Summary ---
Author Organization [facility] [employer] [facility] Address [address] [facility] [place] [address] Care Team Providers Care Brazer Crawler Torch Name Role Phone Franki Flor MD Primary Care Provider [phone] Source Comments [facility],non-owned Affiliates and Associated Physician Practices is amultiple site organization consisting of ambulatory clinics and hospital sitesin [place], [place], [place] and [place]. This disclosure is being madepursuant to the Care Everywhere program and may not contain all information available regarding this patient. Last updated 17.[facility] Allergies No known active allergies Medications * [...] times daily 02/11/20 21 Active Probiotic Product (Myngle) capsuleIndicatio ns:Postoperative nausea,Postopera tive pain,S/P bariatric surgery,Hx [...] before breakfast 10/12/19 23 Active HYDROcodone-acet aminophen ([place]) 7.5-325 MG tablet Take 1 (one) tablet [...] liver 10/22/2020 Sleep apnea 10/22/2020 History of [place] (myocardial infarction) 10/22/2020 History of coronary artery bypass graft 10/23/19 21 Lupus anticoagulant disorder 10/22/2020 Anticoagulant long-term use 10/22/2020 History of smoking 10/22/2020 History of DVT (deep vein thrombosis) 10/22/2020 Encounters Date Type Department Care Team Description 11/06/2024 Telephone [facility] [address] [place] [phone] Danay Taylor APRN-CRISTI Appointment 10/30/2024 Telephone [facility] [address] [place] [phone] Danay Taylor APRN-CNP General 10/24/2024 Telephone [facility] [address] [place] [phone] Taylor Camejo MD Appointment 09/13/2024 Telephone [facility] [address] [place] [phone] Taylor Camejo MD Appointment from Last 3 Months Family [...] AM CDT Legal Sex Female 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 ESCALATOR ATTENDANT Gender Identity Female 10/16/2020 9:28 AM CDT Sexual Orientation Straight 10/16/2020 9: 28 AM CDT Last Filed Vital Signs Vital Sign Reading Time Taken Comments Blood Pressure 120/86 02/09/2023 4:01 PM ESCALATOR ATTENDANT Pulse 55 02/09/2023 4:01 PM ESCALATOR ATTENDANT Temperature 36.8 C (98.3 F) 02/06/2023 9:00 AM ESCALATOR ATTENDANT Respiratory Rate 16 02/09/2023 4:01 PM ESCALATOR ATTENDANT Oxygen Saturation 100% 02/09/2023 4:01 PM ESCALATOR ATTENDANT Inhaled Oxygen Concentration - - Weight 92.7 kg (204 lb 4.8 oz) 02/09/2023 1:31 P M ESCALATOR ATTENDANT Height 152.4 cm (5') 02/09/2023 1:31 PM ESCALATOR ATTENDANT Body Mass Index 39.9 02/09/2023 1:31 PM ESCALATOR ATTENDANT Plan of Treatment Health Maintenance Due Date [...] - 19+ 3-dose series) 1995 COVID-19 VACCINE ( season) 2023 12/09/2021, 05/05/2020, 04/07/2020 DEPRESSION SCREENING 03/27/2024 INFLUENZA VACCINE (#1) 2024 12/14/2021 ZOSTER VACCINE (1 of 2) 2026 SCREENING FOR DIABETES 04/16/2027 , 04/16/2024, 05/19/2022, Additional history exists HIB VACCINE Aged Out No longer eligi [...] this topic Medical Devices Implanted Type Area Field Scout Device Identifier Shelf Expiration Date Model / Serial / Lot Mesh Srg [place] [employer] 10x7cm Reinf - Sn/A Implanted:Qty: 1 on 09/15/2021 by Rusty Shannon MD at [facility] Abdomen [employer] 05/11/2024 [id number] / N/A / [id number] Procedures Procedure Name Priority Date/Time Associated Diagnosis Comments COMPREHENSIVE METABOLIC PANEL STAT 05/19/2022 5:53 PM ESCALATOR ATTENDANT from Last 3 Months or Most Recently Relevant to Health Maintenance Results * (ABNORMAL) COMPREHENSIVE METABOLIC PANEL (05/19/2022 5:53 PM ESCALATOR ATTENDANT) Glucose 86 70 - 125 mg/dL 05/19/2022 6:[address] [facility] Sodium 139 136 - 145 mmol/L 05/19/2022 6:[address] [facility] Potassium 4.6 3.4 - 5.1 mmol/L 05/19/2022 6:[address] [facility] Chloride 106 98 - 107 mmol/L 05/19/2022 6:[address] [facility] CO2 22 22 - 29 mmol/L 05/19/2022 6:[address] [facility] Calcium 9.6 8.4 - 10.2 mg/dL 05/19/2022 6:[address] [facility] Anion Gap 16 10 - 20 mmol/L 05/19/2022 6:[address] [facility] BUN 22.7(H) 9.8 - 20.1 mg/dL 05/19/2022 6:[address] [facility] Creatinine 0.69 0.57 - 1.11 mg/dL 05/19/2022 6:[address] [facility] Alkaline Phosphatase 51 40 - 150 U/L 05/19/2022 6:[address] [facility] ALT 31 5 - 55 U/L 05/19/2022 6:[address] [facility] AST 28 5 - 34 U/L 05/19/2022 6:[address] [facility] Protein Total 7.1 6.4 - 8.3 gm/dL 05/19/2022 6:[address] [facility] Albumin 4.1 3.5 - 5.0 gm/dL 05/19/2022 6:[address] [facility] Globulin Total 3.0 2.6 - 4.0 gm/dL 05/19/2022 6:[address] [facility] Albumin/Globulin Ratio 1.4 0.9 - 1.6 05/19/2022 6:[address] [facility] Bilirubin Total 0.2 0.2 - 1.2 mg/dL 05/19/2022 6:[address] [facility] eGFR >90 >90 mL/min/1.7 3m2 05/19/2022 6:[address] [facility] Comment:The GFR result was c alculated using the updated CKD-EPI Creatinine Equation (2020). Blood BLOOD SPECIMEN / Unknown Venipuncture / Unknown 05/19/2022 5:53 PM ESCALATOR ATTENDANT 05/19/2022 5:57 PM [facility] us Trinity Almanza LUMBER BUYER-CHILD CARE ASSOCIATE LAB - CHEMISTRY ORDERAB LES Final Result Performing Organization Address [facility]/State/[facility] de Phone Number [facility] [address] [place] [address] from Last 3 Months or Most Recently Relevant to Health Maintenance Insurance [facility] * Guarantor: SHOSHANA ARAUJO Account Type Relation to Patient Date of Phone Billing Address Personal/Family [address] [place] [address] [facility] SELF PAY NO INSURANCE Member Subscriber Plan / Payer (Ef fective for All Dates) Name:Shoshana Araujo Member ID:Not on file Relation to Subscriber:Not on file Name:SHOSHANA ARAUJO Subscriber ID:Not on file Address: [address] [place] [address] Payer ID:Not on file Group ID:Not on file Type:Self Pay Address: [place], [place] * Guarantor: SHOSHANA ARAUJO Account Type Relation to Patient Date of Phone Billing Address Personal/Family [address] [place] [address] [facility] SELF PAY NO INSURANCE Member Subscriber Plan / Payer (Ef fective for All Dates) Name:Shoshana Araujo Member ID:Not on file Relation to Subscriber:Not on file Name:SHOSHANA ARAUJO Subscriber ID:Not on file Address: [address] [place] [address] Payer ID:Not on file Group ID:Not on file Type:Self Pay Address: [place], [place] * Guarantor: SHOSHANA ARAUJO Account Type Relation to Patient Date of Phone Billing Address Personal/Family [address] [place] [address] [facility] SELF PAY NO INSURANCE Member Subscriber Plan / Payer (Ef fective for All Dates) Name:Shoshana Araujo Member ID:Not on file Relation to Subscriber:Not on file Name:SHOSHANA ARAUJO Subscriber ID:Not on file Address: [address] [place] [address] Payer ID:Not on file Group ID:Not on file Type:Self Pay Address: [place], [place] Advance Directives * Full Code (Latest Code Status on File) Date Activated Date Inactivated Comments 09/15/2021 11:05 AM 09/16/2021 6:47 PM Care Teams Brazer Crawler Torch Relationship Specialty Start Date End Date Franki Flor MD PCP - General Family Medicine 09/16/20
--- OUTSIDE RECORDS SUMMARY | 2024-11-12 09:44 | XMS_ITS | Encounter Summary ---
Author Organization [facility] Address [address] [place] [address] Phone Care Team Providers Care Patent Agent Name Role Phone Franki Flor Primary Care Provider [phone] Joss Montoya MD Unavailable [phone] Encounter Details Date Type Department Care Team (Late st Contact Info) Description 04/13/2021 Telephone [facility] [place] [address] [place] [address] Joss Montoya MD [address] [facility] [place] [facility] [address] [place] [address] Social History Tobacco Use Types [...] CALLED TO CANCEL APPOINTMENT. COVID POSITIVE. PT'S RPG DEVELOPER IS SENDING HER TO THE HOSPITAL. WILL RESCHEDULE LATER. 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 documented in this encounter Plan of Treatment Upcoming Encounters Date Type Department Care Team (Late st Contact Info) Description 12/30/2024 2:15 PM CDT Lab [facility] [address] [phone] [facility] 12/30/2024 2:30 PM CDT Office Visit [facility] [address] [address] Joss Montoya MD [address] [place] [address] [place] [address] documented as of this encounter Visit Diagnoses Not on filedocumented in this encounter Additional Health Concerns Assessment Noted Time PHQ-9 Depression Total Score: 0 10/09/19 21 11:42 AM CDT documented as of this encounter Care Teams Patent Agent Relationship Specialty Start Date End Date Franki Flor [address] [facility] [place] [address] PCP - General Family Medicine 01/26/18 Joss Montoya MD [address] [place] [phone] Consulting Physician Oncology 06/21/22 documented as of this encounter
--- OUTSIDE RECORDS SUMMARY | 2024-11-12 09:44 | XMS_ITS | Clinical Summary ---
Author Organization [facility] Address [address] [place] [address] Care Team Providers Care Delivery Representative Name Role Phone Franki Flor MD Primary Care Provider [phone] Allergies No known active allergies Medications Potassium [...] Most Recently Relevant to Health Maintenance [place] [address] [place] [address] PLAN MEDICAID Care Teams Delivery Representative Relationship Specialty Start Date End Date Franki Flor MD [address] [place] [phone] PCP - General Family Practice 06/04/18
--- OUTSIDE RECORDS SUMMARY | 2024-11-12 09:44 | XMS_ITS | Encounter Summary ---
Author Organization [facility] Address [address] [place] [address] Phone Care Team Providers Care Public Relations Coordinator Name Role Phone Franki Flor Primary Care Provider [phone] Joss Monotya MD Unavailable [phone] Encounter Details Date Type Department Care Team (Late st Contact Info) Description 04/13/2021 Telephone [facility] [place] [address] [place] [address] Joss Montoya MD [address] [facility] [place] [facility] [address] [place] [address] Social History Tobacco Use Types [...] CANCEL APPT TODAY. PT IS COVID POSITIVE, TOY MECHANIC IS SENDING PT INTO HOSPITAL. PT WILL CALL BACK TO RESCHEDULE WHEN HOME AND FEELING BETTER S HAND documented in this encounter Plan of Treatment Upcoming Encounters Date Type Department Care Team (Late st Contact Info) Description 12/30/2024 2:15 PM CDT Lab [facility] [address] [phone] Lab, [facility] 12/30/2024 2:30 PM CDT Office Visit [facility] [address] [address] Joss Montoya MD [address] [id number] documented as of this encounter Visit Diagnoses Not on filedocumented in this encounter Additional Health Concerns Assessment Noted Time PHQ-9 Depression Total Score: 0 10/09/19 21 11:42 AM CDT documented as of this encounter Care Teams Public Relations Coordinator Relationship Specialty Start Date End Date Franki Flor [address] [place] [address] PCP - General Family Medicine 01/26/18 Joss Montoya MD [address] [place] [phone] Consulting Physician Oncology 06/21/22 documented as of this encounter
--- OUTSIDE RECORDS SUMMARY | 2024-11-12 09:44 | XMS_ITS | Clinical Summary ---
Author Organization [facility] Address [address] [facility] [address] [place] [address] Phone Care Team Providers Care Bilingual Branch Manager Name Role Phone Franki Flor Primary Care Provider [phone] Joss Montoya MD Unavailable [phone] Allergies No known active allergies Medications fenofibrate [...] PM CDT Lab [facility] [address] [address] Lab, [facility] 12/30/2024 2:30 PM CDT Office Visit [facility] [address] [phone] Joss Montoya MD [address] [facility] [address] [place] [address] [place], [place] [phone] Health Maintenance Due Date Last Done Comments [...] age to complete this topic Insurance MEDICAID [facility] Care Teams Bilingual Branch Manager Relationship Specialty Start Date End Date Franki Flor [address] [place] [address] PCP - General Family Medicine 01/26/18 Joss Montoya MD [address] [place] [address] Consulting Physician Oncology 06/21/22
--- OUTSIDE RECORDS SUMMARY | 2024-11-12 09:44 | XMS_ITS | Encounter Summary ---
Author Organization [facility] Address [address] [place] [address] Phone Care Team Providers Care Facilities And Grounds Director Name Role Phone Franki Flor Primary Care Provider [phone] Joss Montoya MD Unavailable [phone] Encounter Details Date Type Department Care Team (Late st Contact Info) Description 03/23/2021 Telephone [facility] [place] [address] [place] [address] Joss Montoya MD [address] [employer] [facility] [address] [place] [address] Social History Tobacco Use Types [...] stress test new appt is on 04/13. GENCY COMMUNICATIONS OFFICER documented in this encounter Plan of Treatment Upcoming Encounters Date Type Department Care Team (Late st Contact Info) Description 12/30/2024 2:15 PM CDT Lab [facility] [address] [address] Lab, Clementine [facility] 12/30/2024 2:30 PM CDT Office Visit [facility] [address] [phone] Joss Montoya MD [address] [place] [address] [address] documented as of this encounter Visit Diagnoses Not on filedocumented in this encounter Additional Health Concerns Assessment Noted Time PHQ-9 Depression Total Score: 0 10/09/19 21 11:42 AM CDT documented as of this encounter Care Teams Facilities And Grounds Director Relationship Specialty Start Date End Date Franki Flor [address] [place] [address] PCP - General Family Medicine 01/26/18 Joss Montoya MD [address] [place] [phone] Consulting Physician Oncology 06/21/22 documented as of this encounter
--- OUTSIDE RECORDS SUMMARY | 2024-11-12 09:44 | XMS_ITS | Clinical Summary ---
Author Organization [facility] Address [address] [place] [address] Care Team Providers Care Office Mail Clerk Name Role Phone Franki Flor MD [...] on file Legal Sex Female 12:[address] ADMINISTRATOR Gender Identity Not on file Sexual Orientation [...] patient's age to complete this topic Insurance [address] Care Teams Office Mail Clerk Relationship Specialty Start Date End Date Franki Flor MD PCP - General 08/28/07
--- OUTSIDE RECORDS SUMMARY | 2024-11-12 09:44 | XMS_ITS | Clinical Summary ---
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 Legal Sex Female 7:30 PM CDT Gender Identity Not on file Sexual Orientation Not on file Last Filed Vital Signs Vital Sign Reading Time Taken Comments Blood Pressure 111/63 04/16/2024 8:[address] MAINTENANCE SUPERVISOR Pulse 95 04/16/2024 8:[address] MAINTENANCE SUPERVISOR Temperature 36.7 C (98.1 F) 04/16/2024 6:[address] MAINTENANCE SUPERVISOR Respiratory Rate 20 04/16/2024 8:[address] MAINTENANCE SUPERVISOR Oxygen Saturation 95% 04/16/2024 8:[address] MAINTENANCE SUPERVISOR Inhaled Oxygen Concentration - - Weight 97.5 kg (215 lb) 04/16/2024 6:[address] MAINTENANCE SUPERVISOR Height 152.4 cm (5') 04/16/2024 6:[address] MAINTENANCE SUPERVISOR Body Mass Index 41.99 04/16/2024 6:[address] MAINTENANCE SUPERVISOR Plan of Treatment Health Maintenance Due Date [...] patient's age to complete this topic Insurance [address] Care Teams Imaging Clerk Relationship Specialty Start Date End Date Franki Flor MD PCP - General 09/16/14
== END 2024-11-12 09:22 | disposition home or self-care (01) ==
PROVIDERS: PCP Emergency Medicine; Visit Provider Nurse Practitioner
DX: K22.10 Ulcer of esophagus without bleeding (principal); K44.9 Diaphragmatic hernia without obstruction or gangrene; K21.9 Gastro-esophageal reflux disease without esophagitis; Z90.3 Acquired absence of stomach [part of]
CPT/HCPCS: 74240